=== PATIENT | male | born 1965 | race Caucasian/White ===

== ENCOUNTER 2024-03-01 16:07 | Outpatient (OUT) | payer BC, SELFPAY ==
--- NOTE | 2024-03-01 17:54 | US_ITS ---
The [address] [address] Patient Name: BRIDGER FOX MRN: [id number] date: 1965 Sex: M Assigned Patient Location: Current Patient Location: US Accession/Order Number: [id number] Exam Date: 03/01/2024 17:54 Report Date: 03/01/2024 18:57 At the request of: SHAIKH JAMES Procedure: US scrotum EXAM: ULTRASOUND TESTICULAR HISTORY: 58-year-old male testicular pain in both testicles. TECHNIQUE: Multiple sonographic images are taken of the testicles using both grayscale, color doppler and spectral doppler analysis. COMPARISON: None. FINDINGS: RIGHT TESTIS: The right testicle measures 2.9 x 1.4 x 1.9 cm. Testicular parenchyma is within normal limits. Blood flow to the right testis is within normal. Arterial and venous blood flow is demonstrated. There is small varicocele. There is no significant hydrocele. RIGHT EPIDIDYMIS: The right epididymis 6.2 mm. The right epididymis there is an anechoic area measures 4.0 x 3.9 x 3.8 mm. Blood flow to the epididymis is within normal limits. LEFT TESTIS: The left testis measures 2.4 x 1.7 x 2.1 cm. Parenchyma contains an anechoic area within the testicle that measures 2.8 x 2.1 x 2.7 mm. A second anechoic area is seen measuring 3.8 x 3.2 x 3.0 mm. Blood flow is within normal. Arterial and venous blood flow is demonstrated. There is no significant varicocele. There is no significant hydrocele. Lateral to the testicle, there is an anechoic area that appears to be somewhat cystic with septations measuring 1.1 x 1.0 x 1.1 cm. LEFT EPIDIDYMIS: The left epididymis measures 11 mm. Anechoic area seen within the left epididymis measuring 4.6 x 4.2 x 4.8 mm. Scrotal wall is mildly thickened measuring 6.9 mm US/US scrotum IMPRESSION: 1. Left-sided extratesticular complex mass seen lateral to the left testicle. Urology consultation is recommended. 2. Bilateral epididymal cysts versus spermatocele. 3. Bilateral varicoceles. 4. Left-sided intratesticular cysts. Urology consultation is recommended. 5. Scrotal wall thickening. Please correlate for cellulitis. Electronically authenticated by: ABHIJEET PEDROZA Date: 03/01/2024 18:57
== END 2024-03-01 16:08 | disposition home or self-care (01) ==
PROVIDERS: PCP Family Medicine; Visit Provider Internal Medicine
DX: N50.811 Right testicular pain (principal); N50.812 Left testicular pain; N50.89 Other specified disorders of the male genital organs; N50.3 Cyst of epididymis; I86.1 Scrotal varices
CPT/HCPCS: 76870

== ENCOUNTER 2024-04-15 14:46 | Outpatient (OUT) | payer BC, SELFPAY ==
--- NOTE | 2024-04-15 | US_ITS ---
The [address] [address] Patient Name: BRIDGER FOX MRN: [id number] date: 1965 Sex: M Assigned Patient Location: US Current Patient Location: US Accession/Order Number: [id number] Exam Date: 04/15/2024 14:50 Report Date: 04/15/2024 16:04 At the request of: JAMES ROCHA Procedure: US scrotum EXAMINATION: US scrotum HISTORY: TESTICULAR LESION, EPIDIDYMAL CYST, VARICOCELE, PROSTATITIS COMPARISON: 03/01/2024 TECHNIQUE: High-resolution sonographic imaging of the scrotum and contents was performed. FINDINGS: The right testicle measures 3.1 x 1.5 x 2.3 cm. Heterogeneous echotexture with no intratesticular mass. Normal color Doppler flow. Identified adjacent to the testicle is a stable The right epididymis is normal in size. 4 mm area of anechoic echogenicity, cyst. Moderate right varicocele. No right hydrocele. The left testicle measures 2.8 x 1.4 x 2.0 cm. Heterogeneous echotexture. Area of anechoic echogenicity measuring 0.7 x 0.5 to 0.4 cm with septations, a septated cyst is favored, stable. The left epididymis is normal in size. 4 mm area of anechoic echogenicity Moderate left varicocele. No left hydrocele Asymmetric thickening of the right hemiscrotum with hypervascularity US/US scrotum IMPRESSION: Bilateral varicoceles Asymmetric thickening of the right hemiscrotum possibly representing extension of the varicocele Electronically authenticated by: AUSTIN HSU Date: 04/15/2024 16:04
== END 2024-04-15 14:47 | disposition home or self-care (01) ==
LOC: US 14:46
PROVIDERS: PCP Family Medicine; Visit Provider Urology
DX: N50.9 Disorder of male genital organs, unspecified (principal); N50.3 Cyst of epididymis; I86.1 Scrotal varices; N41.1 Chronic prostatitis
CPT/HCPCS: 76870

== ENCOUNTER 2024-05-06 10:55 | Outpatient (OUT) | payer BC, SELFPAY ==
--- OUTSIDE RECORDS SUMMARY | 2024-05-06 11:11 | XMS_ITS | CCD ---
Author Organization [facility] Care Team Providers Care Cigarette Machine Filler Name Role Phone SHADI, DR AUSTIN Davis Consulting Unavailable SHADI, DR AUSTIN Davis Attending Unavailable SHADI, DR AUSTIN Davis Admitting Unavailable HUA GORDON Primary Care Physician [phone] Ramon Noeldra Unavailable Fátima Padilla Unavailable MD Hua Gordon Primary Care Provider [phone] RUMA Noel Attending Provider MD Jose Love Emergency Provider Anabela Johnson Unavailable YANET Johnson Attending Provider Paul Bennett Unavailable MD Hua Gordon Primary Care Provider [phone] RUMA Noel Attending Provider DO Bridger Dejesus Emergency Provider UnavaRUMA Garcia Attending Provider SHAIKH MCKEON Attending Unavailable PRETTY LANDRUM Attending Unavailable SHAIKH MCKEON Referring Unavailable SHAIKH MCKEON Attending Unavailable HUA GORDON Referring Unavailable HUA GORDON Primary Care Unavailable Bridger Dejesus Admitting Unavailable Bridger Dejesus Attending Unavailable Hua Gordon Primary Care Unavailable Sadie, Tondra K Admitting Unavailable Sadie, Tondra K Attending Unavailable Hua Gordon Primary Care Unavailable Siobhan Troy Admitting Unavailable Siobhan Troy Attending Unavailable NO FAMILY, PHYSICIAN Primary Care Unavailable Hua Gordon Primary Care Unavailable Bridger Dejesus Admitting Unavailable Bridger Dejesus Attending Unavailable Mendel LOJA Attending Unavailable Mendel LOJA Attending Unavailable Mendel LOJA Attending Unavailable OPAL COTTRELL Attending Unavailable Mendel LOJA Attending Unavailable Deric Shin. Attending Unavailable OPAL COTTRELL Attending Unavailable Mendel LOJA Admitting Unavailable Mendel LOJA Referring Unavailable Mendel LOJA Attending Unavailable Deric Shin Attending Unavailable Mendel LOJA Attending Unavailable Mendel LOJA Attending Unavailable Mendel LOJA Attending Unavailable Allergies Allergy Classification Reported Allergen(s) Allergy Type Date of Onset Reaction(s) Facility (20 sources) Insulin Glargine Drug Allergy chest pains [facility] [employer] Other (1 source) Insulin Glargine Drug Allergy 02-29-2024 [facility] Repository Medications Current Medications Medication Drug Class(es) Dates Sig (Normalized) Sig (Original) 0.5 ML tirzepatide 10 MG/ML Auto-Injector [Mounjaro] (11 sources) Start: 05-05-2023 Mounjaro 5 mg/0.5 mL subcutaneous solution Refills(s) 0 Start Date: 05/05/23 Status: Ordered Start: 03-26-2023 inject 5 mg by subcu taneous injection every week Mounjaro 5 MG/0.5ML 5mg Subcutaneous once weekly for 84 days pt has coupon Mar, Active inject 5 mg by subcu taneous injection every week Mounjaro 5 MG/0.5ML 5mg Subcutaneous once weekly for 84 days pt has coupon Active aspirin 81 mg chewable tablet (20 sources) Platelet Aggregation Inhibitor, Nonsteroidal Anti-inflammatory Drug Start: 02-19-2024 take 81 mg by mouth once daily Aspirin Active 81 MG PO Daily February 19, 2024 12:00am Start: 02-18-2022 take 1 mg by mouth e very four hours aspirin 81 mg oral capsule mg cap(s), Oral, q4hr, Refills(s) 0 Start Date: 02/18/22 Status: Ordered take 1 tablet by david th every twenty-four hours Aspirin 81 MG 1 tablet Orally Once a day Active atorvastatin 20 mg oral tablet (20 sources) HMG-CoA Reductase Inhibitor Start: 02-18-2022 take 1 mg by mouth once daily atorvastatin 20 mg Tab mg tab(s), Oral, Daily, Refills(s) 0 Start Date: 02/18/22 Status: Ordered blood-glucose sensor (FreeStyle Clem 3 Sensor) (2 sources) Start: 02-19-2024 blood-glucose sensor (FreeStyle Clem 3 Sensor) Active .Route February 19, 2024 12:00am cholecalciferol 0.05 mg oral tablet (13 sources) Vitamin D Start: 02-19-2024 take 2000 [IU] by mouth once daily Cholecalciferol (Vitamin D3) Active 2000 UNIT PO Daily February 19, 2024 12:00am take 1 tablet by davdi th every twenty-four hours Vitamin D 50 MCG (1999 UT) 1 tablet Orally Once a day Active Cinnamon Preparation (11 sources) Non-Standardized Food Allergenic Extract Cinnamon Active dexamethasone 6 mg oral tablet (5 sources) Corticosteroid Start: 03-09-2022 take 1 tablet by mouth every twenty-four hours Dexamethasone 6 MG 1 tablet Orally Once a day for 5 day(s) February, Active doxycycline hyclate 100 mg oral tablet (3 sources) Tetracycline-class Drug Start: 03-12-2024 End: 04-09-2024 take 1 tablet by mouth twice daily doxycycline hyclate 100 mg Tab 100 mg = 1 tab(s), Oral, BID, X 4 week(s), # 56 tab(s), Refills(s) 0, Pharmacy: [facility]/pharmacy #[id number], 167, cm, 03/12/24 10:31:00 EDT, Height/Length Dosing, 118, kg, 03/12/24 10:31:00 EDT, Weight Dosing Start Date: 03/12/24 Stop Date: 04/09/24 Status: Ordered Start: 04-29-2022 End: 05-20-2022 take 1 capsule by mouth twice daily doxycycline hyclate 100 mg Cap 100 mg = 1 cap(s), Oral, BID, X 21 day(s), # 42 cap(s), Refills(s) 0, Pharmacy: [facility]/pharmacy #[id number], 168, cm, 04/29/22 15:28:00 EDT, Height/Length Dosing, 119, kg, 04/29/22 15:28:00 EDT, Weight Dosing Start Date: 04/29/22 Stop Date: 05/20/22 Status: Ordered dutasteride 0.5 mg oral capsule (20 sources) 5-alpha Reductase Inhibitor Start: 02-27-2024 take 1 capsule by mouth once daily dutasteride 0.5 mg Cap 0.5 mg = 1 cap(s), Oral, Daily, # 30 cap(s), Refills(s) 11, Pharmacy: [facility]/pharmacy #[id number], 168, cm, 09/22/23 14:53:00 EST, Height/Length Dosing, 113.5, kg, 09/22/23 14:53:00 EST, Weight Dosing Start Date: 02/27/24 Status: Ordered Start: 11-04-2022 End: 12-12-2023 take 0.5 mg by mouth once daily Dutasteride Active 0.5 MG PO Daily February 09, 2023 12:00am empagliflozin 25 mg oral tablet (8 sources) Sodium-Glucose Cotransporter 2 Inhibitor Start: 11-05-2021 take 1 tablet by mouth every twenty-four hours Jardiance 25 MG 1 tablet Orally Once a day for 90 day(s) pt has coupon card Oct, Active FreeStyle Clem 3 Sensor - (19 sources) Start: 10-28-2022 FreeStyle Clem 3 Sensor - as directed SQ changed every 14 days for 28 days Oct, Active FreeStyle Clem 3 Sensor - as directed SQ changed every 14 days for 28 days Active NovoLog (20 sources) Insulin Analog Start: 02-18-2022 NovoLog SubCut aneous, TIDAC, Refills(s) 0 Start Date: 02/18/22 Status: Ordered NovoLOG FlexPen 100 UNIT/ML 10-15-20-25 UNITS MEAL SIZE . Corrective scale 1:15 ac tid SQ tid qac Expect up to 75 units/day Active NovoLOG FlexPen 100 UNIT/ML [id number] MEAL SIZE 1:15 SCALE UP TO 75 UNITS TOTAL A DAY SQ tid qac Active 1.5 ml insulin glargine 300 unt/ml pen injector (20 sources) Insulin Analog Start: 02-19-2024 Insulin Glargi ne U-300 Conc (Toujeo Solostar U-300 Insulin) 300 unit/mL (1.5 mL) insulin pen Active 50 UNIT SUBCUT .COMPLEX May 2nd, 2024 3:02pm 50 units subcutaneously ; Start: 2023 Toujeo Max Laura oStar 300 UNIT/ML 50 units Subcutaneous qam Oct, Active Start: 07-15-2023 Toujeo SoloSta r 300 UNIT/ML 50 units Subcutaneous In the AM for 90 days Jun, Active Start: 02-09-2023 End: 02-19-2024 Insulin Glargine U-300 Conc (Toujeo Solostar U-300 Insulin) 300 unit/mL (1.5 mL) insulin pen Discontinued UNIT SUBCUT February 09, 2023 12:00am February 19, 2024 3:06pm Start: 03-25-2022 Toujeo SoloSta r 300 UNIT/ML 45 units (expect up to 60/day) Subcutaneous qam for 90 days Mar, Active Start: 02-18-2022 Toujeo Max Laura oStar 300 units/mL subcutaneous solution SubCutaneous, Daily, Refills(s) 0 Start Date: 02/18/22 Status: Ordered Insulin Lispro (Humalog Kwikpen Insulin) 100 unit/mL insulin pen (2 sources) Start: 12-26-2023 Insulin Lispro (Humalog Kwikpen Insulin) 100 unit/mL insulin pen Active 0 SUBCUT Use as Directed December 26, 2023 1:00am 10-15-20-25 UNITS MEAL SIZE . Corrective scale 1:15 ac tid, SQ, tid qac, Notes: Expect up to 75 units/day subcutaneously use as directed; lidocaine 0.05 mg/mg medicated patch (3 sources) Antiarrhythmic, Amide Local Anesthetic Start: 02-11-2023 mounjaro 5 mg/0.5ml solution pen-injector (1 source) Mounjaro 5 MG/0. 5ML INJECT 5MG SUBCUTANEOUS ONCE WEEKLY 84 DAYS for 84 Active mounjaro 7.5 mg/0.5ml solution pen-injector (1 source) Start: 2023 inject 7.5 mg by subcutaneous injection every week Mounjaro 7.5 MG/0.5ML 7.5mg Subcutaneous once weekly Oct, Active Multivitamin (One Daily Multivitamin) tablet (2 sources) Start: 02-19-2024 take 1 tablet by mouth once daily Multivitamin (One Daily Multivitamin) tablet Active 1 TAB PO Daily February 19, 2024 12:00am Multivitamin preparation (20 sources) take 1 tablet by mouth once daily take 1 tablet by mouth once pamela y Multivitamin - 1 tablet Orally Once a day Active naproxen 500 mg oral tablet (1 source) Nonsteroidal Anti-inflammatory Drug Start: 03-03-2024 End: 03-13-2024 take 1 tablet by mouth twice daily at mealtime naproxen 500 mg Tab 500 mg = 1 tab(s), Oral, BID, Take with food, X 10 day(s), # 20 tab(s), Refills(s) 0, Pharmacy: [facility]/pharmacy #[id number], 167, cm, 03/03/24 14:33:00 EDT, Height/Length Dosing, 118, kg, 03/03/24 14:33:00 EDT, Weight Dosing Start Date: 03/03/24 Stop Date: 03/13/24 Status: Ordered Omeprazole (3 sources) Proton Pump Inhibitor Omeprazole Activ e OneTouch Verio 100 (20 sources) Start: 12-23-2014 Start: 12-23-2014 OneTouch Verio 100 Use with once touch Verio testing device SQ qid for 90 days Dec, Active pantoprazole 40 mg delayed release oral tablet (20 sources) Proton Pump Inhibitor Start: 02-19-2024 take 40 mg by mouth twice daily Pantoprazole Active 40 MG PO Twice daily February 19, 2024 3:13pm Start: 02-19-2024 End: 02-19-2024 take 40 mg by mouth three times daily Pantoprazole Discontinued 40 MG PO Three times daily February 19, 2024 12:00am February 19, 2024 3:13pm Start: 02-18-2022 End: 02-19-2024 take 1 mg by mouth once daily Pantoprazole [address] Ta b mg tab(s), Oral, Daily, Refills(s) 0 Start Date: 02/18/22 Status: Ordered take 1 tablet by david th every eight hours Pantoprazole Sodium 40 MG 1 tablet Orally tid Active pen needle, diabetic (BD Stefani 2nd Gen Pen Needle) (2 sources) Start: 02-19-2024 pen needle, diabetic (BD Stefani 2nd Gen Pen Needle) Active .Route February 19, 2024 12:00am predniSONE 10 mg oral tablet (3 sources) Start: 02-11-2023 Semaglutide (Rybelsus) 7 mg tablet (2 sources) Start: 02-19-2024 take 1 tablet by mouth once daily Semaglutide (Rybelsus) 7 mg tablet Active 7 MG PO Daily 90 90 February 19, 2024 12:00am tamsulosin hydrochloride 0.4 mg oral capsule (20 sources) alpha-Adrenergi c Jeevan Start: 05-08-2023 End: 05-02-2024 take 1 capsule by mouth twice daily tamsulosin 0.4 mg Cap 0.4 mg = 1 cap(s), Oral, BID, X 90 day(s), # 180 cap(s), Refills(s) 3, Pharmacy: [facility]/pharmacy #[id number], 168, cm, 05/05/23 15:03:00 EDT, Height/Length Dosing, 113.5, kg, 05/05/23 15:03:00 EDT, Weight Dosing Start Date: 05/08/23 Stop Date: 05/02/24 Status: Ordered Start: 02-18-2022 take 0.4 mg by mouth once pamela y Tamsulosin Active 0.4 MG PO Daily February 09, 2023 12:00am TOUJEO SOLOSTAR U-300 (20 sources) inject 50 [IU] by [place] bcutaneous injection once daily in the morning TOUJEO SOLOSTAR U-300 50 units SQ qam for 90 days Active inject 50 [IU] by [place] bcutaneous injection once daily in the morning TOUJEO SOLOSTAR U-300 50 units SQ qam Active inject 45 [IU] by [place] bcutaneous injection once daily in the morning TOUJEO SOLOSTAR U-300 45 units (expect up to 60/day) SQ qam Active inject 50 [IU] by [place] bcutaneous injection once daily in the morning TOUJEO SOLOSTAR U-300 50 units (expect up to 60/day) SQ qam Active Vitamin D (11 sources) Start: 11-04-2022 Vitamin D Inte rnational_Unit, Oral, qWeek, Refills(s) 0 Start Date: 11/04/22 Status: Ordered Vitamin D Active Completed/Discontinued Medications Medication Drug Class(es) Dates Sig (Normalized) Sig (Original) acetaminophen 325 mg / oxyCODONE hydrochloride 5 mg oral tablet (6 sources) Opioid Agonist Start: 02-09-2023 End: 02-19-2024 take 1 tablet by mouth every four to six hours Oxycodone-Acetamin ophen (Percocet) 5-325 mg tablet Discontinued 1 - 2 TAB PO EVERY 4-6 HOURS 08 03February 09, 2023 February 19, 2024 3:13pm cephalexin 500 mg oral capsule (4 sources) Cephalosporin Antibacterial Start: 11-14-2023 End: 02-19-2024 take 500 mg by mouth twice daily Cephalexin Discontinued 500 MG PO Twice daily 02 05November 14, 2023 1:00am February 19, 2024 3:02pm ciprofloxacin 500 mg oral tablet (3 sources) Quinolone Antimicrobial Start: 04-16-2024 take 1 tablet by mouth once daily Cipro 500 mg Tab 500 mg = 1 tab(s), Oral, Daily, Take 1 tablet the day before the procedure and 1 tablet after the procedure, # 2 tab(s), Refills(s) 0, Pharmacy: [facility]/pharmacy #[id number], 167, cm, 03/23/24 13:42:00 EDT, Height/Length Dosing, 118, kg, 03/23/24 13:42:00 EDT, Weight Dosing Start Date: 04/16/24 Status: Ordered Start: 03-03-2024 End: 03-13-2024 take 1 tablet by mouth every twelve hours Cipro 500 mg Tab 500 mg = 1 tab(s), Oral, q12hr, X 10 day(s), # 20 tab(s), Refills(s) 0, Pharmacy: [facility]/pharmacy #[id number], 167, cm, 03/03/24 14:33:00 EDT, Height/Length Dosing, 118, kg, 03/03/24 14:33:00 EDT, Weight Dosing Start Date: 03/03/24 Stop Date: 03/13/24 Status: Ordered cyclobenzaprine hydrochloride 5 mg oral tablet (7 sources) Muscle Relaxant Start: 11-18-2023 End: 02-19-2024 take 5 mg by mouth twice daily Cyclobenzaprine Discontinued 5 MG PO Twice daily 10 November 18, 2023 1:00am February 19, 2024 3:02pm Start: 02-11-2023 take 1 tablet by david th every twenty-four hours Cyclobenzaprine HCl 5 MG 1 tablet at bedtime as needed Orally Once a day for 30 day(s) Jan, Active ergocalciferol 1.25 mg oral capsule (12 sources) Provitamin D2 Compound take 1 capsule by mouth every week Ergocalciferol 86178 UNIT 1 capsule Orally weekly for 90 day(s) Not-Taking FreeStyle Clem 14 Day Sensor - (12 sources) Start: FreeStyle Clem 14 Day Sensor - as directed SQ Change every 14 days for 84 days February, Not-Taking FreeStyle Clem Sensor (12 sources) FreeStyle Clem Sensor use with clem reader SQ change q 14 days, check glucose ac, hs and prn Not-Taking Insulin Aspart U-100 (Novolog Flexpen U-100 Insulin) 100 unit/mL (3 mL) insulin pen (2 sources) Start: End: Insulin Aspart U-100 (Novolog Flexpen U-100 Insulin) 100 unit/mL (3 mL) insulin pen Discontinued 0 SUBCUT .COMPLEX February 19, 2024 12:00am February 19, 2024 3:12pm 1015-20-25 UNITS MEAL SIZE . Corrective scale 1:15 ac tid SQ tid qac; Expect up to 75 units/day; Insulin Glargine U-300 Conc (2 sources) Start: End: inject 50 [IU] by subcutaneous injection once daily in the morning Insulin Glargine U-300 Conc Discontinued 0 SUBCUT .COMPLEX February 19, 2024 12:00am February 19, 2024 3:05pm 50 units Subcutaneous qam; 3 ml liraglutide 6 mg/ml pen injector (20 sources) GLP-1 Receptor Agonist Start: End: Liraglutide (Victoza 3-Carlos) 0.6 mg/0.1 mL (18 mg/3 mL) pen injector Discontinued MG SUBCUT February 09, 2023 12:00am February 19, 2024 3:12pm Start: 02-18-2022 inject 1 mg by subcu taneous injection once daily Victoza mg, SubCutaneous, Daily, Refills(s) 0 Start Date: 02/18/22 Status: Ordered inject 1.8 mg by sub cutaneous injection once daily Victoza 18 MG/3ML INJECT 1.8MG UNDER SKIN EVERY DAY DIRECTED SQ daily for 30 days Active ondansetron 4 mg oral tablet (4 sources) Serotonin-3 Receptor Antagonist Start: 11-18-2023 End: 02-19-2024 take 4 mg by mouth once daily Ondansetron Hcl Discontinued 4 MG PO Daily 04 25November 18, 2023 1:00am February 19, 2024 3:12pm oxyCODONE hydrochloride 5 mg oral tablet (8 sources) Opioid Agonist Start: 11-14-2023 End: 02-19-2024 take 5 mg by mouth once daily Oxycodone Discontinued 5 MG PO Daily 04 25November 18, 2023 February 19, 2024 3:12pm Tirzepatide (2 sources) Start: 02-19-2024 End: 02-19-2024 inject 7.5 mg by subcutaneous injection every week Tirzepatide Discontinued 7.5 MG SUBCUT every week February 19, 2024 12:00am February 19, 2024 3:13pm Tirzepatide (2 sources) Start: 02-19-2024 End: 02-19-2024 inject 5 mg by subcutaneous injection every week Tirzepatide (Mounjaro) 5 mg/0.5 mL pen injector Discontinued 5 MG SUBCUT every week February 19, 2024 12:00am February 19, 2024 3:13pm INJECT 5MG SUBCUTANEOUS ONCE WEEKLY 84 DAYS; Problems Active Problems Problem Classification Problem Date Documented Date Episodic/Chronic Administrative/socia l admission (11 sources) Dietary counseling and surveillance; Translations: [Patient encounter status] Onset: 07-18-2021 Resolved: 11-05-2021 Episodic Diabetes mellitus with complications (20 sources) Disorder due to type 2 diabetes mellitus; Translations: [Type 2 diabetes mellitus with unspecified complications] Onset: 07-30-2021 Resolved: 03-25-2022 Chronic Diabetes mellitus without complication (20 sources) Type 2 diabetes mellitus; Translations: [Type 2 diabetes mellitus without complications] Onset: 07-18-2021 Resolved: 11-05-2021 02-18-2022 Chronic Diabetes mellitus without complication (5 sources) Glycosuria 03-03-2024 Episodic Disorders of lipid metabolism (20 sources) Dyslipidemia; Translations: [Hyperlipidemia] Onset: 07-18-2021 Resolved: 11-05-2021 02-18-2022 Chronic E Codes: Fall (4 sources) Fall; Translations: [Unspecified fall, initial encounter] 11-14-2023 Episodic Esophageal disorders (9 sources) Gastroesophageal reflux disease without esophagitis 02-18-2022 Chronic Genitourinary symptoms and ill-defined conditions (4 sources) Dysuria; Translations: [Dysuria] Onset: 02-29-2024 02-29-2024 Episodic Hyperplasia of prostate (20 sources) Benign prostatic hypertrophy without outflow obstruction; Translations: [Benign prostatic hyperplasia without lower urinary tract symptoms] Onset: 04-29-2022 Chronic Inflammatory conditions of male genital organs (7 sources) Chronic prostatitis; Translations: [Chronic prostatitis] Onset: 03-03-2024 Chronic Inflammatory conditions of male genital organs (5 sources) Prostatitis; Translations: [Inflammatory disease of prostate, unspecified] Onset: 04-29-2022 Episodic Nutritional deficiencies (20 sources) Vitamin D deficiency; Translations: [Vitamin D deficiency, unspecified] Onset: 07-18-2021 Resolved: 11-05-2021 Chronic Osteoarthritis (4 sources) Osteoarthritis of hip; Translations: [Osteoarthritis of hip, unspecified] 2023 Chronic Other aftercare (20 sources) Long-term current use of insulin; Translations: [residential (current) use of insulin] Episodic Other aftercare (8 sources) residential (current) use of insulin; Translations: [Insulin long-term use Z79.4] Onset: 07-18-2021 Resolved: 11-05-2021 Episodic Other diseases of veins and lymphatics (13 sources) Varicocele; Translations: [Scrotal varices] Onset: 04-29-2022 Episodic Other male genital disorders (9 sources) Impotence 02-18-2022 Chronic Other male genital disorders (13 sources) Cyst of epididymis; Translations: [Cyst of epididymis] Onset: 04-29-2022 Episodic Other male genital disorders (12 sources) Pain in testicle; Translations: [Testicular pain, unspecified] Onset: 04-29-2022 Episodic Other male genital disorders (2 sources) Disorder of male genital organ; Translations: [Disorder of male genital organs, unspecified] Onset: 03-03-2024 Episodic Other male genital disorders (5 sources) Lesion of testis 03-03-2024 Episodic Other nervous system disorders (12 sources) Chronic pain; Translations: [Other chronic pain] Chronic Other nervous system disorders (2 sources) Other chronic pain Chronic Other nutritional; endocrine; and metabolic disorders (20 sources) Obese class II; Translations: [Body mass index (BMI) 38.0-38.9, adult] Chronic Other nutritional; endocrine; and metabolic disorders (20 sources) Obesity; Translations: [Obesity, unspecified] Chronic Other nutritional; endocrine; and metabolic disorders (20 sources) Body mass index 40+ - severely obese; Translations: [Body mass index (BMI) 40.0-44.9, adult] 02-19-2024 Chronic Other nutritional; endocrine; and metabolic disorders (10 sources) Body mass index (BMI) 40.0-44.9, adult; Translations: [Body Mass Index 40.0-44.9, adult] Onset: 07-18-2021 Resolved: 11-05-2021 Chronic Other upper respiratory disease (20 sources) Sinusitis; Translations: [Allergic rhinitis, unspecified] Chronic Other upper respiratory disease (1 source) Allergic rhinitis, unspecified Onset: 03-09-2022 Resolved: 03-09-2022 Chronic Residual codes; unclassified (3 sources) Family history of cancer; Translations: [Family history of malignant neoplasm of prostate] Onset: 04-29-2022 Episodic Residual codes; unclassified (8 sources) Family history of prostate cancer 04-29-2022 Episodic Screening and history of mental health and substance abuse codes (1 source) Encounter for screening for depression Episodic Spondylosis; intervertebral disc disorders; other back problems (20 sources) Degeneration of lumbar intervertebral disc; Translations: [Inflammation of sacroiliac joint] 02-18-2022 Chronic Unclassified (5 sources) Patient encounter status 03-03-2024 Unclassified (1 source) Low back pain, unspecified; Translations: [Low back pain, unspecified] Onset: 11-14-2023 Unclassified (4 sources) Finding of sensation of bladder 03-12-2024 Urinary tract infections (10 sources) Urinary tract infectious disease; Translations: [Urinary tract infection, site not specified] Onset: 03-03-2024 11-14-2023 Episodic Varicose veins of lower extremity (13 sources) Varicose veins of bilateral lower extremities with pain; Translations: [Varicose veins of lower extremity] Onset: 06-15-2021 Episodic Past or Other Problems Problem Classification Problem Date Documented Da te Episodic/Chronic Immunizations and screening for infectious disease (1 source) Encounter for immunization; Translations: [Encounter for immunization Z23] Onset: 07-18-2021 Resolved: 07-18-2021 Episodic Spondylosis; intervertebral disc disorders; other back problems (17 sources) Acute low back pain; Translations: [Acute low back pain] Onset: 11-14-2023 02-09-2023 Episodic Results Test Name Value Interpretation Reference Range Facil ity Main OR Intraoperative Recor don 04-20-2024 Main OR Intraoperative Record Main OR Intraoperative Record IntraOp Document Type FTURO Summary Primary Physician: Mendel LOJA MD Finalized Date/Time: 04/20/24 10:06:33 Pt. Name: BRIDGER FOX/Sex: 1965 Male Med Rec #: [id number] Physician: Mendel LOJA MD Financial #: [id number] Pt. Type: O Room/Bed: / Admit/Disch: 04/20/24 07:46:28 - Institution: Case Times FTURO Entry 1 Patient Times In Room 04/20/24 09:51:00 Out Room 04/20/24 10:06:00 Procedure Times Start 04/20/24 09:55:00 Stop 04/20/24 10:00:00 Anesthesia Times Last Modified By: Ese Jaimes 04/20/24 10:06:28 Case Attendance FTURO Entry 1 Entry 2 Entry 3 Case Attendee Mendel LOJA MD, Kelsie E Troike, Kendall R Role Performed Surgeon - Primary Associate Professor Of Geography - Primary Scrub - Primary Time In 04/20/24 09:51:00 04/20/24 09:51:00 04/20/24 09:51:00 Time Out 04/20/24 10:06:00 04/20/24 10:06:00 04/20/24 10:06:00 Procedure CYSTOSCOPY LOCAL(.) CYSTOSCOPY LOCAL(.) CYSTOSCOPY LOCAL(.) Comments Last Modified By: Ese Jaimes Kelsie E Burgderfer, Kelsie E 04/20/24 10:06:28 04/20/24 10:06:28 04/20/24 10:06:28 Surgical Procedures FTURO Entry 1 Procedure Description Procedure CYSTOSCOPY LOCAL Modifiers . Surgeon Description CYSTO LOCAL Primary Procedure Yes Primary Surgeon Mendel LOJA MD Start 04/20/24 09:55:00 Stop 04/20/24 10:00:00 Anesthesia Type Local Surgical Service Urology Wound Class 2 - Clean-Contaminated Last Modified By: Ese Jaimes 04/20/24 10:04:34 General Case Data FTURO Pre-Care Text: Classifies surgical wound, implements aseptic technique, initiates traffic control Entry 1 Case Information OR URO 1 FT Case Level None Wound Class 2 - Clean-Contaminated Specialty Urology Preop Diagnosis BPH WITH OBSTRUCTION, Postop Same As Preop Yes FEELING OF INCOMPLETE EMPTYING Postop Diagnosis BPH WITH OBSTRUCTION, Outcomes Met? Yes FEELING OF INCOMPLETE EMPTYING Last Modified By: Ese Jaimes 04/20/24 09:46:38 Post-Care Text: The patient is free from signs and symptoms of infection EU IntraOp - FTURO Pre-Care Text: Implements protective measures prior to operative or invasive procedure, confirms identity before the operative or invasive procedure, verifies operative procedure, surgical site, and laterality Entry 1 EU Perioperative Protocols Procedure(s) CYSTOSCOPY LOCAL(.) Patient Identity Birthday, ID Band Verified (select at Check, Patient least 2): Participation Consents / H and P HandP, Surgery/Procedure Operative Site N/A Verified Consent Marking Verified Surgical Site Yes Laterality Verified n/a Verified Procedure Verified Yes Correct Patient Yes Position Verified Availability Equipment, Medication Time Out Mendel LOJA MD, Verified (If Participants Ese Jaimes, Applicable) Abel Hernández Time Out Complete 04/20/24 09:53:00 Allergies Reviewed? Yes Allergies Reviewed Self/Patient With Body Position Supine Prep Area PENIS Prep Agents Betadine Solution Skin. Condition Unable to Visualize Description N/A Additional None Specimens Comment N/A Specimens Collected Vitals - EU Blood Pressure 147/71 Pulse 71 bpm Respirations 14 br/min SPO2 98 % EBL 0 IandO - EU Total Intake 0 mL Total Output 0 mL Outcomes Met? Yes Last Modified By: Ese Jaimes 04/20/24 09:53:53 Post-Care Text: The patient is free from signs and symptoms of injury caused by extraneous objects Sign Out FTURO Entry 1 Before Patient Leaves OR Nurse verbally Yes Nurse verbally n/a confirms with the confirms with the team the name of team that the procedure(s) instrument, sponge, recorded and needle counts are correct (or N/A) Nurse verbally n/a Nurse verbally Yes confirms with the confirms with the team how the team whether there specimen is labeled are any equipment (including patient problems to be name), if applicable addressed Sign Out Complete 04/20/24 10:00:00 Last Modified By: Ese Jaimes 04/20/24 10:00:16 Case Comments Finalized By: Ese Jaimes Document Signatures Signed By: Ese Jaimes 04/20/24 10:06 Ese Jaimes 04/20/24 10:06 [facility] Main OR Preoperative Recordo n 04-20-2024 Main OR Preoperative Record Main OR Preoperative Record Holding Area Document Type FTURO Summary Primary Physician: Mendel LOJA MD Finalized Date/Time: 04/20/24 09:13:09 Pt. Name: BRIDGER FOX Shane/Sex: 1965 Male Med Rec #: [id number] Physician: Mendel LOJA MD Financial #: [id number] Pt. Type: O Room/Bed: / Admit/Disch: 04/20/24 07:46:28 - Institution: Case Times Holding FTURO Pre-Care Text: Verifies consent for planned procedure, identifies individual values and wishes concerning care, includes family members in perioperative teaching Secures patient's records' belongings, and valuables, maintains patient's dignity and privacy, and maintains patient confidentiality Entry 1 In Holding 04/20/24 09:01:00 Outcomes Met? Yes Last Modified By: Julio Cesar RN, Katy ADKINS 04/20/24 09:01:56 Post-Care Text: The patient participates in decisions affecting his or her perioperative plan of care The patient's right to privacy is maintained Surgery Checklist FTURO Entry 1 Patient Birthday, ID Band Procedure History and Physical, Identification: Check, Patient Verification: Surgical Consent, With Participation Patient NPO after Midnight: n/a Date/Time: 04/20/24 09:02:00 Personal Items: Glasses Complaints of Pain: No Skin Integrity Unable to Visualize Vitals - EU Blood Pressure 147/71 Pulse 71 bpm Respirations 14 br/min SPO2 Additional None RN Reviewed Yes Specimens Collected Last Modified By: JED Harrell RN, Ruthann 04/20/24 09:13:07 Finalized By: JED Harrell RN, Ruthann Document Signatures Signed By: JED Harrell RN, Ruthann 04/20/24 09:13 Normal [facility] Operative Reporton Operative Report Operative Report Patient: BRIDGER FOX Age: 58 years Sex: Male : 1965 Associated Diagnoses: None Author: Mendel LOJA MD Procedure Operative Information Details: Date/ Time: 04/20/2024 10:09:00. Pre-Op Dx: BPH w/ LUTS - N40.1, Incomplete Bladder Emptying - R39.14. Post-Op Dx: Same. Anesthesia Type: Local. Procedure: Local Cystoscopy. Complications: None. Risks/Benefits/Infor med Consent: Surgical risks, benefits, details of the procedure have been explained to the patient, Full informed consent has been obtained. Intraoperative Information Prepped: Patient is brought back to the endoscopy suite, Patient is placed in supine position, Patient prepped in the usual fashion with Betadine solution, 2% Xylocaine Jelly is placed per Urethra, After waiting several minutes the Cystoscope is introduced. The Urethra is: Normal. The Prostatic Urethra is: Obstructed, Median Lobe. The Bladder is: Trabeculated (Severe (3), Open and a few deep diverticuli diffusely. On the back wall there are 3 patches of red raised areas concerning for TCC of the bladder versus trauma from the urodynamics catheter.). The ureteral orifices: Show efflux of clear urine. Devices Implanted: None. Removal: Cystoscope is removed, The patient tolerated it well. Postoperative Information Discharge: Patient is discharged home with antibiotic coverage, Follow up arranged. We discussed doing a TURP and TURBT simultaneously. He will think about this. For now, we will get a pelvic CT scan to elucidate if he has a right inguinal hernia causing his pain versus a pronounced varicocele. He will call my nurse within a couple weeks to let her know what his decision is for management.. Normal [facility] Comment on above: Result Comment: Elec tronically Signed By: AJ JOHNSON, Mendel Gardner\Date and Time Signed: 04/20/24 10:11 EDT Insurance Correspondenceon 0 04-12-2024 Insurance Correspondence [id number]#1.00TIFF [facility] Formson 04-06-2024 Forms [id number]# 1.00TIFF [facility] ED Note-Physicianon 03-24-20 ED Note-Physician Basic Information Time Seen: Sina LEACH, Mayte Castillo 03/23/2024 13:51 Chief Complaint Urology office sent over for decreased urination. States unable to urinate in 4 hours. Has enlarged prostate. Recently dx with UTI- on abx, but believes not working. History of Present Illness Patient presents emergency department with chief complaint of urinary retention. Patient states he had realized today at work that he had been there for 4 hours and had not urinated. He spoke with the urology office. They suggested he come to the emergency department. Patient denies any fevers chills or sweats. No nausea no vomiting. No constipation or diarrhea. He does take tamsulosin 0.4 mg twice daily. He has been compliant with his medications. He denies any urinary burning, frequency, urgency. Review of Systems Constitutional: Denies weight loss, fevers, chills, sweats, malaise Eyes: Denies visual changes, eye pain, double vision, scotomas, floaters ENT: Denies runny nose, epistaxis, sinus pain, ear pain, ringing in ears, tooth ache, sore throat, pain with swallowing Cardiovascular: Denies chest pain, shortness of breath, orthopnea, edema, palpitations, loss of consciousness, claudication Respiratory: Denies cough, sputum production, wheezing, hemoptysis, shortness of breath, dyspnea on exertion Gastrointestinal: Denies abdominal pain, unintentional weight loss, difficulty swallowing, indigestion, bloating, cramping, loss of appetite, nausea, vomiting, diarrhea, constipation, hematochezia, melena Genitourinary: Denies any incontinence of urine, dysuria, hematuria, nocturia, polyuria, hesitancy, frequency, urgency, burning. + No urination x 4 hours Musculoskeletal: Denies joint pain, morning stiffness, joint swelling, decreased range of motion, crepitus Integumentary: Denies any pruritus, rashes, lesions, wounds, petechiae Neurologic: Denies any changes in sight, smell, hearing, taste, seizures, headache, paresthesia, numbness, weakness, balance disturbance Psychiatric denies any depression, change in sleep patterns, anxiety, difficulty concentrating, paranoia, anhedonia, lack of energy, cecilio Hematologic/lymphati c: Denies any purpura, petechiae, excessive bleeding, bruising Physical Exam Vitals & Measurements T: 36.8 ?C(Oral) HR: 75(Monitored) RR: 16 BP: 136/87 SpO2: 99% HT: 167 cm WT: 118 kg BMI: 42.31 Vital signs and nursing notes reviewed. General: Awake, alert, NAD. HEENT: Head is normocephalic, atraumatic. PERRL. EOMI. Sclerae are anicteric. External ears are normal. TMs are intact bilaterally. Canals are clear bilaterally. Nares are patent bilaterally. Oral mucosa is pink and moist. No lesions noted. Tongue protrudes in midline. Uvula rises with phonation. Neck is supple, no no palpable adenopathy. No JVD. Trachea is midline. Thorax: Symmetrical rise and fall Lungs: Clear to auscultation throughout all mast, no wheezes, no crackles Heart: Regular rate and rhythm. No murmur, gallop, or rub Abdomen: No tenderness on palpation. Bowel sounds are present active and normal. No organomegaly. No palpable masses. No CVA tenderness. Examination of genitalia send uncircumcised male. No penile discharge. The patient has mild tenderness on palpation to the left testicle, but states he always has this. There are no palpable masses. There is no induration or erythema of the scrotal sac. Extremities: Motor sensory pulses intact x4 extremities. No lower extremity edema. Skin: No lesions, rashes, ulcerations. No bruising or petechiae. Color appropriate, warm and dry Neuro: No oriented x3, no focal neuro deficits Psych: Mood and affect are normal Medical Decision Making MEDICAL DECISION MAKING Number and Complexity of Problems Differential Diagnosis: Acute urinary retention, acute lower urinary tract infection, SYDNEE MDM Data External documents reviewed: Not applicable My EKG interpretation: Noted in chart if applicable My CT interpretation: Noted in chart if applicable My X-ray interpretation: Noted in chart if applicable My Ultrasound interpretation: Not applicable Decision rules/scores evaluated: Noted in chart if applicable Discussed with: Not applicable Treatment and Disposition ED Course: Patient and his were interviewed. The patient was examined. Appropriate ER workup was initiated. Immediately after arrival to the emergency department, the patient was bladder scanned for 150. Immediately following that. The patient was able to void over 100 mL of urine. Later in the visit, the patient was able to void again without any difficulty. CBC, CMP and UA completely unremarkable. I discussed the results of the workup with the patient and his . I offered to do an ultrasound of the scrotum. They declined. They state they have follow-up with Dr. Loja in a repeat ultrasound already ordered through Dr. Loja and they prefer to keep that appointment. I discussed the discharge diagnosis, plan of care, home-going instructions with them. Mayra newton (more content not included)... Normal [facility] Comment on above: Result Comment: Elec tronically Signed By: Mayte Andino PA-C\.br\Date and Time Signed: 03/23/24 19:32 EDT\.br\Electronically Co-Signed By: Deric Shin DO.br\Date and Time Co-Signed: 03/24/24 06:55 EDT BMPon 03-23-2024 Anion gap [Moles/Vol] 9 mmol/L Normal 6-16 [facility] Comment on above: Performed By: #### 2 [id number] #### [facility] [address] [place] [address] Calcium [Mass/Vol] 9.3 mg/dL Normal 8.9-11.1 [facility] Comment on above: Performed By: #### 2 [id number] #### [facility] [address] [place] [address] Chloride [Moles/Vol] 104 mmol/L Normal 101-111 [facility] Comment on above: Performed By: #### 2 [id number] #### [facility] [address] [place] [address] CO2 [Moles/Vol] 29 mmol/L Normal 21-31 [facility] Comment on above: Performed By: #### 2 [id number] #### [facility] [address] [place] [address] Creatinine [Mass/Vol] 0.8 mg/dL Normal 0.5-1.3 [facility] Comment on above: Performed By: #### 2 [id number] #### [facility] [address] [place] [address] Glucose [Mass/Vol] 146 mg/dL Normal 55-199 [facility] Comment on above: Performed By: #### 2 [id number] #### [facility] [address] [place] [address] Potassium [Moles/Vol] 3.9 mmol/L Normal 3.5-5.3 [facility] Comment on above: Performed By: #### 2 [id number] #### [facility] [address] [place] [address] Sodium [Moles/Vol] 138 mmol/L Normal 135-145 [facility] Comment on above: Performed By: #### 2 [id number] #### [facility] [address] [place] [address] Urea nitrogen [Mass/Vol] 20 mg/dL Normal 5-21 [facility] Comment on above: Performed By: #### 2 [id number] #### [facility] [address] [place] [address] Urea nitrogen/Creatinine [Mass ratio] 25 No Units High 10-20 [facility] Comment on above: Performed By: #### 2 [id number] #### [facility] [address] [place] [address] CBC w/ Auto Diffon 4 Basophils/100 WBC (Bld) 0.9 % Normal 0.0-2.0 [facility] Comment on above: Performed By: #### 2 [id number] #### [facility] [address] [place] [address] Basophils/Leukocytes Auto (Bld) [Pure # fraction] 0.1 E9/L Normal 0.0-0.2 [facility] Comment on above: Performed By: #### 2 [id number] #### [facility] [address] [place] [address] Eosinophils (Bld) [#/Vol] 0.2 E9/L Normal 0.0-0.5 [facility] Comment on above: Performed By: #### 2 [id number] #### [facility] [address] [place] [address] Eosinophils/100 WBC (Bld) 2.2 % Normal 0.0-8.0 [facility] Comment on above: Performed By: #### 2 [id number] #### [facility] [address] [place] [address] Erythrocyte distribution width (RBC) [Ratio] 12.9 % Normal 10.9-14.2 [facility] Comment on above: Performed By: #### 2 [id number] #### [facility] [address] [place] [address] Hematocrit (Bld) [Volume fraction] 38.8 % Normal 37.7-49.0 [facility] Comment on above: Performed By: #### 2 [id number] #### [facility] [address] [place] [address] Hemoglobin (Bld) [Mass/Vol] 13.4 g/dL Low 13.5-17.5 [facility] Comment on above: Performed By: #### 2 [id number] #### [facility] [address] [place] [address] Lymphocytes (Bld) [#/Vol] 1.9 E9/L Normal 1.0-4.0 [facility] Comment on above: Performed By: #### 2 [id number] #### [facility] [address] [place] [address] Lymphocytes/100 WBC (Bld) 25.9 % Normal 14.0-50.0 [facility] Comment on above: Performed By: #### 2 [id number] #### [facility] [address] [place] [address] MCH (RBC) [Entitic mass] 32.1 pg Normal 27.0-34.0 [facility] Comment on above: Performed By: #### 2 [id number] #### [facility] [address] [place] [address] MCHC (RBC) [Mass/Vol] 34.6 g/dL Normal 31.4-36.0 [facility] Comment on above: Performed By: #### 2 [id number] #### [facility] [address] [place] [address] MCV (RBC) [Entitic vol] 92.9 fL Normal 80.0-100.0 [facility] Comment on above: Performed By: #### 2 [id number] #### [facility] [address] [place] [address] Monocytes (Bld) [#/Vol] 0.6 E9/L Normal 0.2-1.0 [facility] Comment on above: Performed By: #### 2 [id number] #### [facility] [address] [place] [address] Neutrophils (Bld) [#/Vol] 4.5 E9/L Normal 2.0-7.5 [facility] Comment on above: Performed By: #### 2 [id number] #### [facility] [address] [place] [address] Neutrophils/100 WBC (Bld) 62.5 % Normal 36.0-75.0 [facility] Comment on above: Performed By: #### 2 [id number] #### [facility] [address] [place] [address] Platelet mean volume (Bld) [Entitic vol] 8.7 fL Normal 6.4-10.8 [facility] Comment on above: Performed By: #### 2 [id number] #### [facility] [address] [place] [address] Platelets (Bld) [#/Vol] 155.0 E9/L Normal 150.0-500.0 [facility] Comment on above: Performed By: #### 2 [id number] #### [facility] [address] [place] [address] RBC (Bld) [#/Vol] 4.2 E12/L Low 4.3-5.9 [facility] Comment on above: Performed By: #### 2 [id number] #### [facility] [address] [place] [address] WBC corrected for nucl RBC Auto (Bld) [#/Vol] 7.2 E9/L Normal 4.0-11.0 [facility] Comment on above: Performed By: #### 2 [id number] #### [facility] [address] [place] [address] CHEMISTRYOrdered By: SYSTEM SYSTEM on 03-23-2024 Albumin [Mass/Vol] 3.9 g/dL Normal 3.3 - 5.0 gm/dL R emisol Chem Albumin/Globulin [Mass ratio] 1.6 {ratio} Normal 1.1 - 2.2 Remisol Chem ALP [Catalytic activity/Vol] 49 [iU]/d Normal 21 - 98 Int._Unit/L Remisol Chem ALT No additional P-5'-P [Catalytic activity/Vol] 22 [iU]/d Normal 6 - 46 Int._Unit/L Remisol Chem Anion gap [Moles/Vol] 9 mmol/L Normal 6 - 16 mEq/L R emisol Chem AST [Catalytic activity/Vol] 21 [iU]/d Normal 5 - 43 Int._Unit/L Remisol Chem Bilirubin [Mass/Vol] 0.7 mg/dL Normal 0.0 - 1.1 mg/dL Remisol Chem Bilirubin.direct [Mass/Vol] 0.1 mg/dL Normal 0.0 - 0.4 mg/dL Remisol Chem Bilirubin.indirect [Mass or moles/Vol] 0.6 mg/dL Normal 0.1 - 0.9 mg/dL Remisol Chem Calcium [Mass/Vol] 9.3 mg/dL Normal 8.9 - 11. 1 mg/dL Remisol Chem Chloride [Moles/Vol] 104 mmol/L Normal 101 - 1 11 mmol/L Remisol Chem CO2 [Moles/Vol] 29 mmol/L Normal 21 - 31 mmol/L Remis ol Chem Creatinine [Mass/Vol] 0.8 mg/dL Normal 0.5 - 1.3 mg/d L Remisol Chem eGFR 102 mL/min/1.73 m2 Normal >=59mL/mi n/1.73 m2 Remisol Chem Globulin (S) [Mass/Vol] 2.4 g/dL Normal 1.4 - 4.0 gm/dL Remisol Chem Glucose [Mass/Vol] 146 mg/dL Normal 55 - 199 mg/dL Re misol Chem Lactic Acid Lvl 1.0 mmol/L Normal 0.5 - 2.2 mmol/L Remisol Chem Potassium [Moles/Vol] 3.9 mmol/L Normal 3.5 - 5.3 mmol/L Remisol Chem Protein [Mass/Vol] 6.3 g/dL Normal 6.0 - 7.8 gm/dL R emisol Chem Sodium [Moles/Vol] 138 mmol/L Normal 135 - 145 mmol/L Remisol Chem Urea nitrogen [Mass/Vol] 20 mg/dL Normal 5 - 21 mg/dL Remisol Chem Urea nitrogen/Creatinine [Mass ratio] 25 mg/mg High 10 - 20 Remisol Chem Consent for Treatmenton Consent for Treatment [id number] #1.00TIFF Normal [facility] Discharge Instructionson Discharge Instructions [id number] 2#1.00TIFF Normal [facility] ED Clinical Summaryon 2023 ED Clinical Summary [place] [id number] ED Clinical Summary Person Information [facility]: [facility] Age: 58 Years : 1965 Sex: Male Language: Swedish PCP: HUA GORDON MD Marital Status: Visit Id: Visit Reason: Medical problem - minor; Urinary retention; PROSTATE PROBLEMS / PAIN Speciality: Acuity: 3 Enc Type: Emergency Med Service: Emergency Arrival: 03/23/2024 13:35:00 Discharge: 03/23/2024 16:18:16 LOS: 000 02:43 Checkin: 03/23/2024 13:35:00 Checkout: 03/23/2024 16:18:16 Dispo Type: Home (Routine DC) EVENTS: Event Name Event Status Request Date/Time Start Date/Time Complete Date/Time Arrive Complete 03/23/2024 13:35:00 03/23/2024 13:35:00 03/23/2024 13:35:00 Document Home Meds Request 03/23/2024 13:35:00 Triage Complete 03/23/2024 13:35:00 03/23/2024 13:42:14 03/23/2024 13:42:14 Bed Assign Complete 03/23/2024 13:38:13 03/23/2024 13:38:13 03/23/2024 13:38:13 Dr Exam Complete 03/23/2024 13:38:13 03/23/2024 13:51:38 03/23/2024 13:51:38 RN Exam Complete 03/23/2024 13:38:13 03/23/2024 13:50:47 03/23/2024 13:50:47 Pending Labs Complete 03/23/2024 13:49:38 03/23/2024 14:46:35 Patient Care Complete 03/23/2024 13:49:38 03/23/2024 13:51:24 Registration Complete 03/23/2024 13:51:38 03/23/2024 13:59:43 03/23/2024 13:59:43 Dr Exam Complete 03/23/2024 13:58:07 03/23/2024 13:58:07 03/23/2024 13:58:07 Reg Complete Request 03/23/2024 13:59:43 Reg Bed Request Complete 03/23/2024 13:59:43 03/23/2024 13:59:43 03/23/2024 13:59:43 Meds Admin Complete 03/23/2024 14:44:55 03/23/2024 15:11:13 Pending Labs Complete 03/23/2024 14:44:55 03/23/2024 15:32:33 Lab Complete 03/23/2024 14:44:55 03/23/2024 15:32:33 Patient Care Request 03/23/2024 14:44:55 US Cancel 03/23/2024 14:44:55 03/23/2024 15:06:30 03/23/2024 16:02:19 Pending Labs Complete 03/23/2024 15:12:08 03/23/2024 15:12:08 03/23/2024 15:32:27 Lab Complete 03/23/2024 15:12:08 03/23/2024 15:12:08 03/23/2024 15:32:27 Pending Labs Complete 03/23/2024 15:53:59 03/23/2024 15:53:59 03/23/2024 15:54:00 Discharge Complete 03/23/2024 15:56:18 03/23/2024 16:18:20 03/23/2024 16:18:20 Transfer Complete 03/23/2024 16:18:20 03/23/2024 16:18:20 03/23/2024 16:18:20 ADDRESS: [address] [place] [address] [address] [place] [id number] PHYS DOC NOTES: MEDICAL INFORMATION: Prescriptions Given: Medications to Continue with No Changes Other Medications aspirin (aspirin 81 mg oral capsule) By Mouth every 4 hours. atorvastatin (atorvastatin 20 mg Tab) By Mouth every day. doxycycline (doxycycline hyclate 100 mg Tab) 1 Tablets By Mouth 2 times a day for 4 Weeks. Refills: 0. dutasteride (dutasteride 0.5 mg Cap) 1 Capsules By Mouth every day. Refills: 11. ergocalciferol (Vitamin D) By Mouth every week. insulin glargine (Toujeo Max SoloStar 300 units/mL subcutaneous solution) Subcutaneous every day. pantoprazole (Pantoprazole [address] Tab) By Mouth every day. tamsulosin (tamsulosin 0.4 mg Cap) 1 Capsules By Mouth 2 times a day for 90 Days. Refills: 3. PATIENT EDUCATION INFORMATION: Instructions: Acute Urinary Retention, Male, [id number] Follow up: With: Address: When: Mendel LOJA [facility] [address] Business (1) In 3 days 03/26/2024 With: Address: When: HUA NGUYỄNKEL [address] [place] [id number] [employer] (1) In 3 days DIAGNOSIS: 1:Acute on chronic urinary retention Normal [facility] ED Patient Education Noteon 03-23-2024 ED Patient Education Note Urology Acute Urinary Retention, Male Acute urinary retention is when a person cannot pee (urinate) at all, or can only pee a little. This can come on all of a sudden. If it is not treated, it can lead to kidney problems or other serious problems. What are the causes? ? A problem with the tube that drains the bladder (urethra). ? Problems with the nerves in the bladder. ? Tumors. ? Certain medicines. ? An infection. ? Having trouble pooping (constipation). What increases the risk? Older men are more at risk because their prostate gland may become larger as they age. Other conditions also can increase risk. These include: ? Diseases, such as multiple sclerosis. ? Injury to the spinal cord. ? Diabetes. ? A condition that affects the way the brain works, such as dementia. ? Holding back urine due to trauma or because you do not want to use the bathroom. What are the signs or symptoms? ? Trouble peeing. ? Pain in the lower belly. How is this treated? Treatment for this condition may include: ? Medicines. ? Placing a thin, germ-free tube (catheter) into the bladder to drain pee out of the body. ? Therapy to treat mental health conditions. ? Treatment for conditions that may cause this. If needed, you may be treated in the hospital for kidney problems or to manage other problems. Follow these instructions at home: Medicines ? Take eyto-ope-idtvipu and prescription medicines only as told by your doctor. Ask your doctor what medicines you should stay away from. ? If you were given an antibiotic medicine, take it as told by your doctor. Do not stop taking it, even if you start to feel better. General instructions ? Do not smoke or use any products that contain nicotine or tobacco. If you need help quitting, ask your doctor. ? Drink enough fluid to keep your pee pale yellow. ? If you were sent home with a tube that drains the bladder, take care of it as told by your doctor. ? Watch for changes in your symptoms. Tell your doctor about them. ? If told, keep track of changes in your blood pressure at home. Tell your doctor about them. ? Keep all follow-up visits. Contact a doctor if: ? You have spasms in your bladder that you cannot stop. ? You leak pee when you have spasms. Get help right away if: ? You have chills or a fever. ? You have blood in your pee. ? You have a tube that drains pee from the bladder and these things happen: ? The tube stops draining pee. ? The tube falls out. Summary ? Acute urinary retention is when you cannot pee at all or you pee too little. ? If this condition is not treated, it can lead to kidney problems or other serious problems. ? If you were sent home with a tube (catheter) that drains the bladder, take care of it as told by your doctor. ? Watch for changes in your symptoms. Tell your doctor about them. This information is not intended to replace advice given to you by your health care provider. Make sure you discuss any questions you have with your health care provider. Document Revised: 06/27/2021 Document Reviewed: 06/27/2021 [employer] Patient Education ? 2022 [employer] Normal [facility] ED Patient Summaryon 024 ED Patient Summary [address] [address] Patient Discharge Instructions Person Information Name: BRIDGER FOX Age: 58 Years Arrival Date: 03/23/2024 13:35:00 Discharge Diagnosis: 1:Acute on chronic urinary retention Primary Care Physician: HUA GORDON MD Provider Information Primary Provider: Deric Shin DO Advanced Counter Caser:None The exam and treatment you received in the Emergency Department were for an urgent problem and are not intended as complete care. It is important that you follow up with a doctor, nurse practitioner, or physician?s metal forger's assistant for ongoing care. If your symptoms become worse or you do not improve as expected and you are unable to reach your usual health care provider, you should return to the Emergency Department. We are available 24 hours a day. BRIDGER FOX has been given the following list of patient education materials, prescriptions and follow-up instructions: Follow-up Instructions: With: Address: When: Mendel LOJA [address] [place] [id number] [employer] (1) In 3 days 03/26/2024 With: Address: When: HUA GORDON [address] [place], [place] [id number] [facility] (1) In 3 days In the event that this physician does not participate in your insurance network, please consult with your insurance company to find a nearby participating provider. Patient Education Materials: Acute Urinary Retention, Male, Ugbr-sz-Mecm A MESSAGE TO ALL PATIENTS REGARDING OPIOIDS PRESCRIPTION OPIOIDS: WHAT YOU NEED TO KNOW Prescription opioids can be used to help relieve ncmnzeru-ak-bjydtr pain and are often prescribed following a surgery or injury, or for certain health conditions. These medications can be an important part of the treatment but also come with serious risks. It is important to work with your healthcare provider to make sure you are getting the safest, most effective care. WHAT ARE THE RISKS AND SIDE EFFECTS OF OPIOID USE? Prescription opioids carry serious risks of addiction and overdose, especially with prolonged use. An opioid overdose, often marked by slowed breathing, can cause sudden . The use of prescription opioids can have a number of side effects as well, even when taken as directed: ? Tolerance?meaning you might need to take more of the medication for the same pain relief ? Physical dependence?meaning you have symptoms of withdrawal when a medication is stopped ? Increased sensitivity to pain ? Constipation ? Nausea, vomiting, and dry mouth ? Sleepiness and dizziness ? Confusion ? Depression ? Low levels of testosterone that can result in lower sex drive, energy, and strength ? Itching and sweating RISKS ARE GREATER WITH: ? History of drug misuse, substance use disorder, or overdose ? Mental health conditions (such as depression or anxiety) ? Sleep apnea ? Older age (65 years and older) ? Avoid alcohol while taking prescription opioids. Also, unless specifically advised by your health care provider, medications to avoid include: ? Benzodiazepines (such as Xanax or Valium) ? Muscle relaxants (such as Soma or Flexeril) ? Hypnotics (such as Ambien or Lunesta) ? Other prescription opioids KNOW YOUR OPTIONS Talk to your health care provider about ways to manage your pain that don?t involve prescription opioids. Some of these options may actually work better and have fewer risks and side effects. Options may include: ? Pain relievers such as acetaminophen, ibuprofen, and naproxen ? Some medication that are also used for depression or seizures ? Physical therapy and exercise ? Cognitive behavioral therapy, a psychological, goal-directed approach, in which patients learn how to modify physical, behavioral, and emotional triggers of pain and stress. IF YOU ARE PRESCRIBED OPIOIDS FOR PAIN: ? Never take opioids in greater amounts or more often than prescribed. ? Follow up with your primary health care provider. o Work together to create a plan on how to manage your pain. o Talk about ways to help manage your pain that don?t involve prescription opioids. o Talk about any and all concerns and side effects. ? Help prevent misuse and abuse o Never sell or share prescription opioids. o Never use another person?s prescription opioids. ? Store prescription opioids in a secure place and out of reach of others (this may include visitors, children, friends, and family). ? Safely dispose of unused prescription opioids: Find your community drug take-back program or your pharmacy mail-back program, or flush them down the toilet, following guidance from the Food and Drug Administration (www.fda.gov/Drugs/R esourcesForYou). ? Visit www.cdc.gov/drugover dose to learn about the risks of opioids abuse and overdose. ? If you believe you may be struggling with (more content not included)... Normal [facility] HEMATOLOGYOrdered By: Maria Samuels on 03-23-2024 Basophils/100 WBC (Bld) 0.9 % Normal 0.0 - 2.0 % Remisol Heme Basophils/Leukocytes Auto (Bld) [Pure # fraction] 0.1 E9/L Normal 0.0 - 0.2 E9/L Remisol Heme Eosinophils (Bld) [#/Vol] 0.2 E9/L Normal 0.0 - 0.5 E9/L Remisol Heme Eosinophils/100 WBC (Bld) 2.2 % Normal 0.0 - 8.0 % Remisol Heme Erythrocyte distribution width (RBC) [Ratio] 12.9 % Normal 10.9 - 14.2 % Remisol Heme Hematocrit (Bld) [Volume fraction] 38.8 % Normal 37.7 - 49.0 % Remisol Heme Hemoglobin (Bld) [Mass/Vol] 13.4 g/dL Low 13.5 - 17.5 gm/dL Remisol Heme Lymphocytes (Bld) [#/Vol] 1.9 E9/L Normal 1.0 - 4.0 E9/L Remisol Heme Lymphocytes/100 WBC (Bld) 25.9 % Normal 14.0 - 50.0 % Remisol Heme MCH (RBC) [Entitic mass] 32.1 pg Normal 27.0 - 34.0 pg Remisol Heme MCHC (RBC) [Mass/Vol] 34.6 g/dL Normal 31.4 - 36.0 gm/dL Remisol Heme MCV (RBC) [Entitic vol] 92.9 fL Normal 80.0 - 100.0 fL Remisol Heme Monocytes (Bld) [#/Vol] 0.6 E9/L Normal 0.2 - 1.0 E9/L Remisol Heme Monocytes/100 WBC (Bld) 8.5 % Normal 4.0 - 14.0 % Remisol Heme Neutrophils (Bld) [#/Vol] 4.5 E9/L Normal 2.0 - 7.5 E9/L Remisol Heme Neutrophils/100 WBC (Bld) 62.5 % Normal 36.0 - 75.0 % Remisol Heme Platelet mean volume (Bld) [Entitic vol] 8.7 fL Normal 6.4 - 10.8 fL Remisol Heme Platelets (Bld) [#/Vol] 155.0 E9/L Normal 150.0 - 500.0 E9/L Remisol Heme RBC (Bld) [#/Vol] 4.2 E12/L Low 4.3 - 5.9 E12/L Re misol Heme WBC corrected for nucl RBC Auto (Bld) [#/Vol] 7.2 E9/L Normal 4.0 - 11.0 E9/L Remisol H logan Hep Func Panelon 03-23-2024 Albumin [Mass/Vol] 3.9 g/dL Normal 3.3-5.0 [facility] Comment on above: Performed By: #### 2 [id number] #### [facility] Laboratory [address] [place] [address] Albumin/Globulin (S) [Mass conc ratio] 1.6 Normal 1.1-2.2 [facility] Comment on above: Performed By: #### 2 [id number] #### [facility] [address] [place] [address] ALP [Catalytic activity/Vol] 49 Int._Unit/L Normal 21-98 [facility] Comment on above: Performed By: #### 2 [id number] #### [facility] [address] [place] [address] ALT No additional P-5'-P [Catalytic activity/Vol] 22 Int._Unit/L Normal 6-46 [facility] Comment on above: Performed By: #### 2 [id number] #### [facility] [address] [place] [address] AST [Catalytic activity/Vol] 21 Int._Unit/L Normal 5-43 [facility] Comment on above: Performed By: #### 2 [id number] #### [facility] [address] [place] [address] Bilirubin [Mass/Vol] 0.7 mg/dL Normal 0.0-1.1 [facility] Comment on above: Performed By: #### 2 [id number] #### [facility] [address] [place] [address] Bilirubin.direct [Mass/Vol] 0.1 mg/dL Normal 0.0-0.4 [facility] Comment on above: Performed By: #### 2 [id number] #### [facility] [address] [place] [address] Bilirubin.indirect [Mass or moles/Vol] 0.6 mg/dL Normal 0.1-0.9 [facility] Comment on above: Performed By: #### 2 [id number] #### [facility] [address] [place] [address] Globulin (S) [Mass/Vol] 2.4 g/dL Normal 1.4-4.0 [facility] Comment on above: Performed By: #### 2 [id number] #### [facility] [address] [place] [address] Protein [Mass/Vol] 6.3 g/dL Normal 6.0-7.8 [facility] Comment on above: Performed By: #### 2 [id number] #### [facility] [address] [place] [address] Lactic Acidon 03-23-2024 Lactic Acid Lvl 1.0 mmol/L Normal 0.5-2.2 [facility] Comment on above: Performed By: #### 2 [id number] ####[facility] [address] [place] [address] Prescriptions/Work Noteson 0 03-23-2024 Prescriptions/Work Notes [id number] 4#1.00TIFF Normal [facility] Prescriptions/Work Notes [id number] 2#1.00TIFF Normal [facility] Prescriptions/Work Notes [id number] 1#1.00TIFF Normal [facility] UA with Cult Rflxon 03-23-20 24 Bilirubin Ql (U) Negative Normal Negative [facility] Comment on above: Performed By: #### 4 [id number] #### [facility] [address] [place] [address] Clarity (U) Clear Normal Clear [facility] Comment on above: Performed By: #### 4 [id number] #### [facility] [address] [place] [address] Color (U) Light-Yellow Normal Yellow [facility] Comment on above: Result Comment: Micr oscopic readings are only performed on those samples that meet specific criteria set forth by [facility]. Performed By: #### 4 [id number] #### [facility] [address] [place] [address] Glucose Ql (U) Negative Normal Negative [facility] Comment on above: Performed By: #### 4 [id number] #### [facility] [address] [place] [address] Hemoglobin Auto test strip (U) [Mass/Vol] Negative Normal Negative [facility] Comment on above: Performed By: #### 4 [id number] #### [facility] [address] [place] [address] Ketones Auto test strip Ql (U) Negative Normal Negative [facility] Comment on above: Performed By: #### 4 [id number] #### [facility] [address] [place] [address] Leukocyte esterase Auto test strip Ql (U) Negative Normal Negative [facility] Comment on above: Performed By: #### 4 [id number] #### [facility] [address] [place] [address] Nitrite Auto test strip Ql (U) Negative Normal Negative [facility] Comment on above: Performed By: #### 4 [id number] #### [facility] [address] [place] [address] pH (U) 5.0 [pH] Invalid Interpretation Code 5.0-9.0 [facility] Comment on above: Performed By: #### 4 [id number] #### [facility] [address] [place] [address] Protein Ql (U) Negative Normal Negative [facility] Comment on above: Performed By: #### 4 [id number] #### [facility] [address] [place] [address] Specific gravity (U) [Rel density] 1.028 Invalid Interpretation Code 1.005-1.030 [facility] Comment on above: Performed By: #### 4 [id number] #### [facility] [address] [place] [address] Urobilinogen (U) [Mass/Vol] Negative Normal Negative [facility] Comment on above: Performed By: #### 4 [id number] #### [facility] [address] [place] [address] Type of Urine collection method Clean Catch Normal [facility] Comment on above: Performed By: #### 4 [id number] #### [facility] [address] [place] [address] URINALYSISOrdered By: SYSTEM SYSTEM on 03-23-2024 Bilirubin Ql (U) Negative Normal Negativemg/dL [facility] UA Auto SS Clarity (U) Clear (03/23/24 2:23 PM) Normal Clear [facility] UA Auto SS Color (U) Light-Yellow 1 (03/23/24 2:23 PM) Normal Yellow [facility] UA Auto SS Comment on above: Interpretive Data: M icroscopic readings are only performed on those samples that meet specific criteria set forth by [facility]. Glucose Ql (U) Negative Normal Negativemg/dL [facility] UA Auto SS Hemoglobin Auto test strip (U) [Mass/Vol] Negative Normal Negativemg/dL [facility] UA Aut o SS Ketones Auto test strip Ql (U) Negative Normal Negativemg/dL [facility] UA Auto SS Leukocyte esterase Auto test strip Ql (U) Negative Normal NegativeLeu/uL [facility] UA A uto SS Nitrite Auto test strip Ql (U) Negative Normal Negativemg/dL [facility] UA Auto SS pH (U) 5.0 *NA* (03/23/24 2:23 PM) Invalid Interpretation Code 5.0 - 9.0 [facility] UA Auto SS Protein Ql (U) Negative Normal Negativemg/dL [facility] UA Auto SS Specific gravity (U) [Rel density] 1.028 *NA* (03/23/24 2:23 PM) Invalid Interpretation Code 1.005 - 1.030 [facility] UA Auto SS Urobilinogen (U) [Mass/Vol] Negative Normal Negativemg/dL [facility] UA Auto SS URINALYSISOrdered By: Deric Shin on 03-23-2024 UA Spec Desc Clean Catch (03/23/24 2:23 PM) Normal [facility] UA Auto SS eGFRon 03-23-2024 eGFR 102 mL/min/1.73 m2 Normal >=59 [facility] Comment on above: Order Comment: Order added by Discern Expert. Performed By: #### 1 [id number] #### [facility] Laboratory [address] [place] [address] Ambulatory Visit Summaryon 0 03-12-2024 Ambulatory Visit Summary BRIDGER FOX :1965 Visit Date:03/12/2024 Ambulatory Visit Instructions Your Diagnosis Prostatitis Testicular pain BPH with obstruction/lower urinary tract symptoms Testicular lesion Feeling of incomplete bladder emptying Epididymal cyst Varicocele Prostate nodule Tests Performed US Scrotum (Contents) -- Results Pending -- Please visit your patient portal for your results or contact your primary care physician. Your Care Team Attending Physician - Mendel LOJA MD Primary Care Physician - HUA GORDON MD This Is Your Medications List ciprofloxacin (Cipro 500 mg Tab) dutasteride (dutasteride 0.5 mg Cap) tamsulosin (tamsulosin 0.4 mg Cap) Contact prescribing physician if questions or concerns aspirin (aspirin 81 mg oral capsule) atorvastatin (atorvastatin 20 mg Tab) ergocalciferol (Vitamin D) insulin glargine (Toujeo Max SoloStar 300 units/mL subcutaneous solution) pantoprazole (Pantoprazole [address] Tab) Procedures Performed Transrectal needle biopsy of prostate (04/09/2022), Cholecystectomy, Fusion of lumbar spine, History of hernia repair, History of tonsillectomy. Discharge Vitals Heart Rate (Peripheral) 63 Respiratory Rate 16 Blood Pressure 135/82 Height 167 cm Height 66 in Weight 118 kg Weight 259.6 lb BMI 42.31 What to do next Scheduled Follow-Up Appointments Friday 2:45 PM EST With: Mendel LOJA MD Where: [facility] [place] Normal [facility] Ambulatory Visit Summary BRIDGER FOX :1965 MRN:[id number] Visit Date:03/12/2024 Ambulatory Visit Instructions Your Diagnosis Prostatitis Testicular pain BPH with obstruction/lower urinary tract symptoms Testicular lesion Feeling of incomplete bladder emptying Epididymal cyst Varicocele Prostate nodule Your Care Team Attending Physician - Mendel LOJA MD Primary Care Physician - HUA GORDON MD This Is Your Medications List Contact prescribing physician if questions or concerns aspirin (aspirin 81 mg oral capsule) atorvastatin (atorvastatin 20 mg Tab) ciprofloxacin (Cipro 500 mg Tab) dutasteride (dutasteride 0.5 mg Cap) ergocalciferol (Vitamin D) insulin glargine (Toujeo Max SoloStar 300 units/mL subcutaneous solution) pantoprazole (Pantoprazole [address] Tab) tamsulosin (tamsulosin 0.4 mg Cap) Procedures Performed Transrectal needle biopsy of prostate (04/09/2022), Cholecystectomy, Fusion of lumbar spine, History of hernia repair, History of tonsillectomy. Discharge Vitals Heart Rate (Peripheral) 63 Respiratory Rate 16 Blood Pressure 135/82 Height 167 cm Height 66 in Weight 118 kg Weight 259.6 lb BMI 42.31 What to do next Scheduled Follow-Up Appointments Friday 2:45 PM EST With: Mendel LOJA MD Where: [facility] Patient Educationon 03-12-20 Patient Education Urology Transurethral Resection of the Prostate Transurethral resection of the prostate (TURP) is the removal, or resection, of part of the prostate tissue. This procedure is done to treat an enlarged prostate gland (benign prostatic hyperplasia). The goal of TURP is to remove enough prostate tissue to allow for a normal flow of urine. The procedure will allow you to empty your bladder more completely when you urinate so that you can urinate less often. In a transurethral resection, a thin telescope with a light, a camera, and an electric cutting edge (resectoscope) is passed through the urethra and into the prostate. The opening of the urethra is at the end of the penis. Tell a health care provider about: ? Any allergies you have. ? All medicines you are taking, including vitamins, herbs, eye drops, creams, and xerp-itn-qvvqgtp medicines. ? Any problems you or family members have had with anesthetic medicines. ? Any bleeding problems you have. ? Any surgeries you have had. ? Any medical conditions you have. ? Any prostate infections you have had. What are the risks? Generally, this is a safe procedure. However, problems may occur, including: ? Infection. ? Bleeding. ? Allergic reactions to medicines. ? Blood in the urine (hematuria). ? Damage to nearby structures or organs. Other problems may occur, but they are rare. They include: ? Dry ejaculation, or having no semen come out during orgasm. ? Erectile dysfunction, or being unable to have or keep an erection. ? Scarring that leads to narrowing of the urethra. This narrowing may block the flow of urine. ? Inability to control when you urinate (incontinence). ? Deep vein thrombosis. This is a blood clot that can develop in your leg. ? TURP syndrome. This can happen when you lose too much sodium during or after the procedure. Some signs and symptoms of this condition include: ? Weakness. ? Headaches. ? Nausea or vomiting. ? Muscle cramping. What happens before the procedure? When to stop eating and drinking Follow instructions from your health care provider about what you may eat and drink before your procedure. These may include: ? 8 hours before your procedure ? Stop eating most foods. Do not eat meat, fried foods, or fatty foods. ? Eat only light foods, such as toast or crackers. ? All liquids are okay except energy drinks and alcohol. ? 6 hours before your procedure ? Stop eating. ? Drink only clear liquids, such as water, clear fruit juice, black coffee, plain tea, and sports drinks. ? Do not drink energy drinks or alcohol. ? 2 hours before your procedure ? Stop drinking all liquids. ? You may be allowed to take medicines with small sips of water. If you do not follow your health care provider's instructions, your procedure may be delayed or canceled. Medicines Ask your health care provider about: ? Changing or stopping your regular medicines. This is especially important if you are taking diabetes medicines or blood thinners. ? Taking medicines such as aspirin and ibuprofen. These medicines can thin your blood. Do not take these medicines unless your health care provider tells you to take them. ? Taking noyn-auk-bdyhlrp medicines, vitamins, herbs, and supplements. Surgery safety Ask your health care provider what steps will be taken to help prevent infection. These steps may include: ? Removing hair at the surgery site. ? Washing skin with a germ-killing soap. ? Taking antibiotic medicine. General instructions ? Do not use any products that contain nicotine or tobacco for at least 4 weeks before the procedure. These products include cigarettes, chewing tobacco, and vaping devices, such as e-cigarettes. If you need help quitting, ask your health care provider. ? If you will be going home right after the procedure, plan to have a responsible adult: ? Take you home from the hospital or clinic. You will not be allowed to drive. ? Care for you for the time you are told. What happens during the procedure? ? An IV will be inserted into one of your veins. ? You will be given one or more of the following: ? A medicine to help you relax (sedative). ? A medicine to make you fall asleep (general anesthetic). ? A medicine that is injected into your spine to numb the area below and slightly above the injection site (spinal anesthetic). ? Your legs will be placed in foot rests (stirrups) so that your legs are apart and your knees are bent. ? The resectoscope will be passed through your urethra to your prostate. ? Parts of your prostate will be resected using the cutting edge of the resectoscope. ? Fluid will be passed to rinse out the cut tissues (irrigation). ? The resectoscope will be removed. ? A small, thin tube (catheter) will be passed through your urethra and into your bladder. The catheter will drain urine into a bag outside of your body. The procedure may vary among health care (more content not included)... [facility] Provider Letteron 03-12-2024 Provider Letter March 12, 2024 BRIDGER FOX [address] [place] [address] [place] [address] : 1965 To Whom It May Concern, Please excuse above patient from work. Date of Illness: From: 03/12/24 To: 03/12/24 May Return to Work On: 03/13/24 Restrictions: None Comments: Patient had an appointment with Dr. Loja on 03/12/24. Sincerely, [facility] [address] [place] [address] [place] [address] , Option #3 [facility] Urology Office/Clinic Noteon 03-12-2024 Urology Office/Clinic Note Chief Complaint 2wk f/u to testicular lesion HPI Staff 2 week f/u to seeing [facility] for re-referral due to Rt testicular lesion. Dx: UTI, testicular pain, testicular lesion, epididymal cyst, varicocele, BPH with obstruction/LUTS, chronic prostatitis and prostate nodule Dutasteride 0.5mg qd, Tamsulosin 0.4mg BID (states he just restarted Dutasteride. Unsure if he is taking Tamsulosin 1or 2x/day) Tx'd w/Cipro therapy from for +C&S done at Urgent Care. (Urgent care sent Bactrim-pt states he took Cipro instead) NSAIDS & Scrotal support also recommended for testicular pain. Lt testicular pain subsided 2 days after beginning abx therapy. Rt testicular pain started today. Not as painful as Lt initially was. Getting up at least 2x/night to void. Frequency during day is Denies pain/burning and visible blood in urine. Denies straining to void. History of Present Illness Tests reviewed: reviewed UA I have reviewed the previous health record information and history for this patient from Dr. Loja and ESTER Thomas. I have reviewed and verified the staff HPI to be accurate for this encounter. Review of Systems ROS - Provider Constitutional: denies weight loss, denies hot flashes. Eyes: denies eye problems. Gastrointestinal: denies nausea, denies vomiting. Cardiovascular: denies chest pain or angina. Integumentary: no dryness Musculoskeletal: denies musculoskeletal symptoms. ENMT: denies otolaryngeal symptoms. Respiratory: no shortness of breath. Heme/Lymph: denies easy bleeding tendency, denies easy bruising tendency. Psychiatric: no confusion, no anxiety. Genitourinary: See HPI. Physical Exam Vitals & Measurements HR: 63(Peripheral) RR: 16 BP: 135/82 HT: 66 in HT: 167 cm WT: 118 kg WT: 259.6 lb BMI: 42.31 General Appearance: alert, no distress, well nourished, well developed male. Genitourinary: normal scrotum, normal testes, normal urethra, normal epididymis, normal vas deferens/spermatic cord. Flank Pain: none. Bladder: nonpalpable. Assessment/Plan 1. Prostatitis (N41.1: Chronic prostatitis) Tx'd w Doxy x 3 wks in April 2022. UCx 11/04/23 - >100k E. coli, pansensitive, tx'd w/ Keflex x7 days. 02/29/24 - >100k E. coli, tx'd w/ Cipro L Scrotal wall mildly thickened measuring 6.9 mm, possible cellulitis per US 03/01/24. However on IO exam 03/03/24 there was not significant erythema, warmth, or induration to scrotal wall. Was soft, not tense. L testicle was tender diffusely throughout and along the epididymis. Today pt states left testicular pain improved after abx course but feels right side is becoming tender. Unsure if he is emptying. Was voiding hourly. Denies hesitation. Gets up at least 2x/night to void. Discussed cysto/uros to evaluate bladder and prostate obstruction which may be contributing to current changes in urination. -Take doxycycline 100mg bid x4 wks. Take probiotics daily. Avoid sun exposure. -Will schedule cystoscopy/urodynami cs. The risks and benefits have been discussed. The risks include bleeding, infection, and irritation of the bladder and urinary channel, among others. The patient, after being informed of procedural details and after questions have been answered, wishes to proceed. Full informed consent has been obtained. Will order Local anesthesia. 2. Testicular pain (N50.819: Testicular pain, unspecified) See #1. 3. BPH with obstruction/lower urinary tract symptoms (N40.1: Benign prostatic hyperplasia with lower urinary tract symptoms) Taking Tamsulosin 0.4mg bid and Dutasteride 0.5mg qd. Urinary sxs have changed recently, likely secondary to prostatitis. See #1. 4. Testicular lesion (N50.9: Disorder of male genital organs, unspecified) Scrotal US 01/11/22 [facility] - There is 5 x 4 mm size cyst L testicle. Scrotal US 03/01/24 [facility] - L testicular parenchyma contains an anechoic area measuring 2.8 x 2.1 x 2.7 mm. A second anechoic area measuring 3.8 x 3.2 x 3.0 mm. Lateral to L testicle, there is an anechoic area that appears to be somewhat cystic with septations measuring 1.1 x 1.0 x 1.1 cm. will repeat the scrotal echo in one month. 5. Feeling of incomplete bladder emptying (R39.14: Feeling of incomplete bladder emptying) See #1. 6. Epididymal cyst (N50.3: Cyst of epididymis) Scrotal US 01/11/22 [facility] - left epididymal head cyst and measures 4mm. Scrotal US 03/01/24 [facility] - An anechoic area within R epididymis measuring 4.0 x 3.9 x 3.8 mm. An anechoic area within L epididymis measuring 4.6 x 4.2 x 4.8 mm. -chronic. unchanged. unlikely to be causing his sx. [1] 7. 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 Scrotal US 03/01/24 [facility] - Small R varicocele. no L varicocele mentioned in body of US report but in Impression it says 'bilateral' so report unclear. -chronic. unchanged. unlikely to be causing his sx. [2] 8. Prostate nodule (N40.2: Nodular prostate without lower urinary tract symptoms) [facility] 02/18/22 - 35gms, (more content not included)... Normal [facility] Comment on above: Result Comment: Elec tronically Signed By: Mendel LOJA MD\.br\Date and Time Signed: 03/12/24 11:21 EDT\.br\Electronically Co-Signed By: Marielle Robertson\.br\Date and Time Co-Signed: 03/12/24 11:17 EDT Consultation Noteon 03-08-20 Consultation Note [id number] 20#1.00TIFF Normal [facility] ED Note-Physicianon 03-08-20 ED Note-Physician [id number] 78#1.00TIFF Normal [facility] ED Note-Physician [id number] 29#1.00TIFF Normal [facility] Lab Reportson 03-08-2024 Lab Reports [id number] 84#1.00TIFF [facility] Physician Referralon 024 Physician Referral [id number] #1.00TIFF [facility] RAD - CT Reporton 03-08-2024 RAD - CT Report [id number] 68#1.00TIFF Normal [facility] RAD - CT Report [id number] 58#1.00TIFF [facility] RAD - Ultrasound Reporton RAD - Ultrasound Report [id number]# 1.00TIFF [facility] Lab Reportson 03-04-2024 Lab Reports [id number] #1.00TIFF [facility] RAD - Ultrasound Reporton RAD - Ultrasound Report [id number]# 1.00TIFF [facility] Screenson 03-04-2024 Screens [id number] 0#1.00TIFF [facility] Ambulatory Visit Summaryon 0 03-03-2024 Ambulatory Visit Summary BRIDGER FOX :1965 Visit Date:03/03/2024 Ambulatory Visit Instructions Your Diagnosis Testicular lesion Prostatitis Testicular pain BPH with obstruction/lower urinary tract symptoms Screening PSA (prostate specific antigen) Prostate nodule Family history of prostate cancer Varicocele Epididymal cyst Glucosuria Your Care Team Attending Physician - OPAL COTTRELL PA-C Primary Care Physician - HUA GORDON MD This Is Your Medications List Contact prescribing physician if questions or concerns aspirin (aspirin 81 mg oral capsule) atorvastatin (atorvastatin 20 mg Tab) dutasteride (dutasteride 0.5 mg Cap) ergocalciferol (Vitamin D) insulin glargine (Toujeo Max SoloStar 300 units/mL subcutaneous solution) pantoprazole (Pantoprazole [address] Tab) tamsulosin (tamsulosin 0.4 mg Cap) Procedures Performed Transrectal needle biopsy of prostate (04/09/2022), Cholecystectomy, Fusion of lumbar spine, History of hernia repair, History of tonsillectomy. Discharge Vitals Heart Rate (Peripheral) 72 Respiratory Rate 16 Blood Pressure 133/89 Height 167 cm Height 66 in Weight 118 kg Weight 259.6 lb BMI 42.31 What to do next Scheduled Follow-Up Appointments Friday 10:15 AM EDT With: AJ [place], Mendel Mendez Where: [facility] Normal [address] [place] [address] [place] [address]- \.br\ You Need to Schedule the Following Appointments\.b r\ Follow Up with SIMBA LEACH, OPAL Castro, URL When: \.br\ Where:\.br\ [address]br\ [place] [address]\.br\ [id number]\.br\ Medications\.br \ What How Much When Instructions\.b r\ Unchanged aspirin (aspirin 81 mg oral capsule) By Mouth Every 4 hours Contact prescribing physician if questions or concerns \.br\ Unchanged atorvastatin (atorvastatin 20 mg Tab) By Mouth Every day Contact prescribing physician if questions or concerns \.br\ Unchanged dutasteride (dutasteride 0.5 mg Cap) 1 Capsules By Mouth Every day Contact prescribing physician if questions or concerns \.br\ Unchanged ergocalciferol (Vitamin D) By Mouth Every week Contact prescribing physician if questions or concerns \.br\ Unchanged insulin glargine (Toujeo Max SoloStar 300 units/ mL subcutaneous solution) Subcutaneous Every day Contact prescribing physician if questions or concerns \.br\ Unchanged pantoprazole (Pantoprazole [address] Tab) By Mouth Every day Contact prescribing physician if questions or concerns \.br\ Unchanged tamsulosin (tamsulosin 0.4 mg Cap) 1 Capsules By Mouth 2 times a day Duration: 90 Days Contact prescribing physician if questions or concerns \.br\ Allergies\.br\ No Known Allergies\.br\ Problems\.br\ Ongoing - Any problem that you are currently receiving treatment for.\.br\ BPH with obstruction/low er urinary tract symptoms\.br\ DDD (degenerative disc disease), lumbar\.br\ Dyslipidemia\.b r\ ED (erectile dysfunction)\.b r\ Epididymal cyst\.br\ Family history of prostate cancer\.br\ GERD without esophagitis\.br \ Glucosuria\.br\ Prostate nodule\.br\ Prostatitis\.br \ Screening PSA (prostate specific antigen)\.br\ Testicular lesion\.br\ Testicular pain\.br\ Type 2 diabetes mellitus\.br\ Varicocele\.br\ Varicose veins of leg with pain\.br\ Patient Survey\.br\ You may receive a survey via text or e-mail asking about your office visit. Please share your experience with us by completing your survey. We appreciate your feedback and thank you for choosing us for your care.\.br\ Education Materials\.br\ Testicular Self-Exam\.br\ A self-examinatio n of your testicles (testicular self-exam) involves looking at and feeling your testicles for abnormal lumps or swelling. Several things can cause swelling, lumps, or pain in your testicles. Some of these causes are:\.br\ ? \.br\ Injuries.\.br\ ? \.br\ Inflammation.\. br\ ? \.br\ Infection.\.br\ ? \.br\ Buildup of fluids around the testicle (hydrocele).\.b r\ ? \.br\ Twisted testicles (testicular torsion).\.br\ ? \.br\ Testicular cancer. You may be at risk for testicular cancer if you have:\.br\ ? \.br\ An undescended testicle (cryptorchidism ).\.br\ ? \.br\ A history of previous testicular cancer.\.br\ ? \.br\ A family history of testicular cancer.\.br\ General tips and recommendations \.br\ ? \.br\ The testicles are easiest to examine after a warm bath or shower. They are more difficult to examine when you are cold because the muscles attached to the testicles retract and pull them up higher or into the abdomen.\.br\ ? \.br\ A normal testicle is egg-shaped and feels firm. It is smooth and not tender.\.br\ ? \.br\ It is normal to feel a firm, spaghetti-like cord at the back of your testicle. This is the spermatic cord.\.br\ How to do a testicular self-exam\.br\ \.br\ 1. \.br\ Stand and hold your penis away from your body.\.br\ 2. \.br\ Look at each testicle to check for changes in appearance, such as swelling or changes in size or shape.\.br\ 3. \.br\ Roll each testicle between your thumb and forefinger, feeling the entire testicle. Feel for:\.br\ ? \.br\ Lumps.\.br\ ? \.br\ Swelling.\.br\ ? \.br\ Discomfort.\.br \ 4. \.br\ Check the groin area between your abdomen and upper thighs on both sides of your body. Look and feel for any swelling or bumps that are tender. These could be enlarged lymph nodes.\.br\ Contact a health care provider if:\.br\ ? \.br\ You find any bumps or lumps, such as a small, hard, pea-sized lump.\.br\ ? \.br\ You find swelling, pain, or soreness.\.br\ ? \.br\ You see or feel any other changes in your testicles.\.br\ Summary\.br\ ? \.br\ A self-examinatio n of your testicles (testicular self-exam) involves looking at and feeling your testicles for any changes.\.br\ ? \.br\ Check each of your testicles for lumps, swelling, or discomfort. These changes can be caused by many things.\.br\ ? \.br\ Check for swelling or tender bumps in your groin area between your lower abdomen and upper thighs.\.br\ This information is not intended to replace advice given to you by your health care provider. Make sure you discuss any questions you have with your health care provider.\.br\ Document Revised: 09/11/2020 Document Reviewed: 09/11/2020 [employer] Patient Education ? 2022 [employer] Inc.\.br\ \.br\ [facility] C peptide [Mass/Vol]on 03-03 C PEPTIDE 0.9 ng/mL Low 1.1-4.4 [facility] Comment on above: Result Comment: NOTE Test Performed By: [facility] [address] [place] [address] Slide Developer: Kristyn Womack III #[id number] Performed By: #### Arthur [place], 37851-5 #### [facility] ([id number]) [address] [place] [address], [address] [place] [address] #### 1986-9 #### [facility] ([id number]) [address] [place] [address] COMPREHENSIVE METABOLIC PANE Jt 03-03-2024 Albumin [Mass/Vol] 4.2 g/dL Normal 3.2-5.3 [facility] Comment on above: Performed By: #### Arthur JEFFRIES, 69410-6 #### [facility] ([id number]) [address] [facility] [address] [place] [address] #### 1985-9 #### [facility] ([id number]) [address] [place] [address] ALP [Catalytic activity/Vol] 65 U/L Normal 39-130 [facility] Comment on above: Performed By: #### Arthur JEFFRIES, 83299-7 #### [facility] ([id number]) [address] [facility], [address] [place] [address] #### 1985-9 #### [facility] ([id number]) [address] [place] [address]110 ALT [Catalytic activity/Vol] 24 U/L Normal 0-40 [facility] Comment on above: Performed By: #### Arthur JEFFRIES, 94600-3 #### [facility] ([id number]) [address] [facility], [address] [place] [address] #### 9 #### [facility] ([id number]) [address] [place] [address]39 Anion gap [Moles/Vol] 9 mmol/L Normal 5-15 [facility] Comment on above: Performed By: #### Arthur JEFFRIES, 58315-5 #### [facility] ([id number]) [address] [facility], [address] [place] [address] #### 1986-06 #### [facility] ([id number]) [address] [place] [address] 55583 AST [Catalytic activity/Vol] 22 U/L Normal 0-41 [facility] Comment on above: Performed By: #### Arthur JEFFRIES, 00116-4 #### [facility] ([id number]) [address] [facility], [address] [place] [address] #### 9 #### [facility] ([id number]) [address] [place] [address]454 Bilirubin [Mass/Vol] 0.7 mg/dL Normal 0.3-1.2 [facility] Comment on above: Performed By: #### Arthur JEFFRIES, 96316-2 #### [facility] ([id number]) [address], [address] [place] [address] #### 1986-06 #### [facility] ([id number]) [address] [place] [address]7786 Calcium [Mass/Vol] 9.4 mg/dL Normal 8.5-10.5 [facility] Comment on above: Performed By: #### Arthur JEFFRIES, 07672-3 #### [facility] ([id number]) [address] [facility], [address] [place] [address] #### 1986-06 #### [facility] ([id number]) [address] [place] [address]174 Chloride [Moles/Vol] 106 mmol/L Normal 98-109 [facility] Comment on above: Performed By: #### Arthur JEFFRIES, 61177-8 #### [facility] ([id number]) [address] [facility], [address] [place] [address] #### 1985-9 #### [facility] ([id number]) [address] [place] [address] 10593 CO2 [Moles/Vol] 29 mmol/L Normal 22-32 [facility] Comment on above: Performed By: #### Arthur JEFFRIES, 50581-5 #### [facility] ([id number]) [address] [facility], [address] [place] [address] #### 1985-9 #### [facility] ([id number]) [address] [place] [address] 23019 Creatinine [Mass/Vol] 0.79 mg/dL Normal 0.60-1.30 [facility] Comment on above: Result Comment: METH OD TRACEABLE TO IDMS STANDARD Performed By: #### Arthur JEFFRIES, 62745-4 #### [facility] ([id number]) [address] [facility], [address] [place] [address] #### 1985-9 #### [facility] ([id number]) [address] [place] [address]645 eGFR (CKD-EPI) NON-RACE DEPENDENT >90 Normal >59 [facility] Comment on above: Result Comment: Reported eGFR is based on the CKD-EPI 2020 equation that does not use a race coefficient. Performed By: #### Arthur JEFFRIES, 33495-1 #### [facility] ([id number]) [address] [facility], [address] [place] [address] #### 1985-9 #### [facility] ([id number]) [address] [place] [address] 63635 Glucose [Mass/Vol] 126 mg/dL High 65-99 [facility] Comment on above: Performed By: #### Arthur JEFFRIES, 57753-2 #### [facility] ([id number]) [address], [address] [place] [address] #### 1985-9 #### [facility] ([id number]) [address] [place] [address] 98499 Potassium [Moles/Vol] 4.1 mmol/L Normal 3.5-5.0 [facility] Comment on above: Performed By: #### Arthur JEFFRIES, 22162-0 #### [facility] ([id number]) [address] [facility] [place] [address] #### 1985-9 #### [facility] ([id number]) [address] [place] [address]88 Protein [Mass/Vol] 6.9 g/dL Normal 6.0-8.0 [facility] Comment on above: Performed By: #### Arthur JEFFRIES, 18682-3 #### [facility] ([id number]) [address], [address] [place] [address] #### 9 #### [facility] ([id number]) [address] [place] [address] 51679 Sodium [Moles/Vol] 144 mmol/L Normal 134-146 [facility] Comment on above: Performed By: #### Arthur JEFFRIES, 19111-8 #### [facility] ([id number]) [address], [address] [place] [address] #### 1986-06 #### [facility] ([id number]) [address] [place] [address] 64779 Urea nitrogen [Mass/Vol] 18 mg/dL Normal 5-23 [facility] Comment on above: Performed By: #### Arthur JEFFRIES, 87377-5 #### [facility] ([id number]) [facility] [facility], [address] [place] [address] #### 1986-9 #### [facility] ([id number]) [address] [place] [address] 05594 Lipid 1996 panelon 4 Cholesterol [Mass/Vol] 125 mg/dL Low 150-200 [facility] Comment on above: Performed By: #### Arthur JEFFRIES, 98603-2 #### [facility] ([id number]) [address] [place] [address], [address] [place] [address] #### 1986-9 #### [facility] ([id number]) [address] [place] [address] 58312 Cholesterol in HDL [Mass/Vol] 48 mg/dL Normal >39 [facility] Comment on above: Result Comment: HDL <40 mg/dL - High Risk HDL > or = 40mg/dL- Desirable HDL >60 mg/dL - Negative Risk Performed By: #### Arthur JEFFRIES, 82655-3 #### [facility] ([id number]) [address], [address] [place] [address] #### 1986-9 #### [facility] ([id number]) [address] [place] [address]2007 Cholesterol in LDL [Mass/Vol] 59 mg/dL Normal <130 [facility] Comment on above: Result Comment: LDL <100 mg/dL - Desirable LDL >160 mg/dL - High Risk Performed By: #### Arthur JEFFRIES, 90759-4 #### [facility] ([id number]) [address] [facility], [address] [place] [address] #### 1985-9 #### [facility] ([id number]) [address] [place] [address] 42580 Cholesterol in VLDL [Mass/Vol] 18 mg/dL Normal 0-30 [facility] Comment on above: Performed By: #### Arthur JEFFRIES, 34873-0 #### [facility] ([id number]) [address] [facility] [address] [place] [address] #### 1985-9 #### [facility] ([id number]) [address] [place] [address] 08225 CHOLESTEROL:HDL 2.6 Normal 1.0-5.0 [facility] Comment on above: Performed By: #### Arthur JEFFRIES, 56923-5 #### [facility] ([id number]) [address] [place] [address], [facility] [address] [place] [address] #### 1985-9 #### [facility] ([id number]) [address] [place] [address] 02469 Triglyceride [Mass/Vol] 91 mg/dL Normal 27-150 [facility] Comment on above: Performed By: #### Arthur JEFFRIES, 54736-3 #### [facility] ([id number]) [address] [place] [address] [address] [place] [address] #### 9 #### [facility] ([id number]) [address] [place] [address] 33321 MICROALBUMIN - ALBUMIN:CREAT ININE URINE RATIOon 03-03-2024 ALB/CREAT RATIO NOT CALCULATED Normal 0.0-30.0 [facility] Comment on above: Result Comment: Result for Albumin/Creatinine Ratio cannot be reliably calculated because urine albumin and or urine creatinine is below the detection limit of the assay. Performed By: #### M ALBU #### [facility] ([id number]) [address], [address] [place] [address] Albumin DL <= 20 mg/L (U) [Mass/Vol] mg/dL Normal 0.0-1.9 [facility] Comment on above: Performed By: #### M ALBU #### [facility] ([id number]) [address] [address] [place] [address] URINE CREAT 119.54 mg/dL Normal [facility] Comment on above: Performed By: #### M ALBU #### [facility] ([id number]) [address] [facility] [address] [address] Patient Educationon 03-03-20 Patient Education Urology Testicular Self-Exam A self-examination of your testicles (testicular self-exam) involves looking at and feeling your testicles for abnormal lumps or swelling. Several things can cause swelling, lumps, or pain in your testicles. Some of these causes are: ? Injuries. ? Inflammation. ? Infection. ? Buildup of fluids around the testicle (hydrocele). ? Twisted testicles (testicular torsion). ? Testicular cancer. You may be at risk for testicular cancer if you have: ? An undescended testicle (cryptorchidism). ? A history of previous testicular cancer. ? A family history of testicular cancer. General tips and recommendations ? The testicles are easiest to examine after a warm bath or shower. They are more difficult to examine when you are cold because the muscles attached to the testicles retract and pull them up higher or into the abdomen. ? A normal testicle is egg-shaped and feels firm. It is smooth and not tender. ? It is normal to feel a firm, spaghetti-like cord at the back of your testicle. This is the spermatic cord. How to do a testicular self-exam 1. Stand and hold your penis away from your body. 2. Look at each testicle to check for changes in appearance, such as swelling or changes in size or shape. 3. Roll each testicle between your thumb and forefinger, feeling the entire testicle. Feel for: ? Lumps. ? Swelling. ? Discomfort. 4. Check the groin area between your abdomen and upper thighs on both sides of your body. Look and feel for any swelling or bumps that are tender. These could be enlarged lymph nodes. Contact a health care provider if: ? You find any bumps or lumps, such as a small, hard, pea-sized lump. ? You find swelling, pain, or soreness. ? You see or feel any other changes in your testicles. Summary ? A self-examination of your testicles (testicular self-exam) involves looking at and feeling your testicles for any changes. ? Check each of your testicles for lumps, swelling, or discomfort. These changes can be caused by many things. ? Check for swelling or tender bumps in your groin area between your lower abdomen and upper thighs. This information is not intended to replace advice given to you by your health care provider. Make sure you discuss any questions you have with your health care provider. Document Revised: 09/11/2020 Document Reviewed: 09/11/2020 [employer] Patient Education ? 2022 [employer]. [facility] Urine Cultureon 02-29-2024 Bacteria identified Cx Nom (U) ORGANISM: Escherichia coli (O:ESCCOL) [place] Count >100,000 Aerobic IVANA Charge (NMIC56) ----- SUSCEPTIBILITY ---- ORGANISM: O:ESCCOL ANTIBIOTIC INTERPRETATION IVANA Amikacin S <16 Amoxacillin/K Clavulanate S <8 Ampicillin S <8 Ampicillin/Sulbactam S <4 Aztreonam S <4 Cefazolin S <2 Cefepime S <2 Ceftazidime S <1 Ceftazidime/Avibacta m S <4 Ceftolozane/Tazobact am S <2 Ceftriaxone S <1 Cefuroxime S <4 Ciprofloxacin S <0.25 Ertapenem S <0.5 Gentamicin S <2 Levofloxacin S <0.5 Meropenem S <1 Meropenem/Vaborbacta m S <2 Nitrofurantoin S <32 Piperacillin/Tazobac lynne S <8 Tetracycline S <4 Tigecycline S <2 Tobramycin S <2 Trimethoprim/Sulfame thoxazole S <0.5 S = SUSCEPTIBLE I = INTERMEDIATE R = RESISTANT BLANK = DATA NOT AVAILABLE, OR DRUG NOT ADVISABLE OR TESTED R* = RESISTANCE DUE TO EXTENDED SPECTRUM BETA-LACTAMASES ESBL = EXTENDED SPECTRUM BETA-LACTAMASE TFG = THYMIDINE-DEPENDENT STRAIN CIARA = BETA-LACTAMASE POSITIVE IB = INDUCIBLE BETA-LACTAMASE. APPEARS IN PLACE OF 'S' WITH SPECIES KNOWN TO POSSESS INDUCIBLE BETA-LACTAMASES. POTENTIALLY THEY MAY BECOME RESISTANT TO ALL B-LACTAM DRUGS. PERFORMED BY: [place] [address] PATHOLOGIST FUR OPERATOR CHELY ALVARADO M.D. Normal [facility] Comment on above: Performed By: #### C UU #### [place] [address] [place] HbA1c HPLC (Bld) [Mass fract ion]on 02-19-2024 HbA1c (Bld) [Mass fraction] 7.5 % [facility] No Panel Informationon 02-18 Bedside Glucose 124 [facility] Basic Metabolic Panelon 10-22 Anion gap [Moles/Vol] 9.6 mmol/L Normal 6.0-15.0 [facility] Comment on above: Performed By: #### B MP, CBC #### [place] [address] [place] Calcium [Mass/Vol] 9.1 mg/dL Normal 8.6-10.3 [facility] Comment on above: Performed By: #### B MP, CBC #### [place] [address] [place] Chloride [Moles/Vol] 107 mmol/L Normal 98-107 [facility] Comment on above: Performed By: #### B MP, CBC #### [place] [address] [place] CO2 [Moles/Vol] 26.1 mmol/L Normal 21.0-31.0 [facility] Comment on above: Performed By: #### B MP, CBC #### [address] Creatinine [Mass/Vol] 0.66 mg/dL Low 0.70-1.30 [facility] Comment on above: Performed By: #### B MP, CBC #### [place] [address] [place] Creatinine Clr Calc Pharmacy 146.88 Normal [facility] Comment on above: Result Comment: PERF ORMED BY: [place] [address] PATHOLOGIST FUR OPERATOR CHELY ALVARADO M.D. Performed By: #### B MP, CBC #### [place] [address] [place] GFR/1.73 sq M.predicted MDRD (S/P/Bld) [Vol rate/Area] mL/min/{1.73_m2} Normal [facility] Comment on above: Performed By: #### B MP, CBC #### [address] Glucose [Mass/Vol] 106 mg/dL High 70-100 [facility] Comment on above: Result Comment: [place] Glucose Reference Range is dependent on time and content of last meal. Glucose of more than 200 mg/dL in a nonstressed, ambulatory subject supports the diagnosis of Diabetes Mellitus. ADA recommended reference range Performed By: #### B MP, CBC #### [place] [address] [place] Potassium [Moles/Vol] 3.7 mmol/L Normal 3.5-5.1 [facility] Comment on above: Performed By: #### B MP, CBC #### [place] [address] [place] Sodium [Moles/Vol] 139 mmol/L Normal 136-145 [facility] Comment on above: Performed By: #### B MP, CBC #### [place] [address] [place] Urea nitrogen [Mass/Vol] 14 mg/dL Normal 7-25 [facility] Comment on above: Performed By: #### B MP, CBC #### [facility] [address] [id number] [facility] CT abdomen pelvis wo conon 0 11-18-2023 CT abdomen pelvis wo con [facility] Main [place] [id number] Scan Report Signed Patient: Bridger Fox MR#: [id number] 106 : 1965 Acct:[id number] Age/Sex: 58 / M ADM Date: 11/17/23 Loc: ER Room: Type: [facility] ER Attending Dr: Copies to: Bridger Dejesus DO Ordering Provider: Bridger Dejesus DO Date of Service: 11/17/23 CT/CT abdomen pelvis wo con: r/o R stone CT Abdomen and Pelvis withoutcontrast TECHNIQUE: Axial imaging with 2-D reconstruction. . The CT exam was performed using one or more the following dose reduction techniques: Automated exposure control, adjustment of the MA and/or Kv according to patient size, or use of the iterative reconstruction technique. COMPARISON: 11/14/23 History: RIGHT flank pain a prior injury. LIMITATIONS: None LOWER THORAX mild atelectasis. Coronary artery calcification. LIVER: Hepatic dome out of the [id number]. Visualized liver unremarkable. GALLBLADDER: Cholecystectomy clips identified. BILE DUCTS: No dilatation SPLEEN: Unremarkable PANCREAS: Unremarkable ADRENAL GLANDS: Unremarkable KIDNEYS:Unremarkable AORTA: No abdominal aortic aneurysm identified. RETROPERITONEUM: No significant retroperitoneal abnormalities identified. MESENTERY:Unremarkab le SMALL BOWEL: The small bowel loops are nondistended. APPENDIX: The appendix is normal. COLON: Unremarkable URINARY BLADDER: Urinary bladder is unremarkable. REPRODUCTIVE SYSTEM: Reproductive structures are unremarkable. PNEUMOPERITONEUM: None PERITONEAL FLUID:None BONY STRUCTURES: Thoracolumbar degenerative changes. L5-S1 posterior fusion. Bilateral hip and SI joint degeneration. ABDOMINAL WALL: Prior umbilical hernia repair CT/CT abdomen pelvis wo con IMPRESSION: No acute findings. No nephrolithiasis or obstructive uropathy. Impression dictated by: Adama Alanis M.D.11/18/2023 8:01 AM Dictation Location: [place] [address] Transcribed By: [facility] 11/18/23 0801 Dictated By: Adama Alanis DO 11/18/23 0754 Signed By: 11/18/23 0801 Normal [facility] Complete Blood Count Auto Di ffon 11-18-2023 Basophils (Bld) [#/Vol] 0.1 10*3/uL Normal 0.0-0.2 [facility] Comment on above: Result Comment: PERF ORMED BY: [place] [address] PATHOLOGIST FUR OPERATOR CHELY ALVARADO M.D. Performed By: #### B MP, CBC #### [address] Basophils/100 WBC (Bld) 0.9 % Normal . [facility] Comment on above: Performed By: #### B MP, CBC #### [address] Eosinophils (Bld) [#/Vol] 0.1 10*3/uL Normal 0.0-0.45 [facility] Comment on above: Performed By: #### B MP, CBC #### [place] [address] [place] Eosinophils/100 WBC (Bld) 1.7 % Normal . [facility] Comment on above: Performed By: #### B MP, CBC #### [address] Erythrocyte distribution width (RBC) [Ratio] 13.2 % Normal 12.0-14.8 [facility] Comment on above: Performed By: #### B MP, CBC #### [place] [address] [place] Hematocrit (Bld) [Volume fraction] 40.0 % Normal 38.8-50.0 [facility] Comment on above: Performed By: #### B MP, CBC #### [address] Hemoglobin (Bld) [Mass/Vol] 13.8 g/dL Normal 13.0-17.0 [facility] Comment on above: Performed By: #### B MP, CBC #### [address] Lymphocytes (Bld) [#/Vol] 1.8 10*3/uL Normal 1.00-4.8 [facility] Comment on above: Performed By: #### B MP, CBC #### [address] Lymphocytes/100 WBC (Bld) 23.4 % Normal . [facility] Comment on above: Performed By: #### B MP, CBC #### [place] [address] [place] MCH (RBC) [Entitic mass] 31.7 pg Normal 27.5-35.2 [facility] Comment on above: Performed By: #### B MP, CBC #### [address] MCV (RBC) [Entitic vol] 92.3 fL Normal 83.5-101 [facility] Comment on above: Performed By: #### B MP, CBC #### [address] Mean Corpuscular HGB Conc 34.4 g/dL Normal 32.5-35.6 [facility] Comment on above: Performed By: #### B MP, CBC #### [address] Monocytes (Bld) [#/Vol] 0.6 10*3/uL Normal 0.0-0.8 [facility] Comment on above: Performed By: #### B MP, CBC #### [place] [address] [place] Monocytes/100 WBC (Bld) 16.03 % Normal 0.00-20.00 [facility] Comment on above: Performed By: #### B MP, CBC #### [place] [address] [place] Monocytes/100 WBC (Bld) 8.3 % Normal . [facility] Comment on above: Performed By: #### B MP, CBC #### [address] [place] [address] [place] Neutrophils (Bld) [#/Vol] 5.1 10*3/uL Normal 1.8-7.7 [facility] Comment on above: Performed By: #### B MP, CBC #### [address] Neutrophils/100 WBC (Bld) 65.7 % Normal . [facility] Comment on above: Performed By: #### B MP, CBC #### [address] NRBC% 0.1 /100{WBC} Normal 0-0.5 [facility] Comment on above: Performed By: #### B MP, CBC #### [address] Platelet mean volume (Bld) [Entitic vol] 8.0 fL Normal 6.6-10.1 [facility] Comment on above: Performed By: #### B MP, CBC #### [place] [address] [place] Platelets (Bld) [#/Vol] 168 10*3/uL Normal 150-450 [facility] Comment on above: Performed By: #### B MP, CBC #### [address] RBC (Bld) [#/Vol] 4.34 10*6/uL Normal 3.90-5.60 [facility] Comment on above: Performed By: #### B MP, CBC #### [place] [address] [place] WBC (Bld) [#/Vol] 7.8 10*3/uL Normal 4.1-10.5 [facility] Comment on above: Performed By: #### B MP, CBC #### [place] [address] [place] Dipstick and Microscopicon 0 11-18-2023 Appearance (U) Clear Normal Clear [facility] Comment on above: Order Comment: Name Collection Type:: Clean-Voided Midstream Performed By: #### A DDONUAPLUS, CUU #### [place] [address] [place] Bacteria,Urine None Seen Normal None Seen [facility] Comment on above: Order Comment: Name Collection Type:: Clean-Voided Midstream Performed By: #### A DDONUAPLUS, CUU #### [address] Bilirubin,Urine Negative Normal Negative [facility] Comment on above: Order Comment: Name Collection Type:: Clean-Voided Midstream Performed By: #### A DDONUAPLUS, CUU #### [address] Color (U) Yellow Normal Yellow [facility] Comment on above: Order Comment: Name Collection Type:: Clean-Voided Midstream Performed By: #### A DDONUAPLUS, CUU #### [address] Glucose Ql (U) Normal Normal Normal [facility] Comment on above: Order Comment: Name Collection Type:: Clean-Voided Midstream Performed By: #### A DDONUAPLUS, CUU #### [address] Hyaline Casts,Urine 0-8 Normal 0-8 [facility] Comment on above: Order Comment: Name Collection Type:: Clean-Voided Midstream Result Comment: PERF ORMED BY: [place] [address] PATHOLOGIST FUR OPERATOR CHELY ALVARADO M.D. Performed By: #### A DDONUAPLUS, CUU #### [address] Ketones Ql (U) Negative Normal Negative [facility] Comment on above: Order Comment: Name Collection Type:: Clean-Voided Midstream Performed By: #### A DDONUAPLUS, CUU #### [address] Leukocyte esterase Test strip Ql (U) 1+ High Negative [facility] Comment on above: Order Comment: Name Collection Type:: Clean-Voided Midstream Performed By: #### A DDONUAPLUS, CUU #### [place] [address] [place] Nitrite,Urine Negative Normal Negative [facility] Comment on above: Order Comment: Name Collection Type:: Clean-Voided Midstream Performed By: #### A DDONUAPLUS, CUU #### [address] Occult Blood,Urine Negative Normal Negative [facility] Comment on above: Order Comment: Name Collection Type:: Clean-Voided Midstream Result Comment: PERF ORMED BY: [place] [address] PATHOLOGIST FUR OPERATOR CHELY ALVARADO M.D. Performed By: #### A DDONUAPLUS, CUU #### [address] pH (U) 5.0 [pH] Normal 5.0-9.0 [facility] Comment on above: Order Comment: Name Collection Type:: Clean-Voided Midstream Performed By: #### A DDONUAPLUS, CUU #### [place] [address] [place] Protein,Urine Negative Normal Negative [facility] Comment on above: Order Comment: Name Collection Type:: Clean-Voided Midstream Performed By: #### A DDONUAPLUS, CUU #### [place] [address] [place] RBC,Urine None Seen Normal 0-4 [facility] Comment on above: Order Comment: Name Collection Type:: Clean-Voided Midstream Performed By: #### A DDONUAPLUS, CUU #### [place] [address] [place] Specificy [place],Urine 1.007 Normal 1.001-1.030 [facility] Comment on above: Order Comment: Name Collection Type:: Clean-Voided Midstream Performed By: #### A DDONUAPLUS, CUU #### [address] Squamous Epithelial Cell,Urine 1-2 Normal 0-2 [facility] Comment on above: Order Comment: Name Collection Type:: Clean-Voided Midstream Performed By: #### A DDONUAPLUS, CUU #### [address] Urobilinogen,Urine Normal Normal Normal [facility] Comment on above: Order Comment: Name Collection Type:: Clean-Voided Midstream Performed By: #### A DDONUAPLUS, CUU #### [address] WBC,Urine 5-9 High 0-4 [facility] Comment on above: Order Comment: Name Collection Type:: Clean-Voided Midstream Performed By: #### A DDONUAPLUS, CUU #### [address] Urine Cultureon 11-18-2023 Bacteria identified Cx Nom (U) <9,000 colonies/ml mixed bacterial skin contaminants 2 Days PERFORMED BY: [place] [address] PATHOLOGIST FUR OPERATOR CHELY ALVARADO M.D. Normal [facility] Comment on above: Performed By: #### A DDONUAPLUS, CUU #### [address] Automated erythrocytes count in urine sediment (number/area)Ordered By: Bridger Dejesus on 2023 RBC Auto (Urine sed) [#/Area] None seen [HPF] 0-4 [facility] Automated leukocytes count i n urine sediment (number/area)Ordered By: Bridger Dejesus on 2023 WBC Auto (Urine sed) [#/Area] 5-9 [HPF] 0-4 [facility] Basophils Auto (Bld) [#/Vol] Ordered By: Bridger Dejesus on 2023 Basophils (Bld) [#/Vol] 0.1 10*3/uL 0.0-0.2 [facility] Basophils/100 WBC Auto (Bld) Ordered By: Bridger Dejesus on 2023 Basophils/100 WBC (Bld) 0.9 % . [facility] Bilirubin Test strip Ql (U)O rdered By: Bridger Dejesus on 2023 Bilirubin Ql (U) Negative Negative [facility] Calcium [Mass/volume] in Ser um or PlasmaOrdered By: Bridger Dejesus on 2023 Calcium [Mass/Vol] 9.1 mg/dL 8.6-10.3 [facility] Carbon dioxide, total [Moles /volume] in Serum or PlasmaOrdered By: Bridger Dejesus on 2023 CO2 [Moles/Vol] 26.1 mmol/L 21.0-31.0 [facility] Chloride [Moles/volume] in S alexander or PlasmaOrdered By: Bridger Dejesus on 2023 Chloride [Moles/Vol] 107 mmol/L 98-107 [facility] Color Auto (U)Ordered By: Nirmal Dejesus on 2023 Color (U) Yellow Yellow [facility] Creatinine [Mass/volume] in Serum or PlasmaOrdered By: Bridger Dejesus on 2023 Creatinine [Mass/Vol] 0.66 mg/dL 0.70-1.30 [facility] Eosinophils Auto (Bld) [#/Vo l]Ordered By: Bridger Dejesus on 2023 Eosinophils (Bld) [#/Vol] 0.1 10*3/uL 0.0-0.45 [facility] Eosinophils/100 WBC Auto (Bl d)Ordered By: Bridger Dejesus on 2023 Eosinophils/100 WBC (Bld) 1.7 % . [facility] Erythrocyte distribution wid th Auto (RBC) [Ratio]Ordered By: Bridger Dejesus on 2023 Erythrocyte distribution width (RBC) [Ratio] 13.2 % 12.0-14.8 [facility] Glucose - FINGER STICKon Glucose [Mass/Vol] 142 mg/dL [employer] Other Glucose [Mass/volume] in Ser um or PlasmaOrdered By: Bridger Dejesus on 2023 Glucose [Mass/Vol] 106 mg/dL 70-100 [facility] Comment on above: ADA recommended refe rence rangeRandom Glucose Reference Range is dependent on time and content of last meal. Glucose of more than 200 mg/dL in a nonstressed, ambulatory subject supports the diagnosis of Diabetes Mellitus. Hematocrit Auto (Bld) [Volum e fraction]Ordered By: Bridger Dejesus on 2023 Hematocrit (Bld) [Volume fraction] 40.0 % 38.8-50.0 [facility] Hemoglobin [Mass/volume] in BloodOrdered By: Bridger Dejesus on 2023 Hemoglobin (Bld) [Mass/Vol] 13.8 g/dL 13.0-17.0 [facility] Ketones Auto test strip (U) [Mass/Vol]Ordered By: Bridger Dejesus on 2023 Ketones (U) [Mass/Vol] Negative Negative [facility] - UrinalysisOrder ed By: Bridger Dejesus on 2023 Hyaline casts LM Ql (Urine sed) 0-8 [LPF] 0-8 [facility] Leukocytes [#/volume] correc tana for nucleated erythrocytes in Blood by Automated counOrdered By: Bridger Dejesus on 2023 WBC corrected for nucl RBC Auto (Bld) [#/Vol] 7.8 10*3/uL 4.1-10.5 [facility] Lymphocytes Auto (Bld) [#/Vo l]Ordered By: Bridger Dejesus on 2023 Lymphocytes (Bld) [#/Vol] 1.8 10*3/uL 1.00-4.8 [facility] Lymphocytes/100 WBC Auto (Bl d)Ordered By: Bridger Dejesus on 2023 Lymphocytes/100 WBC (Bld) 23.4 % . [facility] MCH Auto (RBC) [Entitic mass ]Ordered By: Bridger Dejesus on 2023 MCH (RBC) [Entitic mass] 31.7 pg 27.5-35.2 [facility] MCHC Auto (RBC) [Mass/Vol]Or dered By: Bridger Dejesus on 2023 MCHC (RBC) [Mass/Vol] 34.4 g/dL 32.5-35.6 [facility] MCV Auto (RBC) [Entitic vol] Ordered By: Bridger Dejesus on 2023 MCV (RBC) [Entitic vol] 92.3 fL 83.5-101 [facility] Monocyte distribution width [Entitic volume] in Blood by AutomatedOrdered By: Bridger Dejesus on 2023 Monocyte distribution width Auto (Bld) [Entitic vol] 16.03 % 0.00-20.00 [facility] Monocytes Auto (Bld) [#/Vol] Ordered By: Bridger Dejesus on 2023 Monocytes (Bld) [#/Vol] 0.6 10*3/uL 0.0-0.8 [facility] Monocytes/100 WBC Auto (Bld) Ordered By: Bridger Dejesus on 2023 Monocytes/100 WBC (Bld) 8.3 % . [facility] Neutrophils Auto (Bld) [#/Vo l]Ordered By: Bridger Dejesus on 2023 Neutrophils (Bld) [#/Vol] 5.1 10*3/uL 1.8-7.7 [facility] Neutrophils/100 WBC Auto (Bl d)Ordered By: Bridger Dejesus on 2023 Neutrophils/100 WBC (Bld) 65.7 % . [facility] Nitrite Test strip Ql (U)Ord ered By: Bridger Dejesus on 2023 Nitrite Ql (U) Negative Negative [facility] No Panel InformationOrdered By: Bridger Dejesus on 2023 Estimated GFR (CKD-EPI) > 60.0 mL/Min [facility] Creatinine Clearance (Chem 146.88 [facility] Nucleated erythrocytes [Pres ence] in Blood by Automated countOrdered By: Bridger Dejesus on 2023 Nucleated RBC Auto Ql (Bld) 0.1 /100{WBC} 0-0.5 [facility] Platelet mean volume Auto (B ld) [Entitic vol]Ordered By: Bridger Dejesus on 2023 Platelet mean volume (Bld) [Entitic vol] 8.0 fL 6.6-10.1 [facility] Platelets Auto (Bld) [#/Vol] Ordered By: Bridger Dejesus on 2023 Platelets (Bld) [#/Vol] 168 10*3/uL 150-450 [facility] Potassium [Moles/volume] in Serum or PlasmaOrdered By: Bridger Dejesus on 2023 Potassium [Moles/Vol] 3.7 mmol/L 3.5-5.1 [facility] Protein Auto test strip (U) [Mass/Vol]Ordered By: Bridger Dejesus on 2023 Protein (U) [Mass/Vol] Negative Negative [facility] RBC Auto (Bld) [#/Vol]Ordere d By: Bridger Dejesus on 2023 RBC (Bld) [#/Vol] 4.34 10*6/uL 3.90-5.[address] [facility] Serum or plasma anion gap de terminationOrdered By: Bridger Dejesus on 2023 Anion gap [Moles/Vol] 9.6 mmol/L 6.0-15.0 [facility] Sodium [Moles/volume] in Ser um or PlasmaOrdered By: Bridger Dejesus on 2023 Sodium [Moles/Vol] 139 mmol/L 136-145 [facility] Specific gravity Auto test s trip (U) [Rel density]Ordered By: Bridger Dejesus on 2023 Specific gravity (U) [Rel density] 1.007 1.001-1.030 [facility] Squamous epithelial cells de tection in urine sediment by light microscopyOrdered By: Bridger Dejesus on 2023 Epithelial cells.squamous LM Ql (Urine sed) 1-2 [HPF] 0-2 [facility] Urea nitrogen [Mass/volume] in Serum or PlasmaOrdered By: Bridger Dejesus on 2023 Urea nitrogen [Mass/Vol] 14 mg/dL 7-25 [facility] Urine bacteria detection by automated methodOrdered By: Bridger Dejesus on 2023 Bacteria Auto Ql (U) None seen None Seen [facility] Urine clarity by refractomet ry automatedOrdered By: Bridger Dejesus on 2023 Clarity Refractometry automated (U) Clear Clear [facility] Urine culture routineOrdered By: Bridger Dejesus on 2023 Bacteria identified Cx Nom (U) 2 Days [facility] Urine glucose measurement by automated test strip (mass/volume)Ordered By: Bridger Dejesus on 2023 Glucose Auto test strip (U) [Mass/Vol] Normal mg/dL Normal [facility] Urine hemoglobin detection b y automated test stripOrdered By: Bridger Dejesus on 2023 Hemoglobin Auto test strip Ql (U) Negative Negative [facility] Urine leukocyte esterase det ection by automated test stripOrdered By: Bridger Dejesus on 2023 Leukocyte esterase Auto test strip Ql (U) 1+ Negative [facility] Urobilinogen Auto test strip (U) [Mass/Vol]Ordered By: Bridger Dejesus on 2023 Urobilinogen (U) [Mass/Vol] Normal mg/dL Normal [facility] WBC Auto (Bld) [#/Vol]Ordere d By: Bridger Dejesus on 2023 WBC (Bld) [#/Vol] 7.8 10*3/uL 4.1-10.5 [facility] pH Auto test strip (U)Ordere d By: Bridger Dejesus on 2023 pH (U) 5.0 [pH] 5.0-9.0 [facility] Automated erythrocytes count in urine sediment (number/area)Ordered By: Bridger Dejesus on 11-14-2023 RBC Auto (Urine sed) [#/Area] 5-9 [HPF] 0-4 [facility] Automated leukocytes count i n urine sediment (number/area)Ordered By: Bridger Hendricksy on 11-14-2023 WBC Auto (Urine sed) [#/Area] Innumerable [HPF] 0-4 [facility] Bilirubin Test strip Ql (U)O rdered By: Bridger Dejesus on 11-14-2023 Bilirubin Ql (U) Negative Negative [facility] CT pelvis wo conon CT pelvis wo con [facility] [place] [address] CT Scan Report Signed Patient: Bridger Fox MR#: [id number] : 1965 Acct:[id number] Age/Sex: 57 / M ADM Date: 11/14/23 Loc: ER Room: Type: [facility] ER Attending Dr: Copies to: Bridger Dejesus DO Ordering Provider: Bridger Dejesus DO Date of Service: 11/14/23 CT/CT lumbar spine wo con: r/o spinal fx s/p fall ([id number]) CT/CT pelvis wo con: r/o fx CT lumbar spine wo con, CT pelvis wo con 11/14/2023 4:42 AM History:Fall 2 days ago now with low back pain. TECHNIQUE: Multi detector CT axial slices of the lumbar spine and pelvis were obtained without IV contrast. Volumetric acquisition sagittal, coronal, and 3-D reconstructions were performed and reviewed on a separate workstation. CT was performed with one or more of the following dose reduction techniques: Automated exposure control, adjustment of the mA and/or kV according to patient size, or use of iterative reconstruction technique. COMPARISON: Lumbar spine 02/09/2023. FINDINGS: Lumbar spine: Posterior transpedicular hardware fixation L5-S1 without hardware complication noted. No acute fracture is seen. Vertebral body heights appear maintained. Diffuse endplate and facet joint degenerative changes with mild diffuse disc space narrowing. Transverse processes appear intact. SI joints demonstrate degenerative change. No paraspinal mass is noted. Visualized retroperitoneum demonstrates no acute process. Pelvis: No acute pelvic fracture is seen. Pubic rami appear intact with likely prior injury involving the left pubic symphysis and inferior pubic ramus. Degenerative changes are seen involving the hips without fracture. Varicosities are noted along the soft tissues of the right thigh. No acute intrapelvic process is seen. CT/CT lumbar spine wo con IMPRESSION: Degenerative changes involving the lumbar spine and pelvis without acute fracture. Impression dictated by: Ivan Zhang Jr., D.O.11/14/2023 9:15 AM Dictation Location: [place] [address] Transcribed By: [facility] 11/14/23914 Dictated By: Ivan Zhang Jr, DO 11/14/23910 Signed By: 11/14/23914 Normal [facility] Color Auto (U)Ordered By: Nirmal Dejesus on 11-14-2023 Color (U) Yellow Yellow [facility] Dipstick and Microscopicon 0 11-14-2023 Appearance (U) Cloudy Critically abnormal Clear [facility] Comment on above: Order Comment: Name Collection Type:: Clean-Voided Midstream Performed By: #### A DDONUAPLUS, CUU #### [place] [id number] [place] Bacteria,Urine 4+ High None Seen [facility] Comment on above: Order Comment: Name Collection Type:: Clean-Voided Midstream Performed By: #### A DDONUAPLUS, CUU #### [facility] [address] [place] [id number] [place] Bilirubin,Urine Negative Normal Negative [facility] Comment on above: Order Comment: Name Collection Type:: Clean-Voided Midstream Performed By: #### A DDONUAPLUS, CUU #### [facility] [address] [place] [address] [place] Color (U) Yellow Normal Yellow [facility] Comment on above: Order Comment: Name Collection Type:: Clean-Voided Midstream Performed By: #### A DDONUAPLUS, CUU #### [facility] [address] [place] [id number] [place] Glucose Ql (U) Normal Normal Normal [facility] Comment on above: Order Comment: Name Collection Type:: Clean-Voided Midstream Performed By: #### A DDONUAPLUS, CUU #### [facility] [address] [place] [id number] [place] Hyaline Casts,Urine 0-8 Normal 0-8 [facility] Comment on above: Order Comment: Name Collection Type:: Clean-Voided Midstream Result Comment: PERF ORMED BY: [place] [address] PATHOLOGIST FUR OPERATOR CHELY ALVARADO M.D. Performed By: #### A DDONUAPLUS, CUU #### [place] [address] [place] Ketones Ql (U) Negative Normal Negative [facility] Comment on above: Order Comment: Name Collection Type:: Clean-Voided Midstream Performed By: #### A DDONUAPLUS, CUU #### [address] Leukocyte esterase Test strip Ql (U) 4+ High Negative [facility] Comment on above: Order Comment: Name Collection Type:: Clean-Voided Midstream Performed By: #### A DDONUAPLUS, CUU #### [place] [address] [place] Nitrite,Urine Positive High Negative [facility] Comment on above: Order Comment: Name Collection Type:: Clean-Voided Midstream Performed By: #### A DDONUAPLUS, CUU #### [place] [address] [place] Occult Blood,Urine Trace High Negative [facility] Comment on above: Order Comment: Name Collection Type:: Clean-Voided Midstream Result Comment: PERF ORMED BY: [place] [address] PATHOLOGIST FUR OPERATOR CHELY ALVARADO M.D. Performed By: #### A DDONUAPLUS, CUU #### [place] [id number] [place] pH (U) 6.0 [pH] Normal 5.0-9.0 [facility] Comment on above: Order Comment: Name Collection Type:: Clean-Voided Midstream Performed By: #### A DDONUAPLUS, CUU #### [address] Protein,Urine Negative Normal Negative [facility] Comment on above: Order Comment: Name Collection Type:: Clean-Voided Midstream Performed By: #### A DDONUAPLUS, CUU #### [address] RBC,Urine 5-9 High 0-4 [facility] Comment on above: Order Comment: Name Collection Type:: Clean-Voided Midstream Performed By: #### A DDONUAPLUS, CUU #### [address] Specificy [place],Urine 1.019 Normal 1.001-1.030 [facility] Comment on above: Order Comment: Name Collection Type:: Clean-Voided Midstream Performed By: #### A DDONUAPLUS, CUU #### [address] Squamous Epithelial Cell,Urine None Seen Normal 0-2 [facility] Comment on above: Order Comment: Name Collection Type:: Clean-Voided Midstream Performed By: #### A DDONUAPLUS, CUU #### [address] Urobilinogen,Urine Normal Normal Normal [facility] Comment on above: Order Comment: Name Collection Type:: Clean-Voided Midstream Performed By: #### A DDONUAPLUS, CUU #### [place] [address] [place] WBC,Urine Innumerable High 0-4 [facility] Comment on above: Order Comment: Name Collection Type:: Clean-Voided Midstream Performed By: #### A DDONUAPLUS, CUU #### [address] Ketones Auto test strip (U) [Mass/Vol]Ordered By: Bridger Dejesus on 11-14-2023 Ketones (U) [Mass/Vol] Negative Negative [facility] - UrinalysisOrder ed By: Bridger Dejesus on 11-14-2023 Hyaline casts LM Ql (Urine sed) 0-8 [LPF] 0-8 [facility] Nitrite Test strip Ql (U)Ord ered By: Bridger Dejesus on 11-14-2023 Nitrite Ql (U) Positive Negative [facility] Protein Auto test strip (U) [Mass/Vol]Ordered By: Bridger Dejesus on 11-14-2023 Protein (U) [Mass/Vol] Negative Negative [facility] Specific gravity Auto test s trip (U) [Rel density]Ordered By: Bridger Dejesus on 11-14-2023 Specific gravity (U) [Rel density] 1.019 1.001-1.030 [facility] Squamous epithelial cells de tection in urine sediment by light microscopyOrdered By: Bridger Dejesus on 11-14-2023 Epithelial cells.squamous LM Ql (Urine sed) None seen [HPF] 0-2 [facility] Urine Cultureon 11-14-2023 Bacteria identified Cx Nom (U) ORGANISM: Escherichia coli (O:ESCCOL) [place] Count >100,000 Aerobic IVANA Charge ([id number]) ----- SUSCEPTIBILITY ---- ORGANISM: O:ESCCOL ANTIBIOTIC INTERPRETATION IVANA Amikacin S <16 Amoxacillin/K Clavulanate S <8 Ampicillin S <8 Ampicillin/Sulbactam S <4 Aztreonam S <4 Cefazolin S <2 Cefepime S <2 Ceftazidime S <1 Ceftazidime/Avibacta m S <4 Ceftolozane/Tazobact am S <2 Ceftriaxone S <1 Cefuroxime S <4 Ciprofloxacin S <0.25 Ertapenem S <0.5 Gentamicin S <2 Levofloxacin S <0.5 Meropenem S <1 Meropenem/Vaborbacta m S <2 Nitrofurantoin S <32 Piperacillin/Tazobac lynne S <8 Tetracycline S <4 Tigecycline S <2 Tobramycin S <2 Trimethoprim/Sulfame thoxazole S <0.5 S = SUSCEPTIBLE I = INTERMEDIATE R = RESISTANT BLANK = DATA NOT AVAILABLE, OR DRUG NOT ADVISABLE OR TESTED R* = RESISTANCE DUE TO EXTENDED SPECTRUM BETA-LACTAMASES ESBL = EXTENDED SPECTRUM BETA-LACTAMASE TFG = THYMIDINE-DEPENDENT STRAIN CIARA = BETA-LACTAMASE POSITIVE IB = INDUCIBLE BETA-LACTAMASE. APPEARS IN PLACE OF 'S' WITH SPECIES KNOWN TO POSSESS INDUCIBLE BETA-LACTAMASES. POTENTIALLY THEY MAY BECOME RESISTANT TO ALL B-LACTAM DRUGS. PERFORMED BY: [facility] [address] [place] [address] PATHOLOGIST FUR OPERATOR CHELY ALVARADO M.D. Normal [facility] Comment on above: Performed By: #### A DDONUAPLUS, CUU #### [address] Urine bacteria detection by automated methodOrdered By: Bridger Dejesus on 11-14-2023 Bacteria Auto Ql (U) 4+ None Seen [facility] Urine clarity by refractomet ry automatedOrdered By: Bridger Dejesus on 11-14-2023 Clarity Refractometry automated (U) Cloudy Clear [facility] Urine culture routineOrdered By: Bridger Dejesus on 11-14-2023 Bacteria identified Cx Nom (U) Escherichia coli [facility] Urine glucose measurement by automated test strip (mass/volume)Ordered By: Bridger Dejesus on 11-14-2023 Glucose Auto test strip (U) [Mass/Vol] Normal mg/dL Normal [facility] Urine hemoglobin detection b y automated test stripOrdered By: Bridger Dejesus on 11-14-2023 Hemoglobin Auto test strip Ql (U) Trace Negative [facility] Urine leukocyte esterase det ection by automated test stripOrdered By: Bridger Dejesus on 11-14-2023 Leukocyte esterase Auto test strip Ql (U) 4+ Negative [facility] Urobilinogen Auto test strip (U) [Mass/Vol]Ordered By: Bridger Dejesus on 11-14-2023 Urobilinogen (U) [Mass/Vol] Normal mg/dL Normal [facility] pH Auto test strip (U)Ordere d By: Bridger Dejesus on 11-14-2023 pH (U) 6.0 [pH] 5.0-9.0 [facility] A1C HEMOGLOBINon 11-13-2023 HbA1c (Bld) [Mass fraction] 7.2 % [employer] [facility] [employer] Other HbA1c (Bld) [Mass fraction]o n 11-13-2023 A1C HEMOGLOBIN [facility] [employer] Other Lab Reportson 09-25-2023 Lab Reports [id number] #1.00TIFF Normal [facility] Patient Educationon 09-22-20 Patient Education Urology Benign Prostatic Hyperplasia Benign prostatic hyperplasia (BPH) is an enlarged prostate gland that is caused by the normal aging process. The prostate may get bigger as a man gets older. The condition is not caused by cancer. The prostate is a walnut-sized gland that is involved in the production of semen. It is located in front of the rectum and below the bladder. The bladder stores urine. The urethra carries stored urine out of the body. An enlarged prostate can press on the urethra. This can make it harder to pass urine. The buildup of urine in the bladder can cause infection. Back pressure and infection may progress to bladder damage and kidney (renal) failure. What are the causes? This condition is part of the normal aging process. However, not all men develop problems from this condition. If the prostate enlarges away from the urethra, urine flow will not be blocked. If it enlarges toward the urethra and compresses it, there will be problems passing urine. What increases the risk? This condition is more likely to develop in men older than 50 years. What are the signs or symptoms? Symptoms of this condition include: ? Getting up often during the night to urinate. ? Needing to urinate frequently during the day. ? Difficulty starting urine flow. ? Decrease in size and strength of your urine stream. ? Leaking (dribbling) after urinating. ? Inability to pass urine. This needs immediate treatment. ? Inability to completely empty your bladder. ? Pain when you pass urine. This is more common if there is also an infection. ? Urinary tract infection (UTI). How is this diagnosed? This condition is diagnosed based on your medical history, a physical exam, and your symptoms. Tests will also be done, such as: ? A post-void bladder scan. This measures any amount of urine that may remain in your bladder after you finish urinating. ? A digital rectal exam. In a rectal exam, your health care provider checks your prostate by putting a lubricated, gloved finger into your rectum to feel the back of your prostate gland. This exam detects the size of your gland and any abnormal lumps or growths. ? An exam of your urine (urinalysis). ? A prostate specific antigen (PSA) screening. This is a blood test used to screen for prostate cancer. ? An ultrasound. This test uses sound waves to electronically produce a picture of your prostate gland. Your health care provider may refer you to a specialist in kidney and prostate diseases (urologist). How is this treated? Once symptoms begin, your health care provider will monitor your condition (active surveillance or watchful waiting). Treatment for this condition will depend on the severity of your condition. Treatment may include: ? Observation and yearly exams. This may be the only treatment needed if your condition and symptoms are mild. ? Medicines to relieve your symptoms, including: ? Medicines to shrink the prostate. ? Medicines to relax the muscle of the prostate. ? Surgery in severe cases. Surgery may include: ? Prostatectomy. In this procedure, the prostate tissue is removed completely through an open incision or with a laparoscope or robotics. ? Transurethral resection of the prostate (TURP). In this procedure, a tool is inserted through the opening at the tip of the penis (urethra). It is used to cut away tissue of the inner core of the prostate. The pieces are removed through the same opening of the penis. This removes the blockage. ? Transurethral incision (TUIP). In this procedure, small cuts are made in the prostate. This lessens the prostate's pressure on the urethra. ? Transurethral microwave thermotherapy (TUMT). This procedure uses microwaves to create heat. The heat destroys and removes a small amount of prostate tissue. ? Transurethral needle ablation (TUNA). This procedure uses radio frequencies to destroy and remove a small amount of prostate tissue. ? Interstitial laser coagulation (ILC). This procedure uses a laser to destroy and remove a small amount of prostate tissue. ? Transurethral electrovaporization (TUVP). This procedure uses electrodes to destroy and remove a small amount of prostate tissue. ? Prostatic urethral lift. This procedure inserts an implant to push the lobes of the prostate away from the urethra. Follow these instructions at home: ? Take [id number]-[id number] and prescription medicines only as told by your health care provider. ? Monitor your symptoms for any changes. Contact your health care provider with any changes. ? Avoid drinking large amounts of liquid before going to bed or out in public. ? Avoid or reduce how much caffeine or alcohol you drink. ? Give yourself time when you urinate. ? Keep all follow-up visits. This is important. Contact a health care provider if: ? You have unexplained back pain. ? Your symptoms do not get better with treatment. ? You develop side effects from the medicine (more content not included)... Normal [facility] Urology Office/Clinic Noteon 09-22-2023 Urology Office/Clinic Note Chief Complaint 4m PSA HPI Staff 4m PSA (pt did not get lab done, thinks he may have lost the order) DX: BPH, Testicular pain, Prostatitis, Prostate Nodule, Epididymal Cyst, Varicocele & Fam Hx of Prostate Cancer *Tamsulosin 0.4mg BID 7 Dutasteride 0.5mg QD S/P NEG MRI of prostate 03/14/22 & NEG TRUS/Bx 04/09/22 PSA at time of last encounter 05/05/23- 0.53 Pt states he is unable to provide urine specimen due to voiding prior to appointment. Stream is more steady since restarting Tamsulosin & beginning Dutasteride Still has frequency during the night. At least 3x/night. Denies testicular pain. History of Present Illness Tests reviewed: none I have reviewed the previous health record information and history for this patient from Dr. Loja. I have reviewed and verified the staff HPI to be accurate for this encounter. Review of Systems PHQ Score Initial Depression Screen Score: 0 SCORE ROS - Provider Constitutional: denies weight loss, denies hot flashes. Eyes: denies eye problems. Gastrointestinal: denies nausea, denies vomiting. Cardiovascular: denies chest pain or angina. Integumentary: no dryness Musculoskeletal: denies musculoskeletal symptoms. ENMT: denies otolaryngeal symptoms. Respiratory: no shortness of breath. Heme/Lymph: denies easy bleeding tendency, denies easy bruising tendency. Psychiatric: no confusion, no anxiety. Genitourinary: See HPI. Physical Exam Vitals & Measurements HR: 78(Peripheral) RR: 16 BP: 139/89 HT: 66 in HT: 168 cm WT: 113.5 kg WT: 249.7 lb BMI: 40.21 General Appearance: alert, no distress, well nourished, well developed male. Genitourinary: normal scrotum, normal testes, normal urethra, normal epididymis, normal vas deferens/spermatic cord. Flank Pain: none. Bladder: nonpalpable. Assessment/Plan 1. BPH with obstruction/lower urinary tract symptoms (N40.1: Benign prostatic hyperplasia with lower urinary tract symptoms) PSA 02/2022 - 0.36 05/05/23 - 0.53 Pt was to have PSA done prior to appt today but did not complete this due to not knowing where his order was. Pt states he will get PSA drawn at [facility]. Restarted Tamsulosin 0.4mg at increased dosage of bid at prior OV. Taking Dutasteride 0.5mg qd. States his stream has improved since restarting Tamsulosin. States he now voids 2-3x/night, was 1x. Reports he takes Tamsulosin and Dutasteride in the mornings and second dose of Tamsulosin at dinnertime. Advised pt to take second dose 1hr prior to bedtime instead. If no improvement with this, recommended pt to continue taking Dutasteride in the morning and only take Tamsulosin 0.4mg in the morning for a week to see if he has decreased nocturia. -Cont Dutasteride -Switch time of second dose of Tamsulosin as above -PSA now and in 1 yr 2. Prostate nodule (N40.2: Nodular prostate without lower urinary tract symptoms) ALEXIA 02/18/22 - 35gms, hard nodule at L base to apex. Prostate MRI 03/14/22 - neg. S/p TRUS/bx 04/09/22 - neg. 3. Family history of prostate cancer (Z80.42: Family history of malignant neoplasm of prostate) Father, from lung CA. Also on mother's side. [1] 4. Epididymal cyst (N50.3: Cyst of epididymis) Scrotal US done 01/11/22 from [facility] shows no evidence of testicle or torsion. There is 5 x 4 mm size cyst in the left testicle, left epididymal head cyst and measures 4mm. Not clinically significant. [2] 5. Varicocele (I86.1: Scrotal varices) Scrotal US done 01/11/22 shows no evidence of testicle or torsion, however shows bilateral varicoceles. Not clinically significant. [3] Follow-up With When Contact Information AJ JOHNSON, Mendel Mendez, URL [facility] [address] [place] [phone] Additional Instructions: 1 yr w/ PSA Patient Education Benign Prostatic Hyperplasia I, Marielle Robertson, personally scribed for Dr. Loja on 09/22/2023 15:40:16. . Documentation recorded by the jeremyibeMarielle, accurately reflects the services(s) I performed and decisions made by me. Authenticated by Dr. Loja on 09/22/2023 15:45:22. Problem List/Past Medical History Ongoing BPH with obstruction/lower urinary tract symptoms DDD (degenerative disc disease), lumbar Dyslipidemia ED (erectile dysfunction) Epididymal cyst Family history of prostate cancer GERD without esophagitis Prostate nodule Prostatitis Testicular pain Type 2 diabetes mellitus Varicocele Varicose veins of leg with pain Historical No qualifying data Procedure/Surgical History Transrectal needle biopsy of prostate (04/09/2022), Cholecystectomy, Fusion of lumbar spine, History of hernia repair, History of tonsillectomy. Medications aspirin 81 mg oral capsule, Oral, q4hr atorvastatin 20 mg Tab, Oral, Daily dutasteride 0.5 mg Cap, 0.5 mg= 1 cap(s), Oral, Daily, 11 refills Mounjaro 5 mg/0.5 mL subcutaneous solution NovoLog, SubCutaneous, TIDAC Pantopraz (more content not included)... Normal [facility] Comment on above: Result Comment: Elec tronically Signed By: Mendel LOJA MD\.br\Date and Time Signed: 09/22/23 15:45 EST\.br\Electronically Co-Signed By: Marielle Robertson\.br\Date and Time Co-Signed: 09/22/23 15:40 EST Glucose - FINGER STICKon Glucose [Mass/Vol] 104 mg/dL [employer] Other Lab Reportson 05-06-2023 Lab Reports [id number] #1.00CD:127 [facility] Ambulatory Visit Summaryon 0 05-05-2023 Ambulatory Visit Summary BRIDGER FOX :1965 Visit Date:05/05/2023 Ambulatory Visit Instructions Your Diagnosis BPH (benign prostatic hyperplasia) Testicular pain Prostatitis Prostate nodule Epididymal cyst Varicocele Family history of prostate cancer Your Care Team Attending Physician - Mendel LOJA MD Primary Care Physician - HUA GORDON MD This Is Your Medications List tamsulosin (tamsulosin 0.4 mg Cap) Contact prescribing physician if questions or concerns aspirin (aspirin 81 mg oral capsule) atorvastatin (atorvastatin 20 mg Tab) dutasteride (dutasteride 0.5 mg Cap) ergocalciferol (Vitamin D) insulin aspart (NovoLog) insulin glargine (Toujeo Max SoloStar 300 units/mL subcutaneous solution) pantoprazole (Pantoprazole [address] Tab) tirzepatide (Mounjaro 5 mg/0.5 mL subcutaneous solution) Procedures Performed Transrectal needle biopsy of prostate (04/09/2022), Cholecystectomy, Fusion of lumbar spine, History of hernia repair, History of tonsillectomy. Discharge Vitals Heart Rate (Peripheral) 82 Blood Pressure 130/80 Height 168 cm Height 66 in Weight 113.5 kg Weight 249.7 lb BMI 40.21 What to do next Scheduled Follow-Up Appointments Friday 3:30 PM EST With: Mendel LOJA MD Where: [facility] Patient Educationon 05-05-20 23 Patient Education Urology Benign Prostatic Hyperplasia Benign prostatic hyperplasia (BPH) is an enlarged prostate gland that is caused by the normal aging process. The prostate may get bigger as a man gets older. The condition is not caused by cancer. The prostate is a walnut-sized gland that is involved in the production of semen. It is located in front of the rectum and below the bladder. The bladder stores urine. The urethra carries stored urine out of the body. An enlarged prostate can press on the urethra. This can make it harder to pass urine. The buildup of urine in the bladder can cause infection. Back pressure and infection may progress to bladder damage and kidney (renal) failure. What are the causes? This condition is part of the normal aging process. However, not all men develop problems from this condition. If the prostate enlarges away from the urethra, urine flow will not be blocked. If it enlarges toward the urethra and compresses it, there will be problems passing urine. What increases the risk? This condition is more likely to develop in men older than 50 years. What are the signs or symptoms? Symptoms of this condition include: ? Getting up often during the night to urinate. ? Needing to urinate frequently during the day. ? Difficulty starting urine flow. ? Decrease in size and strength of your urine stream. ? Leaking (dribbling) after urinating. ? Inability to pass urine. This needs immediate treatment. ? Inability to completely empty your bladder. ? Pain when you pass urine. This is more common if there is also an infection. ? Urinary tract infection (UTI). How is this diagnosed? This condition is diagnosed based on your medical history, a physical exam, and your symptoms. Tests will also be done, such as: ? A post-void bladder scan. This measures any amount of urine that may remain in your bladder after you finish urinating. ? A digital rectal exam. In a rectal exam, your health care provider checks your prostate by putting a lubricated, gloved finger into your rectum to feel the back of your prostate gland. This exam detects the size of your gland and any abnormal lumps or growths. ? An exam of your urine (urinalysis). ? A prostate specific antigen (PSA) screening. This is a blood test used to screen for prostate cancer. ? An ultrasound. This test uses sound waves to electronically produce a picture of your prostate gland. Your health care provider may refer you to a specialist in kidney and prostate diseases (urologist). How is this treated? Once symptoms begin, your health care provider will monitor your condition (active surveillance or watchful waiting). Treatment for this condition will depend on the severity of your condition. Treatment may include: ? Observation and yearly exams. This may be the only treatment needed if your condition and symptoms are mild. ? Medicines to relieve your symptoms, including: ? Medicines to shrink the prostate. ? Medicines to relax the muscle of the prostate. ? Surgery in severe cases. Surgery may include: ? Prostatectomy. In this procedure, the prostate tissue is removed completely through an open incision or with a laparoscope or robotics. ? Transurethral resection of the prostate (TURP). In this procedure, a tool is inserted through the opening at the tip of the penis (urethra). It is used to cut away tissue of the inner core of the prostate. The pieces are removed through the same opening of the penis. This removes the blockage. ? Transurethral incision (TUIP). In this procedure, small cuts are made in the prostate. This lessens the prostate's pressure on the urethra. ? Transurethral microwave thermotherapy (TUMT). This procedure uses microwaves to create heat. The heat destroys and removes a small amount of prostate tissue. ? Transurethral needle ablation (TUNA). This procedure uses radio frequencies to destroy and remove a small amount of prostate tissue. ? Interstitial laser coagulation (ILC). This procedure uses a laser to destroy and remove a small amount of prostate tissue. ? Transurethral electrovaporization (TUVP). This procedure uses electrodes to destroy and remove a small amount of prostate tissue. ? Prostatic urethral lift. This procedure inserts an implant to push the lobes of the prostate away from the urethra. Follow these instructions at home: ? Take [id number] and prescription medicines only as told by your health care provider. ? Monitor your symptoms for any changes. Contact your health care provider with any changes. ? Avoid drinking large amounts of liquid before going to bed or out in public. ? Avoid or reduce how much caffeine or alcohol you drink. ? Give yourself time when you urinate. ? Keep all follow-up visits. This is important. Contact a health care provider if: ? You have unexplained back pain. ? Your symptoms do not get better with treatment. ? You develop side effects from the medicine (more content not included)... Normal [facility] Urology Office/Clinic Noteon 05-05-2023 Urology Office/Clinic Note Chief Complaint 6m PSA HPI Staff 6m PSA DX: BPH, Testicular pain, , Prostatitis, Prostate Nodule, Epididymal Cyst, Varicocele & Fam Hx of Prostate Cancer (father). *Tamsulosin 0.4mg QD therapy. Pt was started on Dutasteride 0.5mg QD therapy at time of last encounter. Pt states he has not taken the Dutasteride (he thinks-not sure if it's the tamsulosin or Dutasteride)for the past month. Out of pills, did not realize he needed to call pharmacy for refill. Pt unable to provide urine specimen. PSA not drawn prior to appt. Will draw in office today. Denies pain and burning, however states in the past month it doesn't fee good when he voids. Denies visible blood in urine. Denies testicular pain. Voiding q2hrs during day. 1x/night. Denies complications with urinary stream. Denies all urinary concerns at this time. History of Present Illness Tests reviewed: none I have reviewed the previous health record information and history for this patient from Dr. Loja. I have reviewed and verified the staff HPI to be accurate for this encounter. There have been no associated fever, chills, flank pain, or blood in the urine. Denies any urinary infections since last encounter. Review of Systems PHQ Score Initial Depression Screen Score: 0 ROS - Provider Constitutional: denies weight loss, denies hot flashes. Eyes: denies eye problems. Gastrointestinal: denies nausea, denies vomiting. Cardiovascular: denies chest pain or angina. Integumentary: no dryness Musculoskeletal: denies musculoskeletal symptoms. ENMT: denies otolaryngeal symptoms. Respiratory: no shortness of breath. Heme/Lymph: denies easy bleeding tendency, denies easy bruising tendency. Psychiatric: no confusion, no anxiety. Genitourinary: See HPI. Physical Exam Vitals & Measurements HR: 82(Peripheral) BP: 130/80 HT: 66 in HT: 168 cm WT: 113.5 kg WT: 249.7 lb BMI: 40.21 General Appearance: alert, no distress, well nourished, well developed male. Genitourinary: normal scrotum, normal testes, normal urethra, normal epididymis, normal vas deferens/spermatic cord. Flank Pain: none. Bladder: nonpalpable. Assessment/Plan 1. BPH (benign prostatic hyperplasia) (N40.0: Benign prostatic hyperplasia without lower urinary tract symptoms) Pt is no longer taking Tamsulosin 0.4mg QD due to forgetting to refill script. Pt to restart Tamsulosin at increased dosage of o.4mg BID. Pt is currently taking Dutasteride 0.5mg QD. Pt is getting blood drawn in office today for PSA. Follow up in 4 months with PSA or sooner if needed. All questions/concerns were discussed. Pt to call the office if he encounters any issues prior. Pt acknowledges understanding. 2. Testicular pain (N50.819: Testicular pain, unspecified) Pt denies any pain in the last few months. Was treated at prior office visit with doxycycline. 3. Prostatitis (N41.9: Inflammatory disease of prostate, unspecified) No sample provided for UA today. Denies infections since prior office visit. Denies pain/burning and blood in urine. 4. Prostate nodule (N40.2: Nodular prostate without lower urinary tract symptoms) MRI of the prostate 03/14/2022 - negative. S/p TRUS BX 04/09/22 - negative. 5. Epididymal cyst (N50.3: Cyst of epididymis) Scrotal US done 01/11/22 from [facility] shows no evidence of testicle or torsion. There is 5 x 4 mm size cyst in the left testicle, left epididymal head cyst and measures 4mm. Not clinically significant. [1] 6. Varicocele (I86.1: Scrotal varices) Scrotal US done 01/11/22 shows no evidence of testicle or torsion, however shows bilateral varicoceles. Not clinically significant. [2] 7. Family history of prostate cancer (Z80.42: Family history of malignant neoplasm of prostate) Father, from lung CA. Also on mother's side. [3] Follow-up With When Contact Information AJ JOHNSON, Mendel Mendez, URL [facility] [address] [place] [address] [phone] Additional Instructions: 4 mos w/ PSA Patient Education Benign Prostatic Hyperplasia I, Marielle Robertson, personally scribed for Dr. Loja on 05/05/2023 15:33:42. . Documentation recorded by the jeremyibeMarielle, accurately reflects the services(s) I performed and decisions made by me. Authenticated by Dr. Loja on 05/05/2023 15:35:00. Problem List/Past Medical History Ongoing BPH (benign prostatic hyperplasia) DDD (degenerative disc disease), lumbar Dyslipidemia ED (erectile dysfunction) Epididymal cyst Family history of prostate cancer GERD without esophagitis Prostate nodule Prostatitis Testicular pain Type 2 diabetes mellitus Varicocele Varicose veins of leg with pain Historical No qualifying data Procedure/Surgical History Transrectal needle biopsy of prostate (04/09/2022), Cholecystectomy, Fusion of lumbar spine, History of hernia repair, History of tonsillectomy. Medications aspirin 81 mg oral c (more content not included)... Normal [facility] Comment on above: Result Comment: Elec tronically Signed By: AJ JOHNSON, Mendel Mendez\.br\Date and Time Signed: 05/05/23 15:35 EDT\.br\Electronically Co-Signed By: Marielle Robertson\.br\Date and Time Co-Signed: 05/05/23 15:34 EDT Glucose - FINGER STICKon Glucose [Mass/Vol] 113 mg/dL [employer] Other A1C HEMOGLOBINon 02-03-2023 HbA1c (Bld) [Mass fraction] 7.4 % [employer] Other Glucose - FINGER STICKon Glucose [Mass/Vol] 97 mg/dL [employer] Other HbA1c (Bld) [Mass fraction]o n 02-03-2023 A1C HEMOGLOBIN [employer] Other A1C HEMOGLOBINon 10-28-2022 HbA1c (Bld) [Mass fraction] 8.0 % [employer] Other Glucose - FINGER STICKon Glucose [Mass/Vol] 125 mg/dL [employer] Other HbA1c (Bld) [Mass fraction]o n 10-28-2022 A1C HEMOGLOBIN [employer] Other A1C HEMOGLOBINon 11-05-2021 HbA1c (Bld) [Mass fraction] 7.6 % [employer] Other Glucose - FINGER STICKon Glucose [Mass/Vol] 85 mg/dL [employer] Other HbA1c (Bld) [Mass fraction]o n 11-05-2021 A1C HEMOGLOBIN [place] [facility] [employer] Other Comprehensive Metabolic Pane jt 07-21-2021 Albumin [Mass/Vol] 4.2 g/dL [facility] [employer] Other ALP [Catalytic activity/Vol] 56 U/L [facility] [employer] Other ALT [Catalytic activity/Vol] 24 U/L [facility] [employer] Other AST [Catalytic activity/Vol] 23 U/L [facility] [employer] Other Bilirubin [Mass/Vol] 0.7 mg/dL [facility] [employer] Other Calcium [Mass/Vol] 9.1 mg/dL [facility] [employer] Other Chloride [Moles/Vol] 108 mmol/L [facility] [employer] Other CO2 [Moles/Vol] 29 mmol/L [facility] [employer] Other Creatinine [Mass/Vol] 0.82 mg/dL [facility] [employer] Other Glucose [Mass/Vol] 103 mg/dL [facility] [employer] Other Potassium [Moles/Vol] 4.2 mmol/L [facility] [employer] Other Protein [Mass/Vol] 6.8 g/dL [facility] [employer] Other Sodium [Moles/Vol] 144 mmol/L [facility] [employer] Other Urea nitrogen [Mass/Vol] 17 mg/dL [facility] [employer] Other Comprehensive Metabolic Panel [facility] [employer] Other Comprehensive Metabolic Panel >60 [facility] [employer] Other Lipid Panelon 07-21-2021 Cholesterol [Mass/Vol] 134 mg[facility] [employer] Other Cholesterol in HDL [Mass/Vol] 49 mg/dL [facility] [employer] Other Cholesterol in LDL Elph Qn 69 [facility] [employer] Other Cholesterol.total/Chol esterol in HDL [Mass ratio] 2.7 {ratio} [place] [employer] Other Lipid Panel 80 [place] [employer] Other Lipid Panel 16 [place] [employer] Other [employer] Creat Ratio,Uon Albumin DL <= 20 mg/L (U) [Mass/Vol] mg/dL [place] [employer] Other Albumin/Creatinine DL <= 20 mg/L (U) [Mass ratio] Not Calculated [place] [employer] Other Creatinine (U) [Mass/Vol] 135.67 mg/dL [place] [employer] Other Vitamin D 25 Hydroxy Totalon 07-21-2021 Vitamin D 25 Hydroxy Total 24.3 [facility] [employer] Other A1C HEMOGLOBINon 07-18-2021 HbA1c (Bld) [Mass fraction] 7.0 % [place] [employer] Other Glucose - FINGER STICKon Glucose [Mass/Vol] 117 mg/dL [facility] [employer] Other HbA1c (Bld) [Mass fraction]o n 07-18-2021 A1C HEMOGLOBIN [facility] [employer] Other VC CONSULT FOLLOWUPon 2020 VC CONSULT FOLLOWUP Patient: BRIDGER FOX Exam Date: 06/15/2021 : 1965 Gender:M Ordering : DR AUSTIN HSU M.D. Admission #: [id number] Family : Order #: [id number] CLICK HERE TO VIEW EXAM RADIOLOGY REPORT PROCEDURE: VEIN CENTER CONSULTATION FOLLOWUP VEIN CENTER - OFFICE VISIT FOLLOW UP COMPARISON: None. PROGRESS NOTES: The patient reports he did not have recommended treatments from his prior visit secondary to the cost. The patient continues to complain of bilateral lower extremity pain but presents with focal pain along his anterior mid right nina. The patient reports trauma, with his medial leg sustaining injury from a falling limb while cutting trees. Physical exam demonstrates a 15 x 10 cm area of warmth along the mid anterior right lower leg. No erythema or bruising is observed. Multiple varicosities and reticular veins throughout the patient's thigh and lower leg. I personally performed ultrasound as well as reviewed the technologists images. In the area of the patient's warmth and pain, multiple superficial varicose veins are observed with some mild wall thickening. No intraluminal thrombus or noncompressibility. No treatment for the area of pain was recommended at this time. The patient's symptoms worsened he was instructed to go to the emergency room for further evaluation. I counseled the patient on varicose vein treatments, which he was reluctant to have at this time due to the cost and his to Dr. Mynor gutierrez. IMPRESSION: 1. Suspected minimal thrombophlebitis related to trauma with no observed intraluminal thrombus but mild wall thickening 2. No edema, mass or hematoma to correspond to the patient's palpable abnormality related to trauma PLAN: Follow-up as needed Nurse notes, history and physical were reviewed and confirmed, see attached forms. The nurse was present throughout the physical exam and consultation Dictated by: Austin Hsu MD on 06/15/2021 at 14:18 Approved by: Austin Hsu MD on 06/15/2021 at 14:22 Normal [facility] VC EXT VENOUS REJI LIMITEDon 06-15-2021 VC EXT VENOUS REJI LIMITED Patient: BRIDGER FOX Exam Date: 06/15/2021 : 1965 Gender:M Ordering : DR AUSTIN HSU M.D. Admission #: [id number] Family : Order #: [id number] CLICK HERE TO VIEW EXAM RADIOLOGY REPORT PROCEDURE: VEIN CENTER EXTREMITY VENOUS BILATERAL LIMITED COMPARISON: None. INDICATIONS: Pain co-occurrent and due to varicose veins of bilateral legs I83.813 TECHNIQUE: Lower extremity herrera scale and Duplex Doppler evaluation of the deep venous system from the inguinal ligament through the calf veins. FINDINGS: REGION: Right lower extremity. THROMBI: None. COMPRESSIBILITY: Normal compressibility. FLOW: Choose one. OTHER: Normal REGION: Left lower extremity. THROMBI: None. COMPRESSIBILITY: Normal compressibility. FLOW: Choose one. OTHER: Multiple superficial varicosities in the area of the patient's pain and swelling, several of which have prominent mildly thickened garner. No intraluminal thrombus or noncompressibility observed. No subcutaneous edema or hematoma. *Exam performed in accordance with [facility] practice guidelines- Peripheral venous ultrasound, January 13, 2010. CONCLUSION: 1. No deep or superficial thrombus in the legs 2. Superficial varicosities with mildly thickened garner in the area of the patient's pain and swelling Dictated by: Austin Hsu MD on 06/15/2021 at 14:17 Approved by: Austin Hsu MD on 06/15/2021 at 14:18 Normal [facility] Vital Signs Date Time Vital Sign Value Performing Clinician Facility 03-23-2024 15:58-0400 Diastolic blood pressure 87 mm[Hg] Deric Shin [facility] 03-23-2024 15:58-0400 Heart rate 75 /min Deric Shin [facility] 03-23-2024 15:58-0400 Mean blood pressure 103 mm[Hg] Deric Shin [facility] 03-23-2024 15:58-0400 Respiratory rate 16 /min Deric Shin [facility] 03-23-2024 15:58-0400 SaO2% (BldA) [Mass fraction] 99 % Deric Shin [facility] 03-23-2024 15:58-0400 Systolic blood pressure 136 mm[Hg] Deric Kip [facility] 03-23-2024 14:54-0400 Diastolic blood pressure 74 mm[Hg] Deric Shin [facility] 03-23-2024 14:54-0400 Heart rate 71 /min Deric Shin [facility] 03-23-2024 14:54-0400 Mean blood pressure 90 mm[Hg] Deric Kip [facility] 03-23-2024 14:54-0400 Respiratory rate 16 /min Deric Kip [facility] 03-23-2024 14:54-0400 SaO2% (BldA) [Mass fraction] 98 % Deric Kip [facility] 03-23-2024 14:54-0400 Systolic blood pressure 122 mm[Hg] Deric Kip [facility] 03-23-2024 14:17-0400 Diastolic blood pressure 76 mm[Hg] Deric Kip [facility] 03-23-2024 14:17-0400 Heart rate 76 /min Deric Kip [facility] 03-23-2024 14:17-0400 Mean blood pressure 95 mm[Hg] Deric Kip [facility] 03-23-2024 14:17-0400 Respiratory rate 16 /min Deric Kip [facility] 03-23-2024 14:17-0400 SaO2% (BldA) [Mass fraction] 100 % Deric Kip [facility] 03-23-2024 14:17-0400 Systolic blood pressure 132 mm[Hg] Deric Kip [facility] 03-23-2024 13:40-0400 Body temperature 98.24 [degF] Deric Kip [facility] 03-23-2024 13:40-0400 Heart rate 80 /min Deric Kip [facility] 03-12-2024 10:27-0400 Blood Pressure Location Mendel AJ [facility] 03-12-2024 10:27-0400 Diastolic blood pressure 82 mm[Hg] Mendel LOJA [facility] 03-12-2024 10:27-0400 Heart rate 63 /min Mendel LOJA [facility] 03-12-2024 10:27-0400 Respiratory rate 16 /min Mendel LOJA [facility] 03-12-2024 10:27-0400 Systolic blood pressure 135 mm[Hg] Mendel LOJA [facility] 03-03-2024 14:28-0400 Blood Pressure Location OPAL SIMBA [facility] 03-03-2024 14:28-0400 Diastolic blood pressure 89 mm[Hg] OPAL SIMBA [facility] 03-03-2024 14:28-0400 Heart rate 72 /min OPAL SIMBA [facility] 03-03-2024 14:28-0400 Respiratory rate 16 /min OPAL SIMBA [facility] 03-03-2024 14:28-0400 Systolic blood pressure 133 mm[Hg] OPAL SIMBA [facility] 02-29-2024 10:45-0400 Body height 167.64 cm [facility] 02-29-2024 10:45-0400 Body mass index (BMI) [Ratio] 41.8 kg/m2 [facility] 02-29-2024 10:45-0400 Body temperature 97.9 [degF] [facility] 02-29-2024 10:45-0400 Body weight 117.48 kg [facility] 02-29-2024 10:45-0400 Diastolic blood pressure 95 mm[Hg] [facility] 02-29-2024 10:45-0400 Heart rate 63 /min [facility] 02-29-2024 10:45-0400 Respiratory rate 18 /min [facility] 02-29-2024 10:45-0400 SaO2% (BldA) [Mass fraction] 99 % [facility] 02-29-2024 10:45-0400 Systolic blood pressure 152 mm[Hg] [facility] 02-19-2024 14:59-0400 Body height 167.64 cm [facility] 02-19-2024 14:59-0400 Body mass index (BMI) [Ratio] 41.9 kg/m2 [facility] 02-19-2024 14:59-0400 Body weight 117.93 kg [facility] 02-19-2024 14:59-0400 Diastolic blood pressure 85 mm[Hg] [facility] 02-19-2024 14:59-0400 Heart rate 83 /min [facility] 02-19-2024 14:59-0400 Respiratory rate 18 /min [facility] 02-19-2024 14:59-0400 SaO2% (BldA) [Mass fraction] 96 % [facility] 02-19-2024 14:59-0400 Systolic blood pressure 132 mm[Hg] [facility] 2023 23:40-0500 Diastolic blood pressure 74 mm[Hg] MD Hua Gordon Work Phone: [facility] 2023 23:40-0500 Heart rate 85 /min MD Hua Gordon Work Phone: [facility] 2023 23:40-0500 Respiratory rate 16 /min MD Hua Gordon Work Phone: [facility] 2023 23:40-0500 SaO2% (BldA) [Mass fraction] 97 % MD Hua Gordon Work Phone: [facility] 2023 23:40-0500 Systolic blood pressure 168 mm[Hg] MD Hua Gordon Work Phone: [facility] 2023 21:20-0500 Body height 167.64 cm MD Hua Gordon Work Phone: [facility] 2023 21:20-0500 Body temperature 97.4 [degF] MD Hua Gordon Work Phone: [facility] 2023 21:20-0500 Body weight 117.1 kg MD Hua Gordon Work Phone: [facility] 11-14-2023 06:17-0500 Diastolic blood pressure 77 mm[Hg] MD Hua Gordon Work Phone: [facility] 11-14-2023 06:17-0500 Heart rate 79 /min MD Hua Gordon Work Phone: [facility] 11-14-2023 06:17-0500 Respiratory rate 20 /min MD Hua Gordon Work Phone: [facility] 11-14-2023 06:17-0500 SaO2% (BldA) [Mass fraction] 98 % MD Hua Gordon Work Phone: [facility] 11-14-2023 06:17-0500 Systolic blood pressure 132 mm[Hg] MD Hua Gordon Work Phone: [facility] 11-14-2023 03:07-0500 Body height 167.64 cm MD Hua Gordon Work Phone: [facility] 11-14-2023 03:07-0500 Body temperature 96.9 [degF] MD Hua Gordon Work Phone: [facility] 11-14-2023 03:07-0500 Body weight 114.75 kg MD Hua Gordon Work Phone: [facility] 11-13-2023 08:15-0500 Body height 167.64 cm Tondra Mapus Other [facility] 11-13-2023 08:15-0500 Body mass index (BMI) [Ratio] 41.35 kg/m2 Tondra Mapus Other [facility] [employer] Other 11-13-2023 08:15-0500 Body weight 116.21 kg Tondra Mapus Other [facility] 11-13-2023 08:15-0500 Diastolic blood pressure 84 mm[Hg] Tondra Mapus Other [employer] Other 11-13-2023 08:15-0500 Respiratory rate 18 /min Tondra Mapus Other [employer] Other 11-13-2023 08:15-0500 SaO2% (BldA) [Mass fraction] 100 % Tondra Mapus Other [employer] Other 11-13-2023 08:15-0500 Systolic blood pressure 127 mm[Hg] Tondra Mapus Other [employer] Other 09-22-2023 14:52-0500 Blood Pressure Location Mendel LOJA [facility] 09-22-2023 14:52-0500 Diastolic blood pressure 89 mm[Hg] Mendel LOJA [facility] 09-22-2023 14:52-0500 Heart rate 78 /min Mendel LOJA [facility] 12-04-2023 14:52-0500 Respiratory rate 16 /min Mendel LOJA [facility] 09-22-2023 14:52-0500 Systolic blood pressure 139 mm[Hg] Mendel LOJA [facility] 05-26-2023 15:00-0400 Body height 167.64 cm Tondra Mapus Other [employer] Other 05-26-2023 15:00-0400 Body mass index (BMI) [Ratio] 40.15 kg/m2 Tondra Mapus Other [employer] Other 05-26-2023 15:00-0400 Body weight 112.86 kg Tondra Mapus Other [employer] Other 05-26-2023 15:00-0400 Diastolic blood pressure 66 mm[Hg] Tondra Mapus Other [employer] Other 05-26-2023 15:00-0400 Respiratory rate 18 /min Tondra Mapus Other [employer] Other 05-26-2023 15:00-0400 SaO2% (BldA) [Mass fraction] 100 % Tondra Mapus Other [employer] Other 05-26-2023 15:00-0400 Systolic blood pressure 125 mm[Hg] Tondra Mapus Other [employer] Other 04-28-2023 16:00-0400 Body height 167.64 cm Paul Bennett Other [employer] Other 04-28-2023 16:00-0400 Body mass index (BMI) [Ratio] 40.99 kg/m2 Paul Bennett Other [employer] Other 04-28-2023 16:00-0400 Body weight 115.21 kg Paul Bennett Other [employer] Other 04-28-2023 16:00-0400 Diastolic blood pressure 72 mm[Hg] Paul Bennett Other [employer] Other 04-28-2023 16:00-0400 SaO2% (BldA) [Mass fraction] 98 % Paul Bennett Other [employer] Other 04-28-2023 16:00-0400 Systolic blood pressure 124 mm[Hg] Paul Bennett Other [employer] Other 03-27-2023 16:00-0400 Body height 167.64 cm Paul Bennett Other [employer] Other 03-27-2023 16:00-0400 Body mass index (BMI) [Ratio] 41.64 kg/m2 Paul Bennett Other [employer] Other 03-27-2023 16:00-0400 Body weight 117.03 kg Paul Bennett Other [employer] Other 03-27-2023 16:00-0400 Diastolic blood pressure 76 mm[Hg] Paul Bennett Other [employer] Other 03-27-2023 16:00-0400 Systolic blood pressure 124 mm[Hg] Paul Bennett Other [employer] Other 03-26-2023 15:00-0400 Body height 167.64 cm Tondra Mapus Other [employer] Other 03-26-2023 15:00-0400 Body mass index (BMI) [Ratio] 41.59 kg/m2 Tondra Mapus Other [employer] Other 03-26-2023 15:00-0400 Body weight 116.89 kg Tondra Mapus Other [employer] Other 03-26-2023 15:00-0400 Diastolic blood pressure 78 mm[Hg] Tondra Mapus Other [employer] Other 03-26-2023 15:00-0400 Respiratory rate 18 /min Tondra Mapus Other [employer] Other 03-26-2023 15:00-0400 SaO2% (BldA) [Mass fraction] 98 % Tondra Mapus Other [employer] Other 03-26-2023 15:00-0400 Systolic blood pressure 130 mm[Hg] Tondra Mapus Other [employer] Other 02-11-2023 16:00-0400 Body height 167.64 cm [employer] Other [employer] Other 02-11-2023 16:00-0400 Body mass index (BMI) [Ratio] 40.99 kg/m2 [employer] Other [employer] Other 02-11-2023 16:00-0400 Body weight 115.21 kg [employer] Other [employer] Other 02-11-2023 16:00-0400 Diastolic blood pressure 76 mm[Hg] Anabela Johnson Other [employer] Other 02-11-2023 16:00-0400 SaO2% (BldA) [Mass fraction] Anabela Johnson Other [employer] Other 02-11-2023 16:00-0400 Systolic blood pressure 128 mm[Hg] Anabela Johnson Other [employer] Other 02-09-2023 20:43-0400 Body temperature 98.5 [degF] MD Hua Gordon Work Phone: [facility] 02-09-2023 20:43-0400 Diastolic blood pressure 74 mm[Hg] MD Hua Gordon Work Phone: [facility] 02-09-2023 20:43-0400 Heart rate 86 /min MD Hua Gordon Work Phone: [facility] 02-09-2023 20:43-0400 Respiratory rate 18 /min MD Hua Gordon Work Phone: [facility] 02-09-2023 20:43-0400 SaO2% (BldA) [Mass fraction] 95 % MD Hua Gordon Work Phone: [facility] 02-09-2023 20:43-0400 Systolic blood pressure 149 mm[Hg] MD Hua Gordon Work Phone: [facility] 02-09-2023 18:50-0400 Body height 167.64 cm MD Hua Gordon Work Phone: [facility] 02-09-2023 18:50-0400 Body weight 118.38 kg MD Hua Gordon Work Phone: [facility] 02-03-2023 16:15-0400 Body height 167.64 cm Tondra Mapus Other [employer] Other 02-03-2023 16:15-0400 Body mass index (BMI) [Ratio] 42.27 kg/m2 Tondra Mapus Other [employer] Other 02-03-2023 16:15-0400 Body weight 118.8 kg Tondra Mapus Other [employer] Other 02-03-2023 16:15-0400 Diastolic blood pressure 84 mm[Hg] Tondra Mapus Other [employer] Other 02-03-2023 16:15-0400 Respiratory rate 18 /min Tondra Mapus Other [employer] Other 02-03-2023 16:15-0400 SaO2% (BldA) [Mass fraction] 99 % Tondra Mapus Other [employer] Other 02-03-2023 16:15-0400 Systolic blood pressure 131 mm[Hg] Tondra Mapus Other [employer] Other 11-04-2022 15:05-0500 Blood Pressure Location Mendel LOJA [facility] 11-04-2022 15:05-0500 Diastolic blood pressure 80 mm[Hg] Mendel LOJA [facility] 11-04-2022 15:05-0500 Heart rate 74 /min Mendel LOJA [facility] 11-04-2022 15:05-0500 Respiratory rate 16 /min Mendel LOJA [facility] 11-04-2022 15:05-0500 Systolic blood pressure 140 mm[Hg] Mendel LOJA [facility] 10-28-2022 16:15-0500 Body height 167.64 cm Tondra Mapus Other [employer] Other 10-28-2022 16:15-0500 Body mass index (BMI) [Ratio] 42.35 kg/m2 Tondra Mapus Other [employer] Other 10-28-2022 16:15-0500 Body weight 119.02 kg Tondra Mapus Other [employer] Other 10-28-2022 16:15-0500 Diastolic blood pressure 79 mm[Hg] Tondra Mapus Other [employer] Other 10-28-2022 16:15-0500 Respiratory rate 18 /min Tondra Mapus Other [employer] Other 10-28-2022 16:15-0500 SaO2% (BldA) [Mass fraction] 100 % Tondra Mapus Other [employer] Other 10-28-2022 16:15-0500 Systolic blood pressure 117 mm[Hg] Tondra Mapus Other [employer] Other 04-29-2022 15:20-0400 Blood Pressure Location Mendel LOJA [facility] 04-29-2022 15:20-0400 Diastolic blood pressure 77 mm[Hg] Mendel LOJA [facility] 04-29-2022 15:20-0400 Heart rate 74 /min Mendel LOJA [facility] 04-29-2022 15:20-0400 Respiratory rate 16 /min Mendel LOJA [facility] 04-29-2022 15:20-0400 Systolic blood pressure 135 mm[Hg] Mendel LOJA [facility] 03-09-2022 10:40-0400 Body height 167.64 cm Fátima Padilla Other [employer] Other 03-09-2022 10:40-0400 Body mass index (BMI) [Ratio] 41.15 kg/m2 Fátima Padilla Other [employer] Other 03-09-2022 10:40-0400 Body temperature 96.9 [degF] Fátima Padilla Other [employer] Other 03-09-2022 10:40-0400 Body weight 115.67 kg Fátima Padilla Other [employer] Other 03-09-2022 10:40-0400 SaO2% (BldA) [Mass fraction] 98 % Fátima Padilla Other [employer] Other 11-05-2021 16:00-0500 Body height 167.64 cm Tondra Mapus Other [employer] Other 11-05-2021 16:00-0500 Body mass index (BMI) [Ratio] 43.41 kg/m2 Tondra Mapus Other [employer] Other 11-05-2021 16:00-0500 Body weight 122.02 kg Tondra Mapus Other [employer] Other 11-05-2021 16:00-0500 Diastolic blood pressure 83 mm[Hg] Tondra Mapus Other [employer] Other 11-05-2021 16:00-0500 Respiratory rate 20 /min Tondra Mapus Other [employer] Other 11-05-2021 16:00-0500 SaO2% (BldA) [Mass fraction] 99 % Tondra Mapus Other [employer] Other 11-05-2021 16:00-0500 Systolic blood pressure 121 mm[Hg] Tondra Mapus Other [employer] Other 07-18-2021 16:15-0400 Body height 167.64 cm Tondra Mapus Other [employer] Other 07-18-2021 16:15-0400 Body mass index (BMI) [Ratio] 43.28 kg/m2 Tondra Mapus Other [employer] Other 07-18-2021 16:15-0400 Body weight 121.66 kg Tondra Mapus Other [employer] Other 07-18-2021 16:15-0400 Diastolic blood pressure 85 mm[Hg] Tondra Mapus Other [employer] Other 07-18-2021 16:15-0400 Respiratory rate 20 /min Tondra Mapus Other [employer] Other 07-18-2021 16:15-0400 SaO2% (BldA) [Mass fraction] 99 % Tondra Mapus Other [employer] Other 07-18-2021 16:15-0400 Systolic blood pressure 127 mm[Hg] Tondra Mapus Other [employer] Other Encounters Encounter Date Encounter Type Care Provider Facility Start: 09-27-2024 ambulatory Mendel LOJA Facili ty:[facility] [place] Start: 05-28-2024 ambulatory Mendel LOJA Facili ty:[facility] Start: 05-20-2024 ambulatory Mendel LOJA Facili ty:[facility] Start: 05-17-2024 ambulatory Mendel LOJA Facili ty:[id number] Start: 04-20-2024 End: 04-20-2024 ambulatory Mendel LOJA Facility:[facility] Start: 04-20-2024 End: 04-20-2024 Patient encounter procedure Mendel LOJA [facility] Start: 03-23-2024 End: 03-23-2024 Emergency department patient visit Deric Shin [facility] Start: 03-22-2024 End: 04-21-2024 Pre-admission assessment Mendel LOJA [facility] Start: 03-12-2024 End: 03-12-2024 ambulatory Mendel LOJA Facility:[facility] Start: 03-12-2024 End: 03-12-2024 Patient encounter procedure Mendel Mendez AJ [facility] Start: 03-03-2024 End: 03-03-2024 ambulatory OPAL KRAUSERY Facility:[facility] Start: 03-03-2024 End: 03-03-2024 Patient encounter procedure OPAL Matthew SIMBA [facility] Start: 03-03-2024 End: 03-04-[address] [facility] Start: 03-01-2024 End: 03-01-2024 ambulatory DEL RIO JAMES Not Available Start: 02-29-2024 End: 02-29-2024 ambulatory Siobhan Troy Facility:[facility] Start: 02-29-2024 End: 02-29-[address] REPORTER Siobhan Troy Work Phone: [facility] [place] Work Phone: Start: 02-29-2024 End: 02-29-2024 ambulatory [facility] Work Phone: Start: 02-29-2024 End: 02-29-2024 Patient encounter procedure [facility] Work Phone: Start: 02-19-2024 End: 02-19-2024 Patient encounter procedure [facility] Work Phone: Start: 12-31-2023 ambulatory OPAL Tejedai ty:[facility] Start: 12-26-2023 Non-patient / Non-visit [facility] Work Phone: Start: 12-09-2023 End: 12-09-2023 ambulatory PRETTY LANDRUM Not Available Start: 11-19-2023 End: 11-19-2023 ambulatory SHAIKH JAMES Not Available Start: 2023 End: 11-18-2023 Emergency department patient visit Bridger Dejesus Facility:[facility] Start: 2023 End: 11-18-2023 Emergency department patient visit MD Hua Gordon Work Phone: [facility] Work Phone: Start: 11-14-2023 End: 11-14-2023 Emergency department patient visit Hua Gordon Facility:[facility] Start: 11-14-2023 End: 11-14-2023 Emergency department patient visit MD Hua Gordon Work Phone: [facility] Work Phone: Start: 11-13-2023 End: 11-14-2023 ambulatory Juan Carlos Frank Noel Facility:[facility] Start: 11-13-2023 (DM) Diabetes Tondra Mapus [facility] Start: 11-13-2023 End: 11-13-2023 ambulatory MD Hua Gordon Work Phone: [employer] Other Start: 11-13-2023 End: 11-13-2023 Discharged Recurring MD Hua Gordon Work Phone: [facility] Work Phone: Start: 11-13-2023 Registered Recurring MD Hua recinos Work Phone: [facility] Work Phone: Start: 11-13-2023 End: 11-13-2023 Patient encounter procedure MD Hua Gordon Work Phone: [facility]- Start: 09-22-2023 End: 09-22-2023 ambulatory Mendel LOJA [facility] Start: 09-22-2023 End: 09-22-2023 Patient encounter procedure Mendel LOJA [facility] Start: 09-08-2023 End: 09-08-2023 ambulatory Tondra Mapus Other [employer] Other Start: 09-08-2023 Telephone encounter Tondra Mapus [facility] Start: 07-15-2023 End: 07-15-2023 ambulatory Tondra Mapus Other [employer] Other Start: 07-15-2023 Telephone encounter Tondra Mapus [place] [facility] Start: 05-26-2023 (DM) Diabetes Tondra Mapus [facility] Start: 05-26-2023 End: 05-26-2023 ambulatory Tondra Mapus Other [employer] Other Start: 05-05-2023 End: 05-05-2023 ambulatory Mendel Andrea LOJA Facility:[facility] Start: 04-28-2023 End: 04-28-2023 ambulatory Paul Bennett Other [employer] Other Start: 04-28-2023 Office outpatient visit 25 minutes Paul Bennett [facility] Start: 04-23-2023 End: 04-23-2023 ambulatory Tondra Mapus Other [employer] Other Start: 04-23-2023 Telephone encounter Tondra Mapus [facility] Start: 04-08-2023 (PROC) PROCEDURE Paul Torres [facility] Start: 04-08-2023 End: 04-08-2023 ambulatory Paul Bennett Other [employer] Other Start: 04-03-2023 End: 04-03-2023 ambulatory Tondra Mapus Other [employer] Other Start: 04-03-2023 Telephone encounter Tondra Sadie [facility] Start: 03-27-2023 End: 03-27-2023 ambulatory Paul Bennett Other [employer] Other Start: 03-27-2023 Office outpatient visit 25 minutes Paul Sabrina [facility] Start: 03-26-2023 (DM) Diabetes Tondra Mapus [facility] Start: 03-26-2023 End: 03-26-2023 ambulatory Tondra Mapus Other [employer] Other Start: 03-26-2023 Telephone encounter Tondra Mapus [facility] Start: 03-18-2023 End: 03-18-2023 ambulatory Tondra Mapus Other [employer] Other Start: 03-18-2023 Telephone encounter Tondra Mapus [facility] Start: 02-28-2023 End: 02-28-2023 ambulatory MD Hua Gordon Work Phone: [facility] Work Phone: Start: 02-28-2023 End: 02-28-2023 Patient encounter procedure MD Hua Gordon Work Phone: [facility] [place] Work Phone: Start: 02-17-2023 End: 02-17-2023 ambulatory Anabela Johnson Other [employer] Other Start: 02-17-2023 Telephone encounter Anabela Jhonson [facility] Start: 02-11-2023 End: 02-11-2023 ambulatory Anabela Johnson Other [employer] Other Start: 02-11-2023 Office outpatient ne w 45 minutes Anabela Johnson [facility] Start: 02-09-2023 End: 02-09-2023 Emergency department patient visit MD Hua Gordon Work Phone: [facility] Work Phone: Start: 02-03-2023 Registered Recurring MD Hua recinos Work Phone: [facility] Work Phone: Start: 02-03-2023 (DM) Diabetes Tondra Mapus [facility] Start: 02-03-2023 End: 02-03-2023 ambulatory Tondra Mapus Other [facility] [employer] Other Start: 01-10-2023 End: 01-10-2023 ambulatory Tondra Mapus Other [facility] [employer] Other Start: 01-10-2023 Telephone encounter Tondra Mapus [facility] Start: 11-04-2022 End: 11-04-2022 Patient encounter procedure Mendel LOJA [facility] Start: 10-28-2022 (DM) Diabetes Tondra Mapus [facility] Start: 10-28-2022 End: 10-28-2022 ambulatory Tondra Mapus Other [facility] [employer] Other Start: 10-23-2022 End: 10-23-2022 ambulatory Tondra Mapus Other [facility] [employer] Other Start: 10-23-2022 Telephone encounter Tondra Mapus [facility] Start: 10-22-2022 End: 10-22-2022 ambulatory Tondra Mapus Other [facility] [employer] Other Start: 10-22-2022 Telephone encounter Tondra Mapus [facility] Start: 06-10-2022 End: 06-10-2022 ambulatory Tondra Mapus Other [employer] Other Start: 06-10-2022 Telephone encounter Tondra Mapus [facility] Start: 04-29-2022 End: 04-29-2022 Patient encounter procedure Mendel LOJA [facility] Start: 04-29-2022 End: 04-29-2022 ambulatory Tondra Mapus Other [employer] Other Start: 04-29-2022 Telephone encounter Tondra Mapus [facility] Start: 04-09-2022 End: 04-09-2022 Patient encounter procedure Mendel LOJA [facility] Start: 03-25-2022 End: 03-25-2022 ambulatory Tondra Mapus Other [employer] Other Start: 03-25-2022 Telephone encounter Tondra Mapus [facility] Start: 03-09-2022 End: 03-09-2022 ambulatory Fátima Padilla Other [employer] Other Start: 03-09-2022 Office outpatient visit 15 minutes Fátima Padilla [facility] Start: 02-25-2022 End: 02-25-2022 ambulatory Tondra Mapus Other [employer] Other Start: 02-25-2022 Telephone encounter Tondra Mapus [facility] Start: 11-07-2021 End: 11-07-2021 ambulatory Tondra Mapus Other [employer] Other Start: 11-07-2021 Telephone encounter Tondra Mapus [facility] Start: 11-05-2021 (DM) Diabetes Tondra Mapus [facility] Start: 11-05-2021 End: 11-05-2021 ambulatory Tondra Mapus Other [employer] Other Start: 07-31-2021 Telephone encounter Tondra Mapus [facility] Start: 07-30-2021 Telephone encounter Tondra Mapus [facility] Start: 07-23-2021 Telephone encounter Tondra Mapus [facility] Start: 07-18-2021 (DM) Diabetes Tondra Mapus [facility] Start: 06-15-2021 End: 06-16-[address] AUSTIN HSU Facility: Procedures Date Procedure Procedure Detail Performing Clinician Start: 2023 CT of abdomen and pe lvis without contrast MD Hua Gordon Work Phone: Start: 2023 Urine culture MD Hua recinos Work Phone: Start: 11-14-2023 Urine culture MD Hua recinos Work Phone: Start: 11-14-2023 CT of lumbar spine w ithout contrast MD Hua Gordon Work Phone: Start: 11-14-2023 CT of pelvis without contrast MD Hua Gordon Work Phone: Start: 02-28-2023 MRI of lumbar spine with contrast MD Hua Gordon Work Phone: Start: 02-09-2023 X-ray of lumbar spin e, two or three views MD Hua Gordon Work Phone: Start: 04-09-2022 Transrectal biopsy o f prostate Mendel LOJA Cholecystectomy Mendel LOUIE History of hernia repair Latonya LOJA History of tonsillectomy Latonya LOJA Lumbar spinal fusion Mendel LOJA Plan of Treatment Date Care Activity Detail Author Start: 03-01-2024 Bacteria identified in Urine by Culture [facility] Start: 02-29-2024 Bacteria identified in Urine by Culture [facility] Start: 2023 CT Abdomen and Pelvi s WO contrast [facility] Start: 2023 CT of abdomen and pe lvis without contrast CT abdomen pelvis wo con [facility] Start: 2023 Bacteria identified in Urine by Culture [facility] Start: 02-09-2023 X-ray of lumbar spin e, two or three views XR lumbar spine 2-3V* [facility] Start: 02-09-2023 XR Lumbar spine 2 or 3 Views [facility] Bacteria identified in Urine by Culture [facility] Comprehensive metabo lic 2000 panel - Serum or Plasma [facility] Insulin C-peptide measurement [facility] Patient Education [facility] Work Phone: Patient referral [facility] Work Phone: [facility] Immunizations Immunization Date Immunization Notes Care Provider Chiki gross 07-23-2021 SARS-CoV-2 (COVID-19 ) Ad26 vaccine, recombinant Mendel LOJA [facility] 06-21-2021 SARS-CoV-2 (COVID-19 ) Ad26 vaccine, recombinant Mendel LOJA [facility] 02-02-2021 COVID-19 Vaccine Moderna - Documentation Purposes Only Tondra Mapus Other [facility] 01-05-2021 COVID-19 Vaccine Moderna - Documentation Purposes Only Tondra Mapus Other [facility] NEGATED: Highlighted row has not occurred!02-18-2022 influenza virus vaccine, unspecified formulation Mendelshi LOJA [facility] Payers Date Payer Category Payer Unknown [id number] 2019 Unknown [id number] 2019 Self-pay [id number] 2019 Unknown [id number] 1965 Unknown [id number] 2.16.84 [id number] 1965 Unknown [id number] 2.16.84 0.1.455078.3.579.2.1259 1965 Unknown [id number] 2.16.84 0.1.646256.3.579.2.1259 1965 Unknown [id number] 2.16.84 0.1.457304.3.579.2.1259 1965 Unknown [id number] 2.16.8 40.1.310124.3.579.2.1286 1965 Unknown [id number] 2.16.8 40.1.972862.3.579.2.727 1965 Unknown [id number] 2.16.8 40.1.959071.3.579.2.727 1965 Unknown [id number] 2.16.8 40.1.808838.3.579.2.727 1965 Unknown [id number] 2.16.8 40.1.517455.3.579.2.727 1965 Unknown [id number] 2.16.8 40.1.970421.3.579.2.727 1965 Unknown [id number] 2.16.8 40.1.290890.3.579.2.727 1965 Unknown [id number] 2.16.8 40.1.855381.3.579.2.727 1965 Unknown [id number] 2.16.8 40.1.197498.3.579.2.727 1965 Unknown [id number] 2.16.8 40.1.451984.3.579.2.727 1965 Unknown [id number] 2.16.8 40.1.097722.3.579.2.727 1965 Unknown [id number] 2.16.8 40.1.795729.3.579.2.727 1959 Unknown [id number] Unknown [id number] 2.16.8 40.1.415868.3.579.2.531 Unknown [id number] 2.16.8 40.1.496248.3.579.2.531 Unknown [id number] 2.16.8 40.1.064676.3.579.2.531 Unknown [id number] 2.16.8 40.1.284147.3.579.2.531 Social History Date Type Detail Facility Start: 02-18-2022 End: 03-12-2024 Tobacco smoking status Never smoked tobacco (finding) [facility] [employer] Other Sex Assigned At Male [facility] [employer] Other Tobacco smoking status Never [facility] Start: 1965 Sex Assigned At Male [facility] Medical Equipment Procedure Code Equipment Code Equipment Origin al Text Equipment Identifier Dates Start: 12-15-2014 blood sugar diagnostic (OneTouch Verio test strips) Start: 02-19-2024 blood sugar diagnostic (OneTouch Verio test strips) Start: 02-19-2024 Functional Status Date Assessment Result Facility 03-23-2024 Functional Status N/A [facility] 03-12-2024 Functional Status N/A [facility] 03-03-2024 Functional Status N/A [facility] 09-22-2023 Functional Status N/A [facility] 11-04-2022 Functional Status N/A [facility] 04-29-2022 Functional Status N/A [facility] 04-05-2022 Functional Status N/A [facility] Clinical Notes 07-18-2021 to 03-23-2024 Note Date & Type Note Facility 03-23-2024 Hospital Discharg e instructions Patient Education 03/23/2024 16:18:20 Acute Urinary Retention, Male, [id number] Acute Urinary Retention, Male Acute urinary retention is when a person cannot pee (urinate) at all, or can only pee a little. This can come on all of a sudden. If it is not treated, it can lead to kidney problems or other serious problems. What are the causes? A problem with the tube that drains the bladder (urethra). Problems with the nerves in the bladder. Tumors. Certain medicines. An infection. Having trouble pooping (constipation). What increases the risk? Older men are more at risk because their prostate gland may become larger as they age. Other conditions also can increase risk. These include: Diseases, such as multiple sclerosis. Injury to the spinal cord. Diabetes. A condition that affects the way the brain works, such as dementia. Holding back urine due to trauma or because you do not want to use the bathroom. What are the signs or symptoms? Trouble peeing. Pain in the lower belly. How is this treated? Treatment for this condition may include: Medicines. Placing a thin, germ-free tube (catheter) into the bladder to drain pee out of the body. Therapy to treat mental health conditions. Treatment for conditions that may cause this. If needed, you may be treated in the hospital for kidney problems or to manage other problems. Follow these instructions at home: Medicines Take bzzv-bsd-wtkegbq and prescription medicines only as told by your doctor. Ask your doctor what medicines you should stay away from. If you were given an antibiotic medicine, take it as told by your doctor. Do not stop taking it, even if you start to feel better. General instructions Do not smoke or use any products that contain nicotine or tobacco. If you need help quitting, ask your doctor. Drink enough fluid to keep your pee pale yellow. If you were sent home with a tube that drains the bladder, take care of it as told by your doctor. Watch for changes in your symptoms. Tell your doctor about them. If told, keep track of changes in your blood pressure at home. Tell your doctor about them. Keep all follow-up visits. Contact a doctor if: You have spasms in your bladder that you cannot stop. You leak pee when you have spasms. Get help right away if: You have chills or a fever. You have blood in your pee. You have a tube that drains pee from the bladder and these things happen: ?The tube stops draining pee. ?The tube falls out. Summary Acute urinary retention is when you cannot pee at all or you pee too little. If this condition is not treated, it can lead to kidney problems or other serious problems. If you were sent home with a tube (catheter) that drains the bladder, take care of it as told by your doctor. Watch for changes in your symptoms. Tell your doctor about them. This information is not intended to replace advice given to you by your health care provider. Make sure you discuss any questions you have with your health care provider. Document Revised: 06/27/2021 Document Reviewed: 06/27/2021 [employer] Patient Education 2022 [employer]. Follow Up Care 03/23/2024 13:36:44 With:Mendel LOJA Address: [address] [place] [address]- Business (1) When:03/26/2024 15:56:13 With:HUA GORDON Address: [address] [place] [id number] Business (1) When:Within 3 Day(s) [facility] 03-12-2024 Hospital Discharg e instructions Patient Education 03/12/2024 11:21:51 Transurethral Resection of the Prostate Transurethral Resection of the Prostate Transurethral resection of the prostate (TURP) is the removal, or resection, of part of the prostate tissue. This procedure is done to treat an enlarged prostate gland (benign prostatic hyperplasia). The goal of TURP is to remove enough prostate tissue to allow for a normal flow of urine. The procedure will allow you to empty your bladder more completely when you urinate so that you can urinate less often. In a transurethral resection, a thin telescope with a light, a camera, and an electric cutting edge (resectoscope) is passed through the urethra and into the prostate. The opening of the urethra is at the end of the penis. Tell a health care provider about: Any allergies you have. All medicines you are taking, including vitamins, herbs, eye drops, creams, and qnye-yrc-fpwpazi medicines. Any problems you or family members have had with anesthetic medicines. Any bleeding problems you have. Any surgeries you have had. Any medical conditions you have. Any prostate infections you have had. What are the risks? Generally, this is a safe procedure. However, problems may occur, including: Infection. Bleeding. Allergic reactions to medicines. Blood in the urine (hematuria). Damage to nearby structures or organs. Other problems may occur, but they are rare. They include: Dry ejaculation, or having no semen come out during orgasm. Erectile dysfunction, or being unable to have or keep an erection. Scarring that leads to narrowing of the urethra. This narrowing may block the flow of urine. Inability to control when you urinate (incontinence). Deep vein thrombosis. This is a blood clot that can develop in your leg. TURP syndrome. This can happen when you lose too much sodium during or after the procedure. Some signs and symptoms of this condition include: ?Weakness. ?Headaches. ?Nausea or vomiting. ?Muscle cramping. What happens before the procedure? When to stop eating and drinking Follow instructions from your health care provider about what you may eat and drink before your procedure. These may include: 8 hours before your procedure ?Stop eating most foods. Do not eat meat, fried foods, or fatty foods. ?Eat only light foods, such as toast or crackers. ?All liquids are okay except energy drinks and alcohol. 6 hours before your procedure ?Stop eating. ?Drink only clear liquids, such as water, clear fruit juice, black coffee, plain tea, and sports drinks. ?Do not drink energy drinks or alcohol. 2 hours before your procedure ?Stop drinking all liquids. ?You may be allowed to take medicines with small sips of water. If you do not follow your health care provider's instructions, your procedure may be delayed or canceled. Medicines Ask your health care provider about: Changing or stopping your regular medicines. This is especially important if you are taking diabetes medicines or blood thinners. Taking medicines such as aspirin and ibuprofen. These medicines can thin your blood. Do not take these medicines unless your health care provider tells you to take them. Taking fjax-vnj-hqbgkxw medicines, vitamins, herbs, and supplements. Surgery safety Ask your health care provider what steps will be taken to help prevent infection. These steps may include: Removing hair at the surgery site. Washing skin with a germ-killing soap. Taking antibiotic medicine. General instructions Do not use any products that contain nicotine or tobacco for at least 4 weeks before the procedure. These products include cigarettes, chewing tobacco, and vaping devices, such as e-cigarettes. If you need help quitting, ask your health care provider. If you will be going home right after the procedure, plan to have a responsible adult: ?Take you home from the hospital or clinic. You will not be allowed to drive. ?Care for you for the time you are told. What happens during the procedure? An IV will be inserted into one of your veins. You will be given one or more of the following: ?A medicine to help you relax (sedative). ?A medicine to make you fall asleep (general anesthetic). ?A medicine that is injected into your spine to numb the area below and slightly above the injection site (spinal anesthetic). Your legs will be placed in foot rests (stirrups) so that your legs are apart and your knees are bent. The resectoscope will be passed through your urethra to your prostate. Parts of your prostate will be resected using the cutting edge of the resectoscope. Fluid will be passed to rinse out the cut tissues (irrigation). The resectoscope will be removed. A small, thin tube (catheter) will be passed through your urethra and into your bladder. The catheter will drain urine into a bag outside of your body. The procedure may vary among health care providers and hospitals. What happens after the procedure? Your blood pressure, heart rate, breathing rate, and blood oxygen level will be monitored until you leave the hospital or clinic. You will be given fluids through the IV. The IV will be removed when you start eating and drinking normally. You may have some pain. Pain medicine will be available to help you. You will have a catheter draining your urine. ?You may have blood in your urine. Your catheter may be kept in until your urine is clear. ?Your urinary drainage will be monitored. If necessary, your bladder may be rinsed out (irrigated) through your catheter. You will be encouraged to walk around as soon as possible. You may have to wear compression stockings. These stockings help to prevent blood clots and reduce swelling in your legs. If you were given a sedative during the procedure, it can affect you for several hours. Do not drive or operate machinery until your health care provider says that it is safe. Summary Transurethral resection of the prostate (TURP) is the removal (resection) of part of the prostate tissue. The goal of this procedure is to remove enough prostate tissue to allow for a normal flow of urine. Follow instructions from your health care provider about taking medicines and about eating and drinking before the procedure. This information is not intended to replace advice given to you by your health care provider. Make sure you discuss any questions you have with your health care provider. Document Revised: 07/02/2022 Document Reviewed: 07/02/2022 [employer] Patient Education 2022 [employer]. 03/12/2024 11:15:23 Urodynamic Testing Urodynamic Testing Urodynamic tests are done to determine how well your lower urinary tract is working. The lower urinary tract includes your bladder and the part of your body that drains urine from the bladder (urethra). When your kidneys filter your blood, urine is stored in your bladder until you feel the urge to urinate. Urination requires coordination between the nerves and muscles of your bladder and urethra. When your lower urinary tract is working well, you should be able to: Start urinating when your bladder is full. Empty your bladder completely. Control the flow of your urine. Why do I need urodynamic testing? You may need urodynamic testing to help find the cause of any of these problems: Leaking urine (incontinence). Problems starting or stopping your urine flow. Frequent or painful urination. Frequent urinary tract infections. Being unable to empty your bladder completely. Having strong urges to pass urine (urgency). Having a weak flow of urine. What are the risks? Generally, these tests are safe. However, some of the tests have risks, including: Discomfort. Frequent urge to urinate. Bleeding. Infection. Allergic reactions to medicines or dyes (contrast material). What happens before the test? Ask your health care provider about changing or stopping your regular medicines. This is especially important if you are taking diabetes medicines or blood thinners. You may be asked to avoid urinating before coming to the test so that you arrive with a full bladder. Tell a health care provider about: ?Any allergies you have. ?All medicines you are taking, including vitamins, herbs, eye drops, creams, and uuis-oze-apbmsnc medicines. ?Whether you are or may be . What happens during the test? You may have various urodynamic tests. The tests may be done separately or may all be done during one visit. You may be given an antibiotic medicine before or after testing to help prevent infection. The types of tests that may be done include: Uroflowmetry This test measures how much urine you pass and how long it takes to pass. You will urinate into a certain type of toilet or device (flowmeter). The device will measure the volume and the time of your urine flow. These measurements will be sent to a computer that creates a graph of your urine flow. Postvoid residual measurement This test measures how much urine is left in your bladder after you urinate. The test may be done with ultrasound. In this method, sound waves and a computer will be used to create an image of your bladder. The test can also be done by inserting a thin, flexible tube (catheter) into your bladder after you urinate. The remaining urine will be removed through the catheter so it can be measured. Remaining urine will be measured in milliliters (mL). If you have more than 100 mL left in your bladder after you urinate, your bladder is not emptying as it should. Cystometric testing This test uses a type of bladder catheter that can measure pressure. You may be given a medicine to numb the area (local anesthetic). The area around the opening of your urethra will be cleaned. A urinary catheter will be passed through your urethra into your bladder and used to empty your bladder completely. A measuring catheter will be placed, and your bladder will be filled with warm, germ-free (sterile) water. Pressure measurements will be taken: ?As your bladder fills. ?When you feel the need to urinate. ?As your bladder is emptied. You may be asked to cough or bear down to check for leakage. In some cases, your bladder may be filled with a material that shows up on X-rays (contrast material) so that X-ray pictures can be taken during the test. Electromyogram This test measures the electrical activity of the nerves and muscles of your bladder and the opening of your urethra. Sticky patches (electrodes) will be placed near your rectum and urethra to measure electrical activity. The measurements will show how well your nerves are communicating with your muscles. What can I expect after the test? You should be able to go home right away and do your usual activities. You may be told to drink a glass of water every 30 minutes for the first 2 hours after testing. Taking a warm bath or using warm, wet cloths (warm compresses) may relieve any discomfort near your urethra. What do the results mean? Talk with your health care provider about what your results mean. Some common causes for abnormal results from urodynamic tests include: Enlarged prostate in men. Overactive bladder. Urinary tract infection. Nervous system diseases. Spinal cord damage. Questions to ask your health care provider Ask your health care provider, or the department that is doing the test: When will my results be ready? How will I get my results? What are my treatment options? What other tests do I need? What are my next steps? Contact a health care provider if: You have pain. You have blood in your urine. You have chills. You have a fever. Summary Urodynamic tests are done to determine how well your lower urinary tract is working. The lower urinary tract includes your bladder and urethra. You may need urodynamic testing to help find the cause of various problems with urination, such as leaking urine (incontinence) or problems starting or stopping your urine flow. You may have various urodynamic tests. The tests may be done separately or may all be done during one testing visit. Talk with your health care provider about what your results mean. Contact your health care provider if you have pain, chills, a fever, or blood in your urine. This information is not intended to replace advice given to you by your health care provider. Make sure you discuss any questions you have with your health care provider. Document Revised: 06/19/2022 Document Reviewed: 05/11/2021 [employer] Patient Education 2022 [employer] 03/12/2024 11:15:21 Cystoscopy Cystoscopy Cystoscopy is a procedure that is used to help diagnose and sometimes treat conditions that affect the lower urinary tract. The lower urinary tract includes the bladder and the urethra. The urethra is the tube that drains urine from the bladder. Cystoscopy is done using a thin, tube-shaped instrument with a light and camera at the end (cystoscope). The cystoscope may be hard or flexible, depending on the goal of the procedure. The cystoscope is inserted through the urethra, into the bladder. Cystoscopy may be recommended if you have: Urinary tract infections that keep coming back. Blood in the urine (hematuria). An inability to control when you urinate (urinary incontinence) or an overactive bladder. Unusual cells found in a urine sample. A blockage in the urethra, such as a urinary stone. Painful urination. An abnormality in the bladder found during an intravenous pyelogram (IVP) or CT scan. Cystoscopy may also be done to remove a sample of tissue to be examined under a microscope (biopsy). Tell a health care provider about: Any allergies you have. All medicines you are taking, including vitamins, herbs, eye drops, creams, and bztj-krj-imczzzt medicines. Any problems you or family members have had with anesthetic medicines. Any blood disorders you have. Any surgeries you have had. Any medical conditions you have. Whether you are or may be . What are the risks? Generally, this is a safe procedure. However, problems may occur, including: Infection. Bleeding. Allergic reactions to medicines. Damage to other structures or organs. What happens before the procedure? Medicines Ask your health care provider about: Changing or stopping your regular medicines. This is especially important if you are taking diabetes medicines or blood thinners. Taking medicines such as aspirin and ibuprofen. These medicines can thin your blood. Do not take these medicines unless your health care provider tells you to take them. Taking llkg-mbt-vktalyp medicines, vitamins, herbs, and supplements. Tests You may have an exam or testing, such as: X-rays of the bladder, urethra, or kidneys. CT scan of the abdomen or pelvis. Urine tests to check for signs of infection. General instructions Follow instructions from your health care provider about eating or drinking restrictions. Ask your health care provider what steps will be taken to help prevent infection. These steps may include: ?Washing skin with a germ-killing soap. ?Taking antibiotic medicine. Plan to have a responsible adult take you home from the hospital or clinic. What happens during the procedure? You will be given one or more of the following: ?A medicine to help you relax (sedative). ?A medicine to numb the area (local anesthetic). The area around the opening of your urethra will be cleaned. The cystoscope will be passed through your urethra into your bladder. Germ-free (sterile) fluid will flow through the cystoscope to fill your bladder. The fluid will stretch your bladder so that your health care provider can clearly examine your bladder garner. Your doctor will look at the urethra and bladder. Your doctor may take a biopsy or remove stones. The cystoscope will be removed, and your bladder will be emptied. The procedure may vary among health care providers and hospitals. What can I expect after the procedure? After the procedure, it is common to have: Some soreness or pain in your abdomen and urethra. Urinary symptoms. These include: ?Mild pain or burning when you urinate. Pain should stop within a few minutes after you urinate. This may last for up to 1 week. ?A small amount of blood in your urine for several days. ?Feeling like you need to urinate but producing only a small amount of urine. Follow these instructions at home: Medicines Take pqed-ygv-hlppleg and prescription medicines only as told by your health care provider. If you were prescribed an antibiotic medicine, take it as told by your health care provider. Do not stop taking the antibiotic even if you start to feel better. General instructions Return to your normal activities as told by your health care provider. Ask your health care provider what activities are safe for you. If you were given a sedative during the procedure, it can affect you for several hours. Do not drive or operate machinery until your health care provider says that it is safe. Watch for any blood in your urine. If the amount of blood in your urine increases, call your health care provider. Follow instructions from your health care provider about eating or drinking restrictions. If a tissue sample was removed for testing (biopsy) during your procedure, it is up to you to get your test results. Ask your health care provider, or the department that is doing the test, when your results will be ready. Drink enough fluid to keep your urine pale yellow. Keep all follow-up visits. This is important. Contact a health care provider if: You have pain that gets worse or does not get better with medicine, especially pain when you urinate. You have trouble urinating. You have more blood in your urine. Get help right away if: You have blood clots in your urine. You have abdominal pain. You have a fever or chills. You are unable to urinate. Summary Cystoscopy is a procedure that is used to help diagnose and sometimes treat conditions that affect the lower urinary tract. Cystoscopy is done using a thin, tube-shaped instrument with a light and camera at the end. After the procedure, it is common to have some soreness or pain in your abdomen and urethra. Watch for any blood in your urine. If the amount of blood in your urine increases, call your health care provider. If you were prescribed an antibiotic medicine, take it as told by your health care provider. Do not stop taking the antibiotic even if you start to feel better. This information is not intended to replace advice given to you by your health care provider. Make sure you discuss any questions you have with your health care provider. Document Revised: 06/19/2022 Document Reviewed: 05/18/2021 [employer] Patient Education 2022 [employer]. Follow Up Care 03/03/2024 15:52:47 With:AJ JOHNSON, Mendel Mendez, URL Address: [facility] [address] [place] [address] [phone] When: Unknown [facility] 03-03-2024 Hospital Discharg e instructions Patient Education 03/03/2024 15:50:52 Testicular Self-Exam Testicular Self-Exam A self-examination of your testicles (testicular self-exam) involves looking at and feeling your testicles for abnormal lumps or swelling. Several things can cause swelling, lumps, or pain in your testicles. Some of these causes are: Injuries. Inflammation. Infection. Buildup of fluids around the testicle (hydrocele). Twisted testicles (testicular torsion). Testicular cancer. You may be at risk for testicular cancer if you have: ?An undescended testicle (cryptorchidism). ?A history of previous testicular cancer. ?A family history of testicular cancer. General tips and recommendations The testicles are easiest to examine after a warm bath or shower. They are more difficult to examine when you are cold because the muscles attached to the testicles retract and pull them up higher or into the abdomen. A normal testicle is egg-shaped and feels firm. It is smooth and not tender. It is normal to feel a firm, spaghetti-like cord at the back of your testicle. This is the spermatic cord. How to do a testicular self-exam 1.Stand and hold your penis away from your body. 2.Look at each testicle to check for changes in appearance, such as swelling or changes in size or shape. 3.Roll each testicle between your thumb and forefinger, feeling the entire testicle. Feel for: Lumps. Swelling. Discomfort. 4.Check the groin area between your abdomen and upper thighs on both sides of your body. Look and feel for any swelling or bumps that are tender. These could be enlarged lymph nodes. Contact a health care provider if: You find any bumps or lumps, such as a small, hard, pea-sized lump. You find swelling, pain, or soreness. You see or feel any other changes in your testicles. Summary A self-examination of your testicles (testicular self-exam) involves looking at and feeling your testicles for any changes. Check each of your testicles for lumps, swelling, or discomfort. These changes can be caused by many things. Check for swelling or tender bumps in your groin area between your lower abdomen and upper thighs. This information is not intended to replace advice given to you by your health care provider. Make sure you discuss any questions you have with your health care provider. Document Revised: 09/11/2020 Document Reviewed: 09/11/2020 [employer] Patient Education 2022 [employer]. Follow Up Care 12/03/2023 10:29:21 With:AJ JOHNSON, Mendel Mendez, URL Address: [facility] [address] , [place] [address]- [phone] When: Unknown Comments:f/u in 1.5 wks [facility] 03-03-2024 Note Chief Complaint Re-Referral * Follow up to UTI HPI Staff PRW pt Last seen in our office 09/22/23 by PRW DX: BPH, Prostate Nodule, Family Hx of Prostate Cancer (father), Epididymal Cyst & Varicocele. *Dutasteride 0.5mg qd & Tamsulosin 0.4mg bid therapy. (pt was to switch timing of of meds to see if it would help w/nocturia) Just refilled Dutasteride, had not been taking for a couple months. (he thinks) Thinks he is just taking Tamsulosin 1/day. PSA 09/24/23- 0.18 ( pt to repeat PSA 09/2024- has f/u scheduled 09/27/24) Hx of DM. Last A1C 02/19/24- 7.5 [facility] 11/14/23 CC: lower back pain CT ap wo 11/14/23 +C&S 11/14/23 >100k E Coli *Tx'd w/Keflex Returned to [facility] 11/17/23 CC: Worsening Rt flank pain CT ap wo 11/17/23 *NEG Uropathy CMP 11/17/23 *BUN 14 Crea 0.66 eGFR >60 C&S 11/17/23 <9k mixed skin contaminants [facility] 02/29/24 CC: dysuria & Rt Flank pain UA 02/29/24- SMALL leuks NEG Nitrates & blood +C&S 02/29/24 >100k Gram Negative Bacilli (Still in prelims @ [facility]) (no documentation on abx given *if given) Pt states no abx given. Re-referred by Dr Mckeon due to testicular pain. Scrotal US 03/01/24 *Complex mass lateral of Lt testicle. BL epididymal cyst vs spermatocele. small R varicocele. Lt sided intratesticular cysts & Scrotal wall thickening. Denies current pain/burning and visible blood in urine. Unsteady stream, thinks he has had this for quite a while Still getting up several times a night. Increased urgency, occasional leaking prior to making it the restroom. Still having Lt Testicular pain. Took Oxycodone the other night. Still hurts. Unsure if he has redness & swelling to testicle. History of Present Illness staff HPI reviewed and agree. Review of Systems PHQ Score Initial Depression Screen Score: 0 SCORE no fever, chills, malaise, myalgia. no rash/lesions. no chest pain, palpitations, or SOB. no abdominal pain, nausea, vomiting. no unilateral calf swelling, redness, pain Physical Exam Vitals & Measurements HR: 72(Peripheral) RR: 16 BP: 133/89 HT: 66 in HT: 167 cm WT: 118 kg WT: 259.6 lb BMI: 42.31 General: nontoxic, NAD Mouth: moist mucosa Lungs: normal respiratory effort Cardio: regular rate, good distal perfusion Abdomen: nondistended, no suprapubic distention or tenderness, no CVA tenderness Neurologic: Grossly normal Skin: No rashes or suspicious lesions Assessment/Plan Dr. Loja pt re-referred by Dr. Shaikh Mckeon for pain in both testicles. Pt also here for f/u to [facility] due to UTI. 11/17/23 - BUN 14. Cr 0.66. eGFR >60. RAE 11. 1. UTI (urinary tract infection) (N39.0: Urinary tract infection, site not specified) [facility] 02/29/24 due to dysuria and R flank pain. UA showed small leuks wo blood or nitrites. UCx >100k Gram Negative Bacilli (still in prelims). UA today shows positive nitrites wo blood or leuks. Not currently on any abx. Denies gross hematuria. -start empiric Cipro & watch for final cx result via [facility]. message placed to pending results. Ordered: E&M of Est. Patient High 40-54 Min 36276 2. Testicular pain (N50.819: Testicular pain, unspecified) L Scrotal wall mildly thickened measuring 6.9 mm, possible cellulitis per US 03/01/24. However on exam there is not significant erythema, warmth, or induration to scrotal wall. It is soft, not tense. L Testicle is tender diffusely throughout and along the epididymis. -abx from #1 will cover well for epididymo-orchitis. -add NSAIDs x 10d to help w pain and inflammation. scrotal support. ice as tolerated. elevation. Ordered: E&M of Est. Patient High 40-54 Min 58319 3. Testicular lesion (N50.9: Disorder of male genital organs, unspecified) Scrotal US 01/11/22 [facility] - There is 5 x 4 mm size cyst L testicle. Scrotal US 03/01/24 [facility] - L testicular parenchyma contains an anechoic area measuring 2.8 x 2.1 x 2.7 mm. A second anechoic area measuring 3.8 x 3.2 x 3.0 mm. Lateral to L testicle, there is an anechoic area that appears to be somewhat cystic with septations measuring 1.1 x 1.0 x 1.1 cm. Exam of testicle/epididymis is limited secondary to tenderness. I do not appreciate any discrete nodules or firm areas. I do palpate several cystic areas. Reviewed imaging results - intratesticular cysts seen previously, but new extratesticular complex mass lateral to left testicle is concerning. -F/u w/ [facility] in 1.5 wks for exam and discuss next steps. Ordered: E&M of Est. Patient High 40-54 Min 44669 4. Epididymal cyst (N50.3: Cyst of epididymis) Scrotal US 01/11/22 [facility] - left epididymal head cyst and measures 4mm. Scrotal US 03/01/24 [facility] - An anechoic area within R epididymis measuring 4.0 x 3.9 x 3.8 mm. An anechoic area within L epididymis measuring 4.6 x 4.2 x 4.8 mm. -chronic. unchanged. unlikely to be causing his sx. Ordered: E&M of Est. Patient High 40-54 Min [id number] 5. 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 Scr (more content not included)... [facility] Comment on above: Result Comment: Elec tronically Signed By: OPAL COTTRELL PA-C\.br\Date and Time Signed: 03/03/24 17:28 EDT\.br\Electronically Co-Signed By: Marielle Robertson\.br\Date and Time Co-Signed: 03/03/24 16:15 EDT 11-13-2023 Evaluation note Encounter Date Diagnosis Assessment Notes Oct, Type 2 diabetes mellitus (ICD-10 - E11.9) Managing type 2 diabetes material was published 1. Uncontrolled, a Type 2 diabetes with A1c of 7.2% 2. Blood glucose levels above target. Tolerating mounaro 5mg, pt reports just got 90 day refill on mounjaro 5mg, recommend increasing dose to 7.5mg once weekly. Pt given sample mounjaro 2.5mg and recommend he take 5mg/2.5mg once weekly last month of his 5mg r, if tolerated will discuss sending new rx at next f/u apt. Reviewed with pt target fasting am/meal to meal glucose pattern 90/130 and hs 120/180. Reviewed with pt how to titrate basal/meal insulin dosing according to fasting am and meal to meal glucose pattern. Pt verbalizes understanding. Note: intolerance to sglt2 3. Pt is alert, oriented and receptive to making changes or counseling. Notes: Seen for an assessment of current glucose pattern, changes in treatment plan, with this time spent in counseling and coordination of care related to diabetes, risks, and benefits of treatment, medications, and side effects. TOPICS REVIEWED: 1. Time was spent reviewing: a. Basic concepts of diabetes, progressive beta cell , concepts of basal/bolus/cor rective insulin requirements. Basal: The goal is fasting blood glucose of 90-130mg. IF fasting blood glucose starts to run under 100mg 3x's/ week, decrease dose by 10%. Bolus: The goal is to hold the blood glucose level steady meal to meal. If pt. is going to have increased physical activity after a meal, decrease the schedule meal dose prior to the activity by 30-50%. If pt. skips a meal do not take this dose. Correction: The goal is to correct an elevated glucose back into the 100-150mg range b. Nutrition: Concepts of healthy diet, encouraged to decrease saturated fat in diet and increase non-starchy vegetables and fruits in diet. BMI: Pt. needs to select one small change to decrease caloric intake or increase physical activity to help decrease weight. c. Correct treatment of hypoglycemia, carry a glucose source at all times on your person, in vehicles, and at bedside. Can use glucose tablets/4, four ounces of pop or juice equal to 15 G of carbohydrate. Blood glucose should be 100 mg/dl or higher when driving. d. ADA glucose goals for age and medical complexity reviewed e. Patient questions addressed 2. Activity/exerci se: Encouraged to start any form of physical activity. Start low level and increase slowly to a minimal goal of 150 minutes/week. Limit activity to what is allowed by other issues such as cardiac, pulmonary or orthopedic restrictions. 3. Standards of care: Reminded to have an annual dilated eye exam, A1C every 3 months, urine testing for microalbumin once/year, check feet daily and report any cuts or sores that do not appear to be healing. 4. Meter: Plan to check blood glucose: Please check blood glucose levels 4 times/day. Back to back meals reveal effectiveness of bolus dosing. 5. [facility] Contact office if any issues or concerns with patterns of hypoglycemia, hyperglycemia, or diabetes medication issues. 6. Prescriptions: [facility] at this time. Sample mounjaro 2.5mg x4 pens given today. DME: [facility]- none at this time. 7. Prescriptions will not be filled unless you are compliant with follow up appointments or have a follow up appointment scheduled as ordered by your provider. Refills should be requested at the time of your visit. Oct, Insulin long-term use (ICD-10 - Z79.4) Oct, Dietary counseling and surveillance (ICD-10 - Z71.3) see above Oct, Hyperlipidemia LDL goal <100 (ICD-10 - E78.5) 05/2023 ldl 61, at goal, On Statin. Oct, BMI 40.0-44.9, adult (ICD-10 - Z68.41) Oct, Other This documentation is being amended on 11/17/23 due to an internal data corruption event that occurred on 11/13/23. This data corruption event was NOT the result of any breach, fraud, or malicious third republican actors and no personal patient information was compromised. [employer] Other 12-04-2023 Hospital Discharge instructions Patient Education 09/22/2023 15:32:31 Benign Prostatic Hyperplasia Benign Prostatic Hyperplasia Benign prostatic hyperplasia (BPH) is an enlarged prostate gland that is caused by the normal agingprocess. The prostate may get bigger as a man gets older. The condition is not caused by cancer. The prostate is a walnut-sized gland that is involved in the production of semen. It is located in front of the rectum and below the bladder. The bladder stores urine. The urethra carries stored urine ou t of the body. An enlarged prostate can press on the urethra. This can make it harder to pass urine. The buildup of urine in the bladder can cause infection. Back pressure and infection may progress to bladder damage and kidney (renal) failure. What are the causes? This condition is part of the normal aging process. However, not all men develop problems from thiscondition. If the prostate enlarges away from the urethra, urine flow will not be blocked. If it enlarges toward the urethra and compresses it, there will be problems passing urine. What increases the risk? This condition is more likely to develop in men older than 50 years. What are the signs or symptoms? Symptoms of this condition include: Getting up often during the night to urinate. Needing to urinate frequently during the day. Difficulty starting urine flow. Decrease in size and strength of your urine stream. Leaking (dribbling) after urinating. Inability to pass urine. This needs immediate treatment. Inability to completely empty your bladder. Pain when you pass urine. This is more common if there is also an infection. Urinary tract infection (UTI). How is this diagnosed? This condition is diagnosed based on your medical history, a physical exam, and your symptoms. Tests will also be done, such as: A post-void bladder scan. This measures any amount of urine that may remain in your bladder after you finish urinating. A digital rectal exam. In a rectal exam, your health care provider checks your prostate by putting a lubricated, gloved finger into your rectum to feel the back of your prostate gland. This exam detects the size of your gland and any abnormal lumps or growths. An exam of your urine (urinalysis). A prostate specific antigen (PSA) screening. This is a blood test used to screen for prostate cancer. An ultrasound. This test uses sound waves to electronically produce a picture of your prostate gland. Your health care provider may refer you to a specialist in kidney and prostate diseases (urologist). How is this treated? Once symptoms begin, your health care provider will monitor your condition (active surveillance or watchful waiting). Treatment for this condition will depend on the severity of your condition. Treatment may include: Observation and yearly exams. This may be the only treatment needed if your condition and symptoms are mild. Medicines to relieve your symptoms, including: ?Medicines to shrink the prostate. ?Medicines to relax the muscle of the prostate. Surgery in severe cases. Surgery may include: ?Prostatectomy. In this procedure, the prostate tissue is removed completely through an open incision or with a laparoscope or robotics. ?Transurethral resection of the prostate (TURP). In this procedure, a tool is inserted through the opening at the tip of the penis (urethra). It is used to cut away tissue of the inner core of the prostate. The pieces are removed through the same opening of the penis. This removes the blockage. ?Transurethral incision (TUIP). In this procedure, small cuts are made in the prostate. This lessens the prostate's pressure on the urethra. ?Transurethral microwave thermotherapy (TUMT). This procedure uses microwaves to create heat. The heat destroys and removes a small amount of prostate tissue. ?Transurethral needle ablation (TUNA). This procedure uses radio frequencies to destroy and remove a small amount of prostate tissue. ?Interstitial laser coagulation (ILC). This procedure uses a laser to destroy and remove a small amount of prostate tissue. ?Transurethral electrovaporization (TUVP). This procedure uses electrodes to destroy and remove a small amount of prostate tissue. ?Prostatic urethral lift. This procedure inserts an implant to push the lobes of the prostate away from the urethra. Follow these instructions at home: Take dogo-rmy-pdvvyam and prescription medicines only as told by your health care provider. Monitor your symptoms for any changes. Contact your health care provider with any changes. Avoid drinking large amounts of liquid before going to bed or out in public. Avoid or reduce how much caffeine or alcohol you drink. Give yourself time when you urinate. Keep all follow-up visits. This is important. Contact a health care provider if: You have unexplained back pain. Your symptoms do not get better with treatment. You develop side effects from the medicine you are taking. Your urine becomes very dark or has a bad smell. Your lower abdomen becomes distended and you have trouble passing urine. Get help right away if: You have a fever or chills. You suddenly cannot urinate. You feel light-headed or very dizzy, or you faint. There are large amounts of blood or clots in your urine. Your urinary problems become hard to manage. You develop moderate to severe low back or flank pain. The flank is the side of your body between the ribs and the hip. These symptoms may be an emergency. Get help right away. Call 911. Do not wait to see if the symptoms will go away. Do not drive yourself to the hospital. Summary Benign prostatic hyperplasia (BPH) is an enlarged prostate that is caused by the normal aging process. It is not caused by cancer. An enlarged prostate can press on the urethra. This can make it hard to pass urine. This condition is more likely to develop in men older than 50 years. Get help right away if you suddenly cannot urinate. This information is not intended to replace advice given to you by your health care provider. Make sure you discuss any questions you have with your health care provider. Document Revised: 04/24/2022 Document Reviewed: 04/24/2022 [employer] Patient Education 2022 [employer]. Follow Up Care 05/05/2023 15:42:30 With:AJ JOHNSON, Mendel Mendez, URL Address: [facility] [address], [place] [address]- [phone] When: Unknown Comments:1 yr w/ PSA [facility] 08-07-2023 Evaluation note* Encounter Date Diagnosis Assessment Notes Treatment Notes Treatment Clinical Notes May, Type 2 diabetes mellitus (ICD-10 - E11.9) Managing type 2 diabetes material was published 1. Controlled, a Type 2 diabetes with A1c of 6.9% 2. Blood glucose levels improved. Tolerating mounjaro, using miralax prn for constipation. Encouraged increased hydration w/ water and increasing fiber in diet. Reviewed with pt target fasting am/meal to meal glucose pattern 90/130 and hs 120/180. Reviewed with pt how to titrate basal/meal insulin dosing according to fasting am and meal to meal glucose pattern. Pt verbalizes understanding. Note: intolerance to sglt2 3. Pt is alert, oriented and receptive to making changes or counseling. Notes: Seen for an assessment of current glucose pattern, changes in treatment plan, with this time spent in counseling and coordination of care related to diabetes, risks, and benefits of treatment, medications, and side effects. TOPICS REVIEWED: 1. Time was spent reviewing: a. Basic concepts of diabetes, progressive beta cell , concepts of basal/bolus/correct yovanny insulin requirements. Basal: The goal is fasting blood glucose of 90-130mg. IF fasting blood glucose starts to run under 100mg 3x's/ week, decrease dose by 10%. Bolus: The goal is to hold the blood glucose level steady meal to meal. If pt. is going to have increased physical activity after a meal, decrease the schedule meal dose prior to the activity by 30-50%. If pt. skips a meal do not take this dose. Correction: The goal is to correct an elevated glucose back into the 100-150mg range b. Nutrition: Concepts of healthy diet, encouraged to decrease saturated fat in diet and increase non-starchy vegetables and fruits in diet. BMI: Pt. needs to select one small change to decrease caloric intake or increase physical activity to help decrease weight. c. Correct treatment of hypoglycemia, carry a glucose source at all times on your person, in vehicles, and at bedside. Can use glucose tablets/4, four ounces of pop or juice equal to 15 G of carbohydrate. Blood glucose should be 100 mg/dl or higher when driving. d. ADA glucose goals for age and medical complexity reviewed e. Patient questions addressed 2. Activity/exercise: Encouraged to start any form of physical activity. Start low level and increase slowly to a minimal goal of 150 minutes/week. Limit activity to what is allowed by other issues such as cardiac, pulmonary or orthopedic restrictions. 3. Standards of care: Reminded to have an annual dilated eye exam, A1C every 3 months, urine testing for microalbumin once/year, check feet daily and report any cuts or sores that do not appear to be healing. 4. Meter: Plan to check blood glucose: Please check blood glucose levels 4 times/day. Back to back meals reveal effectiveness of bolus dosing. 5. [facility]. Contact office if any issues or concerns with patterns of hypoglycemia, hyperglycemia, or diabetes medication issues. 6. Prescriptions: Eduardounjoanro sent to [facility]. 7. Prescriptions will not be filled unless you are compliant with follow up appointments or have a follow up appointment scheduled as ordered by your provider. Refills should be requested at the time of your visit. May, Insulin long-term use (ICD-10 - Z79.4) May, Dietary counseling and surveillance (ICD-10 - Z71.3) see above May, Hyperlipidemia LDL goal <100 (ICD-10 - E78.5) 05/2023 ldl 61, at goal, On Statin. May, BMI 40.0-44.9, adult (ICD-10 - Z68.41) 6 pound weight loss from last visit, continue with weight loss efforts [employer] Other 07-10-2023 Evaluation note* Encounter Date Diagnosis Assessment Notes Treatment Notes Treatment Clinical Notes Apr, Sacroiliitis (ICD-10 - M46.1) Stable. Patient denies sacral pain today. Apr, Lumbosacral spondylosis without myelopathy (ICD-10 - M47.817) 57 year old male here for follow up status post lumbar facet medial branch nerve block on the right at the L3 and L4 levels as well as the L5 dorsal ramus under fluoroscopic guidance. Patient reports minimal pain relief or improved walking, standing and daily functions, following procedure. He currently denies low back pain today as he has not corrie working for the last 2 weeks. Anatomy of spine discussed in detail with patient in regards to patients condition. I do not recommend proceeding with further injections at this time as patient has not had much pain and does not have tenderness upon examination. Apr, Other chronic pain (ICD-10 - G89.29) Patient is encouraged to call the office if his symptoms return [employer] Other 06-08-2023 Evaluation note* Encounter Date Diagnosis Assessment Notes Treatment Notes Treatment Clinical Notes Mar, Sacroiliitis (ICD-10 - M46.1) Patient reports 80-90% pain relief to the area treated as well as improved walking, standing and daily functions following procedure. Mar, Lumbosacral spondylosis without myelopathy (ICD-10 - M47.817) 57 year old male here for follow up status post bilateral sacroiliac joint injection under fluoroscopic guidance. Patient reports 80-90% pain relief to the area treated as well as improved walking, standing and daily functions following procedure. He voices continued complaints of low back pain today. Anatomy of spine as well as different treatment options were discussed in detail with patient in regards to patients condition. I recommend we proceed with a right lumbar facet medial branch nerve block under fluoroscopic guidance. Risks and benefits of procedure explained to patient; patient verbalizes understanding. Mar, Other chronic pain (ICD-10 - G89.29) Follow up after procedure. Mar, Post laminectomy syndrome (ICD-10 - M96.1) Stable. Patient denies true radicular symptoms today. [employer] Other 06-07-2023 Evaluation note* Encounter Date Diagnosis Assessment Notes Treatment Notes Treatment Clinical Notes Mar, Type 2 diabetes mellitus (ICD-10 - E11.9) Type 2 diabetes material was printed 1. Uncontrolled, a Type 2 diabetes with A1c of 7.4% 02/03/23 2. Blood glucose levels above target. Pt reports [employer] unafordable without coupon card. Discussed with pt swithcing to mounjaro once weekly, pt agreeable. Pt given sample mounjaro 2.5mg x4 pens, pt administered first dose mounjaro 2.5mg to right abdomen. Reviewed with pt target fasting am/meal to meal glucose pattern 90/130 and hs 120/180. Reviewed with pt how to titrate basal/meal insulin dosing according to fasting am and meal to meal glucose pattern. Pt verbalizes understanding. Note: intolerance to sglt2 3. Pt is alert, oriented and receptive to making changes or counseling. Notes: Seen for an assessment of current glucose pattern, changes in treatment plan, with this time spent in counseling and coordination of care related to diabetes, risks, and benefits of treatment, medications, and side effects. TOPICS REVIEWED: 1. Time was spent reviewing: a. Basic concepts of diabetes, progressive beta cell , concepts of basal/bolus/correc tive insulin requirements. Basal: The goal is fasting blood glucose of 90-130mg. IF fasting blood glucose starts to run under 100mg 3x's/ week, decrease dose by 10%. Bolus: The goal is to hold the blood glucose level steady meal to meal. If pt. is going to have increased physical activity after a meal, decrease the schedule meal dose prior to the activity by 30-50%. If pt. skips a meal do not take this dose. Correction: The goal is to correct an elevated glucose back into the 100-150mg range b. Nutrition: Concepts of healthy diet, encouraged to decrease saturated fat in diet and increase non-starchy vegetables and fruits in diet. BMI: Pt. needs to select one small change to decrease caloric intake or increase physical activity to help decrease weight. c. Correct treatment of hypoglycemia, carry a glucose source at all times on your person, in vehicles, and at bedside. Can use glucose tablets/4, four ounces of pop or juice equal to 15 G of carbohydrate. Blood glucose should be 100 mg/dl or higher when driving. d. ADA glucose goals for age and medical complexity reviewed e. Patient questions addressed 2. Activity/exercise: Encouraged to start any form of physical activity. Start low level and increase slowly to a minimal goal of 150 minutes/week. Limit activity to what is allowed by other issues such as cardiac, pulmonary or orthopedic restrictions. 3. Standards of care: Reminded to have an annual dilated eye exam, A1C every 3 months, urine testing for microalbumin once/year, check feet daily and report any cuts or sores that do not appear to be healing. 4. Meter: Plan to check blood glucose: Please check blood glucose levels 4 times/day. Back to back meals reveal effectiveness of bolus dosing. 5. [facility] Contact office if any issues or concerns with patterns of hypoglycemia, hyperglycemia, or diabetes medication issues. 6. Prescriptions: [facility]: Sample moujaro 2.5mg x4 pens given. Sent rx for mounjaro 5mg 7. Prescriptions will not be filled unless you are compliant with follow up appointments or have a follow up appointment scheduled as ordered by your provider. Refills should be requested at the time of your visit. Mar, Insulin long-term use (ICD-10 - Z79.4) Mar, Dietary counseling and surveillance (ICD-10 - Z71.3) Eat a diet rich in fruits and vegetables material was printed see above Mar, Hyperlipidemia LDL goal <100 (ICD-10 - E78.5) High cholesterol material was printed 01/2022 ldl 57, at goal, On Statin. Mar, BMI 40.0-44.9, adult (ICD-10 - Z68.41) Maintaining a healthful weight material was printed [employer] Other 06-07-2023 Evaluation note* Encounter Date Diagnosis Assessment Notes Treatment Notes Treatment Clinical Notes Mar, Type 2 diabetes mellitus (ICD-10 - E11.9) [employer] Other 04-25-2023 Evaluation note* Encounter Date Diagnosis Assessment Notes Treatment Notes Treatment Clinical Notes Jan, Lumbar radiculopathy (ICD-10 - M54.16) Medical decision making shows a new problem to me with further workup planned or suggested with the potential for extensive treatment options that were considered with the most applicable given this patient's situation as noted above. Treatment options considered include a combination of physical therapy approaches; in which I will refer to aqua therapy. Pharmacologic management I will order prednisone taper, lidocaine patches, muscle relaxer, and xthx-ncs-ibshepl pain medication Tylenol. Discussion of images needed to determine interventional procedures in which I will order x-ray of the lumbar spine 6 view with flexion-extension, and MRI. Will refer to pain management Dr. Bennett. Risk of complications and/or morbidity and mortality is high given that acute and chronic pain poses a threat to life and bodily function if undertreated, poorly treated or with failure to maintain adequate treatment and timely follow up. Given the serious and fluctuating nature of pain with extensive consideration for whenever pain changes, there always remains the possibility of prolonged functional impairment requiring constant patient reassessment and high-level medical decision making. The amount and complexity of data reviewed is high given that patient labs, radiology reports, and other test were obtained, reviewed and summarized as applicable from the physician portal and/or outside medical records. Pertinent positive and negative findings were considered in medical decision-making. Jan, BMI 40.0-44.9, adult (ICD-10 - Z68.41) Discussion of diet and my [email or web address] Jan, Sacroiliac inflammation (ICD-10 - M46.1) Will refer to Dr. Bennett pain management Jan, Encounter for screening for depression (ICD-10 - Z13.31) PHQ reviewed score 0 denies any thoughts of harming self or anyone else. Negative screening [employer] Other 04-17-2023 Evaluation note* Encounter Date Diagnosis Assessment Notes Treatment Notes Treatment Clinical Notes Jan, Type 2 diabetes mellitus (ICD-10 - E11.9) Type 2 diabetes material was printed 1. Uncontrolled, a Type 2 diabetes with A1c of 7.4% 2. Blood glucose levels imrproved, remain above target. Encouraged to start clem 3 sample. Reviewed with pt target fasting am/meal to meal glucose pattern 90/130 and hs 120/180. Reviewed with pt how to titrate basal/meal insulin dosing according to fasting am and meal to meal glucose pattern. Pt verbalizes understanding. Note: intolerance to sglt2 3. Pt is alert, oriented and receptive to making changes or counseling. Notes: Seen for an assessment of current glucose pattern, changes in treatment plan, with this time spent in counseling and coordination of care related to diabetes, risks, and benefits of treatment, medications, and side effects. TOPICS REVIEWED: 1. Time was spent reviewing: a. Basic concepts of diabetes, progressive beta cell , concepts of basal/bolus/correc tive insulin requirements. Basal: The goal is fasting blood glucose of 90-130mg. IF fasting blood glucose starts to run under 100mg 3x's/ week, decrease dose by 10%. Bolus: The goal is to hold the blood glucose level steady meal to meal. If pt. is going to have increased physical activity after a meal, decrease the schedule meal dose prior to the activity by 30-50%. If pt. skips a meal do not take this dose. Correction: The goal is to correct an elevated glucose back into the 100-150mg range b. Nutrition: Concepts of healthy diet, encouraged to decrease saturated fat in diet and increase non-starchy vegetables and fruits in diet. BMI: Pt. needs to select one small change to decrease caloric intake or increase physical activity to help decrease weight. c. Correct treatment of hypoglycemia, carry a glucose source at all times on your person, in vehicles, and at bedside. Can use glucose tablets/4, four ounces of pop or juice equal to 15 G of carbohydrate. Blood glucose should be 100 mg/dl or higher when driving. d. ADA glucose goals for age and medical complexity reviewed e. Patient questions addressed 2. Activity/exercise: Encouraged to start any form of physical activity. Start low level and increase slowly to a minimal goal of 150 minutes/week. Limit activity to what is allowed by other issues such as cardiac, pulmonary or orthopedic restrictions. 3. Standards of care: Reminded to have an annual dilated eye exam, A1C every 3 months, urine testing for microalbumin once/year, check feet daily and report any cuts or sores that do not appear to be healing. 4. Meter: Plan to check blood glucose: Please check blood glucose levels 4 times/day. Back to back meals reveal effectiveness of bolus dosing. 5. [facility]. Contact office if any issues or concerns with patterns of hypoglycemia, hyperglycemia, or diabetes medication issues. 6. Prescriptions: Will call when needed. 7. Prescriptions will not be filled unless you are compliant with follow up appointments or have a follow up appointment scheduled as ordered by your provider. Refills should be requested at the time of your visit. 8. Lab order given- pt reports unable to get fasting labs done d/t working 6 days/week. Will order labs non fasting. Jan, Insulin long-term use (ICD-10 - Z79.4) Jan, Dietary counseling and surveillance (ICD-10 - Z71.3) Eat a diet rich in fruits and vegetables material was printed see above Jan, Hyperlipidemia LDL goal <100 (ICD-10 - E78.5) High cholesterol material was printed 01/2022 ldl 57, at goal, On Statin. Jan, BMI 40.0-44.9, adult (ICD-10 - Z68.41) Maintaining a healthful weight material was printed [employer] Other 01-16-2023 Hospital Discharge instructions Patient Education 11/04/2022 08:47:47 Prostatitis Prostatitis Prostatitis is swelling or inflammation of the prostate gland. The prostate is a walnut-sized glandthat is involved in the production of semen. It is located below a man's bladder, in front of the rectum. There are four types of prostatitis: Chronic nonbacterial prostatitis. This is the most common type of prostatitis. It may be associatedwith a viral infection or autoimmune disorder. Acute bacterial prostatitis. This is the least common type of prostatitis. It starts quickly and isusually associated with a bladder infection, high fever, and shaking chills. It can occur at any age. Chronic bacterial prostatitis. This type usually results from acute bacterial prostatitis that happens repeatedly (is recurrent) or has not been treated properly. It can occur in men of any age but is most common among middle-aged men whose prostate has begun to get larger. The symptoms are not as severe as symptoms caused by acute bacterial prostatitis. Prostatodynia or chronic pelvic pain syndrome (CPPS). This type is also called pelvic floor disorder. It is associated with increased muscular tone in the pelvis surrounding the prostate. What are the causes? Bacterial prostatitis is caused by infection from bacteria. Chronic nonbacterial prostatitis may becaused by: Urinary tract infections (UTIs). Nerve damage. A response by the body s disease-fighting system (autoimmune response). Chemicals in the urine. The causes of the other types of prostatitis are usually not known. What are the signs or symptoms? Symptoms of this condition vary depending upon the type of prostatitis. If you have acute bacterialprostatitis, you may experience: Urinary symptoms, such as: ?Painful urination. ?Burning during urination. ?Frequent and sudden urges to urinate. ?Inability to start urinating. ?A weak or interrupted stream of urine. Vomiting. Nausea. Fever. Chills. Inability to empty the bladder completely. Pain in the: ?Muscles or joints. ?Lower back. ?Lower abdomen. If you have any of the other types of prostatitis, you may experience: Urinary symptoms, such as: ?Sudden urges to urinate. ?Frequent urination. ?Difficulty starting urination. ?Weak urine stream. ?Dribbling after urination. Discharge from the urethra. The urethra is a tube that opens at the end of the penis. Pain in the: ?Testicles. ?Penis or tip of the penis. ?Rectum. ?Area in front of the rectum and below the scrotum (perineum). Problems with sexual function. Painful ejaculation. Bloody semen. How is this diagnosed? This condition may be diagnosed based on: A physical and medical exam. Your symptoms. A urine test to check for bacteria. An exam in which a health care provider uses a finger to feel the prostate (digital rectal exam). A test of a sample of semen. Blood tests. Ultrasound. Removal of prostate tissue to be examined under a microscope (biopsy). Tests to check how your body handles urine (urodynamic tests). A test to look inside your bladder or urethra (cystoscopy). How is this treated? Treatment for this condition depends on the type of prostatitis. Treatment may involve: Medicines to relieve pain or inflammation. Medicines to help relax your muscles. Physical therapy. Heat therapy. Techniques to help you control certain body functions (biofeedback). Relaxation exercises. Antibiotic medicine, if your condition is caused by bacteria. Warm water baths (sitz baths). Sitz baths help with relaxing your pelvic floor muscles, which helpsto relieve pressure on the prostate. Follow these instructions at home: Take tedj-xkx-ooeynxm and prescription medicines only as told by your health care provider. If you were prescribed an antibiotic, take it as told by your health care provider. Do not stop taking the antibiotic even if you start to feel better. If physical therapy, biofeedback, or relaxation exercises were prescribed, do exercises as instructed. Take sitz baths as directed by your health care provider. For a sitz bath, sit in warm water that is deep enough to cover your hips and buttocks. Keep all follow-up visits as told by your health care provider. This is important. Contact a health care provider if: Your symptoms get worse. You have a fever. Get help right away if: You have chills. You feel nauseous. You vomit. You feel light-headed or feel like you are going to faint. You are unable to urinate. You have blood or blood clots in your urine. This information is not intended to replace advice given to you by your health care provider. Make sure you discuss any questions you have with your health care provider. Document Released: 10/03/2001 Document Revised: 12/19/2018 Document Reviewed: 06/26/2017 [employer] Patient Education [employer]. Follow Up Care 04/29/2022 16:00:50 With:AJ JOHNSON, Mendel Mendez, URL Address: [facility] [address] , [place] [address]- When: Unknown [facility] 01-09-2023 Evaluation note* Encounter Date Diagnosis Assessment Notes Treatment Notes Treatment Clinical Notes Oct, Type 2 diabetes mellitus (ICD-10 - E11.9) Type 2 diabetes material was printed 1. Uncontrolled, a Type 2 diabetes with A1c of 8.0% 2. Blood glucose levels above target. Offered sample clem 3 today, pt has used clem 2 in the past and reported was difficult to stay on and insurance wouldn't cover. He is agreeable to sample. Reviewed with pt he will need to download clem 3 cgm dudley on his phone before applying cgm. He is aksing for rx be sent to pharmacy to see what cost will be. Reviewed with pt target fasting am/meal to meal glucose pattern 90/130 and hs 120/180. Reviewed with pt how to titrate basal/meal insulin dosing according to fasting am and meal to meal glucose pattern. Pt verbalizes understanding. Note: intolerance to sglt2 3. Pt is alert, oriented and receptive to making changes or counseling. Notes: Seen for an assessment of current glucose pattern, changes in treatment plan, with this time spent in counseling and coordination of care related to diabetes, risks, and benefits of treatment, medications, and side effects. TOPICS REVIEWED: 1. Time was spent reviewing: a. Basic concepts of diabetes, progressive beta cell , concepts of basal/bolus/correc tive insulin requirements. Basal: The goal is fasting blood glucose of 90-130mg. IF fasting blood glucose starts to run under 100mg 3x's/ week, decrease dose by 10%. Bolus: The goal is to hold the blood glucose level steady meal to meal. If pt. is going to have increased physical activity after a meal, decrease the schedule meal dose prior to the activity by 30-50%. If pt. skips a meal do not take this dose. Correction: The goal is to correct an elevated glucose back into the 100-150mg range b. Nutrition: Concepts of healthy diet, encouraged to decrease saturated fat in diet and increase non-starchy vegetables and fruits in diet. BMI: Pt. needs to select one small change to decrease caloric intake or increase physical activity to help decrease weight. c. Correct treatment of hypoglycemia, carry a glucose source at all times on your person, in vehicles, and at bedside. Can use glucose tablets/4, four ounces of pop or juice equal to 15 G of carbohydrate. Blood glucose should be 100 mg/dl or higher when driving. d. ADA glucose goals for age and medical complexity reviewed e. Patient questions addressed 2. Activity/exercise: Encouraged to start any form of physical activity. Start low level and increase slowly to a minimal goal of 150 minutes/week. Limit activity to what is allowed by other issues such as cardiac, pulmonary or orthopedic restrictions. 3. Standards of care: Reminded to have an annual dilated eye exam, A1C every 3 months, urine testing for microalbumin once/year, check feet daily and report any cuts or sores that do not appear to be healing. 4. Meter: Plan to check blood glucose: Please check blood glucose levels 4 times/day. Back to back meals reveal effectiveness of bolus dosing. 5. [facility]. Contact office if any issues or concerns with patterns of hypoglycemia, hyperglycemia, or diabetes medication issues. 6. Prescriptions: Sample clme 3 cgm given today. 7. Prescriptions will not be filled unless you are compliant with follow up appointments or have a follow up appointment scheduled as ordered by your provider. Refills should be requested at the time of your visit. Oct, Vitamin D deficiency (ICD-10 - E55.9) Vitamin D deficiency material was printed 01/2022 Vit. D 25.4, recommend otc vit d 2000 units once daily Oct, Insulin long-term use (ICD-10 - Z79.4) Oct, Dietary counseling and surveillance (ICD-10 - Z71.3) Eat a diet rich in fruits and vegetables material was printed see above Oct, Hyperlipidemia LDL goal <100 (ICD-10 - E78.5) High cholesterol material was printed 01/2022 ldl 57, at goal, On Statin. Oct, BMI 40.0-44.9, adult (ICD-10 - Z68.41) Maintaining a healthful weight material was printed [employer] Other 01-03-2023 Evaluation note* Encounter Date Diagnosis Assessment Notes Treatment Notes Treatment Clinical Notes Oct, Type 2 diabetes mellitus (ICD-10 - E11.9) [employer] Other 07-11-2022 Hospital Discharge instructions Patient Education 04/29/2022 15:49:18 Benign Prostatic Hyperplasia Benign Prostatic Hyperplasia Benign prostatic hyperplasia (BPH) is an enlarged prostate gland that is caused by the normal agingprocess and not by cancer. The prostate is a walnut-sized gland that is involved in the production of semen. It is located in front of the rectum and below the bladder. The bladder stores urine and the urethra is the tube that carries the urine out of the body. The prostate may get bigger as a man gets older. An enlarged prostate can press on the urethra. This can make it harder to pass urine. The build-up of urine in the bladder can cause infection. Back pressure and infection may progress to bladder damage and kidney (renal) failure. What are the causes? This condition is part of a normal aging process. However, not all men develop problems from this condition. If the prostate enlarges away from the urethra, urine flow will not be blocked. If it enlarges toward the urethra and compresses it, there will be problems passing urine. What increases the risk? This condition is more likely to develop in men over the age of 50 years. What are the signs or symptoms? Symptoms of this condition include: Getting up often during the night to urinate. Needing to urinate frequently during the day. Difficulty starting urine flow. Decrease in size and strength of your urine stream. Leaking (dribbling) after urinating. Inability to pass urine. This needs immediate treatment. Inability to completely empty your bladder. Pain when you pass urine. This is more common if there is also an infection. Urinary tract infection (UTI). How is this diagnosed? This condition is diagnosed based on your medical history, a physical exam, and your symptoms. Tests will also be done, such as: A post-void bladder scan. This measures any amount of urine that may remain in your bladder after you finish urinating. A digital rectal exam. In a rectal exam, your health care provider checks your prostate by putting a lubricated, gloved finger into your rectum to feel the back of your prostate gland. This exam detects the size of your gland and any abnormal lumps or growths. An exam of your urine (urinalysis). A prostate specific antigen (PSA) screening. This is a blood test used to screen for prostate cancer. An ultrasound. This test uses sound waves to electronically produce a picture of your prostate gland. Your health care provider may refer you to a specialist in kidney and prostate diseases (urologist). How is this treated? Once symptoms begin, your health care provider will monitor your condition (active surveillance or watchful waiting). Treatment for this condition will depend on the severity of your condition. Treatment may include: Observation and yearly exams. This may be the only treatment needed if your condition and symptoms are mild. Medicines to relieve your symptoms, including: ?Medicines to shrink the prostate. ?Medicines to relax the muscle of the prostate. Surgery in severe cases. Surgery may include: ?Prostatectomy. In this procedure, the prostate tissue is removed completely through an open incision or with a laparoscope or robotics. ?Transurethral resection of the prostate (TURP). In this procedure, a tool is inserted through the opening at the tip of the penis (urethra). It is used to cut away tissue of the inner core of the prostate. The pieces are removed through the same opening of the penis. This removes the blockage. ?Transurethral incision (TUIP). In this procedure, small cuts are made in the prostate. This lessens the prostate's pressure on the urethra. ?Transurethral microwave thermotherapy (TUMT). This procedure uses microwaves to create heat. The heat destroys and removes a small amount of prostate tissue. ?Transurethral needle ablation (TUNA). This procedure uses radio frequencies to destroy and remove a small amount of prostate tissue. ?Interstitial laser coagulation (ILC). This procedure uses a laser to destroy and remove a small amount of prostate tissue. ?Transurethral electrovaporization (TUVP). This procedure uses electrodes to destroy and remove a small amount of prostate tissue. ?Prostatic urethral lift. This procedure inserts an implant to push the lobes of the prostate away from the urethra. Follow these instructions at home: Take mvyd-owv-nodcrbm and prescription medicines only as told by your health care provider. Monitor your symptoms for any changes. Contact your health care provider with any changes. Avoid drinking large amounts of liquid before going to bed or out in public. Avoid or reduce how much caffeine or alcohol you drink. Give yourself time when you urinate. Keep all follow-up visits as told by your health care provider. This is important. Contact a health care provider if: You have unexplained back pain. Your symptoms do not get better with treatment. You develop side effects from the medicine you are taking. Your urine becomes very dark or has a bad smell. Your lower abdomen becomes distended and you have trouble passing your urine. Get help right away if: You have a fever or chills. You suddenly cannot urinate. You feel lightheaded, or very dizzy, or you faint. There are large amounts of blood or clots in the urine. Your urinary problems become hard to manage. You develop moderate to severe low back or flank pain. The flank is the side of your body between the ribs and the hip. These symptoms may represent a serious problem that is an emergency. Do not wait to see if the symptoms will go away. Get medical help right away. Call your local emergency services (911 in the [place] Do not drive yourself to the hospital. Summary Benign prostatic hyperplasia (BPH) is an enlarged prostate that is caused by the normal aging process and not by cancer. An enlarged prostate can press on the urethra. This can make it hard to pass urine. This condition is part of a normal aging process and is more likely to develop in men over the age of 50 years. Get help right away if you suddenly cannot urinate. This information is not intended to replace advice given to you by your health care provider. Make sure you discuss any questions you have with your health care provider. Document Released: 10/06/2006 Document Revised: 08/31/2019 Document Reviewed: 11/10/2017 [employer] Patient Education 2020 [employer]. Follow Up Care 03/22/2022 15:38:12 With:AJ JOHNSON, Mendel Mendez, URL Address: [facility] [address] , [place] [address]- [phone] When: Unknown [facility] 06-21-2022 Hospital Discharge instructions Patient Education 04/09/2022 11:36:22 [facility] - Transrectal Ultrasound of the Prostate with US guided biopsy Discharge Instructions (CUSTOM) Transrectal Ultrasound of the Prostate with US guided biopsy Even though there are no visible incisions, multiple prostate biopsies have been taken through the rectum and you need to follow some instructions to minimize the risks of bleeding. You may see some blood in your urine and stool for up to 1 week (and blood in the semen for severalmonths) Diet -You may resume your normal diet, but you may want to avoid alcohol, carbonated drinks, caffeine, and spicy foods, which may increase the irritation from the surgery. -Drink plenty of water to keep the urine clear. Activity -You should limit any physical activity for about 48 hours -No heavy lifting or straining (10 pound limit) -No driving a car and limit long car rides for 2 days -No strenuous exercise -No sexual intercourse until this is discussed with your doctor Bowels -Try to keep your bowel movements soft to minimize straining to have a bowel movement. -You may use a stool softener or over the counter laxative if needed -Difficult bowel movement may lead to straining and bleeding from the prostate Medications -You may resume your home medications unless instructed otherwise -Hold aspirin, ibuprofen, Coumadin (warfarin) and other blood thinners for about two days or until there is no active bleeding unless otherwise instructed -Finish the antibiotic which you have already started Things to watch for which would require an Emergency Room visit or call 911: (this is not a complete list) -Persistent or heavy bleeding or blood clots from the rectum or in the urine -Inability to urinate -Fever over 101.5 degrees Fahrenheit, with or without chills -Severe drug reactions with itching, hives or rash -Tenderness or swelling of the calves, chest pain, or shortness of breath Please call the office to arrange for your post-operative appointment in 1-2 weeks [phone] or [phone] Follow Up Care 03/29/2022 13:53:55 With:Mendel LOJA Address: [facility] [address] [place] [address]- Business (1) When: Unknown Comments:Keep scheduled appointment [facility]06-[facility]-20[facility] Evaluation note* Encounter Date Diagnosis Assessment Notes Treatment Notes Treatment Clinical Notes Mar, 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 Use with OTC Allergy medication such as Zyrtec, Claritin or Bernice. Use saline nasal spray may help with symptom relief. Watch carb intake and adjust accordingly for increased blood glucose as discussed. Follow up with primary care provider if symptoms persist as a therapy plan may need to be made. [employer] Other 01-17-2022 Evaluation note* Encounter Date Diagnosis Assessment Notes Treatment Notes Treatment Clinical Notes Oct, Type 2 diabetes mellitus (ICD-10 - E11.9) Type 2 diabetes material was printed 4oz of juice given at 2:54pm for BG of 85. Blood sugar at 3:10pm: 93. Pack of gummies given. 1. Uncontrolled, a Type 2 diabetes with A1c of 7.6% 2. Blood glucose levels above target. Pt had skipped snack prior to apt and glucose 85 will reduce toujeo from 50 to 45 units. Discussed with pt adding sglt2. Reviewed common s/e of medication. Imporance of hydration if ill with n/v/d or surgery medication would need stopped. Pt reports he is circumcised. Pt agreeable to starting sglt2. Pt was given sample jardiance 25mg x28 tabs. Coupon card and printed rx given. Next visit will consider switching to longer acting glp1. 3. Pt is alert, oriented and receptive to making changes or counseling. Notes: Seen for an assessment of current glucose pattern, changes in treatment plan, with this time spent in counseling and coordination of care related to diabetes, risks, and benefits of treatment, medications, and side effects. TOPICS REVIEWED: 1. Time was spent reviewing: a. Basic concepts of diabetes, progressive beta cell , concepts of basal/bolus/correc tive insulin requirements. Basal: The goal is fasting blood glucose of 90-130mg. IF fasting blood glucose starts to run under 100mg 3x's/ week, decrease dose by 10%. Bolus: The goal is to hold the blood glucose level steady meal to meal. If pt. is going to have increased physical activity after a meal, decrease the schedule meal dose prior to the activity by 30-50%. If pt. skips a meal do not take this dose. Correction: The goal is to correct an elevated glucose back into the 100-150mg range b. Nutrition: Concepts of healthy diet, encouraged to decrease saturated fat in diet and increase non-starchy vegetables and fruits in diet. BMI: Pt. needs to select one small change to decrease caloric intake or increase physical activity to help decrease weight. c. Correct treatment of hypoglycemia, carry a glucose source at all times on your person, in vehicles, and at bedside. Can use glucose tablets/4, four ounces of pop or juice equal to 15 G of carbohydrate. Blood glucose should be 100 mg/dl or higher when driving. d. ADA glucose goals for age and medical complexity reviewed e. Patient questions addressed 2. Activity/exercise: Encouraged to start any form of physical activity. Start low level and increase slowly to a minimal goal of 150 minutes/week. Limit activity to what is allowed by other issues such as cardiac, pulmonary or orthopedic restrictions. 3. Standards of care: Reminded to have an annual dilated eye exam, A1C every 3 months, urine testing for microalbumin once/year, check feet daily and report any cuts or sores that do not appear to be healing. 4. Meter: Plan to check blood glucose: Please check blood glucose levels 4 times/day. Back to back meals reveal effectiveness of bolus dosing. 5. [facility]. Contact office if any issues or concerns with patterns of hypoglycemia, hyperglycemia, or diabetes medication issues. 6. Prescriptions: See above. Oct, Vitamin D deficiency (ICD-10 - E55.9) Vitamin D deficiency material was printed 07/2021 Vit. D 24.3, recommend otc vit d 1000 units once daily Oct, Insulin long-term use (ICD-10 - Z79.4) Oct, Dietary counseling and surveillance (ICD-10 - Z71.3) Eat a diet rich in fruits and vegetables material was printed see above Oct, Hyperlipidemia LDL goal <100 (ICD-10 - E78.5) High cholesterol material was printed 07/2021 ldl 69, at goal, On Statin. 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 Controlled, a Type 2 diabetes with A1c of 7.0% 2. Blood glucose levels slightly higher than last visit/stable. Readings above target from higher carb meal and underestimation of insulin for carbs. Reviewed with pt target fasting am and meal to meal glucose 90-130. Bedtime 120-150. 3. Pt is alert, oriented and receptive to making changes or counseling. Notes: Seen for an assessment of current glucose pattern, changes in treatment plan, with this time spent in counseling and coordination of care related to diabetes, risks, and benefits of treatment, medications, and side effects. TOPICS REVIEWED: 1. Time was spent reviewing: a. Basic concepts of diabetes, progressive beta cell , concepts of basal/bolus/correcti ve insulin requirements. Basal: The goal is fasting blood glucose of 90-130mg. IF fasting blood glucose starts to run under 100mg 3x's/ week, decrease dose by 10%. Bolus: The goal is to hold the blood glucose level steady meal to meal. If pt. is going to have increased physical activity after a meal, decrease the schedule meal dose prior to the activity by 30-50%. If pt. skips a meal do not take this dose. Correction: The goal is to correct an elevated glucose back into the 100-150mg range b. Nutrition: Concepts of healthy diet, encouraged to decrease saturated fat in diet and increase non-starchy vegetables and fruits in diet. BMI: Pt. needs to select one small change to decrease caloric intake or increase physical activity to help decrease weight. c. Correct treatment of hypoglycemia, carry a glucose source at all times on your person, in vehicles, and at bedside. Can use glucose tablets/4, four ounces of pop or juice equal to 15 G of carbohydrate. Blood glucose should be 100 mg/dl or higher when driving. d. ADA glucose goals for age and medical complexity reviewed e. Patient questions addressed 2. Activity/exercise: Encouraged to start any form of physical activity. Start low level and increase slowly to a minimal goal of 150 minutes/week. Limit activity to what is allowed by other issues such as cardiac, pulmonary or orthopedic restrictions. 3. Standards of care: Reminded to have an annual dilated eye exam, A1C every 3 months, urine testing for microalbumin once/year, check feet daily and report any cuts or sores that do not appear to be healing. 4. Meter: Plan to check blood glucose: Please check blood glucose levels 4 times/day. Back to back meals reveal effectiveness of bolus dosing. 5. [facility]. Contact office if any issues or concerns with patterns of hypoglycemia, hyperglycemia, or diabetes medication issues. 6. Prescriptions: Will call when needed. 7. Pt encouraged to have labs drawn Jun, Vitamin D deficiency (ICD-10 - E55.9) Vitamin D deficiency material was printed 07/2020 Vit. D 20.4, recommend otc vit d 1000 units once daily Jun, Insulin long-term use (ICD-10 - Z79.4) Jun, Dietary counseling and surveillance (ICD-10 - Z71.3) Eat a diet rich in fruits and vegetables material was printed see above Jun, Hyperlipidemia LDL goal <100 (ICD-10 - E78.5) High cholesterol material was printed 07/2020 ldl 60, at goal, On Statin. Jun, BMI 40.0-44.9, adult (ICD-10 - Z68.41) Maintaining a healthful weight material was printed Jun, Encounter for immunization (ICD-10 - Z23) Patient is afebrile at this time; Patient denies current cold or flu symptoms; Patients denies previous reaction to flu vaccines; Patient denies allergies to chicken, eggs, or feathers; Influenza (Flu) Vaccine (Inactivated or Recombinant): What You Need to Know material was given to patient; Seen by: [employer] Other Evaluation + Plan note Future Appointments Appointment Date:04/29/2022 03:15:00 PM Scheduled Provider:Mendel LOJA MD Location:[facility] Appointment Type:URO Office Visit Diagnostic Tests Pending * Prostate Histology ([facility]) [facility]ments Appointment Date:11/04/2022 02:45:00 PM Scheduled Provider:Mendel LOJA MD Location:[facility] Appointment Type:URO Office Visit [facility] evaluation + Plan note Future Appointments Appointment Date:05/05/2023 03:00:00 PM Scheduled Provider:Mendel LOJA MD Location:[facility] Appointment Type:URO Office Visit Diagnostic Tests Pending * PSA Total 11/04/22 [facility] evaluation + Plan note Future Appointments Appointment Date:09/27/2024 02:45:00 PM Scheduled Provider:Mendel LOJA MD Location:[facility] Appointment Type:URO Office Visit Diagnostic Tests Pending * PSA Total 09/22/23 [facility] evaluation + Plan note Future Appointments Appointment Date:03/12/2024 10:15:00 AM Scheduled Provider:Mendel LOJA MD Location:[facility] Appointment Type:URO Office Visit Appointment Date:09/27/2024 02:45:00 PM Scheduled Provider:Mendel LOJA MD Location:[facility] Appointment Type:URO Office Visit [facility] evaluation + Plan note Future Appointments Appointment Date:09/27/2024 02:45:00 PM Scheduled Provider:Mendel LOJA MD Location:[facility] Appointment Type:URO Office Visit [facility] evaluation + Plan note Future Appointments Appointment Date:04/15/2024 10:00:00 AM Scheduled Provider: Location:[facility] Appointment Type:Urology CALL PAT FT Appointment Date:04/20/2024 08:00:00 AM Scheduled Provider: Location:[facility] Appointment Type:Urology FT Appointment Date:04/20/2024 09:15:00 AM Scheduled Provider: Location:[facility] Appointment Type:Urology FT Appointment Date:09/27/2024 02:45:00 PM Scheduled Provider:[facility] InformationNort Caterna Other Evaluation noteNo assessment information available [facility] Work Phone: evaluation note* Diagnosis Onset Date Resolution Status BMI 40.0-44.9, adult acute Dietary counseling and surveillance acute Hyperlipemia acute Type 2 diabetes mellitus acu te [facility] Work Phone: evaluation note* Diagnosis Onset Date Resolution Status BMI 40.0-44.9, adult acute Dietary counseling and surveillance acute Hyperlipemia acute Type 2 diabetes mellitus acu te Dysuria noneactive [facility] Work Phone: Hisgktj general Narrative - Reported* Type Description Date Medical History DM 2 < 10 YEARS Medical History HYPERLIPIDEMIA Surgical History HERNIA/GALL BLADDER 2007 Surgical History HERNIA 2010 Surgical History HAND 1989 Surgical History TONSILECTOMY Surgical History BACK SURGERY 10/2014 Hospitalization History SEE ABOVE SURGERIES Hospital[facility] 10[facility]2014 [employer] Other history general Narrative - Reported* Type Description Date Medical History DM 2 < 10 YEARS Medical History HYPERLIPIDEMIA Surgical History HERNIA/GALL BLADDER 2007 Surgical History HERNIA 2010 Surgical History HAND 1989 Surgical History TONSILECTOMY Surgical History BACK SURGERY 10/2014 Surgical History Prostate biopsy-negative 2021 Hospitalization History SEE ABOVE SURGERIES Hospitalization History YASHIRA KEATING SURGE RY 10/2014 [employer] Other Hisyhto general Narrative - Reported* Type Description Date Medical History DM 2 < 10 YEARS Medical History HYPERLIPIDEMIA Medical History high cholesterol Medical History prostate biopsy Surgical History HERNIA/GALL BLADDER 2007 Surgical History HERNIA 2010 Surgical History HAND 1989 Surgical History TONSILECTOMY Surgical History BACK SURGERY 10/2014 Surgical History Prostate biopsy-negative 2021 Hospitalization History SEE ABOVE SURGERIES Hospitalization History Hardy [facility] SURGE RY 10/2014 [employer] Other Hospital course Narrative No data available for this section [facility] Additional Instructions You can take Aleve or Tylenol as needed for mild to moderate pain. Take oxycodone as prescribed for severe pain. Use the Zofran and oxycodone for nausea. Take Flexeril as prescribed for muscle spasm. Follow-up with the PCP and/or pain management doctor for ongoing care. [facility] Work Phone: Hospital Discharge instructions No data available for this section [facility] No data available for this section [facility] Summary Purpose Family History No Family History Records Found Relationship Condition Age at Onset Recorded Date/T mehdi brother Diabetes mellitus Unknown father Unknown Malignant neoplasm Unknown Not Specified Hypertension Unknown Unknown Advance Directives No Advanced Directives Records Found Advance Directive Response Recorded Date/ Time Advance Directives No February 24, 2018 5:40pm Advance Directive Response Recorded Date/ Time Advance Directives No February 24, 2018 4:40pm Chief Complaint and Reason for Visit Chief Complaint dm back pain-nki Chief Complaint dm back pain-nki M54.16 Chief Complaint dm back pain (fall) kidney pain-recent uti dx Chief Complaint Dm dm back pain (fall) kidney pain-recent uti dx Chief Complaint Amb Documentation 3 month follow up / meter possible uti - pain when urinating Reason for Visit BMI 40.0-44.9, adult Dietary counseling and surveillance Hyperlipemia Type 2 diabetes mellitus Chief Complaint Amb Documentation 3 month follow up / meter possible uti - pain when urinating Dysuria Reason for Visit BMI 40.0-44.9, adult Dietary counseling and surveillance Hyperlipemia Type 2 diabetes mellitus Dysuria Reason for Referral Reason aqua therapy- evalua te and treat Diagnosis 1 Lumbar radiculopathy (M54.16) Referral Organization [facility]urger Referring Provider First Name Anabela Referring Provider Last Name Johnson Referring Provider Specialty Nurse Pract itioner Referred Organization [facility] Referred Address [address], [place],[address] Referred Provider Specialty Physical The rapist Referral Priority Routine Reason evaluate and tr eat Diagnosis 1 Lumbar radiculopathy (M54.16) Referral Organization [facility] Referring Provider First Name Anabela Referring Provider Last Name Assaria Referring Provider Specialty Nurse Pract itioner Referred Organization [facility] Pain Managemen t Referred Provider Paul Bennett Referred Address [address],[address] Referred Provider Specialty Pain Medicin e Referral Priority Routine General Notes Fore, Irene M 023 07:32:52 AM >Received today and sent P2P Additional Source Comments (unrecognized sect ion and content) No Status Records FoundNo Status Records FoundNo Status Records FoundNo Status Records FoundNo Status Records FoundNo Status Records FoundNo Status Records FoundNo Status Records FoundNo Status Records FoundNo Status Records FoundNo Status Records Found INFORMATION SOURCE (unrecogn ized section and content) DATE CREATED AUTHOR 07/01/2021 [facility] DATE CREATED AUTHOR AUTHOR'S ORGANIZ ATION 03/02/2024 [facility] DATE CREATED AUTHOR AUTHOR'S ORGANIZ ATION 03/05/2024 [facility] DATE CREATED AUTHOR AUTHOR'S ORGANIZ ATION 03/06/2024 [facility] DATE CREATED AUTHOR AUTHOR'S ORGANIZ ATION 03/24/2024 [facility] DATE CREATED AUTHOR AUTHOR'S ORGANIZ ATION 04/13/2024 Musa Syd [facility] DATE CREATED AUTHOR AUTHOR'S ORGANIZ ATION 05/06/2024 [facility] Care Team (unrecognized sect ion and content) Team Status: Active Member Role Status Dates Hua Gordon MD Primary Care Provider Active Team Status: Active Member Role Status Dates Hua Gordon MD Primary Care Provider Active S tart: December 26, 2023 Monroe Cheema RN Attending Provider Active St art: December 26, 2023 Team Status: Inactive Member Role Status Dates Hua Gordon MD Primary Care Provider Active S tart: February 19, 2024 End: February 19, 2024 Juan Carlos Noel APRN Attending Provider Active Start: February 19, 2024 End: February 19, 2024 Team Status: Inactive Member Role Status Dates Hua Gordon MD Primary Care Provider Active S tart: February 29, 2024 End: February 29, 2024 Siobhan Troy APRN Attending Provider Active Start: February 29, 2024 End: February 29, 2024 Team Status: Inactive Member Role Status Dates Juan Carlos Noel APRN Attending Provider Active Start: November 13, 2023 End: November 13, 2023 Team Status: Inactive Member Role Status Dates Hua Gordon MD Primary Care Provider Active S tart: November 13, 2023 End: November 13, 2023 Juan Carlos Noel APRN Attending Provider Active Start: November 13, 2023 End: November 13, 2023 Team Status: Inactive Member Role Status Dates Hua Gordon MD Primary Care Provider Active S tart: November 14, 2023 End: November 14, 2023 Bridger Dejesus DO Emergency Provider Active Start: November 14, 2023 End: November 14, 2023 Team Status: Inactive Member Role Status Dates Hua Gordon MD Primary Care Provider Active S tart: 2023 End: November 18, 2023 Bridger Dejesus DO Emergency Provider Active Start: 2023 End: November 18, 2023 Team Status: Active Member Role Status Dates Hua Gordon MD Primary Care Provider Active Juan Carlos Noel APRN Attending Provider Active Team Status: Inactive Member Role Status Dates Hua Gordon MD Primary Care Provider Active Jose Love MD Emergency Provider Active Team Status: Inactive Member Role Status Dates Hua Gordon MD Primary Care Provider Active Anabela Johnson NP-C Attending Provider Active Team Status: Active Member Role Status Dates Hua Gordon MD Primary Care Provider Active S tart: November 13, 2023 Juan Carlos Noel APRN Attending Provider Active Start: November 13, 2023 Team Status: Inactive Member Role Status Dates Siobhan Troy APRN Attending Provider Active Start: February 29, 2024 End: February 29, 2024 REASON FOR VISIT (unrecogniz ed section and content) Type 2 IDDM 3 MONTH FOLLOW U P with T [place] [facility] REPORTER, PUBLICATION SPECIALIST-C, BC-ADMlab resultsvictozaTKM VictozaTKM FYIDM 3 month follow up, Type 2 IDDM FOLLOW UP with T [place] [facility] REPORTER, PUBLICATION SPECIALIST-C, BC-ADMlab resultsBLACK F150, NASAL CONGESTION X 1 WEEKTKM ToujeoTKM victoza questionTKM Victoza questionTKM Victoza refillTKM refill NovologTKM labsDM 3 month follow up, Type 2 IDDM FOLLOW UP with T [place] COURT REPORTER, PUBLICATION SPECIALIST-C, BC-ADMTKM Victoza RefillDM 3 month follow up, Type 2 IDDM FOLLOW UP with T [place] COURT REPORTER, PUBLICATION SPECIALIST-C, BC-ADMer f/ublood sugarF/U AFTER REJI SI JOINT INJECTIONTKM - NEEDS APPT; LVM FOR PATIENT TO CALL AND SCHEDULE 03/19/23Med Changes, DM follow up, Type 2 IDDM FOLLOW UP with T [place] COURT REPORTER, PUBLICATION SPECIALIST-C, BC-ADMTKM - LVM FOR PT TO GET LABS; [facility] 03/28/23TKM please callRIGHT L3,4,5 LUMBAR FACET MBBTKM-constipationF/U AFTER RIGHT LUMBAR FACET MBBDM 3 month Follow up, Type 2 IDDM FOLLOW UP with T [place] COURT REPORTER, PUBLICATION SPECIALIST-C, BC-ADMTKM RefillTKM patient cancelledDM 3 month Follow up, Type 2 IDDM; FOLLOW UP with T [place] COURT REPORTER, PUBLICATION SPECIALIST-C, BC-ADM Goals (unrecognized section and content) Goals may be documented in a n alternate section FOR RECORDS PERTAINING TO PATIENTS WHO ARE OR HAVE BEEN ENROLLED IN A CHEMICAL DEPENDENCY/SUBSTANCEABUSE PROGRAM, SOME INFORMATION MAY BE OMITTED. This clinical summary was aggregated from multiple sources. Caution should be exercised in using it in the provision of clinical care. This summary normalizes information from multiple sources, and as a consequence, information in this document may materially change the coding, format and clinical context of patient data. In addition, data may be omitted in some cases. CLINICAL DECISIONS SHOULD BE BASED ON THE PRIMARY CLINICAL RECORDS. [employer] provides no warranty or guarantee of the accuracy or completeness of information in this document.
--- NOTE | 2024-05-06 11:12 | ECG_ITS ---
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
--- NOTE | 2024-05-06 12:02 | P.GSHP_ITS ---
History of Present Illness History of Present Illness Chief complaint: bph with obs and bladder lesions Narrative: Patient presents for preadmission testing. The patient states he had a recent urinary tract infection and continues to have a weak urine stream, nocturia, and urgency with urination. He states he is taking his medications as prescribed. He denies dysuria or hematuria. Review of Systems ROS Narrative REVIEW OF SYSTEMS: Negative except as stated in HPI, ten or more systems reviewed. Constitutional: No fever, chills, weakness ENT: No sore throat or epistaxis Cardiovascular: No edema, chest pain, or palpitations; admits to activity intolerance Respiratory: No shortness of breath, cough, or wheezing Musculoskeletal: No joint pain or swelling Gastrointestinal: No abdominal pain, constipation, diarrhea, or vomiting Genitourinary: No dysuria or hematuria Neurological: No numbness, tingling, weakness, or headache Psychiatric: No mood changes [facility] History (Updated 05/06/24 @ 11:39 by France Martinez NP) Pneumothorax (1989) ?J93.9 - Pneumothorax, unspecified (ICD-10) GERD (gastroesophageal reflux disease) ?K21.9 - Gastro-esophageal reflux disease without esophagitis (ICD-10) Diabetes ?E11.9 - Type 2 diabetes mellitus without complications (ICD-10) Deep vein thrombosis ?I82.409 - Acute embolism and thrombosis of unspecified deep veins of unspecified lower extremity (ICD-10) BPH with obstruction/lower urinary tract symptoms ?N40.1 - Benign prostatic hyperplasia with lower urinary tract symptoms (ICD- 10) ?N13.8 - Other obstructive and reflux uropathy (ICD-10) Bladder tumor ?D49.4 - Neoplasm of unspecified behavior of bladder (ICD-10) Surgical History (Updated 05/06/24 @ 11:39 by France Martinez NP) S/P cystoscopy ?Z98.890 - Other specified postprocedural states (ICD-10) H/O plastic surgery ?Z98.890 - Other specified postprocedural states (ICD-10) H/O wrist surgery ?Z98.890 - Other specified postprocedural states (ICD-10) History of spinal surgery ?Z98.890 - Other specified postprocedural states (ICD-10) Hx of tonsillectomy ?Z90.89 - Acquired absence of other organs (ICD-10) History of cholecystectomy ?Z90.49 - Acquired absence of other specified parts of digestive tract (ICD- 10) H/O prostate biopsy ?Z98.890 - Other specified postprocedural states (ICD-10) History of hernia repair ?Z98.890 - Other specified postprocedural states (ICD-10) ?Z87.19 - Personal history of other diseases of the digestive system (ICD-10) Family History (Updated 05/06/24 @ 11:39 by France Martinez NP) Other Family history of COPD (chronic obstructive pulmonary disease) Family history of colon cancer Family history of diabetes mellitus Family history of hypertension Family history of prostate cancer Social History (Updated 05/06/24 @ 11:32 by France Martinez NP) Within the past year, how often did you have a drink containing alcohol: monthly or less Smoking status: Never smoker Non-prescribed substance use: denies use Previous occupational history: [employer] Highest level of school completed/degree received: high school graduate Meds Home Medications and Allergies Home Medications ?Medication ?Instructions ?Recorded ?Confirmed ?Type aspirin 81 mg tablet,delayed 81 mg PO DAILY 05/06/24 05/06/24 History release (Adult Aspirin Regimen) atorvastatin 20 mg tablet 20 mg PO DAILY 05/06/24 05/06/24 History cholecalciferol (vitamin D3) 50 2,000 unit PO DAILY 05/06/24 05/06/24 History mcg (2,000 unit) capsule dutasteride 0.5 mg capsule 0.5 mg PO DAILY 05/06/24 05/06/24 History insulin glargine U-300 conc 300 50 unit subcut Q24H 05/06/24 05/06/24 History unit/mL (1.5 mL) subcutaneous pen (Toujeo SoloStar U-300 Insulin) insulin lispro 100 unit/mL subcut 05/06/24 History subcutaneous pen multivitamin (Daily Multi-Vitamin 1 tab PO DAILY 05/06/24 05/06/24 History tablet) pantoprazole 40 mg tablet,delayed 40 mg PO DAILY 05/06/24 05/06/24 History release semaglutide 7 mg tablet (Rybelsus) 7 mg PO DAILY 05/06/24 05/06/24 History tamsulosin 0.4 mg capsule 0.4 mg PO BID 05/06/24 05/06/24 History Allergies Allergy/AdvReac Type Severity Reaction Status Date / Time No Known Drug Allergies Allergy Verified 05/06/24 11:24 Exam Narrative Exam Narrative: Constitutional: Awake, alert, comfortable, well-appearing, nontoxic, int eractive, vital signs as charted Head: Normocephalic, atraumatic Neck: Supple, normal appearance, normal range of motion, no meningeal signs, no lymphadenopathy Respiratory: No respiratory distress, breath sounds clear Cardiovascular: Regular rate and rhythm, strong and regular heart tones Abdomen: Nontender, normal bowel sounds, soft, no CVA tenderness Musculoskeletal: Normal gait, no swelling or edema Skin: No rashes or induration, no lesions, only visible skin inspected Neuro: No neurological deficits, normal sensation Psychiatric: Oriented ?3, normal affect Assessment and Plan Assessment and Plan (1) Bladder tumor: (2) BPH with obstruction/lower urinary tract symptoms: Plan Cystoscopy, TURBT, TURP scheduled with Dr. Loja May 17, 2024.
[2024-05-06 12:05] LABS: Basophils Absolute Auto 0.1 10^3/uL (0.0-0.1); Basophils Percent Auto 0.8 % (0.2-2.0); Eosinophils Absolute Auto 0.2 10^3/uL (0.0-0.7); Eosinophils Percent Auto 2.5 % (0.9-7.0); Hematocrit 39.5 % (42.0-54.0); Hemoglobin 13.4 g/dL (14.0-18.0); Immature Granulocytes Abs Auto 0.02 10^3/uL (0.00-0.03); Immature Granulocytes Pct Auto 0.3 % (0.0-0.5); Lymphocytes Absolute Auto 1.5 10^3/uL (1.2-3.8); Lymphocytes Percent Auto 20.7 % (20.5-60.0); Mean Corpuscular HGB Conc 33.9 g/dL (29.9-35.2); Mean Corpuscular Volume 94.3 fL (80.0-94.0); Monocytes Absolute Auto 0.5 10^3/uL (0.3-0.8); Monocytes Percent Auto 7.3 % (1.7-12.0); Neutrophils Percent Auto 68.4 % (43.0-75.0); Platelet Count 153 10^3/uL (150-450); Red Blood Count 4.19 10^6/uL (4.70-6.10); Red Cell Distribution Width 12.3 % (11.0-15.0); White Blood Count 7.3 10^3/uL (4.0-11.0)
[2024-05-06 12:56] LABS: Anion Gap 8.5; BUN Creatinine Ratio 21.2; Calcium 8.7 mg/dL (8.5-10.1); Carbon Dioxide 29.3 mmol/L (21.0-32.0); Chloride 105 mmol/L (98-107); Estimated GFR (African America >60 (>=60); Estimated GFR (Non-African Ame >60 (>=60); Glucose 203 mg/dL (74-106); Potassium 3.8 mmol/L (3.5-5.1); Sodium 139 mmol/L (136-145)
[2024-05-06 12:57] LABS: Partial Thromboplastin Time 30.2 sec (22.3-36.2); Prothrombin Time 10.6 sec (9.0-11.6)
== END 2024-05-06 10:56 | disposition home or self-care (01) ==
LOC: PST 10:57
PROVIDERS: PCP Family Medicine; Visit Provider Urology
DX: Z01.810 Encounter for preprocedural cardiovascular examination (principal); Z01.812 Encounter for preprocedural laboratory examination; Z01.818 Encounter for other preprocedural examination; N40.1 Benign prostatic hyperplasia with lower urinary tract symptoms
CPT/HCPCS: 80048; 85025; 85610; 85730; 93005; G0463

== ENCOUNTER 2024-05-15 08:24 | Outpatient (OUT) | payer BC, SELFPAY ==
--- NOTE | 2024-05-15 | CT_ITS ---
The [address] [address] Patient Name: BRIDGER FOX MRN: [id number] date: 1965 Sex: M Assigned Patient Location: CT Current Patient Location: [facility] Accession/Order Number: [id number] Exam Date: 05/15/2024 09:45 Report Date: 05/17/2024 13:30 At the request of: JAMES ROCHA Procedure: CT pelvis w con EXAMINATION: CT pelvis w con HISTORY: Hernia, Inguinal R19.09, Scrotal MAss N50.89 COMPARISON: No relevant comparison available. TECHNIQUE: Axial, Coronal, and Sagittal images were obtained without and/or with IV contrast as indicated by examination type. Dose reduction techniques were achieved by using automated exposure control and/or adjustment of mA and/or kV according to patient size and/or use of iterative reconstruction technique FINDINGS: BOWEL: No abnormality of the visible bowl. LYMPH NODES: No adenopathy. URINARY BLADDER: No visible focal wall thickening, lesion, or calculus. PELVIC ORGANS: No visible mass. Pelvic organs appropriate for patient age. ANTERIOR WALL: No hernia. BONES: Mechanical fusion of the visible lower lumbar spine. OTHER: Large varicose veins within anterior proximal right thigh. CT/CT pelvis w con IMPRESSION: 1. No inguinal hernias or suspicious findings within the inguinal region. Imaging stops above the level of the scrotum. 2. No suspicious intrapelvic findings. 3. Large varicose vein within the subcutaneous fat of anterior upper right thigh. Electronically authenticated by: ZANE MARQUIS Date: 05/17/2024 13:30
--- OUTSIDE RECORDS SUMMARY | 2024-05-15 08:27 | XMS_ITS | CCD ---
Author Organization [facility] CliniSyin Care Team Providers Care Social Work Supervisor Name Role Phone SHADI, DR AUSTIN Davis Consulting Unavailable SHADI, DR AUSTIN Davis Attending Unavailable SHADI, DR AUSTIN Davis Admitting Unavailable HUA GORDON Primary Care Physician Ramon Noeldra Unavailable Fátima Padilla Unavailable MD Hua Gordon Primary Care Provider RUMA Noel Attending Provider MD Jose Love Emergency Provider Anabela Johnson Unavailable YANET Johnson Attending Provider Paul Bennett Unavailable MD Hua Gordon Primary Care Provider [phone] RUMA Noel Attending Provider DO Bridger Dejesus Emergency Provider UnavaRUMA Garcia Attending Provider [phone] SHAIKH MCKEON Attending Unavailable PRETTY LANDRUM Attending Unavailable SHAIKH MCKEON Referring Unavailable SHAIKH MCKEON Attending Unavailable UHA GORDON Referring Unavailable HUA GORDON Primary Care [...] sources) Insulin Glargine Drug Allergy chest pains [facility] [employer] Other (1 source) Insulin Glargine Drug Allergy 02-29-2024 [facility] Repository Medications Current Medications Medication Drug Class(es) [...] 19, 2024 12:00am take 1 tablet by david th every twenty-four hours Vitamin D 50 [...] week(s), # 56 tab(s), Refills(s) 0, Pharmacy: [facility]/pharmacy #[id number], 167, cm, 03/12/24 10:31:00 EDT, Height/Length Dosing, 118, kg, 03/12/24 10:31:00 EDT, Weight Dosing Start Date: 03/12/24 Stop Date: 04/09/24 Status: Ordered Start: 04-29-2022 End: 05-20-2022 take 1 capsule by mouth twice daily doxycycline hyclate 100 mg Cap 100 mg = 1 cap(s), Oral, BID, X 21 day(s), # 42 cap(s), Refills(s) 0, Pharmacy: [facility]/pharmacy #[id number], 168, cm, 04/29/22 15:28:00 EDT, Height/Length Dosing, 119, kg, 04/29/22 15:28:00 EDT, Weight Dosing Start Date: 04/29/22 Stop Date: 05/20/22 Status: Ordered dutasteride 0.5 mg oral capsule (20 sources) 5-alpha Reductase Inhibitor Start: 02-27-2024 take 1 capsule by mouth once daily dutasteride 0.5 mg Cap 0.5 mg = 1 cap(s), Oral, Daily, # 30 cap(s), Refills(s) 11, Pharmacy: [facility]/pharmacy #[id number], 168, cm, 09/22/23 14:53:00 EST, Height/Length [...] 75 units/day Active NovoLOG FlexPen 100 UNIT/ML [id number] MEAL SIZE 1:15 SCALE UP TO 75 [...] day(s), # 20 tab(s), Refills(s) 0, Pharmacy: [facility]/pharmacy #[id number], 167, cm, 03/03/24 14:33:00 EDT, Height/Length [...] day(s), # 180 cap(s), Refills(s) 3, Pharmacy: [facility]/pharmacy #[id number], 168, cm, 05/05/23 15:03:00 EDT, Height/Length [...] procedure, # 2 tab(s), Refills(s) 0, Pharmacy: [facility]/pharmacy #[id number], 167, cm, 03/23/24 13:42:00 EDT, Height/Length Dosing, 118, kg, 03/23/24 13:42:00 EDT, Weight Dosing Start Date: 04/16/24 Status: Ordered Start: 03-03-2024 End: 03-13-2024 take 1 tablet by mouth every twelve hours Cipro 500 mg Tab 500 mg = 1 tab(s), Oral, q12hr, X 10 day(s), # 20 tab(s), Refills(s) 0, Pharmacy: [facility]/pharmacy #[id number], 167, cm, 03/03/24 14:33:00 EDT, Height/Length [...] 1 capsule by mouth every week Ergocalciferol 73678 UNIT 1 capsule Orally weekly for 90 [...] sources) Long-term current use of insulin; Translations: [group home (current) use of insulin] Episodic Other aftercare (8 sources) group home (current) use of insulin; Translations: [Insulin long-term [...] BRIDGER FOX/Sex: 1965 Male Med Rec #: [id number] Physician: Mendel LOJA MD Financial #: [id number] Pt. Type: O Room/Bed: / Admit/Disch: 04/20/24 [...] Kendall R Role Performed Surgeon - Primary Surgical Assistant - Primary Scrub - Primary Time In [...] Jaimes 04/20/24 10:06 Ese Jaimes 04/20/24 10:06 [facility] Main OR Preoperative Recordo n 04-20-2024 Main OR Preoperative Record Main OR Preoperative Record Holding Area Document Type FTURO Summary Primary Physician: Mendel LOJA MD Finalized Date/Time: 04/20/24 09:13:09 Pt. Name: BRIDGER FOX Shane/Sex: 1965 Male Med Rec #: [id number] Physician: Mendel LOJA MD Financial #: [id number] Pt. Type: O Room/Bed: / Admit/Disch: 04/20/24 [...] JED Harrell RN, Ruthann 04/20/24 09:13 Normal [facility] Operative Reporton Operative Report Operative Report Patient: [...] what his decision is for management.. Normal [facility] Comment on above: Result Comment: Elec tronically Signed By: AJ JOHNSON, Mendel Gardner\Date and Time Signed: 04/20/24 10:11 EDT Insurance Correspondenceon 0 04-12-2024 Insurance Correspondence [id number] 8#1.00TIFF [facility] Formson 04-06-2024 Forms [id number]# 1.00TIFF [facility] ED Note-Physicianon 03-24-20 ED Note-Physician Basic Information [...] Mayra newton (more content not included)... Normal [facility] Comment on above: Result Comment: Elec tronically Signed By: Mayte Andino PA-C\.br\Date and Time Signed: 03/23/24 19:32 EDT\.br\Electronically Co-Signed By: Deric Shin DO.br\Date and Time Co-Signed: 03/24/24 06:55 EDT BMPon 03-23-2024 Anion gap [Moles/Vol] 9 mmol/L Normal 6-16 [facility] Comment on above: Performed By: #### 2 [id number] #### [facility] [address] [place] [address] Calcium [Mass/Vol] 9.3 mg/dL Normal 8.9-11.1 [facility] Comment on above: Performed By: #### 2 [id number] #### [facility] [address] [place] [address] Chloride [Moles/Vol] 104 mmol/L Normal 101-111 [facility] Comment on above: Performed By: #### 2 [id number] #### [facility] [address] [place] [address] CO2 [Moles/Vol] 29 mmol/L Normal 21-31 [facility] Comment on above: Performed By: #### 2 292436 #### [facility] [address] [place] [address] Creatinine [Mass/Vol] 0.8 mg/dL Normal 0.5-1.3 [facility] Comment on above: Performed By: #### 2 [id number] #### [facility] [address] [place] [address] Glucose [Mass/Vol] 146 mg/dL Normal 55-199 [facility] Comment on above: Performed By: #### 2 685098 #### [facility] [address] [place] [address] Potassium [Moles/Vol] 3.9 mmol/L Normal 3.5-5.3 [facility] Comment on above: Performed By: #### 2 391936 #### [facility] [address] [place] [address] Sodium [Moles/Vol] 138 mmol/L Normal 135-145 [facility] Comment on above: Performed By: #### 2 582672 #### [facility] [address] [place] [address] Urea nitrogen [Mass/Vol] 20 mg/dL Normal 5-21 [facility] Comment on above: Performed By: #### 2 593826 #### [facility] [address] [place] [address] Urea nitrogen/Creatinine [Mass ratio] 25 No Units High 10-20 [facility] Comment on above: Performed By: #### 2 094185 #### [facility] [address] [place] [address] CBC w/ Auto Diffon 4 Basophils/100 WBC (Bld) 0.9 % Normal 0.0-2.0 [facility] Comment on above: Performed By: #### 2 294531 #### [facility] [address] [place] [address] Basophils/Leukocytes Auto (Bld) [Pure # fraction] 0.1 E9/L Normal 0.0-0.2 [facility] Comment on above: Performed By: #### 2 431258 #### [facility] [address] [place] [address] Eosinophils (Bld) [#/Vol] 0.2 E9/L Normal 0.0-0.5 [facility] Comment on above: Performed By: #### 2 295489 #### [facility] [address] [place] [address] Eosinophils/100 WBC (Bld) 2.2 % Normal 0.0-8.0 [facility] Comment on above: Performed By: #### 2 122980 #### [facility] [address] [place] [address] Erythrocyte distribution width (RBC) [Ratio] 12.9 % Normal 10.9-14.2 [facility] Comment on above: Performed By: #### 2 578081 #### [facility] [address] [place] [address] Hematocrit (Bld) [Volume fraction] 38.8 % Normal 37.7-49.0 [facility] Comment on above: Performed By: #### 2 531402 #### [facility] [address] [place] [address] Hemoglobin (Bld) [Mass/Vol] 13.4 g/dL Low 13.5-17.5 [facility] Comment on above: Performed By: #### 2 516459 #### [facility] [address] [place] [address] Lymphocytes (Bld) [#/Vol] 1.9 E9/L Normal 1.0-4.0 [facility] Comment on above: Performed By: #### 2 267729 #### [facility] [address] [place] [address] Lymphocytes/100 WBC (Bld) 25.9 % Normal 14.0-50.0 [facility] Comment on above: Performed By: #### 2 648389 #### [facility] [address] [place] [address] MCH (RBC) [Entitic mass] 32.1 pg Normal 27.0-34.0 [facility] Comment on above: Performed By: #### 2 723954 #### [facility] [address] [place] [address] MCHC (RBC) [Mass/Vol] 34.6 g/dL Normal 31.4-36.0 [facility] Comment on above: Performed By: #### 2 314076 #### [facility] [address] [place] [address] MCV (RBC) [Entitic vol] 92.9 fL Normal 80.0-100.0 [facility] Comment on above: Performed By: #### 2 791093 #### [facility] [address] [place] [address] Monocytes (Bld) [#/Vol] 0.6 E9/L Normal 0.2-1.0 [facility] Comment on above: Performed By: #### 2 399593 #### [facility] [address] [place] [address] Neutrophils (Bld) [#/Vol] 4.5 E9/L Normal 2.0-7.5 [facility] Comment on above: Performed By: #### 2 733961 #### [facility] [address] [place] [address] Neutrophils/100 WBC (Bld) 62.5 % Normal 36.0-75.0 [facility] Comment on above: Performed By: #### 2 642073 #### [facility] [address] [place] [address] Platelet mean volume (Bld) [Entitic vol] 8.7 fL Normal 6.4-10.8 [facility] Comment on above: Performed By: #### 2 252674 #### [facility] [address] [place] [address] Platelets (Bld) [#/Vol] 155.0 E9/L Normal 150.0-500.0 [facility] Comment on above: Performed By: #### 2 714741 #### [facility] [address] [place] [address] RBC (Bld) [#/Vol] 4.2 E12/L Low 4.3-5.9 [facility] Comment on above: Performed By: #### 2 544671 #### [facility] [address] [place] [address] WBC corrected for nucl RBC Auto (Bld) [#/Vol] 7.2 E9/L Normal 4.0-11.0 [facility] Comment on above: Performed By: #### 2 129634 #### [facility] [address] [place] [address] CHEMISTRYOrdered By: SYSTEM SYSTEM on 03-23-2024 Albumin [...] for Treatmenton Consent for Treatment [id number] #1.00TIFF Normal [facility] Discharge Instructionson Discharge Instructions [id number] 2#1.00TIFF Normal [facility] ED Clinical Summaryon 2023 ED Clinical Summary [place] [id number] ED Clinical Summary [facility] Age[facility] 58 Years : 1965 Sex: Male Language: Portuguese PCP: HUA GORDON MD Marital Status: Visit [...] 03/23/2024 16:18:20 03/23/2024 16:18:20 03/23/2024 16:18:20 ADDRESS: [address] [place] [address] [place] [id number] PHYS DOC NOTES: MEDICAL INFORMATION: Prescriptions Given: [...] EDUCATION INFORMATION: Instructions: Acute Urinary Retention, Male, Gkaa-eo-Iapj Follow up: With: Address: When: Mendel LOJA [facility] [place] [address] Business (1) In 3 days 03/26/2024 With: Address: When: HUA NGUYỄNKEL [address] [place], [place] [id number] [employer] (1) In 3 days DIAGNOSIS: 1:Acute on chronic urinary retention Normal [facility] ED Patient Education Noteon 03-23-2024 ED Patient [...] these instructions at home: Medicines ? Take vyap-fzc-cuaphvh and prescription medicines only as told by [...] provider. Document Revised: 06/27/2021 Document Reviewed: 06/27/2021 [employer] Patient Education ? 2022 [employer] Normal [facility] ED Patient Summaryon 024 ED Patient Summary [address] [address] Patient Discharge Instructions Person Information Name: BRIDGER FOX Age: 58 Years Arrival Date: 03/23/2024 13:35:00 Discharge Diagnosis: 1:Acute on chronic urinary retention Primary Care Physician: HUA GORDON MD Provider Information Primary Provider: Deric Shin DO [facility] Hand:None The exam and treatment you received in the Emergency Department were for an urgent problem and are not intended as complete care. It is important that you follow up with a doctor, nurse practitioner, or physician?s orthotic assistant for ongoing care. If your symptoms [...] Follow-up Instructions: With: Address: When: Mendel LOJA [address] [place] [address] [employer] (1) In 3 days 03/26/2024 With: Address: When: HUA GORDON [address] [place], [place] [id number] [facility] (1) In 3 days In the event that this physician does not participate in your insurance network, please consult with your insurance company to find a nearby participating provider. Patient Education Materials: Acute Urinary Retention, Male, Inel-tl-Octj A MESSAGE TO ALL PATIENTS REGARDING OPIOIDS PRESCRIPTION OPIOIDS: WHAT YOU NEED TO KNOW Prescription opioids can be used to help relieve ihveqbyp-eu-pwdorc pain and are often prescribed following a [...] struggling with (more content not included)... Normal [facility] HEMATOLOGYOrdered By: Maria Samuels on 03-23-2024 Basophils/100 [...] 03-23-2024 Albumin [Mass/Vol] 3.9 g/dL Normal 3.3-5.0 [facility] Comment on above: Performed By: #### 2 [id number] #### [facility] [address] [place] [address] Albumin/Globulin (S) [Mass conc ratio] 1.6 Normal 1.1-2.2 [facility] Comment on above: Performed By: #### 2 665364 #### [facility] [address] [place] [address] ALP [Catalytic activity/Vol] 49 Int._Unit/L Normal 21-98 [facility] Comment on above: Performed By: #### 2 956725 #### [facility] [address] [place] [address] ALT No additional P-5'-P [Catalytic activity/Vol] 22 Int._Unit/L Normal 6-46 [facility] Comment on above: Performed By: #### 2 999480 #### [facility] [address] [place] [address] AST [Catalytic activity/Vol] 21 Int._Unit/L Normal 5-43 [facility] Comment on above: Performed By: #### 2 529510 #### [facility] [address] [place] [address] Bilirubin [Mass/Vol] 0.7 mg/dL Normal 0.0-1.1 [facility] Comment on above: Performed By: #### 2 242195 #### [facility] [address] [place] [address] Bilirubin.direct [Mass/Vol] 0.1 mg/dL Normal 0.0-0.4 [facility] Comment on above: Performed By: #### 2 071049 #### [facility] [address] [place] [address] Bilirubin.indirect [Mass or moles/Vol] 0.6 mg/dL Normal 0.1-0.9 [facility] Comment on above: Performed By: #### 2 894899 #### [facility] [address] [place] [address] Globulin (S) [Mass/Vol] 2.4 g/dL Normal 1.4-4.0 [facility] Comment on above: Performed By: #### 2 833332 #### [facility] [address] [place] [address] Protein [Mass/Vol] 6.3 g/dL Normal 6.0-7.8 [facility] Comment on above: Performed By: #### 2 613525 #### [facility] [address] [place] [address] Lactic Acidon 03-23-2024 Lactic Acid Lvl 1.0 mmol/L Normal 0.5-2.2 [facility] Comment on above: Performed By: #### 2 198793 ####[facility] [address] [place] [address] Prescriptions/Work Noteson 0 03-23-2024 Prescriptions/Work Notes [id number] 4#1.00TIFF Normal [facility] Prescriptions/Work Notes [id number] 2#1.00TIFF Normal [facility] Prescriptions/Work Notes [id number] 1#1.00TIFF Normal [facility] UA with Cult Rflxon 03-23-20 24 Bilirubin Ql (U) Negative Normal Negative [facility] Comment on above: Performed By: #### 4 [id number] #### [facility] [address] [place] [address] Clarity (U) Clear Normal Clear [facility] Comment on above: Performed By: #### 4 [id number] #### [facility] [address] [place] [address] Color (U) Light-Yellow Normal Yellow [facility] Comment on above: Result Comment: Micr oscopic readings are only performed on those samples that meet specific criteria set forth by [facility]. Performed By: #### 4 [id number] #### [facility] [address] [place] [address] Glucose Ql (U) Negative Normal Negative [facility] Comment on above: Performed By: #### 4 [id number] #### [facility] [address] [place] [address] Hemoglobin Auto test strip (U) [Mass/Vol] Negative Normal Negative [facility] Comment on above: Performed By: #### 4 [id number] #### [facility] [address] [place] [address] Ketones Auto test strip Ql (U) Negative Normal Negative [facility] Comment on above: Performed By: #### 4 [id number] #### [facility] [address] [place] [address] Leukocyte esterase Auto test strip Ql (U) Negative Normal Negative [facility] Comment on above: Performed By: #### 4 [id number] #### [facility] [address] [place] [address] Nitrite Auto test strip Ql (U) Negative Normal Negative [facility] Comment on above: Performed By: #### 4 [id number] #### [facility] [address] [place] [address] pH (U) 5.0 [pH] Invalid Interpretation Code 5.0-9.0 [facility] Comment on above: Performed By: #### 4 [id number] #### [facility] [address] [place] [address] Protein Ql (U) Negative Normal Negative [facility] Comment on above: Performed By: #### 4 [id number] #### [facility] [address] [place] [address] Specific gravity (U) [Rel density] 1.028 Invalid Interpretation Code 1.005-1.030 [facility] Comment on above: Performed By: #### 4 [id number] #### [facility] [address] [place] [address] Urobilinogen (U) [Mass/Vol] Negative Normal Negative [facility] Comment on above: Performed By: #### 4 [id number] #### [facility] [address] [place] [address] Type of Urine collection method Clean Catch Normal [facility] Comment on above: Performed By: #### 4 [id number] #### [facility] [address] [place] [address] URINALYSISOrdered By: SYSTEM SYSTEM on 03-23-2024 Bilirubin Ql (U) Negative Normal Negativemg/dL FT UA Auto SS Clarity (U) Clear (03/23/24 2:23 PM) Normal Clear [facility] UA Auto SS Color (U) Light-Yellow 1 (03/23/24 2:23 PM) Normal Yellow [facility] UA Auto SS Comment on above: Interpretive Data: M icroscopic readings are only performed on those samples that meet specific criteria set forth by [facility]. Glucose Ql (U) Negative Normal Negativemg/dL [...] Desc Clean Catch (03/23/24 2:23 PM) Normal [facility] UA Auto SS eGFRon 03-23-2024 eGFR 102 mL/min/1.73 m2 Normal >=59 [facility] Comment on above: Order Comment: Order added by Discern Expert. Performed By: #### 1 [id number] #### [facility] [address] [place] [address] Ambulatory Visit Summaryon 0 03-12-2024 Ambulatory Visit [...] Mendel LOJA MD Where: [facility] [place] Normal [facility] Ambulatory Visit Summary BRIDGER FOX :1965 MRN:[id number] [...] Mendel LOJA MD Where: [facility] Patient Educationon 03-12-20 Patient Education [...] including vitamins, herbs, eye drops, creams, and ujnc-xsj-gkaeken medicines. ? Any problems you or family [...] tells you to take them. ? Taking xorb-nkw-vclsckk medicines, vitamins, herbs, and supplements. Surgery safety [...] among health care (more content not included)... [facility] Provider Letteron 03-12-2024 Provider Letter March 12, 2024 BRIDGER FOX [address] [place] [address] [place] [address] : 1965 To Whom It May Concern, Please excuse above patient from work. Date of Illness: From: 03/12/24 To: 03/12/24 May Return to Work On: 03/13/24 Restrictions: None Comments: Patient had an appointment with Dr. Loja on 03/12/24. Sincerely, [facility] [address] [place] [address] [place] [address] , Option #3 [facility] Urology Office/Clinic Noteon 03-12-2024 Urology Office/Clinic Note [...] - 35gms, (more content not included)... Normal [facility] Comment on above: Result Comment: Elec tronically Signed By: Mendel LOJA MD\.br\Date and Time Signed: 03/12/24 11:21 EDT\.br\Electronically Co-Signed By: Marielle Robertson\.br\Date and Time Co-Signed: 03/12/24 11:17 EDT Consultation Noteon 03-08-20 Consultation Note [id number] 20#1.00TIFF Normal [facility] ED Note-Physicianon 03-08-20 ED Note-Physician [id number] 78#1.00TIFF Normal [facility] ED Note-Physician [id number] 29#1.00TIFF Normal [facility] Lab Reportson 03-08-2024 Lab Reports [id number] 84#1.00TIFF [facility] Physician Referralon 024 Physician Referral [id number] #1.00TIFF [facility] RAD - CT Reporton 03-08-[address] RAD - CT Report [id number] 68#1.00TIFF Normal [facility] RAD - CT Report [id number] 58#1.00TIFF [facility] RAD - Ultrasound Reporton RAD - Ultrasound Report [id number]# 1.00TIFF [facility] Lab Reportson 03-04-2024 Lab Reports [id number] #1.00TIFF [facility] RAD - Ultrasound Reporton RAD - Ultrasound Report [id number]# 1.00TIFF [facility] Screenson 03-04-2024 Screens [id number] 0#1.00TIFF [facility] Ambulatory Visit Summaryon 0 03-03-2024 Ambulatory Visit [...] JOHNSON, Mendel Mendez Where: [facility] Normal [address] [place] [address] [place] [address]- \.br\ You Need to Schedule the Following Appointments\.b r\ Follow Up with SIMBA LEACH, OPAL Castro, URL When: \.br\ Where:\.br\ [address]\ [place] [address]\.br\ [id number]\.br\ Medications\.br \ What How Much When Instructions\.b [...] provider.\.br\ Document Revised: 09/11/2020 Document Reviewed: 09/11/2020 [employer] Patient Education ? 2022 [employer].br\ \.br\ [facility] C peptide [Mass/Vol]on 03-03 C PEPTIDE 0.9 ng/mL Low 1.1-4.4 [facility] Comment on above: Result Comment: NOTE Test Performed By: [facility] [address] [place] [address] Facilities Management Executive: Kristyn Womack III #[id number] Performed By: #### Arthur JEFFRIES, 25744-1 #### [facility] ([id number]) [address] [place] [address], [address] [place] [address] #### 1986-9 #### [facility] ([id number]) [address] [place] [address] COMPREHENSIVE METABOLIC PANE Jt 03-03-2024 Albumin [Mass/Vol] 4.2 g/dL Normal 3.2-5.3 [facility] Comment on above: Performed By: #### Arthur JEFFRIES, 19464-4 #### [facility] ([id number]) [address] [facility] [address] [place] [address] #### 1985-9 #### [facility] ([id number]) [address] [place] [address]35 ALP [Catalytic activity/Vol] 65 U/L Normal 39-130 [facility] Comment on above: Performed By: #### Arthur JEFFRIES, 16142-5 #### [facility] ([id number]) [address] [facility], [address] [place] [address] #### 1985-9 #### [facility] ([id number]) [address] [place] [address] 85460 ALT [Catalytic activity/Vol] 24 U/L Normal 0-40 [facility] Comment on above: Performed By: #### Arthur JEFFRIES, 76939-9 #### [facility] ([id number]) [address] [facility], [address] [place] [address] #### 9 #### [facility] ([id number]) [address] [place] [address]73 Anion gap [Moles/Vol] 9 mmol/L Normal 5-15 [facility] Comment on above: Performed By: #### Arthur JEFFRIES, 73613-8 #### [facility] ([id number]) [address] [facility], [address] [place] [address] #### 1986-06 #### [facility] ([id number]) [address] [place] [address] 50331 AST [Catalytic activity/Vol] 22 U/L Normal 0-41 [facility] Comment on above: Performed By: #### Artuhr JEFFRIES, 61855-0 #### [facility] ([id number]) [address] [facility], [address] [place] [address] #### 9 #### [facility] ([id number]) [address] [place] [address]83 Bilirubin [Mass/Vol] 0.7 mg/dL Normal 0.3-1.[address] [facility] Comment on above: Performed By: #### Arthur JEFFRIES, 09379-0 #### [facility] ([id number]) [address] [place] [address] #### 1986-06 #### [facility] ([id number]) [address] [place] [address]79 Calcium [Mass/Vol] 9.4 mg/dL Normal 8.5-10.5 [facility] Comment on above: Performed By: #### Arthur JEFFRIES, 41121-2 #### [facility] ([id number]) [address] [facility], [address] [place] [address] #### 1986-06 #### [facility] ([id number]) [address] [place] [address]448 Chloride [Moles/Vol] 106 mmol/L Normal 98-[address] [facility] Comment on above: Performed By: #### Arthur JEFFRIES, 09950-7 #### [facility] ([id number]) [address] [facility], [address] [place] [address] #### 1985-9 #### [facility] ([id number]) [address] [place] [address]7026 CO2 [Moles/Vol] 29 mmol/L Normal 22-32 [facility] Comment on above: Performed By: #### Arthur JEFFRIES, 06066-1 #### [facility] ([id number]) [address] [facility], [address] [place] [address] #### 1985-9 #### [facility] ([id number]) [address] [place] [address] 90792 Creatinine [Mass/Vol] 0.79 mg/dL Normal 0.60-1.30 [facility] Comment on above: Result Comment: METH OD TRACEABLE TO IDMS STANDARD Performed By: #### Arthur JEFFRIES, 12710-9 #### [facility] ([id number]) [address] [facility], [address] [place] [address] #### 1985-9 #### [facility] ([id number]) [address] [place] [address] 86905 eGFR (CKD-EPI) NON-RACE DEPENDENT >90 Normal >59 [facility] Comment on above: Result Comment: Reported eGFR is based on the CKD-EPI 2020 equation that does not use a race coefficient. Performed By: #### Arthur JEFFRIES, 99088-1 #### [facility] ([id number]) [address] [facility], [address] [place] [address] #### 1985-9 #### [facility] ([id number]) [address] [place] [address]78 Glucose [Mass/Vol] 126 mg/dL High 65-99 [facility] Comment on above: Performed By: #### Arthur JEFFRIES, 22059-0 #### [facility] ([id number]) [address] [place] [address] #### 1985-9 #### [facility] ([id number]) [address] [place] [address] 96692 Potassium [Moles/Vol] 4.1 mmol/L Normal 3.5-5.0 [facility] Comment on above: Performed By: #### Arthur JEFFRIES, 71486-2 #### [facility] ([id number]) [address] [facility], [address] [place] [address] #### 1985-9 #### [facility] ([id number]) [address] [place] [address] 09856 Protein [Mass/Vol] 6.9 g/dL Normal 6.0-8.0 [facility] Comment on above: Performed By: #### Arthur JEFFRIES, 89098-8 #### [facility] ([id number]) [address] [place] [address] #### 9 #### [facility] ([id number]) [address] [place] [address] 65654 Sodium [Moles/Vol] 144 mmol/L Normal 134-146 [facility] Comment on above: Performed By: #### Arthur JEFFRIES, 07000-8 #### [facility] ([id number]) [address] [place] [address] #### 1986-06 #### [facility] ([id number]) [address] [place] [address] 25920 Urea nitrogen [Mass/Vol] 18 mg/dL Normal 5-23 [facility] Comment on above: Performed By: #### Arthur JEFFRIES, 40331-5 #### [facility] ([id number]) [facility] [facility], [address] [place] [address] #### 1986-9 #### [facility] ([id number]) [address] [place] [address] 95561 Lipid 1996 panelon 4 Cholesterol [Mass/Vol] 125 mg/dL Low 150-200 [facility] Comment on above: Performed By: #### Arthur JEFFRIES, 35810-1 #### [facility] ([id number]) [address] [place] [address], [address] [place] [address] #### 1986-9 #### [facility] ([id number]) [address] [place] [address] 65775 Cholesterol in HDL [Mass/Vol] 48 mg/dL Normal >39 [facility] Comment on above: Result Comment: HDL <40 mg/dL - High Risk HDL > or = 40mg/dL- Desirable HDL >60 mg/dL - Negative Risk Performed By: #### Arthur JEFFRIES, 00092-8 #### [facility] ([id number]) [address], [address] [place] [address] #### 1986-9 #### [facility] ([id number]) [address] [place] [address] 91376 Cholesterol in LDL [Mass/Vol] 59 mg/dL Normal <130 [facility] Comment on above: Result Comment: LDL <100 mg/dL - Desirable LDL >160 mg/dL - High Risk Performed By: #### Arthur JEFFRIES, 62626-1 #### [facility] ([id number]) [address] [facility], [address] [place] [address] #### 1985-9 #### [facility] ([id number]) [address] [place] [address] 25495 Cholesterol in VLDL [Mass/Vol] 18 mg/dL Normal 0-30 [facility] Comment on above: Performed By: #### Arthur JEFFRIES, 47217-0 #### [facility] ([id number]) [address] [facility] [address] [place] [address] #### 1985-9 #### [facility] ([id number]) [address] [place] [address] 87299 CHOLESTEROL:HDL 2.6 Normal 1.0-5.0 [facility] Comment on above: Performed By: #### Arthur JEFFRIES, 96401-0 #### [facility] ([id number]) [address] [place] [address], [facility] [address] [place] [address] #### 1985-9 #### [facility] ([id number]) [address] [place] [address] 15400 Triglyceride [Mass/Vol] 91 mg/dL Normal 27-150 [facility] Comment on above: Performed By: #### Arthur JEFFRIES, 23371-7 #### [facility] ([id number]) [address] [place] [address] [address] [place] [address] #### 9 #### [facility] ([id number]) [address] [place] [address] 96933 MICROALBUMIN - ALBUMIN:CREAT ININE URINE RATIOon 03-03-2024 ALB/CREAT RATIO NOT CALCULATED Normal 0.0-30.0 [facility] Comment on above: Result Comment: Result for Albumin/Creatinine Ratio cannot be reliably calculated because urine albumin and or urine creatinine is below the detection limit of the assay. Performed By: #### M ALBU #### [facility] ([id number]) [address], [address] [place] [address] Albumin DL <= 20 mg/L (U) [Mass/Vol] mg/dL Normal 0.0-1.9 [facility] Comment on above: Performed By: #### M ALBU #### [facility] ([id number]) [address], [address] [place] [address] URINE CREAT 119.54 mg/dL Normal [facility] Comment on above: Performed By: #### M ALBU #### [facility] ([id number]) [address] [facility], [address] [address] Patient Educationon 03-03-20 Patient Education Urology Testicular [...] provider. Document Revised: 09/11/2020 Document Reviewed: 09/11/2020 [employer] Patient Education ? 2022 [employer]. [facility] Urine Cultureon 02-29-2024 Bacteria identified Cx Nom (U) ORGANISM: Escherichia coli (O:ESCCOL) [place] Count >100,000 Aerobic IVANA Charge (NMIC56) ----- [...] RESISTANT TO ALL B-LACTAM DRUGS. PERFORMED BY: [place] [address] PATHOLOGIST MINIATURE MODEL MAKER CHELY ALVARADO M.D. Normal [facility] Comment on above: Performed By: #### C UU #### [place] [address] [place] HbA1c HPLC (Bld) [Mass fract ion]on 02-19-2024 HbA1c (Bld) [Mass fraction] 7.5 % [facility] No Panel Informationon 02-18 Bedside Glucose 124 [facility] Basic Metabolic Panelon 10-22 Anion gap [Moles/Vol] 9.6 mmol/L Normal 6.0-15.0 [facility] Comment on above: Performed By: #### B MP, CBC #### [place] [address] [place] Calcium [Mass/Vol] 9.1 mg/dL Normal 8.6-10.3 [facility] Comment on above: Performed By: #### B MP, CBC #### [place] [address] [place] Chloride [Moles/Vol] 107 mmol/L Normal 98-107 [facility] Comment on above: Performed By: #### B MP, CBC #### [place] [address] [place] CO2 [Moles/Vol] 26.1 mmol/L Normal 21.0-31.0 [facility] Comment on above: Performed By: #### B MP, CBC #### [address] Creatinine [Mass/Vol] 0.66 mg/dL Low 0.70-1.30 [facility] Comment on above: Performed By: #### B MP, CBC #### [place] [address] [place] Creatinine Clr Calc Pharmacy 146.88 Normal [facility] Comment on above: Result Comment: PERF ORMED BY: [place] [address] PATHOLOGIST MINIATURE MODEL MAKER CHELY ALVARADO M.D. Performed By: #### B MP, CBC #### [place] [address] [place] GFR/1.73 sq M.predicted MDRD (S/P/Bld) [Vol rate/Area] mL/min/{1.73_m2} Normal [facility] Comment on above: Performed By: #### B MP, CBC #### [address] Glucose [Mass/Vol] 106 mg/dL High 70-100 [facility] Comment on above: Result Comment: [place] Glucose Reference Range is dependent on time and content of last meal. Glucose of more than 200 mg/dL in a nonstressed, ambulatory subject supports the diagnosis of Diabetes Mellitus. ADA recommended reference range Performed By: #### B MP, CBC #### [place] [address] [place] Potassium [Moles/Vol] 3.7 mmol/L Normal 3.5-5.1 [facility] Comment on above: Performed By: #### B MP, CBC #### [place] [address] [place] Sodium [Moles/Vol] 139 mmol/L Normal 136-145 [facility] Comment on above: Performed By: #### B MP, CBC #### [place] [address] [place] Urea nitrogen [Mass/Vol] 14 mg/dL Normal 7-25 [facility] Comment on above: Performed By: #### B MP, CBC #### [facility] [address] [place] [id number] [facility] CT abdomen pelvis wo conon 0 11-18-2023 CT abdomen pelvis wo con [facility] [place] [id number] Scan Report Signed Patient: Bridger Fox MR#: [id number] 106 : 1965 Acct:[id number] Age/Sex: 58 / M ADM Date: 11/17/23 Loc: ER Room: Type: [facility] ER Attending Dr: Copies to: Bridger Dejesus [...] calcification. LIVER: Hepatic dome out of the [id number]. Visualized liver unremarkable. GALLBLADDER: Cholecystectomy clips identified. [...] Adama Alanis M.D.11/18/2023 8:01 AM Dictation Location: [place] [address] Transcribed By: [facility] 11/18/23 0801 Dictated By: Adama Alanis DO 11/18/23 0754 Signed By: 11/18/23 0801 Normal [facility] Complete Blood Count Auto Di ffon 11-18-2023 Basophils (Bld) [#/Vol] 0.1 10*3/uL Normal 0.0-0.2 [facility] Comment on above: Result Comment: PERF ORMED BY: [place] [address] PATHOLOGIST MINIATURE MODEL MAKER CHELY ALVARADO M.D. Performed By: #### B MP, CBC #### [address] Basophils/100 WBC (Bld) 0.9 % Normal . [facility] Comment on above: Performed By: #### B MP, CBC #### [address] Eosinophils (Bld) [#/Vol] 0.1 10*3/uL Normal 0.0-0.45 [facility] Comment on above: Performed By: #### B MP, CBC #### [place] [address] [place] Eosinophils/100 WBC (Bld) 1.7 % Normal . [facility] Comment on above: Performed By: #### B MP, CBC #### [address] Erythrocyte distribution width (RBC) [Ratio] 13.2 % Normal 12.0-14.8 [facility] Comment on above: Performed By: #### B MP, CBC #### [place] [address] [place] Hematocrit (Bld) [Volume fraction] 40.0 % Normal 38.8-50.0 [facility] Comment on above: Performed By: #### B MP, CBC #### [address] Hemoglobin (Bld) [Mass/Vol] 13.8 g/dL Normal 13.0-17.0 [facility] Comment on above: Performed By: #### B MP, CBC #### [address] Lymphocytes (Bld) [#/Vol] 1.8 10*3/uL Normal 1.00-4.8 [facility] Comment on above: Performed By: #### B MP, CBC #### [address] Lymphocytes/100 WBC (Bld) 23.4 % Normal . [facility] Comment on above: Performed By: #### B MP, CBC #### [place] [address] [place] MCH (RBC) [Entitic mass] 31.7 pg Normal 27.5-35.2 [facility] Comment on above: Performed By: #### B MP, CBC #### [address] MCV (RBC) [Entitic vol] 92.3 fL Normal 83.5-101 [facility] Comment on above: Performed By: #### B MP, CBC #### [address] Mean Corpuscular HGB Conc 34.4 g/dL Normal 32.5-35.6 [facility] Comment on above: Performed By: #### B MP, CBC #### [address] Monocytes (Bld) [#/Vol] 0.6 10*3/uL Normal 0.0-0.8 [facility] Comment on above: Performed By: #### B MP, CBC #### [place] [address] [place] Monocytes/100 WBC (Bld) 16.03 % Normal 0.00-20.00 [facility] Comment on above: Performed By: #### B MP, CBC #### [place] [address] [place] Monocytes/100 WBC (Bld) 8.3 % Normal . [facility] Comment on above: Performed By: #### B MP, CBC #### [address] [place] [address] [place] Neutrophils (Bld) [#/Vol] 5.1 10*3/uL Normal 1.8-7.7 [facility] Comment on above: Performed By: #### B MP, CBC #### [address] Neutrophils/100 WBC (Bld) 65.7 % Normal . [facility] Comment on above: Performed By: #### B MP, CBC #### [address] NRBC% 0.1 /100{WBC} Normal 0-0.5 [facility] Comment on above: Performed By: #### B MP, CBC #### [address] Platelet mean volume (Bld) [Entitic vol] 8.0 fL Normal 6.6-10.1 [facility] Comment on above: Performed By: #### B MP, CBC #### [place] [address] [place] Platelets (Bld) [#/Vol] 168 10*3/uL Normal 150-450 [facility] Comment on above: Performed By: #### B MP, CBC #### [address] RBC (Bld) [#/Vol] 4.34 10*6/uL Normal 3.90-5.60 [facility] Comment on above: Performed By: #### B MP, CBC #### [place] [address] [place] WBC (Bld) [#/Vol] 7.8 10*3/uL Normal 4.1-10.5 [facility] Comment on above: Performed By: #### B MP, CBC #### [place] [address] [place] Dipstick and Microscopicon 0 11-18-2023 Appearance (U) Clear Normal Clear [facility] Comment on above: Order Comment: Name Collection Type:: Clean-Voided Midstream Performed By: #### A DDONUAPLUS, CUU #### [place] [address] [place] Bacteria,Urine None Seen Normal None Seen [facility] Comment on above: Order Comment: Name Collection Type:: Clean-Voided Midstream Performed By: #### A DDONUAPLUS, CUU #### [address] Bilirubin,Urine Negative Normal Negative [facility] Comment on above: Order Comment: Name Collection Type:: Clean-Voided Midstream Performed By: #### A DDONUAPLUS, CUU #### [address] Color (U) Yellow Normal Yellow [facility] Comment on above: Order Comment: Name Collection Type:: Clean-Voided Midstream Performed By: #### A DDONUAPLUS, CUU #### [address] Glucose Ql (U) Normal Normal Normal [facility] Comment on above: Order Comment: Name Collection Type:: Clean-Voided Midstream Performed By: #### A DDONUAPLUS, CUU #### [address] Hyaline Casts,Urine 0-8 Normal 0-8 [facility] Comment on above: Order Comment: Name Collection Type:: Clean-Voided Midstream Result Comment: PERF ORMED BY: [place] [address] PATHOLOGIST MINIATURE MODEL MAKER CHELY ALVARADO M.D. Performed By: #### A DDONUAPLUS, CUU #### [address] Ketones Ql (U) Negative Normal Negative [facility] Comment on above: Order Comment: Name Collection Type:: Clean-Voided Midstream Performed By: #### A DDONUAPLUS, CUU #### [address] Leukocyte esterase Test strip Ql (U) 1+ High Negative [facility] Comment on above: Order Comment: Name Collection Type:: Clean-Voided Midstream Performed By: #### A DDONUAPLUS, CUU #### [place] [address] [place] Nitrite,Urine Negative Normal Negative [facility] Comment on above: Order Comment: Name Collection Type:: Clean-Voided Midstream Performed By: #### A DDONUAPLUS, CUU #### [address] Occult Blood,Urine Negative Normal Negative [facility] Comment on above: Order Comment: Name Collection Type:: Clean-Voided Midstream Result Comment: PERF ORMED BY: [place] [address] PATHOLOGIST MINIATURE MODEL MAKER CHELY ALVARADO M.D. Performed By: #### A DDONUAPLUS, CUU #### [address] pH (U) 5.0 [pH] Normal 5.0-9.0 [facility] Comment on above: Order Comment: Name Collection Type:: Clean-Voided Midstream Performed By: #### A DDONUAPLUS, CUU #### [place] [address] [place] Protein,Urine Negative Normal Negative [facility] Comment on above: Order Comment: Name Collection Type:: Clean-Voided Midstream Performed By: #### A DDONUAPLUS, CUU #### [place] [address] [place] RBC,Urine None Seen Normal 0-4 [facility] Comment on above: Order Comment: Name Collection Type:: Clean-Voided Midstream Performed By: #### A DDONUAPLUS, CUU #### [place] [address] [place] Specificy Hope,Urine 1.007 Normal 1.001-1.030 [facility] Comment on above: Order Comment: Name Collection Type:: Clean-Voided Midstream Performed By: #### A DDONUAPLUS, CUU #### [address] Squamous Epithelial Cell,Urine 1-2 Normal 0-2 [facility] Comment on above: Order Comment: Name Collection Type:: Clean-Voided Midstream Performed By: #### A DDONUAPLUS, CUU #### [address] Urobilinogen,Urine Normal Normal Normal [facility] Comment on above: Order Comment: Name Collection Type:: Clean-Voided Midstream Performed By: #### A DDONUAPLUS, CUU #### [address] WBC,Urine 5-9 High 0-4 [facility] Comment on above: Order Comment: Name Collection Type:: Clean-Voided Midstream Performed By: #### A DDONUAPLUS, CUU #### [address] Urine Cultureon 11-18-2023 Bacteria identified Cx Nom (U) <9,000 colonies/ml mixed bacterial skin contaminants 2 Days PERFORMED BY: [place] [address] PATHOLOGIST MINIATURE MODEL MAKER CHELY ALVARADO M.D. Normal [facility] Comment on above: Performed By: #### A DDONUAPLUS, CUU #### [address] Automated erythrocytes count in urine sediment (number/area)Ordered By: Bridger Dejesus on 2023 RBC Auto (Urine sed) [#/Area] None seen [HPF] 0-4 [facility] Automated leukocytes count i n urine sediment (number/area)Ordered By: Bridger Dejesus on 2023 WBC Auto (Urine sed) [#/Area] 5-9 [HPF] 0-4 [facility] Basophils Auto (Bld) [#/Vol] Ordered By: Bridger Dejesus on 2023 Basophils (Bld) [#/Vol] 0.1 10*3/uL 0.0-0.2 [facility] Basophils/100 WBC Auto (Bld) Ordered By: Bridger Dejesus on 2023 Basophils/100 WBC (Bld) 0.9 % . [facility] Bilirubin Test strip Ql (U)O rdered By: Bridger Dejesus on 2023 Bilirubin Ql (U) Negative Negative [facility] Calcium [Mass/volume] in Ser um or PlasmaOrdered By: Bridger Dejesus on 2023 Calcium [Mass/Vol] 9.1 mg/dL 8.6-10.3 [facility] Carbon dioxide, total [Moles /volume] in Serum or PlasmaOrdered By: Bridger Dejesus on 2023 CO2 [Moles/Vol] 26.1 mmol/L 21.0-31.0 [facility] Chloride [Moles/volume] in S alexander or PlasmaOrdered By: Bridger Dejesus on 2023 Chloride [Moles/Vol] 107 mmol/L 98-107 [facility] Color Auto (U)Ordered By: Nirmal Dejesus on 2023 Color (U) Yellow Yellow [facility] Creatinine [Mass/volume] in Serum or PlasmaOrdered By: Bridger Dejesus on 2023 Creatinine [Mass/Vol] 0.66 mg/dL 0.70-1.30 [facility] Eosinophils Auto (Bld) [#/Vo l]Ordered By: Bridger Dejesus on 2023 Eosinophils (Bld) [#/Vol] 0.1 10*3/uL 0.0-0.45 [facility] Eosinophils/100 WBC Auto (Bl d)Ordered By: Bridger Dejesus on 2023 Eosinophils/100 WBC (Bld) 1.7 % . [facility] Erythrocyte distribution wid th Auto (RBC) [Ratio]Ordered By: Bridger Dejesus on 2023 Erythrocyte distribution width (RBC) [Ratio] 13.2 % 12.0-14.8 [facility] Glucose - FINGER STICKon Glucose [Mass/Vol] 142 mg/dL [facility] Other Glucose [Mass/volume] in Ser um or PlasmaOrdered By: Bridger Dejesus on 2023 Glucose [Mass/Vol] 106 mg/dL 70-100 [facility] Comment on above: ADA recommended refe rence rangeRandom Glucose Reference Range is dependent on time and content of last meal. Glucose of more than 200 mg/dL in a nonstressed, ambulatory subject supports the diagnosis of Diabetes Mellitus. Hematocrit Auto (Bld) [Volum e fraction]Ordered By: Bridger Dejesus on 2023 Hematocrit (Bld) [Volume fraction] 40.0 % 38.8-50.0 [facility] Hemoglobin [Mass/volume] in BloodOrdered By: Bridger Dejesus on 2023 Hemoglobin (Bld) [Mass/Vol] 13.8 g/dL 13.0-17.0 [facility] Ketones Auto test strip (U) [Mass/Vol]Ordered By: Bridger Dejesus on 2023 Ketones (U) [Mass/Vol] Negative Negative [facility] Laboratory - UrinalysisOrder ed By: Bridger Dejesus on 2023 Hyaline casts LM Ql (Urine sed) 0-8 [LPF] 0-8 [facility] Leukocytes [#/volume] correc tana for nucleated erythrocytes in Blood by Automated counOrdered By: Bridger Dejesus on 2023 WBC corrected for nucl RBC Auto (Bld) [#/Vol] 7.8 10*3/uL 4.1-10.5 [facility] Lymphocytes Auto (Bld) [#/Vo l]Ordered By: Bridger Dejesus on 2023 Lymphocytes (Bld) [#/Vol] 1.8 10*3/uL 1.00-4.8 [facility] Lymphocytes/100 WBC Auto (Bl d)Ordered By: Bridger Dejesus on 2023 Lymphocytes/100 WBC (Bld) 23.4 % . [facility] MCH Auto (RBC) [Entitic mass ]Ordered By: Bridger Dejesus on 2023 MCH (RBC) [Entitic mass] 31.7 pg 27.5-35.2 [facility] MCHC Auto (RBC) [Mass/Vol]Or dered By: Bridger Dejesus on 2023 MCHC (RBC) [Mass/Vol] 34.4 g/dL 32.5-35.6 [facility] MCV Auto (RBC) [Entitic vol] Ordered By: Bridger Dejesus on 2023 MCV (RBC) [Entitic vol] 92.3 fL 83.5-101 [facility] Monocyte distribution width [Entitic volume] in Blood by AutomatedOrdered By: Bridger Dejesus on 2023 Monocyte distribution width Auto (Bld) [Entitic vol] 16.03 % 0.00-20.00 [facility] Monocytes Auto (Bld) [#/Vol] Ordered By: Bridger Dejesus on 2023 Monocytes (Bld) [#/Vol] 0.6 10*3/uL 0.0-0.8 [facility] Monocytes/100 WBC Auto (Bld) Ordered By: Bridger Dejesus on 2023 Monocytes/100 WBC (Bld) 8.3 % . [facility] Neutrophils Auto (Bld) [#/Vo l]Ordered By: Bridger Dejesus on 2023 Neutrophils (Bld) [#/Vol] 5.1 10*3/uL 1.8-7.7 [facility] Neutrophils/100 WBC Auto (Bl d)Ordered By: Bridger Dejesus on 2023 Neutrophils/100 WBC (Bld) 65.7 % . [facility] Nitrite Test strip Ql (U)Ord ered By: Bridger Dejesus on 2023 Nitrite Ql (U) Negative Negative [facility] No Panel InformationOrdered By: Bridger Dejesus on 2023 Estimated GFR (CKD-EPI) > 60.0 mL/Min [facility]acy Creatinine Clearance (Chem 146.88 [facility] Nucleated erythrocytes [Pres ence] in Blood by Automated countOrdered By: Bridger Dejesus on 2023 Nucleated RBC Auto Ql (Bld) 0.1 /100{WBC} 0-0.5 [facility] Platelet mean volume Auto (B ld) [Entitic vol]Ordered By: Bridger Dejesus on 2023 Platelet mean volume (Bld) [Entitic vol] 8.0 fL 6.6-10.1 [facility] Platelets Auto (Bld) [#/Vol] Ordered By: Bridger Dejesus on 2023 Platelets (Bld) [#/Vol] 168 10*3/uL 150-450 [facility] Potassium [Moles/volume] in Serum or PlasmaOrdered By: Bridger Dejesus on 2023 Potassium [Moles/Vol] 3.7 mmol/L 3.5-5.1 [facility] Protein Auto test strip (U) [Mass/Vol]Ordered By: Bridger Dejesus on 2023 Protein (U) [Mass/Vol] Negative Negative [facility] RBC Auto (Bld) [#/Vol]Ordere d By: Bridger Dejesus on 2023 RBC (Bld) [#/Vol] 4.34 10*6/uL 3.90-5.60 [facility] Serum or plasma anion gap de terminationOrdered By: Bridger Dejesus on 2023 Anion gap [Moles/Vol] 9.6 mmol/L 6.0-15.0 [facility] Sodium [Moles/volume] in Ser um or PlasmaOrdered By: Bridger Dejesus on 2023 Sodium [Moles/Vol] 139 mmol/L 136-145 [facility] Specific gravity Auto test s trip (U) [Rel density]Ordered By: Bridger Dejesus on 2023 Specific gravity (U) [Rel density] 1.007 1.001-1.030 [facility] Squamous epithelial cells de tection in urine sediment by light microscopyOrdered By: Bridger Dejesus on 2023 Epithelial cells.squamous LM Ql (Urine sed) 1-2 [HPF] 0-2 [facility] Urea nitrogen [Mass/volume] in Serum or PlasmaOrdered By: Bridger Dejesus on 2023 Urea nitrogen [Mass/Vol] 14 mg/dL 7-25 [facility] Urine bacteria detection by automated methodOrdered By: Bridger Dejesus on 2023 Bacteria Auto Ql (U) None seen None Seen [facility] Urine clarity by refractomet ry automatedOrdered By: Bridger Dejesus on 2023 Clarity Refractometry automated (U) Clear Clear [facility] Urine culture routineOrdered By: Bridger Dejesus on 2023 Bacteria identified Cx Nom (U) 2 Days [facility] Urine glucose measurement by automated test strip (mass/volume)Ordered By: Bridger Dejesus on 2023 Glucose Auto test strip (U) [Mass/Vol] Normal mg/dL Normal [facility] Urine hemoglobin detection b y automated test stripOrdered By: Bridger Dejesus on 2023 Hemoglobin Auto test strip Ql (U) Negative Negative [facility] Urine leukocyte esterase det ection by automated test stripOrdered By: Bridger Dejesus on 2023 Leukocyte esterase Auto test strip Ql (U) 1+ Negative [facility] Urobilinogen Auto test strip (U) [Mass/Vol]Ordered By: Bridger Dejesus on 2023 Urobilinogen (U) [Mass/Vol] Normal mg/dL Normal [facility] WBC Auto (Bld) [#/Vol]Ordere d By: Bridger Dejesus on 2023 WBC (Bld) [#/Vol] 7.8 10*3/uL 4.1-10.5 [facility] pH Auto test strip (U)Ordere d By: Bridger Dejesus on 2023 pH (U) 5.0 [pH] 5.0-9.0 [facility] Automated erythrocytes count in urine sediment (number/area)Ordered By: Bridger Dejesus on 11-14-2023 RBC Auto (Urine sed) [#/Area] 5-9 [HPF] 0-4 [facility] Automated leukocytes count i n urine sediment (number/area)Ordered By: Bridger Hendricksy on 11-14-2023 WBC Auto (Urine sed) [#/Area] Innumerable [HPF] 0-4 [facility] Bilirubin Test strip Ql (U)O rdered By: Bridger Dejesus on 11-14-2023 Bilirubin Ql (U) Negative Negative [facility] CT pelvis wo conon CT pelvis wo con [facility] [address] CT Scan Report Signed Patient: Bridger Fox MR#: [id number] 106 : 1965 Acct:[id number] Age/Sex: 57 / M ADM Date: 11/14/23 Loc: ER Room: Type: [facility] ER Attending Dr: Copies to: Bridger Dejesus DO Ordering Provider: Bridger Dejesus DO Date of Service: 11/14/23 CT/CT lumbar spine wo con: r/o spinal fx s/p fall ([id number]) CT/CT pelvis wo con: r/o fx CT [...] Zhang Jr., D.O.11/14/2023 9:15 AM Dictation Location: [place] [address] Transcribed By: [facility] 11/14/23914 Dictated By: Ivan Zhang Jr, DO 11/14/23910 Signed By: 11/14/23914 Normal [facility] Color Auto (U)Ordered By: Nirmal Dejesus on 11-14-2023 Color (U) Yellow Yellow [facility] Dipstick and Microscopicon 0 11-14-2023 Appearance (U) Cloudy Critically abnormal Clear [facility] Comment on above: Order Comment: Name Collection Type:: Clean-Voided Midstream Performed By: #### A DDONUAPLUS, CUU #### [place] [id number] [place] Bacteria,Urine 4+ High None Seen [facility] Comment on above: Order Comment: Name Collection Type:: Clean-Voided Midstream Performed By: #### A DDONUAPLUS, CUU #### [facility] [address] [place] [id number] [place] Bilirubin,Urine Negative Normal Negative [facility] Comment on above: Order Comment: Name Collection Type:: Clean-Voided Midstream Performed By: #### A DDONUAPLUS, CUU #### [facility] [address] [place] [address] [place] Color (U) Yellow Normal Yellow [facility] Comment on above: Order Comment: Name Collection Type:: Clean-Voided Midstream Performed By: #### A DDONUAPLUS, CUU #### [facility] [address] [place] [id number] [place] Glucose Ql (U) Normal Normal Normal [facility] Comment on above: Order Comment: Name Collection Type:: Clean-Voided Midstream Performed By: #### A DDONUAPLUS, CUU #### [facility] [address] [place] [id number] [place] Hyaline Casts,Urine 0-8 Normal 0-8 [facility] Comment on above: Order Comment: Name Collection Type:: Clean-Voided Midstream Result Comment: PERF ORMED BY: [place] [address] PATHOLOGIST MINIATURE MODEL MAKER CHELY ALVARADO M.D. Performed By: #### A DDONUAPLUS, CUU #### [place] [address] [place] Ketones Ql (U) Negative Normal Negative [facility] Comment on above: Order Comment: Name Collection Type:: Clean-Voided Midstream Performed By: #### A DDONUAPLUS, CUU #### [address] Leukocyte esterase Test strip Ql (U) 4+ High Negative [facility] Comment on above: Order Comment: Name Collection Type:: Clean-Voided Midstream Performed By: #### A DDONUAPLUS, CUU #### [place] [address] [place] Nitrite,Urine Positive High Negative [facility] Comment on above: Order Comment: Name Collection Type:: Clean-Voided Midstream Performed By: #### A DDONUAPLUS, CUU #### [place] [address] [place] Occult Blood,Urine Trace High Negative [facility] Comment on above: Order Comment: Name Collection Type:: Clean-Voided Midstream Result Comment: PERF ORMED BY: [place] [address] PATHOLOGIST [employer]IATURE MODEL MAKER CHELY ALVARADO M.D. Performed By: #### A DDONUAPLUS, CUU #### [place] [id number] [place] pH (U) 6.0 [pH] Normal 5.0-9.0 [facility] Comment on above: Order Comment: Name Collection Type:: Clean-Voided Midstream Performed By: #### A DDONUAPLUS, CUU #### [address] Protein,Urine Negative Normal Negative [facility] Comment on above: Order Comment: Name Collection Type:: Clean-Voided Midstream Performed By: #### A DDONUAPLUS, CUU #### [address] RBC,Urine 5-9 High 0-4 [facility] Comment on above: Order Comment: Name Collection Type:: Clean-Voided Midstream Performed By: #### A DDONUAPLUS, CUU #### [address] Specificy [place],Urine 1.019 Normal 1.001-1.030 [facility] Comment on above: Order Comment: Name Collection Type:: Clean-Voided Midstream Performed By: #### A DDONUAPLUS, CUU #### [address] Squamous Epithelial Cell,Urine None Seen Normal 0-2 [facility] Comment on above: Order Comment: Name Collection Type:: Clean-Voided Midstream Performed By: #### A DDONUAPLUS, CUU #### [address] Urobilinogen,Urine Normal Normal Normal [facility] Comment on above: Order Comment: Name Collection Type:: Clean-Voided Midstream Performed By: #### A DDONUAPLUS, CUU #### [place] [address] [place] WBC,Urine Innumerable High 0-4 [facility] Comment on above: Order Comment: Name Collection Type:: Clean-Voided Midstream Performed By: #### A DDONUAPLUS, CUU #### [address] Ketones Auto test strip (U) [Mass/Vol]Ordered By: Bridger Dejesus on 11-14-2023 Ketones (U) [Mass/Vol] Negative Negative [facility] - UrinalysisOrder ed By: Bridger Dejesus on 11-14-2023 Hyaline casts LM Ql (Urine sed) 0-8 [LPF] 0-8 [facility] Nitrite Test strip Ql (U)Ord ered By: Bridger Dejseus on 11-14-2023 Nitrite Ql (U) Positive Negative [facility] Protein Auto test strip (U) [Mass/Vol]Ordered By: Bridger Dejesus on 11-14-2023 Protein (U) [Mass/Vol] Negative Negative Fi [facility] Specific gravity Auto test s trip (U) [Rel density]Ordered By: Bridger Dejesus on 11-14-2023 Specific gravity (U) [Rel density] 1.019 1.001-1.030 [facility] Squamous epithelial cells de tection in urine sediment by light microscopyOrdered By: Bridger Dejesus on 11-14-2023 Epithelial cells.squamous LM Ql (Urine sed) None seen [HPF] 0-2 [facility] Urine Cultureon 11-14-2023 Bacteria identified Cx Nom (U) ORGANISM: Escherichia coli (O:ESCCOL) [place] Count >100,000 Aerobic IVANA Charge ([id number]) ----- [...] RESISTANT TO ALL B-LACTAM DRUGS. PERFORMED BY: [facility] [address] [place] [address] PATHOLOGIST MINIATURE MODEL MAKER CHELY ALVARADO M.D. Normal [facility] Comment on above: Performed By: #### A DDONUAPLUS, CUU #### [address] Urine bacteria detection by automated methodOrdered By: Bridger Dejesus on 11-14-2023 Bacteria Auto Ql (U) 4+ None Seen [facility] Urine clarity by refractomet ry automatedOrdered By: Bridger Dejesus on 11-14-2023 Clarity Refractometry automated (U) Cloudy Clear [facility] Urine culture routineOrdered By: Bridger Dejesus on 11-14-2023 Bacteria identified Cx Nom (U) Escherichia coli [facility] Urine glucose measurement by automated test strip (mass/volume)Ordered By: Bridger Dejesus on 11-14-2023 Glucose Auto test strip (U) [Mass/Vol] Normal mg/dL Normal [facility] Urine hemoglobin detection b y automated test stripOrdered By: Bridger Dejesus on 11-14-2023 Hemoglobin Auto test strip Ql (U) Trace Negative [facility] Urine leukocyte esterase det ection by automated test stripOrdered By: Bridger Dejesus on 11-14-2023 Leukocyte esterase Auto test strip Ql (U) 4+ Negative [facility] Urobilinogen Auto test strip (U) [Mass/Vol]Ordered By: Bridger Dejesus on 11-14-2023 Urobilinogen (U) [Mass/Vol] Normal mg/dL Normal [facility] pH Auto test strip (U)Ordere d By: Bridger Dejesus on 11-14-2023 pH (U) 6.0 [pH] 5.0-9.0 [facility] A1C HEMOGLOBINon 11-13-2023 HbA1c (Bld) [Mass fraction] 7.2 % [employer] [facility] [employer] Other HbA1c (Bld) [Mass fraction]o n 11-13-2023 A1C HEMOGLOBIN [facility] [employer] Other Lab Reportson 09-25-2023 Lab Reports [id number] #1.00TIFF Normal [facility] Patient Educationon 09-22-20 Patient Education Urology Benign [...] Follow these instructions at home: ? Take bect-owe-ejdmclm and prescription medicines only as told by [...] the medicine (more content not included)... Normal [facility] Urology Office/Clinic Noteon 09-22-2023 Urology Office/Clinic Note [...] states he will get PSA drawn at [facility]. Restarted Tamsulosin 0.4mg at increased dosage of [...] of epididymis) Scrotal US done 01/11/22 from [facility] shows no evidence of testicle or [...] [facility] [address] [place] [address] [phone] Additional Instructions: 1 yr w/ PSA Patient [...] TIDAC Pantopraz (more content not included)... Normal [facility] Comment on above: Result Comment: Elec tronically Signed By: Mendel LOJA MD\.br\Date and Time Signed: 09/22/23 15:45 EST\.br\Electronically Co-Signed By: Marielle Robertson\.br\Date and Time Co-Signed: 09/22/23 15:40 EST Glucose - FINGER STICKon Glucose [Mass/Vol] 104 mg/dL [facility] Other [facility] Reportson 05-06-2023 Lab Reports [id number] #1.00CD:127 [facility] Ambulatory Visit Summaryon 0 05-05-2023 Ambulatory Visit [...] Mendel LOJA MD Where: [facility] Patient Educationon 05-05-20 23 Patient [...] Follow these instructions at home: ? Take ihqm-bss-vherboh and prescription medicines only as told by [...] the medicine (more content not included)... Normal [facility] Urology Office/Clinic Noteon 05-05-2023 Urology Office/Clinic Note [...] of epididymis) Scrotal US done 01/11/22 from [facility] shows no evidence of testicle or [...] Mendez, URL [facility] [address] [place] [address] [phone] Additional Instructions: 4 mos w/ PSA Patient [...] oral c (more content not included)... Normal [facility] Comment on above: Result Comment: Elec tronically Signed By: AJ JOHNSON, Mendel Mendez\.br\Date and Time Signed: 05/05/23 15:35 EDT\.br\Electronically Co-Signed By: Marielle Robertson\.br\Date and Time Co-Signed: 05/05/23 15:34 EDT Glucose - FINGER STICKon Glucose [Mass/Vol] 113 mg/dL [facility] Other A1C HEMOGLOBINon 02-03-2023 HbA1c (Bld) [Mass fraction] 7.4 % [facility] Other Glucose - FINGER [place]ICKon Glucose [Mass/Vol] 97 mg/dL [facility] Other HbA1c (Bld) [Mass fraction]o n 02-03-2023 A1C HEMOGLOBIN [employer] Other A1C HEMOGLOBINon 10-28-2022 HbA1c (Bld) [Mass fraction] 8.0 % [facility] Other Glucose - FINGER STICKon Glucose [Mass/Vol] 125 mg/dL [facility] Other HbA1c (Bld) [Mass fraction]o n 10-28-2022 A1C HEMOGLOBIN [employer] Other A1C HEMOGLOBINon 11-05-2021 HbA1c (Bld) [Mass fraction] 7.6 % [facility] Other Glucose - FINGER STICKon Glucose [Mass/Vol] 85 mg/dL [facility] Other HbA1c (Bld) [Mass fraction]o n 11-05-2021 A1C HEMOGLOBIN [place] [facility] [employer] Other Comprehensive Metabolic Pane jt 07-21-2021 Albumin [Mass/Vol] 4.2 g/dL [facility] [employer] Other ALP [Catalytic activity/Vol] 56 U/L [facility] [employer] Other ALT [Catalytic activity/Vol] 24 U/L [facility] [employer] Other AST [Catalytic activity/Vol] 23 U/L [facility] [employer] Other Bilirubin [Mass/Vol] 0.7 mg/dL [facility] [employer] Other Calcium [Mass/Vol] 9.1 mg/dL [facility] [employer] Other Chloride [Moles/Vol] 108 mmol/L [facility] [employer] Other CO2 [Moles/Vol] 29 mmol/L [facility] [employer] Other Creatinine [Mass/Vol] 0.82 mg/dL [facility] [employer] Other Glucose [Mass/Vol] 103 mg/dL [facility] [employer] Other Potassium [Moles/Vol] 4.2 mmol/L [facility] [employer] Other Protein [Mass/Vol] 6.8 g/dL [facility] [employer] Other Sodium [Moles/Vol] 144 mmol/L [facility] [employer] Other Urea nitrogen [Mass/Vol] 17 mg/dL [facility] [employer] Other Comprehensive Metabolic Panel [facility] [employer] Other Comprehensive Metabolic Panel >60 [facility] [employer] Other Lipid Panelon 07-21-2021 Cholesterol [Mass/Vol] 134 mg/dL [facility] [employer] Other Cholesterol in HDL [Mass/Vol] 49 mg/dL [facility] [employer] Other Cholesterol in LDL Elph Qn 69 [facility] [employer] Other Cholesterol.total/Chol esterol in HDL [Mass ratio] 2.7 {ratio} [employer] Other Lipid Panel 80 [place] [employer] Other Lipid Panel 16 [place] [employer] Other [employer] Creat Ratio,Uon Albumin DL <= 20 mg/L (U) [Mass/Vol] mg/dL [place] [employer] Other Albumin/Creatinine DL <= 20 mg/L (U) [Mass ratio] Not Calculated [place] [employer] Other Creatinine (U) [Mass/Vol] 135.67 mg/dL [place] [employer] Other Vitamin D 25 Hydroxy Totalon 07-21-2021 Vitamin D 25 Hydroxy Total 24.3 [facility] [employer] Other A1C HEMOGLOBINon 07-18-2021 HbA1c (Bld) [Mass fraction] 7.0 % [place] [employer] Other Glucose - FINGER STICKon Glucose [Mass/Vol] 117 mg/dL [facility] [employer] Other HbA1c (Bld) [Mass fraction]o n 07-18-2021 A1C HEMOGLOBIN [facility] [employer] Other VC CONSULT FOLLOWUPon 2020 VC CONSULT FOLLOWUP Patient: BRIDGER FOX Exam Date: 06/15/2021 : 1965 Gender:M Ordering : DR AUSTIN HSU M.D. Admission #: [id number] Family : Order #: [id number] CLICK HERE TO VIEW EXAM RADIOLOGY REPORT [...] Hsu MD on 06/15/2021 at 14:22 Normal [facility] VC EXT VENOUS REJI LIMITEDon 06-15-2021 VC EXT VENOUS REJI LIMITED Patient: BRIDGER FOX Exam Date: 06/15/2021 : 1965 Gender:M Ordering : DR AUSTIN HSU M.D. Admission #: [id number] Family : Order #: [id number] CLICK HERE TO VIEW EXAM RADIOLOGY REPORT [...] Hsu MD on 06/15/2021 at 14:18 Normal [facility] Vital Signs Date Time Vital Sign Value Performing Clinician Facility 03-23-2024 15:58-0400 Diastolic blood pressure 87 mm[Hg] Deric Shin [facility] 03-23-2024 15:58-0400 Heart rate 75 /min Deric Shin [facility] 03-23-2024 15:58-0400 Mean blood pressure 103 mm[Hg] Deric Shin [facility] 03-23-2024 15:58-0400 Respiratory rate 16 /min Deric Shin [facility] 03-23-2024 15:58-0400 SaO2% (BldA) [Mass fraction] 99 % Deric Shin [facility] 03-23-2024 15:58-0400 Systolic blood pressure 136 mm[Hg] Deric Kip [facility] 03-23-2024 14:54-0400 Diastolic blood pressure 74 mm[Hg] Deric Shin [facility] 03-23-2024 14:54-0400 Heart rate 71 /min Deric Shin [facility] 03-23-2024 14:54-0400 Mean blood pressure 90 mm[Hg] Deric Kip [facility] 03-23-2024 14:54-0400 Respiratory rate 16 /min Deric Kip [facility] 03-23-2024 14:54-0400 SaO2% (BldA) [Mass fraction] 98 % Deric Kip [facility] 03-23-2024 14:54-0400 Systolic blood pressure 122 mm[Hg] Deric Kip [facility] 03-23-2024 14:17-0400 Diastolic blood pressure 76 mm[Hg] Deric Kip [facility] 03-23-2024 14:17-0400 Heart rate 76 /min Deric Kip [facility] 03-23-2024 14:17-0400 Mean blood pressure 95 mm[Hg] Deric Kip [facility] 03-23-2024 14:17-0400 Respiratory rate 16 /min Deric Kip [facility] 03-23-2024 14:17-0400 SaO2% (BldA) [Mass fraction] 100 % Deric Kip [facility] 03-23-2024 14:17-0400 Systolic blood pressure 132 mm[Hg] Deric Kip [facility] 03-23-2024 13:40-0400 Body temperature 98.24 [degF] Deric Kip [facility] 03-23-2024 13:40-0400 Heart rate 80 /min Deric Kip [facility] 03-12-2024 10:27-0400 Blood Pressure Location Mendel AJ [facility] 03-12-2024 10:27-0400 Diastolic blood pressure 82 mm[Hg] Mendel LOJA [facility] 03-12-2024 10:27-0400 Heart rate 63 /min Mendel LOJA [facility] 03-12-2024 10:27-0400 Respiratory rate 16 /min Mendel LOJA [facility] 03-12-2024 10:27-0400 Systolic blood pressure 135 mm[Hg] Mendel LOJA [facility] 03-03-2024 14:28-0400 Blood Pressure Location OPAL SIMBA [facility] 03-03-2024 14:28-0400 Diastolic blood pressure 89 mm[Hg] OPAL SIMBA [facility] 03-03-2024 14:28-0400 Heart rate 72 /min OPAL SIMBA [facility] 03-03-2024 14:28-0400 Respiratory rate 16 /min OPAL SIMBA [facility] 03-03-2024 14:28-0400 Systolic blood pressure 133 mm[Hg] OPAL SIMBA [facility] 02-29-2024 10:45-0400 Body height 167.64 cm [facility] 02-29-2024 10:45-0400 Body mass index (BMI) [Ratio] 41.8 kg/m2 [facility] 02-29-2024 10:45-0400 Body temperature 97.9 [degF] [facility] 02-29-2024 10:45-0400 Body weight 117.48 kg [facility] 02-29-2024 10:45-0400 Diastolic blood pressure 95 mm[Hg] [facility] 02-29-2024 10:45-0400 Heart rate 63 /min [facility] 02-29-2024 10:45-0400 Respiratory rate 18 /min [facility] 02-29-2024 10:45-0400 SaO2% (BldA) [Mass fraction] 99 % [facility] 02-29-2024 10:45-0400 Systolic blood pressure 152 mm[Hg] [facility] 02-19-2024 14:59-0400 Body height 167.64 cm [facility] 02-19-2024 14:59-0400 Body mass index (BMI) [Ratio] 41.9 kg/m2 [facility] 02-19-2024 14:59-0400 Body weight 117.93 kg [facility] 02-19-2024 14:59-0400 Diastolic blood pressure 85 mm[Hg] [facility] 02-19-2024 14:59-0400 Heart rate 83 /min [facility] 02-19-2024 14:59-0400 Respiratory rate 18 /min [facility] 02-19-2024 14:59-0400 SaO2% (BldA) [Mass fraction] 96 % [facility] 02-19-2024 14:59-0400 Systolic blood pressure 132 mm[Hg] [facility] 2023 23:40-0500 Diastolic blood pressure 74 mm[Hg] MD Hua Gordon Work Phone: [facility] 2023 23:40-0500 Heart rate 85 /min MD Hua Gordon Work Phone: [facility] 2023 23:40-0500 Respiratory rate 16 /min MD Hua Gordon Work Phone: [facility] 2023 23:40-0500 SaO2% (BldA) [Mass fraction] 97 % MD Hua Gordon Work Phone: [facility] 2023 23:40-0500 Systolic blood pressure 168 mm[Hg] MD Hua Gordon Work Phone: [facility] 2023 21:20-0500 Body height 167.64 cm MD Hua Gordon Work Phone: [facility] 2023 21:20-0500 Body temperature 97.4 [degF] MD Hua Gordon Work Phone: [facility] 2023 21:20-0500 Body weight 117.1 kg MD Hua Gordon Work Phone: [facility] 11-14-2023 06:17-0500 Diastolic blood pressure 77 mm[Hg] MD Hua Gordon Work Phone: [facility] 11-14-2023 06:17-0500 Heart rate 79 /min MD Hua Gordon Work Phone: [facility] 11-14-2023 06:17-0500 Respiratory rate 20 /min MD Hua Gordon Work Phone: [facility] 11-14-2023 06:17-0500 SaO2% (BldA) [Mass fraction] 98 % MD Hua Gordon Work Phone: [facility] 11-14-2023 06:17-0500 Systolic blood pressure 132 mm[Hg] MD Hua Gordon Work Phone: [facility] 11-14-2023 03:07-0500 Body height 167.64 cm MD Hua Gordon Work Phone: [facility] 11-14-2023 03:07-0500 Body temperature 96.9 [degF] MD Hua Gordon Work Phone: [facility] 11-14-2023 03:07-0500 Body weight 114.75 kg MD Hua Gordon Work Phone: [facility] 11-13-2023 08:15-0500 Body height 167.64 cm Tondra Mapus Other [facility] 11-13-2023 08:15-0500 Body mass index (BMI) [Ratio] 41.35 kg/m2 Tondra Mapus Other [employer] [facility] [employer] Other 11-13-2023 08:15-0500 Body weight 116.21 kg Tondra Mapus Other [facility] 11-13-2023 08:15-0500 Diastolic blood pressure 84 mm[Hg] Tondra Mapus Other [employer] Other 11-13-2023 08:15-0500 Respiratory rate 18 /min Tondra Mapus Other [employer] Other 11-13-2023 08:15-0500 SaO2% (BldA) [Mass fraction] 100 % Tondra Mapus Other [employer] Other 11-13-2023 08:15-0500 Systolic blood pressure 127 mm[Hg] Tondra Mapus Other [employer] Other 09-22-2023 14:52-0500 Blood Pressure Location Mendel LOJA [facility] 09-22-2023 14:52-0500 Diastolic blood pressure 89 mm[Hg] Mendel LOJA [facility] 09-22-2023 14:52-0500 Heart rate 78 /min Mendel LOJA [facility] 12-04-2023 14:52-0500 Respiratory rate 16 /min Mendel LOJA [facility] 09-22-2023 14:52-0500 Systolic blood pressure 139 mm[Hg] Mendel LOJA [facility] 05-26-2023 15:00-0400 Body height 167.64 cm Tondra Mapus Other [employer] Other 05-26-2023 15:00-0400 Body mass index (BMI) [Ratio] 40.15 kg/m2 Tondra Mapus Other [employer] Other 05-26-2023 15:00-0400 Body weight 112.86 kg Tondra Mapus Other [employer] Other 05-26-2023 15:00-0400 Diastolic blood pressure 66 mm[Hg] Tondra Mapus Other [employer] Other 05-26-2023 15:00-0400 Respiratory rate 18 /min Tondra Mapus Other [employer] Other 05-26-2023 15:00-0400 SaO2% (BldA) [Mass fraction] 100 % Tondra Mapus Other [employer] Other 05-26-2023 15:00-0400 Systolic blood pressure 125 mm[Hg] Tondra Mapus Other [employer] Other 04-28-2023 16:00-0400 Body height 167.64 cm Paul Bennett Other [employer] Other 04-28-2023 16:00-0400 Body mass index (BMI) [Ratio] 40.99 kg/m2 Paul Bennett Other [employer] Other 04-28-2023 16:00-0400 Body weight 115.21 kg Paul Bennett Other [employer] Other 04-28-2023 16:00-0400 Diastolic blood pressure 72 mm[Hg] Paul Bennett Other [employer] Other 04-28-2023 16:00-0400 SaO2% (BldA) [Mass fraction] 98 % Paul Bennett Other [employer] Other 04-28-2023 16:00-0400 Systolic blood pressure 124 mm[Hg] Paul Bennett Other [employer] Other 03-27-2023 16:00-0400 Body height 167.64 cm Paul Bennett Other [employer] Other 03-27-2023 16:00-0400 Body mass index (BMI) [Ratio] 41.64 kg/m2 Paul Bennett Other [employer] Other 03-27-2023 16:00-0400 Body weight 117.03 kg Paul Bennett Other [employer] Other 03-27-2023 16:00-0400 Diastolic blood pressure 76 mm[Hg] Paul Bennett Other [employer] Other 03-27-2023 16:00-0400 Systolic blood pressure 124 mm[Hg] Paul Bennett Other [employer] Other 03-26-2023 15:00-0400 Body height 167.64 cm Tondra Mapus Other [employer] Other 03-26-2023 15:00-0400 Body mass index (BMI) [Ratio] 41.59 kg/m2 Tondra Mapus Other [employer] Other 03-26-2023 15:00-0400 Body weight 116.89 kg Tondra Mapus Other [employer] Other 03-26-2023 15:00-0400 Diastolic blood pressure 78 mm[Hg] Tondra Mapus Other [employer] Other 03-26-2023 15:00-0400 Respiratory rate 18 /min Tondra Mapus Other [employer] Other 03-26-2023 15:00-0400 SaO2% (BldA) [Mass fraction] 98 % Tondra Mapus Other [employer] Other 03-26-2023 15:00-0400 Systolic blood pressure 130 mm[Hg] Tondra Mapus Other [employer] Other 02-11-2023 16:00-0400 Body height 167.64 cm [employer] Other [employer] Other 02-11-2023 16:00-0400 Body mass index (BMI) [Ratio] 40.99 kg/m2 [employer] Other [employer] Other 02-11-2023 16:00-0400 Body weight 115.21 kg [employer] Other [employer] Other 02-11-2023 16:00-0400 Diastolic blood pressure 76 mm[Hg] Anabela Johnson Other [employer] Other 02-11-2023 16:00-0400 SaO2% (BldA) [Mass fraction] Anabela Johnson Other [employer] Other 02-11-2023 16:00-0400 Systolic blood pressure 128 mm[Hg] Anabela Johnson Other [employer] Other 02-09-2023 20:43-0400 Body temperature 98.5 [degF] MD Hua Gordon Work Phone: [facility] 02-09-2023 20:43-0400 Diastolic blood pressure 74 mm[Hg] MD Hua Gordon Work Phone: [facility] 02-09-2023 20:43-0400 Heart rate 86 /min MD Hua Gordon Work Phone: [facility] 02-09-2023 20:43-0400 Respiratory rate 18 /min MD Hua Gordon Work Phone: [facility] 02-09-2023 20:43-0400 SaO2% (BldA) [Mass fraction] 95 % MD Hua Gordon Work Phone: [facility] 02-09-2023 20:43-0400 Systolic blood pressure 149 mm[Hg] MD Hua Gordon Work Phone: [facility] 02-09-2023 18:50-0400 Body height 167.64 cm MD Hua Gordon Work Phone: [facility] 02-09-2023 18:50-0400 Body weight 118.38 kg MD Hua Gordon Work Phone: [facility] 02-03-2023 16:15-0400 Body height 167.64 cm Tondra Mapus Other [employer] Other 02-03-2023 16:15-0400 Body mass index (BMI) [Ratio] 42.27 kg/m2 Tondra Mapus Other [employer] Other 02-03-2023 16:15-0400 Body weight 118.8 kg Tondra Mapus Other [employer] Other 02-03-2023 16:15-0400 Diastolic blood pressure 84 mm[Hg] Tondra Mapus Other [employer] Other 02-03-2023 16:15-0400 Respiratory rate 18 /min Tondra Mapus Other [employer] Other 02-03-2023 16:15-0400 SaO2% (BldA) [Mass fraction] 99 % Tondra Mapus Other [employer] Other 02-03-2023 16:15-0400 Systolic blood pressure 131 mm[Hg] Tondra Mapus Other [employer] Other 11-04-2022 15:05-0500 Blood Pressure Location Mendel LOJA [facility] 11-04-2022 15:05-0500 Diastolic blood pressure 80 mm[Hg] Mendel LOJA [facility] 11-04-2022 15:05-0500 Heart rate 74 /min Mendel LOJA [facility] 11-04-2022 15:05-0500 Respiratory rate 16 /min Mendel LOJA [facility] 11-04-2022 15:05-0500 Systolic blood pressure 140 mm[Hg] Mendel LOJA [facility] 10-28-2022 16:15-0500 Body height 167.64 cm Tondra Mapus Other [employer] Other 10-28-2022 16:15-0500 Body mass index (BMI) [Ratio] 42.35 kg/m2 Tondra Mapus Other [employer] Other 10-28-2022 16:15-0500 Body weight 119.02 kg Tondra Mapus Other [employer] Other 10-28-2022 16:15-0500 Diastolic blood pressure 79 mm[Hg] Tondra Mapus Other [employer] Other 10-28-2022 16:15-0500 Respiratory rate 18 /min Tondra Mapus Other [employer] Other 10-28-2022 16:15-0500 SaO2% (BldA) [Mass fraction] 100 % Tondra Mapus Other [employer] Other 10-28-2022 16:15-0500 Systolic blood pressure 117 mm[Hg] Tondra Mapus Other [employer] Other 04-29-2022 15:20-0400 Blood Pressure Location Mendel LOJA [facility] 04-29-2022 15:20-0400 Diastolic blood pressure 77 mm[Hg] Mendel LOJA [facility] 04-29-2022 15:20-0400 Heart rate 74 /min Mendel LOJA [facility] 04-29-2022 15:20-0400 Respiratory rate 16 /min Mendel LOJA [facility] 04-29-2022 15:20-0400 Systolic blood pressure 135 mm[Hg] Mendel LOJA [facility] 03-09-2022 10:40-0400 Body height 167.64 cm Fátima Padilla Other [employer] Other 03-09-2022 10:40-0400 Body mass index (BMI) [Ratio] 41.15 kg/m2 Fátima Padilla Other [employer] Other 03-09-2022 10:40-0400 Body temperature 96.9 [degF] Fátima Padilla Other [employer] Other 03-09-2022 10:40-0400 Body weight 115.67 kg Fátima Padilla Other [employer] Other 03-09-2022 10:40-0400 SaO2% (BldA) [Mass fraction] 98 % Fátima Padilla Other [employer] Other 11-05-2021 16:00-0500 Body height 167.64 cm Tondra Mapus Other [employer] Other 11-05-2021 16:00-0500 Body mass index (BMI) [Ratio] 43.41 kg/m2 Tondra Mapus Other [employer] Other 11-05-2021 16:00-0500 Body weight 122.02 kg Tondra Mapus Other [employer] Other 11-05-2021 16:00-0500 Diastolic blood pressure 83 mm[Hg] Tondra Mapus Other [employer] Other 11-05-2021 16:00-0500 Respiratory rate 20 /min Tondra Mapus Other [employer] Other 11-05-2021 16:00-0500 SaO2% (BldA) [Mass fraction] 99 % Tondra Mapus Other [employer] Other 11-05-2021 16:00-0500 Systolic blood pressure 121 mm[Hg] Tondra Mapus Other [employer] Other 07-18-2021 16:15-0400 Body height 167.64 cm Tondra Mapus Other [employer] Other 07-18-2021 16:15-0400 Body mass index (BMI) [Ratio] 43.28 kg/m2 Tondra Mapus Other [employer] Other 07-18-2021 16:15-0400 Body weight 121.66 kg Tondra Mapus Other [employer] Other 07-18-2021 16:15-0400 Diastolic blood pressure 85 mm[Hg] Tondra Mapus Other [employer] Other 07-18-2021 16:15-0400 Respiratory rate 20 /min Tondra Mapus Other [employer] Other 07-18-2021 16:15-0400 SaO2% (BldA) [Mass fraction] 99 % Tondra Mapus Other [employer] Other 07-18-2021 16:15-0400 Systolic blood pressure 127 mm[Hg] Tondra Mapus Other [employer] Other Encounters Encounter Date Encounter Type Care Provider Facility Start: 09-27-2024 ambulatory Mendel LOJA Facili ty:[facility] [place] Start: 05-28-2024 ambulatory Mendel LOJA [facility]ili [facility] Start: 05-20-2024 ambulatory Mendel LOJA Facili ty:[facility] Start: 05-17-2024 ambulatory Mendel LOJA Facili ty:[id number] Start: 04-20-2024 End: 04-20-2024 ambulatory Mendel LOJA Facility:[facility] Start: 04-20-2024 End: 04-20-2024 Patient encounter procedure Mendel LOJA [facility] Start: 03-23-2024 End: 03-23-2024 Emergency department patient visit Deric Shin [facility] Start: 03-22-2024 End: 04-21-2024 Pre-admission assessment Mendel LOJA [facility] Start: 03-12-2024 End: 03-12-2024 ambulatory Mendel LOJA Facility:[facility] Start: 03-12-2024 End: 03-12-2024 Patient encounter procedure Mendel Mendez AJ [facility] Start: 03-03-2024 End: 03-03-2024 ambulatory OPAL KRAUSERY Facility:[facility] Start: 03-03-2024 End: 03-03-2024 Patient encounter procedure OPAL Matthew SIMBA [facility] Start: 03-03-2024 End: 03-04-2024 ambulatory [facility] Start: 03-01-2024 End: 03-01-2024 ambulatory DEL RIO JAMES Not Available Start: 02-29-2024 End: 02-29-2024 ambulatory Siobhan Troy Facility:[facility] Start: 02-29-2024 End: 02-29-2024 Departed [employer] Siobhan Troy Work Phone: [facility] [place] Work Phone: Start: 02-29-2024 End: 02-29-2024 ambulatory [facility] Work Phone: Start: 02-29-2024 End: 02-29-2024 Patient encounter procedure [facility] Work Phone: Start: 02-19-2024 End: 02-19-2024 Patient encounter procedure [facility] Work Phone: Start: 12-31-2023 ambulatory OPAL Tejedai ty:[facility] Start: 12-26-2023 Non-patient / Non-visit [facility] Work Phone: Start: 12-09-2023 End: 12-09-2023 ambulatory PRETTY LANDRUM Not Available Start: 11-19-2023 End: 11-19-2023 ambulatory SHAIKH JAMES Not Available Start: 2023 End: 11-18-2023 Emergency department patient visit Bridger Dejesus Facility:[facility] Start: 2023 End: 11-18-2023 Emergency department patient visit MD Hua Gordon Work Phone: [facility] Work Phone: Start: 11-14-2023 End: 11-14-2023 Emergency department patient visit Hua Gordon Facility:[facility] Start: 11-14-2023 End: 11-14-2023 Emergency department patient visit MD Hua Gordon Work Phone: [facility] Work Phone: Start: 11-13-2023 End: 11-14-2023 ambulatory Juan Carlos rFank Noel Facility:[facility] Start: 11-13-2023 (DM) Diabetes Tondra Mapus [facility] Start: 11-13-2023 End: 11-13-2023 ambulatory MD Hua Gordon Work Phone: [employer] Other Start: 11-13-2023 End: 11-13-2023 Discharged Recurring MD Hua Gordon Work Phone: [facility] Work Phone: Start: 11-13-2023 Registered Recurring MD Hua recinos Work Phone: [facility] Work Phone: Start: 11-13-2023 End: 11-13-2023 Patient encounter procedure MD Hua Gordon Work Phone: [facility]- Start: 09-22-2023 End: 09-22-2023 ambulatory Mendel LOJA [facility] Start: 09-22-2023 End: 09-22-2023 Patient encounter procedure Mendel LOJA [facility] Start: 09-08-2023 End: 09-08-2023 ambulatory Tondra Mapus Other [employer] Other Start: 09-08-2023 Telephone encounter Tondra Mapus [facility] Start: 07-15-2023 End: 07-15-2023 ambulatory Tondra Mapus Other [employer] Other Start: 07-15-2023 Telephone encounter Tondra Mapus [facility] Start: 05-26-2023 (DM) Diabetes Tondra Mapus [facility] Start: 05-26-2023 End: 05-26-2023 ambulatory Tondra Mapus Other [employer] Other Start: 05-05-2023 End: 05-05-2023 ambulatory Mendel Andrea LOJA Facility:[facility] Start: 04-28-2023 End: 04-28-2023 ambulatory Paul Bennett Other [employer] Other Start: 04-28-2023 Office outpatient visit 25 minutes Paul Bennett [facility] Start: 04-23-2023 End: 04-23-2023 ambulatory Tondra Mapus Other [employer] Other Start: 04-23-2023 Telephone encounter Tondra Mapus [facility] Start: 04-08-2023 (PROC) PROCEDURE Paul Torres [facility] Start: 04-08-2023 End: 04-08-2023 ambulatory Paul Bennett Other [employer] Other Start: 04-03-2023 End: 04-03-2023 ambulatory Tondra Mapus Other [employer] Other Start: 04-03-2023 Telephone encounter Tondra [facility] Start: 03-27-2023 End: 03-27-2023 ambulatory Paul Bennett Other [employer] Other Start: 03-27-2023 Office outpatient visit 25 minutes Paul Sabrina [facility] Start: 03-26-2023 (DM) Diabetes Tondra Mapus [facility] Start: 03-26-2023 End: 03-26-2023 ambulatory Tondra Mapus Other [employer] Other Start: 03-26-2023 Telephone encounter Tondra Mapus [facility] Start: 03-18-2023 End: 03-18-2023 ambulatory Tondra Mapus Other [employer] Other Start: 03-18-2023 Telephone encounter Tondra Mapus [facility] Start: 02-28-2023 End: 02-28-2023 ambulatory MD Hua Gordon Work Phone: [facility] Work Phone: Start: 02-28-2023 End: 02-28-2023 Patient encounter procedure MD Hua Gordon Work Phone: [facility] [place] Work Phone: Start: 02-17-2023 End: 02-17-2023 ambulatory Anabela Johnson Other [employer] Other Start: 02-17-2023 Telephone encounter Anabela Johnson [facility] Start: 02-11-2023 End: 02-11-2023 ambulatory Anabela Johnson Other [employer] Other Start: 02-11-2023 Office outpatient ne w 45 minutes Anabela Johnson [facility] Start: 02-09-2023 End: 02-09-2023 Emergency department patient visit MD Hua Gordon Work Phone: [facility] Work Phone: Start: 02-03-2023 Registered Recurring MD Hua recinos Work Phone: [facility] Work Phone: Start: 02-03-2023 (DM) Diabetes Tondra Mapus [facility] Start: 02-03-2023 End: 02-03-2023 ambulatory Tondra Mapus Other [facility] [employer] Other Start: 01-10-2023 End: 01-10-2023 ambulatory Tondra Mapus Other [facility] [employer] Other Start: 01-10-2023 Telephone encounter Tondra Mapus [facility] Start: 11-04-2022 End: 11-04-2022 Patient encounter procedure Mendel LOJA [facility] Start: 10-28-2022 (DM) Diabetes Tondra Mapus [facility] Start: 10-28-2022 End: 10-28-2022 ambulatory Tondra Mapus Other [facility] [employer] Other Start: 10-23-2022 End: 10-23-2022 ambulatory Tondra Mapus Other [facility] [employer] Other Start: 10-23-2022 Telephone encounter Tondra Mapus [facility] Start: 10-22-2022 End: 10-22-2022 ambulatory Tondra Mapus Other [facility] [employer] Other Start: 10-22-2022 Telephone encounter Tondra Mapus [facility] Start: 06-10-2022 End: 06-10-2022 ambulatory Tondra Mapus Other [employer] Other Start: 06-10-2022 Telephone encounter Tondra Mapus [facility] Start: 04-29-2022 End: 04-29-2022 Patient encounter procedure Mendel LOJA [facility] Start: 04-29-2022 End: 04-29-2022 ambulatory Tondra Mapus Other [employer] Other Start: 04-29-2022 Telephone encounter Tondra Mapus [facility] Start: 04-09-2022 End: 04-09-2022 Patient encounter procedure Mendel LOJA [facility] Start: 03-25-2022 End: 03-25-2022 ambulatory Tondra Mapus Other [employer] Other Start: 03-25-2022 Telephone encounter Tondra Mapus [facility] Start: 03-09-2022 End: 03-09-2022 ambulatory Fátima Padilla Other [employer] Other Start: 03-09-2022 Office outpatient visit 15 minutes Fátima Padilla [facility] Start: 02-25-2022 End: 02-25-2022 ambulatory Tondra Mapus Other [employer] Other Start: 02-25-2022 Telephone encounter Tondra Mapus [facility] Start: 11-07-2021 End: 11-07-2021 ambulatory Tondra Mapus Other [employer] Other Start: 11-07-2021 Telephone encounter Tondra Mapus [facility] Start: 11-05-2021 (DM) Diabetes Tondra Mapus [facility] Start: 11-05-2021 End: 11-05-2021 ambulatory Tondra Mapus Other [employer] Other Start: 07-31-2021 Telephone encounter Tondra Mapus [facility] Start: 07-30-2021 Telephone encounter Tondra Mapus [facility] Start: 07-23-2021 Telephone encounter Tondra Mapus [facility] Start: 07-18-2021 (DM) Diabetes Tondra Mapus [facility] Start: 06-15-2021 End: 06-16-2021 [...] 03-01-2024 Bacteria identified in Urine by Culture [facility] Start: 02-29-2024 Bacteria identified in Urine by Culture [facility] Start: 2023 CT Abdomen and Pelvi s WO contrast [facility] Start: 2023 CT of abdomen and pe lvis without contrast CT abdomen pelvis wo con [facility] Start: 2023 Bacteria identified in Urine by Culture [facility] Start: 02-09-2023 X-ray of lumbar spin e, two or three views XR lumbar spine 2-3V* [facility] Start: 02-09-2023 XR Lumbar spine 2 or 3 Views [facility] Bacteria identified in Urine by Culture [facility] Comprehensive metabo lic 2000 panel - Serum or Plasma [facility] Insulin C-peptide measurement [facility] Patient Education [facility] Work Phone: Patient referral [facility] Work Phone: [facility] Immunizations Immunization Date Immunization Notes Care Provider Chiki gross 07-23-2021 SARS-CoV-2 (COVID-19 ) Ad26 vaccine, recombinant Mendel LOJA [facility] 06-21-2021 SARS-CoV-2 (COVID-19 ) Ad26 vaccine, recombinant Mendel LOJA [facility] 02-02-2021 COVID-19 Vaccine Moderna - Documentation Purposes Only Tondra Mapus Other [facility] 01-05-2021 COVID-19 Vaccine Moderna - Documentation Purposes Only Tondra Mapus Other [facility] NEGATED: Highlighted row has not occurred!02-18-2022 influenza virus vaccine, unspecified formulation Mendelshi LOJA [facility] Payers Date Payer Category Payer Unknown [id number] 2019 Unknown [id number] 2019 Self-pay [id number] 2019 Unknown [id number] 1965 Unknown [id number] 1965 Unknown [id number] 1965 Unknown [id number] 2.16.84 0.1.584235.3.579.2.1259 1965 Unknown [id number] 2.16.84 0.1.744456.3.579.2.1259 1965 Unknown [id number] 2.16.8 40.1.405519.3.579.2.1286 1965 Unknown [id number] 2.16.8 40.1.512725.3.579.2.727 1965 Unknown [id number] 2.16.8 40.1.542397.3.579.2.727 1965 Unknown [id number] 2.16.8 40.1.474447.3.579.2.727 1965 Unknown [id number] 2.16.8 40.1.370987.3.579.2.727 1965 Unknown [id number] 2.16.8 40.1.456745.3.579.2.727 1965 Unknown [id number] 2.16.8 40.1.572262.3.579.2.727 1965 Unknown [id number] 2.16.8 40.1.202635.3.579.2.727 1965 Unknown [id number] 2.16.8 40.1.853709.3.579.2.727 1965 Unknown [id number] 2.16.8 40.1.278123.3.579.2.727 1965 Unknown [id number] 2.16.8 40.1.273841.3.579.2.727 1965 Unknown [id number] 2.16.8 40.1.040435.3.579.2.727 1959 Unknown [id number] Unknown [id number] 2.16.8 40.1.361434.3.579.2.531 Unknown [id number] 2.16.8 40.1.603136.3.579.2.531 Unknown [id number] 2.16.8 40.1.258356.3.579.2.531 Unknown [id number] 2.16.8 40.1.427009.3.579.2.531 Social History Date Type Detail Facility Start: 02-18-2022 End: 03-12-2024 Tobacco smoking status Never smoked tobacco (finding) [facility] [employer] Other Sex Assigned At Male [facility] [facility] Other Tobacco smoking status Never [facility] Start: 1965 Sex Assigned At Male [facility] Medical Equipment Procedure Code Equipment Code Equipment Origin al Text Equipment Identifier Dates Start: 12-15-2014 blood sugar diagnostic (OneTouch Verio test strips) Start: 02-19-2024 blood sugar diagnostic (OneTouch Verio test strips) Start: 02-19-2024 Functional Status Date Assessment Result Facility 03-23-2024 Functional Status N/A [facility] 03-12-2024 Functional Status N/A [facility] 03-03-2024 Functional Status N/A [facility] 09-22-2023 Functional Status N/A [facility] 11-04-2022 Functional Status N/A [facility] 04-29-2022 Functional Status N/A [facility] 04-05-2022 Functional Status N/A [facility] Clinical Notes 07-18-2021 to 03-23-2024 Note Date & Type Note Facility 03-23-2024 Hospital Discharg e instructions Patient Education 03/23/2024 16:18:20 Acute Urinary Retention, Male, Msfa-tq-Hfzr Acute Urinary Retention, Male Acute urinary retention [...] Follow these instructions at home: Medicines Take ehjk-rjf-ilvgqbd and prescription medicines only as told by [...] provider. Document Revised: 06/27/2021 Document Reviewed: 06/27/2021 [employer] Patient Education 2022 [employer]. Follow Up Care 03/23/2024 13:36:44 With:Mendel LOJA Address: [address] [place] [address]- Business (1) When:03/26/2024 15:56:13 With:HUA GORDON Address: [address] [place] [phone] Business (1) When:Within 3 Day(s) [facility] 03-12-2024 Hospital Discharg e instructions Patient [...] including vitamins, herbs, eye drops, creams, and cskb-pdw-dmfmfik medicines. Any problems you or family members [...] provider tells you to take them. Taking zkkx-atm-zpxeyst medicines, vitamins, herbs, and supplements. Surgery safety [...] provider. Document Revised: 07/02/2022 Document Reviewed: 07/02/2022 [employer] Patient Education 2022 [employer]. 03/12/2024 11:15:23 Urodynamic Testing Urodynamic Testing Urodynamic [...] including vitamins, herbs, eye drops, creams, and cpfc-iky-eechnly medicines. ?Whether you are or may be [...] provider. Document Revised: 06/19/2022 Document Reviewed: 05/11/2021 [employer] Patient Education 2022 [employer] 03/12/2024 11:15:21 Cystoscopy Cystoscopy Cystoscopy is [...] including vitamins, herbs, eye drops, creams, and kvwk-izv-wkekrnl medicines. Any problems you or family members [...] provider tells you to take them. Taking hsye-fkm-odawgng medicines, vitamins, herbs, and supplements. Tests You [...] Follow these instructions at home: Medicines Take joia-moj-infjvrz and prescription medicines only as told by [...] provider. Document Revised: 06/19/2022 Document Reviewed: 05/18/2021 [employer] Patient Education 2022 [employer]. Follow Up Care 03/03/2024 15:52:47 With:AJ JOHNSON, Mendel Mendez, URL Address: [facility] [address] [place] [phone] When: Unknown [facility] 03-03-2024 Hospital Discharg e instructions Patient Education [...] provider. Document Revised: 09/11/2020 Document Reviewed: 09/11/2020 [employer] Patient Education 2022 [employer]. Follow Up Care 12/03/2023 10:29:21 With:AJ JOHNSON, Mendel Mendez, URL Address: [facility] [address] , [place] [address] [phone] When: Unknown Comments:f/u in 1.5 wks [facility] 03-03-2024 Note Chief Complaint Re-Referral * Follow [...] Hx of DM. Last A1C 02/19/24- 7.5 [facility] 11/14/23 CC: lower back pain CT ap wo 11/14/23 +C&S 11/14/23 >100k E Coli *Tx'd w/Keflex Returned to [facility] 11/17/23 CC: Worsening Rt flank pain CT ap wo 11/17/23 *NEG Uropathy CMP 11/17/23 *BUN 14 Crea 0.66 eGFR >60 C&S 11/17/23 <9k mixed skin contaminants [facility] 02/29/24 CC: dysuria & Rt Flank pain UA 02/29/24- SMALL leuks NEG Nitrates & blood +C&S 02/29/24 >100k Gram Negative Bacilli (Still in prelims @ [facility]) (no documentation on abx given *if given) [...] testicles. Pt also here for f/u to [facility] due to UTI. 11/17/23 - BUN 14. Cr 0.66. eGFR >60. RAE 11. 1. UTI (urinary tract infection) (N39.0: Urinary tract infection, site not specified) [facility] 02/29/24 due to dysuria and R flank pain. UA showed small leuks wo blood or nitrites. UCx >100k Gram Negative Bacilli (still in prelims). UA today shows positive nitrites wo blood or leuks. Not currently on any abx. Denies gross hematuria. -start empiric Cipro & watch for final cx result via [facility]. message placed to pending results. Ordered: E&M of Est. Patient High 40-54 Min 25138 2. Testicular pain (N50.819: Testicular pain, unspecified) [...] E&M of Est. Patient High 40-54 Min 95246 3. Testicular lesion (N50.9: Disorder of male [...] E&M of Est. Patient High 40-54 Min 08599 4. Epididymal cyst (N50.3: Cyst of epididymis) [...] E&M of Est. Patient High 40-54 Min 45550 5. 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 Scr (more content not included)... [facility] Comment on above: Result Comment: Elec tronically [...] or diabetes medication issues. 6. Prescriptions: [facility] [place]-None at this time. Sample mounjaro 2.5mg x4 [...] of any breach, fraud, or malicious third constitution party actors and no personal patient information was compromised. [facility] Other 12-04-2023 Hospital Discharge instructions Patient Education [...] urethra. Follow these instructions at home: Take impu-ant-uspjdpe and prescription medicines only as told by [...] provider. Document Revised: 04/24/2022 Document Reviewed: 04/24/2022 [employer] Patient Education 2022 [employer]. Follow Up Care 05/05/2023 15:42:30 With:AJ JOHNSON, Mendel Mendez, URL Address: [facility] [address], [place] [address]- [phone] When: Unknown Comments:1 yr w/ PSA [facility] 08-07-2023 Evaluation note* Encounter Date Diagnosis Assessment [...] medication issues. 6. Prescriptions: Eduardounjoanro sent to [facility]. 7. Prescriptions will not be filled [...] last visit, continue with weight loss efforts [facility] Other 07-10-2023 Evaluation note* Encounter Date Diagnosis [...] call the office if his symptoms return [facility] Other 06-08-2023 Evaluation note* Encounter Date Diagnosis [...] Stable. Patient denies true radicular symptoms today. [facility] Other 06-07-2023 Evaluation note* Encounter Date Diagnosis [...] hyperglycemia, or diabetes medication issues. 6. Prescriptions: [facility]: Sample moujaro 2.5mg x4 pens given. Sent [...] Maintaining a healthful weight material was printed [facility] Other 06-07-2023 Evaluation note* Encounter Date Diagnosis Assessment Notes Treatment Notes Treatment Clinical Notes Mar, Type 2 diabetes mellitus (ICD-10 - E11.9) [facility] Other 04-25-2023 Evaluation note* Encounter Date Diagnosis [...] prednisone taper, lidocaine patches, muscle relaxer, and vfuk-yrk-czbasvz pain medication Tylenol. Discussion of images needed [...] harming self or anyone else. Negative screening [facility] Other 04-17-2023 Evaluation note* Encounter Date Diagnosis [...] Maintaining a healthful weight material was printed [facility] Other 01-16-2023 Hospital Discharge instructions Patient Education [...] prostate. Follow these instructions at home: Take ntzz-plg-igqpjvq and prescription medicines only as told by [...] 10/03/2001 Document Revised: 12/19/2018 Document Reviewed: 06/26/2017 [employer] Patient Education [employer] Follow Up Care 04/29/2022 16:00:50 With:AJ JOHNSON, Mendel Mendez, URL Address: [facility] [address] , [place] [address]- When: Unknown [facility] 01-09-2023 Evaluation note* Encounter Date Diagnosis Assessment [...] or diabetes medication issues. 6. Prescriptions: Sample clem 3 cgm given today. 7. Prescriptions will [...] Maintaining a healthful weight material was printed [facility] Other 01-03-2023 Evaluation note* Encounter Date Diagnosis Assessment Notes Treatment Notes Treatment Clinical Notes Oct, Type 2 diabetes mellitus (ICD-10 - E11.9) [facility] Other 07-11-2022 Hospital Discharge instructions Patient Education [...] urethra. Follow these instructions at home: Take wjym-lgx-dtazfdk and prescription medicines only as told by [...] 10/06/2006 Document Revised: 08/31/2019 Document Reviewed: 11/10/2017 [employer] Patient Education 2020 [employer]. Follow Up Care 03/22/2022 15:38:12 With:AJ JOHNSON, Mendel Mendez, URL Address: [facility] [address] , [place] [address]- [phone] When: Unknown [facility] 06-21-2022 Hospital Discharge instructions Patient Education 04/09/2022 [...] for your post-operative appointment in 1-2 weeks [phone] or [phone] Follow Up Care 03/29/2022 13:53:55 With:Mendel LOJA Address: [facility] [address] [place] [address]- Business (1) When: Unknown Comments:Keep scheduled appointment [facility]06-06-2022 Evaluation note* Encounter Date Diagnosis Assessment Notes Treatment Notes Treatment Clinical Notes Mar, 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) [facility] Other 09-29-2021 Evaluation note* Encounter Date Diagnosis [...] material was given to patient; Seen by: [facility] Other Evaluation + Plan note Future Appointments Appointment Date:04/29/2022 03:15:00 PM Scheduled Provider:Mendel LOJA MD Location:[facility] Appointment Type:URO Office Visit Diagnostic Tests Pending * Prostate Histology ([facility]) [facility]ments Appointment Date:11/04/2022 02:45:00 PM Scheduled Provider:Mendel LOJA MD Location:[facility] Appointment Type:URO Office Visit [facility] evaluation + Plan note Future Appointments Appointment Date:05/05/2023 03:00:00 PM Scheduled Provider:Mendel LOJA MD Location:[facility] Appointment Type:URO Office Visit Diagnostic Tests Pending * PSA Total 11/04/22 [facility] evaluation + Plan note Future Appointments Appointment Date:09/27/2024 02:45:00 PM Scheduled Provider:Mendel LOJA MD Location:[facility] Appointment Type:URO Office Visit Diagnostic Tests Pending * PSA Total 09/22/23 [facility] evaluation + Plan note Future Appointments Appointment Date:03/12/2024 10:15:00 AM Scheduled Provider:Mendel LOJA MD Location:[facility] Appointment Type:URO Office Visit Appointment Date:09/27/2024 02:45:00 PM Scheduled Provider:Mendel LOJA MD Location:[facility] Appointment Type:URO Office Visit [facility] evaluation + Plan note Future Appointments Appointment Date:09/27/2024 02:45:00 PM Scheduled Provider:Mendel LOJA MD Location:[facility] Appointment Type:URO Office Visit [facility] evaluation + Plan note Future Appointments Appointment Date:04/15/2024 10:00:00 AM Scheduled Provider: Location:[facility] Appointment Type:Urology CALL PAT FT Appointment Date:04/20/2024 08:00:00 AM Scheduled Provider: Location:[facility] Appointment Type:Urology FT Appointment Date:04/20/2024 09:15:00 AM Scheduled Provider: Location:[facility] Appointment Type:Urology FT Appointment Date:09/27/2024 02:45:00 PM Scheduled Provider:[facility] InformationNort Saperion Other Evaluation noteNo assessment information available [facility] Work Phone: evaluation note* Diagnosis Onset Date Resolution Status BMI 40.0-44.9, adult acute Dietary counseling and surveillance acute Hyperlipemia acute Type 2 diabetes mellitus acu te [facility] Work Phone: evaluation note* Diagnosis Onset Date Resolution Status BMI 40.0-44.9, adult acute Dietary counseling and surveillance acute Hyperlipemia acute Type 2 diabetes mellitus acu te Dysuria noneactive [facility] Work Phone: Hiszhzq general Narrative - Reported* Type Description Date Medical History DM 2 < 10 YEARS Medical History HYPERLIPIDEMIA Surgical History HERNIA/GALL BLADDER 2007 Surgical History HERNIA 2010 Surgical History HAND 1989 Surgical History TONSILECTOMY Surgical History BACK SURGERY 10/2014 Hospitalization History SEE ABOVE SURGERIES [facility] Other history general Narrative - Reported* Type Description Date Medical History DM 2 < 10 YEARS Medical History HYPERLIPIDEMIA Surgical History HERNIA/GALL BLADDER 2007 Surgical History HERNIA 2010 Surgical History HAND 1989 Surgical History TONSILECTOMY Surgical History BACK SURGERY 10/2014 Surgical History Prostate biopsy-negative 2021 Hospitalization History SEE ABOVE SURGERIES Hospitalization History YASHIRA KEATING SURGE RY 10/2014 [facility] Other Hisweqp general Narrative - Reported* Type Description Date Medical History DM 2 < 10 YEARS Medical History HYPERLIPIDEMIA Medical History high cholesterol Medical History prostate biopsy Surgical History HERNIA/GALL BLADDER 2007 Surgical History HERNIA 2010 Surgical History HAND 1989 Surgical History TONSILECTOMY Surgical History BACK SURGERY 10/2014 Surgical History Prostate biopsy-negative 2021 Hospitalization History SEE ABOVE SURGERIES Hospitalization History Hardy KEATING SURGE RY 10/2014 [facility] Other Hospital course Narrative No data available for this section [facility] Additional Instructions You can take Aleve or Tylenol as needed for mild to moderate pain. Take oxycodone as prescribed for severe pain. Use the Zofran and oxycodone for nausea. Take Flexeril as prescribed for muscle spasm. Follow-up with the PCP and/or pain management doctor for ongoing care. [facility] Work Phone: Hospital Discharge instructions No data available for this section [facility] No data available for this section [facility] Summary Purpose Family History No Family [...] Diagnosis 1 Lumbar radiculopathy (M54.16) Referral Organization [facility] Referring Provider First Name Anabela Referring Provider Last Name Johnson Referring Provider Specialty Nurse Pract itioner Referred Organization [facility] [place] Referred Address [address] [place], [place],[address] Referred Provider Specialty Physical The rapist Referral Priority Routine Reason evaluate and tr eat Diagnosis 1 Lumbar radiculopathy (M54.16) Referral Organization [facility] Referring Provider First Name Anabela Referring Provider Last Name [place] Referring Provider Specialty Nurse Pract itioner Referred Organization [facility] Pain Managemen t Referred Provider Paul Bennett Referred Address [address],[address] Referred Provider Specialty Pain Medicin e Referral [...] content) DATE CREATED AUTHOR 07/01/2021 [facility] [place] [facility] DATE CREATED AUTHOR AUTHOR'S ORGANIZ ATION 03/02/2024 [facility] DATE CREATED AUTHOR AUTHOR'S ORGANIZ ATION 03/05/[address] [facility] DATE CREATED AUTHOR AUTHOR'S ORGANIZ ATION 03/06/2024 [facility] DATE CREATED AUTHOR AUTHOR'S ORGANIZ ATION 03/24/2024 [facility] DATE CREATED AUTHOR AUTHOR'S ORGANIZ ATION 04/13/2024 [facility] DATE CREATED AUTHOR AUTHOR'S ORGANIZ ATION 05/06/2024 [facility] Care Team (unrecognized sect ion and [...] Team Status: Inactive Member Role Status Dates Siobhna Troy APRN Attending Provider Active Start: February 29, 2024 End: February 29, 2024 REASON FOR VISIT (unrecogniz ed section and content) Type 2 IDDM 3 MONTH FOLLOW U P with T [employer] METAL FURNITURE ASSEMBLER, FRONT DESK SUPERVISOR-C, BC-ADMlab resultsvictozaTKM VictozaTKM FYIDM 3 month follow up, Type 2 IDDM FOLLOW UP with T [employer] METAL FURNITURE ASSEMBLER, FRONT DESK SUPERVISOR-C, BC-ADMlab resultsBLACK F150, NASAL CONGESTION X 1 WEEKTKM ToujeoTKM victoza questionTKM Victoza questionTKM Victoza refillTKM refill NovologTKM labsDM 3 month follow up, Type 2 IDDM FOLLOW UP with T [employer] METAL FURNITURE ASSEMBLER, FRONT DESK SUPERVISOR-C, BC-ADMTKM Victoza RefillDM 3 month follow up, Type 2 IDDM FOLLOW UP with T [employer] METAL FURNITURE ASSEMBLER, FRONT DESK SUPERVISOR-C, BC-ADMer f/ublood sugarF/U AFTER REJI SI JOINT INJECTIONTKM - NEEDS APPT; LVM FOR PATIENT TO CALL AND SCHEDULE 03/19/23Med Changes, DM follow up, Type 2 IDDM FOLLOW UP with T [employer] METAL FURNITURE ASSEMBLER, FRONT DESK SUPERVISOR-C, BC-ADMTKM - LVM FOR PT TO GET LABS; [facility]28[facility]TKM please callRIGHT L3,4,5 LUMBAR FACET MBBTKM-constipationF/U AFTER RIGHT LUMBAR FACET MBBDM 3 month Follow up, Type 2 IDDM FOLLOW UP with T [employer] METAL FURNITURE ASSEMBLER, FRONT DESK SUPERVISOR-C, BC-ADMTKM RefillTKM patient cancelledDM 3 month Follow up, Type 2 IDDM; FOLLOW UP with T [employer] METAL FURNITURE ASSEMBLER, FRONT DESK SUPERVISOR-C, BC-ADM Goals (unrecognized section and content) Goals [...] BE BASED ON THE PRIMARY CLINICAL RECORDS. [employer] provides no warranty or guarantee of the accuracy or completeness of information in this document.
== END 2024-05-15 08:25 | disposition home or self-care (01) ==
LOC: CT 08:24
PROVIDERS: PCP Family Medicine; Visit Provider Urology
DX: R19.09 Other intra-abdominal and pelvic swelling, mass and lump (principal); N50.89 Other specified disorders of the male genital organs; I83.891 Varicose veins of right lower extremity with other complications
CPT/HCPCS: 72193; 74177; Q9967

== ENCOUNTER 2024-05-20 16:41 | Day surgery (SDC) | payer BC, SELFPAY ==
[2024-05-06 11:45] VITALS: BP 132/80; PULSE 84; TEMP 36.3; O2SAT 99; BMI 42.1
[2024-05-20] VITALS (12 sets, daily range): BP systolic 124–168; BP diastolic 73–102; PULSE 69–96; TEMP 36.1–36.7; O2SAT 92–99; BMI 40.8
[2024-05-20] MEDS: LACTATED RINGER'S SOLUTION 1,000 ML 50 ML IV ×2 (13:33→16:03)
[2024-05-20] MEDS: LEVOFLOXACIN IN DEXTROSE 5 % 500 MG/100 ML PIGGYBACK 100 MG IV (14:49)
--- NOTE | 2024-05-20 16:39 | PM.URSON ---
Urology Surgery Operative Note Operative Note Procedure Date: 05/20/24 Time Out Performed: yes Pre-op Diagnosis: BPH with LUTS; bladder lesions Post-op Diagnosis: same as pre-op Procedures performed: 1. Cystoscopy. 2. Transurethral bladder biopsy. 3. Transurethral resection of the prostate. Anesthesia: GETA Primary Surgeon: Mendel Loja Complications: None Estimated blood loss (mL): 20 Findings: 1. Flat red bladder lesions back wall. 2. Obstructing prostate trilobar fashion. Specimens: 1. Bladder lesion. 2. Prostate chips. Drains: 24 Malian three-way coud? Jordan catheter in the bladder. Indications for Procedures: This gentleman has BPH with LUTS that is refractory to max medications. He is obstructed urodynamically. Endoscopically he is also obstructed and bladder lesions were noted on the back wall. He is desirous for a TURP. At the same time we will biopsy the bladder lesions. He has signed an informed consent for these procedures after risks were explained. Some of these risks include bleeding, infection, anesthesia, retrograde ejaculation, urinary incontinence both temporary and permanent, bladder perforation, erectile dysfunction and possible need for further operations just to name a few. Detailed description of Procedure: The patient was brought to the operating room and placed on the operating room table in the supine position. SCDs were placed on the lower extremities and turned on and functioning during the entire case. Timeout was done by all parties in the room. We all agreed upon the patient's identification and the planned procedures for this patient. Genn. anesthesia was then administered. The patient was then repositioned into the modified dorsal lithotomy position. All pressure points were satisfactorily padded. Genitalia were sterilely prepped and draped in usual fashion. I started by passing a 26 Malian Nikhil resectoscope with a standard bipolar loop electrode per urethra and into the bladder. The ureteral orifices were identified and marked with the loop electrode. I could see the erythematous areas on the back wall of the bladder. These were not raised at all and were not typical of any type of bladder cancer. The concern for CIS is low but present. Therefore, I uniformly and deeply resected a couple centimeters of lesions and sent these separately labeled bladder lesions. I then coagulated the resection bed and the remaining erythema on the back wall. I then started on the median lobe of the prostate and uniformly resected this down to the bladder neck level. I then resected posteriorly from the bladder neck to the verumontanum level. The left lateral lobe was then resected from the bladder neck to the Veru level. The right lateral lobe and the anterior tissue were then similarly resected. The apex was then taken care of because there was coapting of the lobes creating significant obstruction. The resection bed was fully coagulated. The Ilich evacuator was used to get all of the prostate chips out of the bladder and these were sent for permanent sections labeled prostate chips. Upon completion, with the scope at the apex, the prostatic urethra and bladder neck were now wide open. There was no bleeding. There were no chips remaining in the bladder. The scope was then removed. I then placed a 22 Malian three-way coud? Jordan catheter in the bladder. It was manually irrigated with a catheter tip syringe verifying good placement. 30 cc of fluid was placed in the balloon. It was taped to traction and CBI was started. It irrigated clear. The anesthetic was then reversed. He was then transferred to a rshowell bed and wheeled to PACU in stable condition. Urinary Catheter Management Urinary Catheter Management 3-way Urethral: Cath placed during this visit: yes Urethral indwelling: Yes Reason for continuing: surgical procedure Insertion date: 05/20/24
[2024-05-20] MEDS: 0.9 % SODIUM CHLORIDE 1,000 ML 80 ML IV (16:45)
[2024-05-20] MEDS: HYDROCODONE/ACET 5-325 MG TABLET 1 TAB PO (17:19)
[2024-05-20] MEDS: SOLIFENACIN SUCCINATE 10 MG TABLET PO (17:19)
--- NOTE | 2024-05-20 20:14 | PC.NURSE ---
Pt up to BSC for BM and passed a lot of gas. Pt states that he does feel better after having BM Pt returns to bed. No complaints at this time. CBI continues. slightly pink with movement but quickly clears up to light pale yellow.
--- NOTE | 2024-05-20 20:30 | PC.NURSE ---
soft loose stool
[2024-05-20] MEDS: OMEPRAZOLE 40 MG CAPSULE.DR PO (21:42)
[2024-05-20] MEDS: SODIUM CHLORIDE IRRIG SOLUTION 3,000 ML 3000 ML IRR (21:44)
[2024-05-20] MEDS: CEFAZOLIN SODIUM/DEXTROSE,ISO 1 GM/50 ML IV.SOLN IV (23:45)
[2024-05-21 04:00] VITALS: BP 121/79; PULSE 71; TEMP 36.6; O2SAT 95
[2024-05-21] MEDS: CEFAZOLIN SODIUM/DEXTROSE,ISO 1 GM/50 ML IV.SOLN IV (05:31)
[2024-05-21] MEDS: HYDROCODONE/ACET 5-325 MG TABLET 1 TAB PO (07:18)
[2024-05-21 07:23] VITALS: BP 155/96; PULSE 74; TEMP 36.5; O2SAT 96
[2024-05-21 07:24] VITALS: PULSE 74
[2024-05-21] MEDS: SOLIFENACIN SUCCINATE 10 MG TABLET PO (08:38)
[2024-05-21] MEDS: MULTIVITAMIN TABLET 1 TAB PO (08:38)
[2024-05-21] MEDS: CHOLECALCIFEROL (VITAMIN D3) 25 MCG/1,000 UNITS TABLET 50 MCG PO (08:38)
[2024-05-21] MEDS: ASPIRIN 81 MG TABLET.DR PO (08:38)
[2024-05-21] MEDS: ATORVASTATIN CALCIUM 20 MG TABLET PO (08:38)
[2024-05-21] MEDS: OMEPRAZOLE 40 MG CAPSULE.DR PO (08:38)
[2024-05-21] MEDS: INSULIN DETEMIR 300 UNIT/3 ML INSULN.PEN 50 UNIT SUBQ (08:39)
== END 2024-05-21 09:40 | disposition home or self-care (01) ==
LOC: SURGOUT 16:41 → MS 16:42
PROVIDERS: PCP Family Medicine; Visit Provider Urology
PROC: (CPT 910; principal; 2024-05-20 14:15)
DX: N40.1 Benign prostatic hyperplasia with lower urinary tract symptoms (principal); K21.9 Gastro-esophageal reflux disease without esophagitis; N52.9 Male erectile dysfunction, unspecified; E78.5 Hyperlipidemia, unspecified; E11.9 Type 2 diabetes mellitus without complications; Z79.4 Long term (current) use of insulin; Z90.49 Acquired absence of other specified parts of digestive tract; Z79.82 Long term (current) use of aspirin; N32.9 Bladder disorder, unspecified
CPT/HCPCS: 52204; 52601; 36415; 82948; 88305; 88341; 88342; 96365; J0131; J0690; J1100; J2250; J2704; J3010